=== PATIENT | female | born 1955 | race Two or more races ===

== ENCOUNTER → 2024-09-18 | Outpatient (CLI) | payer OTHER ==
--- NOTE | 2024-09-18 10:56 | CTL ---
EXAMINATION TYPE: CT Low Dose Lung DATE OF EXAM ORDERED: 09/18/2024 HISTORY: Nicotine dependence, quit smoking 10 years ago, 60 pack-year history. Lung cancer screening CT DLP: 81.[address] CTDI: 2.4 mGy Automated exposure control for dose reduction was used. SCREENING VISIT: First screening visit COMPARISON: None TECHNIQUE: Low dose computed tomography scan was performed through the chest at 1 mm thick sections a nd reconstructed images in multiple planes at 1 mm and [address] DIAGNOSTIC QUALITY: Limited, but interpretable FINDINGS: Nodules: No clinically significant pulmonary nodules. LUNGS: COPD: Severity: Mild Fibrosis: Severity: None Lymph nodes: None Other findings: Biapical pleural-parenchymal scarring. RIGHT PLEURAL SPACE: Effusion: None Calcification: None Thickening: None Pneumothorax: None LEFT PLEURAL SPACE: Effusion: None Calcification: None Thickening: None Pneumothorax: None HEART: Heart Size: Moderately Enlarged Coronary Calcification: Moderate Pericardial Effusion: None OTHER FINDINGS: Upper abdomen: None Bony thorax: Postsurgical changes from anterior cervical fusion and posterior thoracolumbar fusion. I ncreased thoracic kyphosis. 1.8 cm calcification anterior to the right coracoid process. Supraclavicular region: None Other: None IMPRESSION: 1. No clinically significant pulmonary nodules. 2. Mild COPD changes. 3. Cardiomegaly. CT LUNG RAD AND CT CHEST RECOMMENDATION: Lung-Rad 1 Negative: Continue annual screening with LDCT in 12 months. S Modifier (other clinically significant findings): None [facility], , 09/18/2024 10:54 AM
--- NOTE | 2024-09-18 13:08 | BD ---
EXAMINATION TYPE: Axial Bone Density DATE OF EXAM: 09/18/2024 CLINICAL HISTORY: 68 years old Female. ICD-10 CODE: Z299 ENCOUNTER FOR PROPHYLACTIC MEASURES UNSPECI FIED Height: 69 Weight: 224 FRAX RISK QUESTIONS: Alcohol (3 or more units per day): no Family History (Parent hip fracture): no Glucocorticoids (More than 3mos): no (Ex: prednisone, prednisolone, methylprednisolone, dexamethasone, and hydrocortisone). History of Fracture in Adulthood: no Secondary Osteoporosis: 1. Type 1 Diabetes: no 2. Hyperthyroidism: no 3. Menopause before 45: no 4. Malnutrition: no 5. Chronic liver disease: no Rheumatoid Arthritis: no Current Tobacco Use: no RISK FACTORS HISTORY OF: Surgery to Spine/Hip(right/left)/Wrist (right/left): lumbar spine surgery EXAM MEASUREMENTS: Bone mineral densitometry was performed using the [employer] System. Bone mineral density about the R hip (g/cm2): 0.692 Bone mineral density about the L hip (g/cm2): 0.753 T Score values are as follows: -----R Neck: -1.9 -----L Neck: -2.2 -----R Total: -2.5 -----L Total: -2.0 Z Score values are as follows: -----R Neck: -0.9 -----L Neck: -1.3 -----R Total: -1.8 -----L Total: -1.4 Bone mineral density : baseline Bone mineral density about the L Wrist (g/cm2): 0.373 T Score values are as follows: -----Dist. R+U: -5.3 -----Prox. R+U: -4.3 -----Radius total: -5.0 Z Score values are as follows: -----Dist. R+U: -3.4 -----Prox. R+U: -2.4 -----Radius total: -3.1 Bone mineral density : baseline FRAX%s: The graph provided illustrates a 12.7 % chance for a major osteoporotic fx and a 2.8% chance for the hips probability for fx in 10 years time. IMPRESSION: Osteoporosis (T Score less than -2.5). There is increased fracture risk and therapy is usually indicated based on age. Re-Screen 1-2 years. NOTE: T-SCORE=SD OF THE YOUNG ADULT MEAN. [facility], , 09/18/2024 1:05 PM
== END | disposition home or self-care (01) ==
LOC: RADCTMAIN 10:16
PROVIDERS: ATTEND Internal Medicine Hospice and Palliative Medicine
DX: Z12.2 Encounter for screening for malignant neoplasm of respiratory organs (principal); J44.9 Chronic obstructive pulmonary disease, unspecified; Z87.891 Personal history of nicotine dependence; I51.7 Cardiomegaly; M81.8 Other osteoporosis without current pathological fracture
CPT/HCPCS: 71271; 77080

== ENCOUNTER 2024-11-12 11:10 | Emergency (ER) | payer OTHER ==
--- NOTE | 2024-11-12 11:32 | ED ---
Fall HPI - General Chief Complaint: Fall Stated Complaint: Fall Time Seen by Provider: 11/12/24 11:12 Source: patient, EMS, RN notes reviewed Mode of arrival: EMS Limitations: no limitations - History of Present Illness Initial Comments: This is a 68-year-old female who presents to the emergency department for a fall. Patient states that she tripped over her oxygen tubing and fell, hitting the front of her head. Also states that she has pain to both of her hands, both of her knees, and left shoulder. Denies any loss of consciousness. Not taking any blood thinners. MD Complaint: fall - Related Data Allergies Allergy/AdvReac Type Severity Reaction Status Date / Time Iodinated Contrast Media AdvReac Rash/Hives Verified 11/12/24 11:17 Review of Systems ROS Statement: Those systems with pertinent positive or pertinent negative responses have been documented in the HPI. ROS Other: All systems not noted in ROS Statement are negative. Past Medical History Past Medical History: COPD, CVA/TIA History of Any Multi-Drug Resistant Organisms: None Reported Past Surgical History: Back Surgery, Joint Replacement Past Psychological History: No Psychological Hx Reported Smoking Status: Never smoker Past Alcohol Use History: None Reported Past Drug Use History: None Reported General Exam Limitations: no limitations General appearance: alert, in no apparent distress Head exam: Present: atraumatic, normocephalic, normal inspection Eye exam: Present: normal appearance, PERRL, EOMI. Absent: scleral icterus, conjunctival injection, periorbital swelling Respiratory exam: Present: normal lung sounds bilaterally. Absent: respiratory distress, wheezes, rales, rhonchi, stridor Cardiovascular Exam: Present: regular rate, normal rhythm, normal heart sounds. Absent: systolic murmur, diastolic murmur, rubs, gallop, clicks Extremities exam: Present: other (Mild ecchymosis to the palmar aspect of the right hand. Full range of motion. 2+ radial pulses. Tenderness to the bilateral patella. No ecchymosis.) Neurological exam: Present: alert, oriented X3, CN II-XII intact Psychiatric exam: Present: normal affect, normal mood Course Vital Signs 11/12/24 11/12/24 11/12/24 11:17 13:05 14:31 Temperature 98.9 F 98.1 F Pulse Rate 92 100 102 H Respiratory 18 16 18 Rate Blood Pressure 98/54 106/64 112/64 O2 Sat by Pulse 94 L 92 L 94 L Oximetry Medical Decision Making - Medical Decision Making This is a 68-year-old female who presents to the emergency department for a fall. Was pt. sent in by a medical professional or institution? @ -No Did you speak to anyone other than the patient for history? @ -No Did you review nursing and triage notes? @ -Yes, and I agree, it is accurate with regards to the patient's symptoms. Were old charts reviewed? @ -No Differential Diagnosis? @ -Differential Diagnosis Head Injury: Contusion, hematoma, intracranial hemorrhage, skull fracture, whiplash, concussion, this is not meant to be an all-inclusive list. EKG interpreted by me (3pts min.)? @ -EKG interpreted by me demonstrating the following: Sinus rhythm. Ventricular rate 94 bpm, OH interval 199 ms, QRS duration 89 ms, QTc 410 ms. X-rays interpreted by me (1pt min.)? @ -X-ray of the bilateral knees, bilateral hands, and left shoulder obtained. My interpretation of all images identifies no acute fractures. CT interpreted by me (1pt min.)? @ -Computed tomography scan of the brain and c-spine obtained. My interpretation identifies no evidence of an acute intracranial hemorrhage, skull fracture, or cervical spine fracture. U/S interpreted by me (1pt. min.)? @ -Not obtained What testing was considered but not performed? (CT, X-rays, U/S, labs)? Why? @ -None What meds were considered but not given? Why? @ -None Did you discuss the management of the patient with other professionals? @ -No Did you reconcile home meds? @ -No Was smoking cessation discussed for >3mins.? @ -No Was critical care preformed (if so, how long)? @ -No Were there social determinants of health that impacted care today? How? (Homelessness, low income, unemployed, alcoholism, drug addiction, transportation, low edu. Level, literacy, decrease access to med. care, custodial, rehab)? @ -No Was there de-escalation of care discussed even if they declined? (Discuss DNR or withdrawal of care, Hospice)? @ -No What co-morbidities impacted this encounter? (DM, HTN, Smoking, COPD, CAD, Cancer, CVA, Hep., AIDS, mental health diagnosis, sleep apnea, morbid obesity)? @ -COPD Was patient admitted / discharged? @ -Discharged. CT scan of the brain and C-spine obtained revealing no acute process. X-rays of the bilateral knees, bilateral hands, and left shoulder obtained revealing no acute injuries. Symptoms managed in the emergency department. Patient discharged home in stable condition. Case discussed with ED attending Dr. Cavanaugh. Return precautions reviewed in depth, the patient is instructed to return to the emergency department with any new, worsening, or concerning symptoms. Patient verbalized understanding. Undiagnosed new problem with uncertain prognosis? @ -None Drug Therapy requiring intensive monitoring for toxicity (Heparin, Nitro, Insulin, Cardizem)? @ -None Were any procedures done? @ -None Diagnosis/symptom? @ -Fall, head injury Acute, or Chronic, or Acute on Chronic? @ -Acute Uncomplicated (without systemic symptoms) or Complicated (systemic symptoms)? @ -Uncomplicated Side effects of treatment? @ -None Exacerbation, Progression, or Severe Exacerbation] @ -Not applicable Poses a threat to life or bodily function? @ -No - Radiology Data Radiology results: report reviewed, image reviewed Disposition Clinical Impression: Fall, Head injury Disposition: HOME SELF-CARE Instructions (If sedation given, give patient instructions): Fall Prevention for Older Adults (ED) Additional Instructions: Return to the emergency department with any new, worsening, or concerning symptoms. Follow up with your primary care provider in 1-2 days. Is patient prescribed a controlled substance at d/c from ED?: No Referrals: Tony Gomez MD [Primary Care Provider] - 1-2 days Time of Disposition: 13:13
--- NOTE | 2024-11-12 12:30 | CT ---
EXAMINATION TYPE: CT brain cspine wo con CT DLP: 1517.7 mGycm, Automated exposure control for dose reduction was used. DATE OF EXAM: 11/12/2024 12:22 PM COMPARISON: None.. CLINICAL INDICATION:Female, 68 years old with history of Fall; Neck pain post fall TECHNIQUE: Brain: Multiple axial CT images of the brain were obtained without IV contrast. Cspine: Axial CT images from the skull base to the inferior aspect of T2 we obtained without intraven ous contrast. Coronal and sagittal reformatted images were also reviewed. FINDINGS: Motion degraded examination. Brain: Extra-axial spaces: No abnormal extra-axial fluid collections. Ventricular system: Within normal limits Cerebral parenchyma: Cerebral atrophy. No acute intraparenchymal hemorrhage or mass effect. The hanks -white junction is well differentiated. Scattered hypoattenuating areas are seen within the periventr icular white matter. Cerebellum: Unremarkable. Mass effect: No evidence of midline shift. Intracranial vasculature: unremarkable Soft tissues: Normal. Calvarium/osseous structures: No depressed skull fracture. Paranasal sinuses and mastoid air cells: Clear. Visualized orbits: Bilateral aphakia Cervical spine: Fracture: None. Osseous structures: Multilevel degenerative disc disease changes with endplate spurring and disc oste ophyte complex's. Changes from ACDF C5-C7. Hardware appears intact. Vertebral alignment: Within normal limits. Spinal canal/Neural Foramina: No evidence of significant spinal canal narrowing. Facet joint uncovert ebral joint arthropathy scattered throughout the cervical spine with varying degrees of neural forami nal stenosis. Neck soft tissues: Prevertebral soft tissues are within normal limits. Other: The airway is patent. Biapical pleural-parenchymal scarring. Retropharyngeal course of the kalin ateral internal and common carotid arteries. Calcification of bilateral carotid bifurcations. Hyperde nse material within the right shoulder bursa. Left shoulder arthropathy. IMPRESSION: Motion degraded examination. 1. No acute intracranial process. 2. Nonspecific white matter changes, likely secondary to chronic small vessel ischemic disease. 3. No evidence of cervical spine fracture. 4. Postsurgical changes from ACDF C5-C7. Hardware appears intact. Multilevel facet joint arthropathy . [facility], , 11/12/2024 12:28 PM
[2024-11-12] MEDS: MORPHINE SULFATE 4 MG/ML SYRINGE IVP STA (13:00)
--- NOTE | 2024-11-12 13:03 | XR ---
EXAMINATION TYPE: XR shoulder complete LT DATE OF EXAM: 11/12/2024 12:58 PM INDICATION: Patient age:Female; 68 years old; Reason for study: Fall; COMPARISON: None TECHNIQUE: The left shoulder was examined in AP, internally rotated and scapular Y projections. . FINDINGS: Diffuse bone demineralization. No evidence of acute osseous pathology, joint dislocation, or soft tis abbie swelling. AC joint arthropathy. High riding left humeral head. Partial visualization of thoracic fusion hardware. Pulmonary vascular congestion. IMPRESSION: 1. No acute osseous pathology. 2. Findings suggestive of chronic left rotator cuff tear. 3. Pulmonary vascular congestion. [facility], , 11/12/2024 1:01 PM
--- NOTE | 2024-11-12 13:05 | XR ---
EXAMINATION TYPE: XR knee complete bilateral DATE OF EXAM: 11/12/2024 12:58 PM INDICATION: Patient age:Female; 68 years old; Reason for study: Fall; [facility]. COMPARISON: None. TECHNIQUE: Both knees were examined in Frontal, lateral and oblique projections. FINDINGS: No evidence of any acute osseous pathology, soft tissue swelling, or joint effusion is no keiko. 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 Hardware appears intact with approp riate alignment. Vascular sclerosis. IMPRESSION: 1. No acute osseous pathology. 2. Postsurgical changes from total bilateral knee arthroplasty. Hardware appears intact with appropri ate alignment. [facility], , 11/12/2024 1:02 PM
--- NOTE | 2024-11-12 13:07 | XR ---
EXAMINATION TYPE: XR hand complete bilateral DATE OF EXAM: 11/12/2024 12:58 PM INDICATION: Patient age:Female; 68 years old; Reason for study: Fall; [facility]. Pain COMPARISON: None TECHNIQUE: Frontal, lateral and oblique views of both hands were obtained. FINDINGS: Diffuse bone demineralization. No acute fracture or dislocation. Osteoarthritic changes of both hands involving the DIP, PIP, first CMC joints. No osseous erosions. No soft tissue swelling. IMPRESSION: 1. No acute osseous pathology. 2. Osteoarthritic changes of both hands. [facility], , 11/12/2024 1:05 PM
[2024-11-12] MEDS: HYDROmorphone 1 MG/ML 1 ML SYRINGE IVP STA (13:33)
[2024-11-12 14:33] VITALS: BP 112/64; PULSE 102; RESP 18; TEMP 98.1
== END 2024-11-12 14:33 | disposition home or self-care (01) ==
LOC: EC 11:10
DX: S60.221A Contusion of right hand, initial encounter (principal); S09.90XA Unspecified injury of head, initial encounter; Z86.73 Personal history of transient ischemic attack (TIA), and cerebral infarction without residual deficits; Z91.041 Radiographic dye allergy status; W01.0XXA Fall on same level from slipping, tripping and stumbling without subsequent striking against object, initial encounter
CPT/HCPCS: 73562; 73130; 73030; 72125; 70450; 99285; 96374; 96375; J2270; J1171

== ENCOUNTER 2024-11-13 14:10 | Inpatient (IN) | payer OTHER ==
--- NOTE | 2024-11-13 14:26 | ED ---
Altered Mental Status HPI - General Chief Complaint: Altered Mental Status Stated Complaint: Poss UTI Time Seen by Provider: 11/13/24 14:12 Source: EMS, RN notes reviewed, old records reviewed Mode of arrival: EMS Limitations: altered mental status - History of Present Illness Initial Comments: This is a 68-year-old female fall altered mental status. Patient is complaining of leg pain back pain and is arousable to external stimulus, patient is compla ining of mainly leg pain both of her lower extremities are hurting, she has recent hospital admission and is significantly somnolent unable to provide accurate history. Patient did have a fever today MD Complaint: altered mental status, confusion, decreased responsiveness, weakness -: unknown Severity: moderate Consistency of Symptoms: waxing and waning Context: history of similar presentation, recent fever Associated Symptoms: denies other symptoms Treatments Prior to Arrival: oxygen - Related Data Home Medications Medication Instructions Recorded Confirmed Albuterol Sulfate [Albuterol 2 puff INHALATION RT-Q6H PRN 11/13/24 11/17/24 Sulfate Hfa] Alendronate Sodium [Fosamax] 70 mg PO SOLORZANO 11/13/24 11/17/24 Ammonium Lactate Lotion 1 applic TOPICAL BID 11/13/24 11/17/24 [Lac-Hydrin 12% Lotion] Ascorbic Acid [Vitamin C] 250 mg PO SUWEFR 11/13/24 11/17/24 Aspirin EC [Ecotrin Low Dose] 81 mg PO DAILY 11/13/24 11/17/24 Budesonide-Formot 160-4.5 Mcg 2 puff INHALATION RT-BID 11/13/24 11/17/24 [Symbicort 160-4.5 Mcg Inhaler] Calcium Carbonate [Tums] 500 mg PO BID PRN 11/13/24 11/17/24 Calcium/D3/Mag Ox/M[employer]/Silvano/Zn 1 tab PO BID 11/13/24 11/17/24 [Caltrate 871-B7-Gsuzkuox Tab] Carboxymethylcellulose Sodium 1 drop BOTH EYES BID PRN 11/13/24 11/17/24 [Refresh Tears] Carboxymethylcellulose Sodium 1 drop BOTH EYES DAILY 11/13/24 11/17/24 [Refresh Tears] Cranberry Fruit Extract [Cranberry] 200 mg PO HS 11/13/24 11/17/24 Erythromycin Ophth Oint [Romycin 1 applic BOTH EYES HS 11/13/24 11/17/24 Ophth Oint] Ferrous Gluconate 324 mg PO SUWEFR 11/13/24 11/17/24 Folic Acid 2 mg PO DAILY 11/13/24 11/17/24 Furosemide [Lasix] 20 mg PO DAILY 11/13/24 11/17/24 Isosorbide Mononitrate ER [Imdur] 30 mg PO DAILY 11/13/24 11/17/24 Menthol [Biofreeze] 1 applic TOPICAL TID PRN 11/13/24 11/17/24 Menthol-Zinc Oxide Oint 1 applic TOPICAL QID PRN 11/13/24 11/17/24 [Calmoseptine Ointment] Metoprolol Tartrate [Lopressor] 12.5 mg PO BID 11/13/24 11/17/24 Morphine Sulfate Ir [MSIR] 15 mg PO Q8H 11/13/24 11/17/24 Naloxone HCl [Narcan] 4 mg NASAL DIRECTED PRN 11/13/24 11/17/24 Nystatin 100,000Unit/gm Cream 1 applic TOPICAL DIRECTED 11/13/24 11/17/24 [Mycostatin Cream] Omeprazole [PriLOSEC] 20 mg PO DAILY 11/13/24 11/17/24 Potassium Chloride [Klor-Con M20] 20 meq PO DAILY 11/13/24 11/17/24 Pravastatin Sodium [Pravachol] 40 mg PO DAILY 11/13/24 11/17/24 Pregabalin [Lyrica] 200 mg PO BID 11/13/24 11/17/24 Sennosides/Docusate Sodium 1 tab PO HS 11/13/24 11/17/24 [Senna-S 8.6-50 mg Tablet] Urea 40% Cream 1 gram TOPICAL HS 11/13/24 11/17/24 metHOTREXate sodium [Methotrexate] 20 mg PO SOLORZANO 11/13/24 11/17/24 Previous Rx's Medication Instructions Recorded cefuroxime axetiL [Ceftin] 500 mg PO BID #14 tab 11/16/24 Allergies Allergy/AdvReac Type Severity Reaction Status Date / Time Iodinated Contrast Media Allergy Rash/Hives Verified 11/17/24 14:53 NSAIDS (Non-Steroidal Allergy Unknown Verified 11/17/24 14:53 Anti-Inflamma fentanyl AdvReac Hallucinati Verified 11/17/24 14:53 ons Review of Systems ROS Statement: Those systems with pertinent positive or pertinent negative responses have been documented in the HPI. ROS Other: All systems not noted in ROS Statement are negative. Past Medical History Past Medical History: Heart Failure, COPD, CVA/TIA, Hypertension History of Any Multi-Drug Resistant Organisms: None Reported Past Surgical History: Back Surgery, Joint Replacement Past Psychological History: No Psychological Hx Reported Smoking Status: Never smoker Past Alcohol Use History: None Reported Past Drug Use History: None Reported - Past Family History Father Family Medical History: Myocardial Infarction (MT) Mother Family Medical History: Cancer General Exam Limitations: altered mental status General appearance: alert, in no apparent distress Head exam: Present: atraumatic, normocephalic, normal inspection Eye exam: Present: normal appearance, PERRL, EOMI. Absent: scleral icterus, conjunctival injection, periorbital swelling ENT exam: Present: normal exam, mucous membranes moist Neck exam: Present: normal inspection. Absent: tenderness, meningismus, lymphadenopathy Respiratory exam: Present: normal lung sounds bilaterally. Absent: respiratory distress, wheezes, rales, rhonchi, stridor Cardiovascular Exam: Present: regular rate, normal rhythm, normal heart sounds. Absent: systolic murmur, diastolic murmur, rubs, gallop, clicks GI/Abdominal exam: Present: soft, normal bowel sounds. Absent: distended, tenderness, guarding, rebound, rigid Extremities exam: Present: normal inspection, full ROM, normal capillary refill. Absent: tenderness, pedal edema, joint swelling, calf tenderness Back exam: Present: normal inspection Neurological exam: Present: alert, oriented X3, CN II-XII intact Psychiatric exam: Present: normal affect, normal mood Skin exam: Present: warm, dry, intact, normal color. Absent: rash Course Vital Signs 11/13/24 11/13/24 11/13/24 14:14 16:00 16:25 Temperature 98.2 F Pulse Rate 94 94 Respiratory 18 18 Rate Blood Pressure 116/67 O2 Sat by Pulse 95 Oximetry 11/13/24 11/13/24 16:34 21:35 Temperature 98.2 F Pulse Rate 96 100 Respiratory 18 Rate Blood Pressure 155/85 O2 Sat by Pulse 96 Oximetry - Reevaluation(s) Reevaluation #1: 11/13/24 14:51 Medical record is reviewed Reevaluation #2: 11/13/24 17:11 Patient symptoms unchanged Reevaluation #3: 11/13/24 17:11 Informed of results and questions answered Reevaluation #4: Was pt. sent in by a medical professional or institution (NAYELY Carvajal, PHARMACY TECH, urgent care, hospital, or residential...) When possible be specific @ -no Did you speak to anyone other than the patient for history (EMS, parent, family, police, friend...)? What history was obtained from this source @ -no Did you review nursing and triage notes (agree or disagree)? Why? @ -agree Are old charts reviewed (outside hosp., previous admission, EMS record, old EKG, old radiological studies, urgent care reports/EKG's, residential records)? Report findings @ -yes Differential Diagnosis (chest pain, altered mental status, abdominal pain women, abdominal pain men, vaginal bleeding, weakness, fever, dyspnea, syncope, headache, dizziness, GI bleed, back pain, seizure, CVA, palpatations, mental health, musculoskeletal)? @ -prior EKG interpreted by me (3pts min.). @ -yes X-rays interpreted by me (1pt min.). @ -yes negative for acute disease CT interpreted by me (1pt min.). @ -Yes negative for acute disease U/S interpreted by me (1pt. min.). @ - yes negative for acute disease What testing was considered but not performed or refused? (CT, X-rays, U/S, labs)? Why? @ -none What meds were considered but not given or refused? Why? @ -none Did you discuss the management of the patient with other professionals (professionals i.e. NAYELY Carvajal, PHARMACY TECH, lab, RT, psych nurse, social worker delinquency prevention, community organization aide, teacher, district resource officer, director of casework department)? Give summary @ -no Was smoking cessation discussed for >3mins.? @ -no Was critical care preformed (if so, how long)? @ -no Were there social determinants of health that impacted care today? How? (Homelessness, low income, unemployed, alcoholism, drug addiction, transportation, low edu. Level, literacy, decrease access to med. care, [place] [facility], rehab)? @ -none Was there de-escalation of care discussed even if they declined (Discuss DNR or withdrawal of care, Hospice)? DNR status @ -no What co-morbidities impacted this encounter? (DM, HTN, Smoking, COPD, CAD, Cancer, CVA, ARF, Chemo, Hep., AIDS, mental health diagnosis, sleep apnea, morbid obesity)? @ -none Was patient admitted / discharged? Hospital course, mention meds given and route, prescriptions, significant lab abnormalities, going to OR and other pertinent info. @ - 68 female to the ER will be admitted for mental status, weakness not feeling well, patient is found to have improvement here in the ER but will be admitted for fever cellulitis and altered mental status Undiagnosed new problem with uncertain prognosis? @ -no Drug Therapy requiring intensive monitoring for toxicity (Heparin, Nitro, Insulin, Cardizem)? @ -no Were any procedures done? @ -no Diagnosis/symptom? @ -Fever AMS, cellulitis Acute, or Chronic, or Acute on Chronic? @ -Acute Uncomplicated (without systemic symptoms) or Complicated (systemic symptoms)? @ -Complicated Side effects of treatment? @ -no Exacerbation, Progression, or Severe Exacerbation? @ -exacerbation Poses a threat to life or bodily function? How? (Chest pain, USA, MT, pneumonia, PE, COPD, DKA, ARF, appy, cholecystitis, CVA, Diverticulitis, Homicidal, Suicidal, threat to staff... and all critical care pts) @ -yes extremes of age Reevaluation #5: Differential Altered Mental Status: Hypoglycemia, DKA, hypercapnia, ETOH, overdose, CO poisoning, trauma, myxedema coma, HTN encephalopathy, infection, encephalitis, psychosis, intercranial hemorrhage, hepatic encephalopathy, meningitis, CVA, this is not meant to be an all-inclusive list Differential Fever: Pneumonia, viral URI, endocarditis, myocarditis, pericarditis, otitis, sinusitis, peritonsillar Abscess, retropharyngeal Abscess, epiglottitis, peritonitis, appendicitis, Belinda cystitis, diverticulitis, hepatitis, colitis, UTI, PID, TOA, pyelonephritis, prostatitis, epididymitis, meningitis, encephalitis, pulmonary embolism, CVA, thyroid storm, pancreatitis, adrenal crisis, cavernous sinus thrombosis, this is not meant to be an all-inclusive list. - Consultations Consultation #1: Spoke with jodi who agrees to admit this patient Medical Decision Making - Medical Decision Making 68 female to the ER will be admitted for mental status, weakness not feeling well, patient is found to have improvement here in the ER but will be admitted for fever cellulitis and altered mental status - Lab Data Result diagrams: 11/14/24 03:52 11/15/24 02:23 Lab Results 11/13/24 11/13/24 11/13/24 Range/Units 14:26 14:26 14:26 WBC 7.1 (3.8-10.6) k/uL RBC 4.70 (3.80-5.40) m/uL Hgb 14.0 (11.4-16.0) gm/dL Hct 44.1 (34.0-46.0) % MCV 93.9 (80.0-100.0) fL MCH 29.8 (25.0-35.0) pg MCHC 31.7 (31.0-37.0) g/dL RDW 16.5 H (11.5-15.5) % Plt Count 147 L (150-450) k/uL MPV 8.5 Neutrophils % 70 % Lymphocytes % 18 % Monocytes % 8 % Eosinophils % 2 % Basophils % 0 % Neutrophils # 5.0 (1.3-7.7) k/uL Lymphocytes # 1.3 (1.0-4.8) k/uL Monocytes # 0.6 (0-1.0) k/uL Eosinophils # 0.1 (0-0.7) k/uL Basophils # 0.0 (0-0.2) k/uL Anisocytosis Slight PT 11.4 (10.0-12.5) sec INR 1.0 (<1.2) APTT 28.0 (22.0-30.0) sec Sodium 136 L (137-145) mmol/L Potassium 4.1 (3.5-5.1) mmol/L Chloride 96 L (98-107) mmol/L Carbon Dioxide 37 H (22-30) mmol/L Anion Gap 3 mmol/L BUN 15 (7-17) mg/dL Creatinine 0.67 (0.52-1.04) mg/dL Est GFR (CKD-EPI)AfAm >90 (>60 ml/min/1.73 sqM) Est GFR (CKD-EPI)NonAf 90 (>60 ml/min/1.73 sqM) Glucose 99 (74-99) mg/dL Calcium 8.5 (8.4-10.2) mg/dL Total Bilirubin 1.6 H (0.2-1.3) mg/dL AST 23 (14-36) U/L ALT 12 (4-34) U/L Alkaline Phosphatase 75 (38-126) U/L Ammonia (<30) umol/L Troponin I (0.000-0.034) ng/mL Total Protein 6.6 (6.3-8.2) g/dL Albumin 3.8 (3.5-5.0) g/dL Serum Alcohol <10 mg/dL 11/13/24 11/13/24 Range/Units 14:26 14:26 WBC (3.8-10.6) k/uL RBC (3.80-5.40) m/uL Hgb (11.4-16.0) gm/dL Hct (34.0-46.0) % MCV (80.0-100.0) fL MCH (25.0-35.0) pg MCHC (31.0-37.0) g/dL RDW (11.5-15.5) % Plt Count (150-450) k/uL MPV Neutrophils % % Lymphocytes % % Monocytes % % Eosinophils % % Basophils % % Neutrophils # (1.3-7.7) k/uL Lymphocytes # (1.0-4.8) k/uL Monocytes # (0-1.0) k/uL Eosinophils # (0-0.7) k/uL Basophils # (0-0.2) k/uL Anisocytosis PT (10.0-12.5) sec INR (<1.2) APTT (22.0-30.0) sec Sodium (137-145) mmol/L Potassium (3.5-5.1) mmol/L Chloride (98-107) mmol/L Carbon Dioxide (22-30) mmol/L Anion Gap mmol/L BUN (7-17) mg/dL Creatinine (0.52-1.04) mg/dL Est GFR (CKD-EPI)AfAm (>60 ml/min/1.73 sqM) Est GFR (CKD-EPI)NonAf (>60 ml/min/1.73 sqM) Glucose (74-99) mg/dL Calcium (8.4-10.2) mg/dL Total Bilirubin (0.2-1.3) mg/dL AST (14-36) U/L ALT (4-34) U/L Alkaline Phosphatase (38-126) U/L Ammonia <9 (<30) umol/L Troponin I <0.012 (0.000-0.034) ng/mL Total Protein (6.3-8.2) g/dL Albumin (3.5-5.0) g/dL Serum Alcohol mg/dL - EKG Data -: EKG Interpreted by Me (EKG is sinus 94 MO 201 QRS 72 QTc 401) - Radiology Data Radiology results: report reviewed (CT Brain chest x-ray negative for acute disease, ultrasound lower extremity negative for DVT), image reviewed Disposition Clinical Impression: Altered mental status, Fever, Left leg cellulitis Disposition: ADMITTED IP TO THIS HOSP Condition: Stable Is patient prescribed a controlled substance at d/c from ED?: No Time of Disposition: 17:00
[2024-11-13] MEDS ORDERED: VANCOMYCIN IV PER PHARMACY 1 EACH MISC MISCELLANE PRN ×2 (14:42→17:14)
--- NOTE | 2024-11-13 15:09 | XR ---
EXAMINATION TYPE: XR chest 1V portable DATE OF EXAM: 11/13/2024 3:04 PM COMPARISON: CT low-dose lung 09/18/2024 TECHNIQUE: XR chest 1V portable Portable AP radiograph of the chest. CLINICAL INDICATION:Female, 68 years old with history of altered mental status; FINDINGS: Lungs/Pleura: Prominent interstitial lung markings are seen scattered throughout the lungs. No eviden ce of focal consolidation, pneumothorax or pleural effusion. Pulmonary vascularity: Unremarkable. Heart/mediastinum: Cardiomediastinal silhouette is enlarged. Atherosclerotic calcifications are seen in the aorta. Musculoskeletal: No acute osseous pathology. Postsurgical of the visualized cervical thoracolumbar sp ine with fusion hardware. Calcification anterior to the right coracoid process. IMPRESSION: 1. Chronic changes without acute pulmonary process. 2. Cardiomegaly. [facility], , 11/13/2024 3:07 PM
--- NOTE | 2024-11-13 15:35 | CT ---
EXAMINATION TYPE: CT brain wo con DATE OF EXAM: 11/13/2024 3:31 PM COMPARISON: 11/12/2024. CLINICAL INDICATION: Female, 68 years old with history of Altered mental status, AMS TECHNIQUE: Brain: Axial CT images of the brain were obtained with coronal and sagittal reformats created and rev iewed. Contrast used: None. Oral contrast used: None. CT DLP: 1197.4 mGycm, Automated exposure control for dose reduction was used. FINDINGS: Brain: Extra-axial spaces: No abnormal extra-axial fluid collections. Ventricular system: Within normal limits Cerebral parenchyma: No acute intraparenchymal hemorrhage or mass effect. The hanks-white junction is well differentiated. Cerebellum: Unremarkable. Mass effect: No evidence of midline shift. Intracranial vasculature: Atherosclerotic calcifications of the intracranial vessels. Soft tissues: Normal. Calvarium/osseous structures: No depressed skull fracture. Paranasal sinuses and mastoid air cells: Mild scattered paranasal sinus disease. Visualized orbits: Orbital contents are intact. IMPRESSION: No acute intracranial process. [facility], Workstation: [facility], 11/13/2024 3:33 PM
[2024-11-13] MEDS: cefTRIAXone IN SWFI 1,000 MG/10 ML SYRINGE IVP SCH ×2 (15:59→18:56)
[2024-11-13] MEDS: SODIUM CHLORIDE 0.9% 1,000 ML IV STA (15:59)
[2024-11-13] MEDS: NALOXONE 0.4 MG/ML 1 ML VIAL IVP STA (16:00)
[2024-11-13] MEDS: VANCOMYCIN 1,500 MG in SODIUM CHLORIDE 0.9% 500 ML 500 ML IVPB STA (16:01)
[2024-11-13 16:13] LABS: Anisocytosis Slight; Basophils % (A) 0 %; Eosinophils # (A) 0.1 k/uL (0-0.7); Eosinophils % (A) 2 %; HCT 44.1 % (34.0-46.0); Lymphocytes # (A) 1.3 k/uL (1.0-4.8); Lymphocytes % (A) 18 %; MCH 29.8 pg (25.0-35.0); MCHC 31.7 g/dL (31.0-37.0); MCV 93.9 fL (80.0-100.0); Mean Platelet Volume 8.5; Monocytes # (A) 0.6 k/uL (0-1.0); Monocytes % (A) 8 %; Neutrophils % (A) 70 %; Platelet Count 147 k/uL (150-450); RDW 16.5 % (11.5-15.5); WBC 7.1 k/uL (3.8-10.6)
[2024-11-13] MEDS: IPRATROPIUM-ALBUTEROL 3 ML NEB INHALATION STA (16:23)
--- NOTE | 2024-11-13 16:25 | US ---
EXAMINATION TYPE: US venous doppler duplex LE DATE OF EXAM: 11/13/2024 3:55 PM COMPARISON: NONE CLINICAL INDICATION: Female, 68 years old patient is very challenging to image, bilat leg pain, multiple falls and bruising, soiled her pants, no h/o dvt TECHNIQUE: The lower extremity deep venous system is examined utilizing real time linear array sonog ivy with graded compression, color doppler sonography, and spectral doppler. SIDE PERFORMED: Bilateral FINDINGS: VESSELS IMAGED: Common Femoral Vein Deep Femoral Vein Greater Saphenous Vein * Femoral Vein Popliteal Vein Small Saphenous Vein * Proximal Calf Veins (* superficial vessels) Patient was not compliant and complained with any pressure given, unable to do any compression images . Color images of right femoral vein up through CFV were patent. Patient would not tolerate any imagi ng behind right knee after multiple attempts. Color images of left popiteal vein up through left CFV were patent. IMPRESSION: No ultrasound evidence for deep venous thrombosis. [facility], Workstation: [email or web address], 11/13/2024 4:23 PM
[2024-11-13 16:29] LABS: ALT 12 U/L (4-34); AST 23 U/L (14-36); African American GFR (CKD) >90 (>60 ml/min/1.73 sqM); Albumin 3.8 g/dL (3.5-5.0); Alcohol <10 mg/dL; Alkaline Phosphatase 75 U/L (38-126); Anion Gap 3 mmol/L; Blood Urea Nitrogen 15 mg/dL (7-17); Calcium 8.5 mg/dL (8.4-10.2); Carbon Dioxide 37 mmol/L (22-30); Chloride 96 mmol/L (98-107); Glucose 99 mg/dL (74-99); Non-African American GFR(CKD) 90 (>60 ml/min/1.73 sqM); Potassium 4.1 mmol/L (3.5-5.1); Prothrombin Time 11.4 sec (10.0-12.5); Sodium 136 mmol/L (137-145); Total Bilirubin 1.6 mg/dL (0.2-1.3); Total Protein 6.6 g/dL (6.3-8.2)
[2024-11-13] MEDS ORDERED: ONDANSETRON 4 MG/2 ML VIAL IVP PRN (17:09)
[2024-11-13] MEDS ORDERED: NALOXONE 0.4 MG/ML 1 ML VIAL IV PRN ×2 (17:09→17:10)
[2024-11-13] MEDS ORDERED: LORazepam 2 MG/ML INJ IV PRN (17:11)
[2024-11-13] MEDS ORDERED: ACETAMINOPHEN TAB 325 MG TAB PO PRN (17:11)
--- NOTE | 2024-11-13 17:28 | P.HPIM ---
History of Present Illness H&P Date: 11/13/24 Patient is a 68-year-old female with past medical history of chronic hypoxic respiratory failure secondary to COPD on home oxygen, history of CVA/TIA, history of hypertension, who was seen in the ER on 11/12 for a fall after she tripped over her oxygen tubing and fell, hit the front of her head. Patient had CT scan of the brain and C-spine done that did not reveal any acute process, x-r ays of the bilateral knees, hands, left shoulder showed no acute injury as well, patient was discharged home. She was brought to the ER on 11/13 with EMS, she was not able to provide accurate history, complaining of left leg pain, back pain, was arousable to external stimuli, fever. Patient's vitals were remarkable for tachycardia to 102, normal BP 112/64, afebrile, satting at 94% on 4 L, CBC showed no leukocytosis or anemia, platelet count mildly decreased 147, coagulation panel negative, chemistry profile with mild hyponatremia 136, normal creatinine and BUN, elevated total bilirubin 1.6, normal liver enzymes and alkaline phosphatase, normal ammonia, negative serum alcohol level. Urinalysis and urine drug screen sent, pending. Patient received a dose of vancomycin and is being admitted for treatment of AMS and cellulitis. Brain CT showed no acute abnormalities, bilateral venous duplex with no signs of DVT. EKG nonischemic. No acute pulmonary process on chest x-ray Patient [id number] at bedside assisting with history, patient's son called as well to obtain further history, appears that patient has been acting erratically, hyperverbal over the past several days, with worsening after the fall. They state that she behaves this way every time she gets UTI and she has history of resistant UTI, previously receiving care at [facility] but now moved closer to her family, thus, our records here are limited. They are not sure what type of bacteria she was growing in the past. CODE STATUS confirmed with the family, patient is full code. Pertinent positives and negatives as discussed in HPI, a complete review of systems was performed and all other systems are negative. Patient seen and examined at bedside in. [] Vital signs reviewed General: Ill-appearing in distress Derm: Lateral lower extremity edema and erythema, left more than right Head: atraumatic, normocephalic, symmetric Eyes: EOMI,, anicteric sclera, pupils equal round reactive to light ENT: Nose and ears atraumatic Neck: No thyromegaly, supple Mouth: no lip lesion, mucus membranes moist Cardiovascular: S1S2 reg, no murmur, no edema Lungs: clear to auscultation bilateral, no rhonchi, no rales, no wheeze, no accessory muscle use Abdominal: soft, generalized tenderness, no guarding, no appreciable org anomegaly Ext: Unable to assess, patient is definitely very strong, moves all extremities, combative Neuro: Unable to assess Psych: Combative Assessment/Plan: Altered mental status Acute toxic metabolic encephalopathy Possible UTI with history of recurrent UTIs associated with altered mentation, urinalysis pending Bilateral lower extremity swelling and edema acute on chronic, left more than right, possible nonpurulent cellulitis SIRS positive: Tachycardia, source of infection -Patient has visible rigors, reported fever at home -No leukocytosis -No new medications reported by family -Added lactic acid level, blood cultures, requested straight cath for urinalysis, although patient already received vancomycin -Given history of reported resistant UTI, will continue with vancomycin for now, ordered MRSA swab, pending, started ceftriaxone, -Follow-up blood and urine cultures -IV fluids LR 75 cc/h for 24 hours Elevated bilirubin generalized abdominal pain -Repeat CMP in the morning -Abdominal ultrasound ordered due to generalized abdominal tenderness on exam and elevated bilirubin Mechanical fall 12/16 Generalized body pain -[place] as needed [Chronic:] chronic hypoxic respiratory failure secondary to COPD on home oxygen, history of CVA/TIA, history of hypertension -Unable to reconcile home medications, patient is very altered The patient is admitted with an anticipated [greater] than 2 midnight stay as [inpatient/observation] status for evaluation of AMS. CODE STATUS: Full DVT prophylaxis: Lovenox Anticipated discharge date: 2-[address] A total of 40 minutes was spent on the care of this complex patient more than 50% of the time was spent in counseling and care coordination. Past Medical History Past Medical History: Heart Failure, COPD, CVA/TIA, Hypertension History of Any Multi-Drug Resistant Organisms: None Reported Past Surgical History: Back Surgery, Joint Replacement Past Psychological History: No Psychological Hx Reported Smoking Status: Never smoker Past Alcohol Use History: None Reported Past Drug Use History: None Reported Medications and Allergies Home Medications Medication Instructions Recorded Confirmed Type Albuterol Sulfate [Albuterol 2 puff PO RT-Q6H PRN 11/13/24 11/13/24 History Sulfate Hfa] Alendronate Sodium [Fosamax] 70 mg PO SOLORZANO 11/13/24 11/13/24 History Ammonium Lactate Lotion 1 applic TOPICAL BID 11/13/24 11/13/24 History [Lac-Hydrin 12% Lotion] Ascorbic Acid [Vitamin C] 250 mg PO SUWEFR 11/13/24 11/13/24 History Aspirin EC [Ecotrin Low Dose] 81 mg PO DAILY 11/13/24 11/13/24 History Budesonide-Formot 160-4.5 Mcg 2 puff INHALATION RT-BID 11/13/24 11/13/24 History [Symbicort 160-4.5 Mcg Inhaler] Calcium Carbonate [Tums] 500 mg PO BID PRN 11/13/24 11/13/24 History Calcium/D3/Mag Ox/Production Sound Mixer/Silvano/Zn 1 tab PO BID 11/13/24 11/13/24 History [Caltrate [id number] Tab] Carboxymethylcellulose Sodium 1 drop BOTH EYES BID PRN 11/13/24 11/13/24 History [Refresh Tears] Carboxymethylcellulose Sodium 1 drop BOTH EYES DAILY 11/13/24 11/13/24 History [Refresh Tears] Cranberry Fruit Extract [Cranberry] 200 mg PO HS 11/13/24 11/13/24 History Erythromycin Ophth Oint [Romycin 1 applic BOTH EYES HS 11/13/24 11/13/24 History Ophth Oint] Ferrous Gluconate 324 mg PO SUWEFR 11/13/24 11/13/24 History Folic Acid 2 mg PO DAILY 11/13/24 11/13/24 History Furosemide [Lasix] 20 mg PO DAILY 11/13/24 11/13/24 History Isosorbide Mononitrate ER [Imdur] 30 mg PO DAILY 11/13/24 11/13/24 History Menthol [Biofreeze] 1 applic TOPICAL TID PRN 11/13/24 11/13/24 History Menthol-Zinc Oxide Oint 1 applic TOPICAL QID PRN 11/13/24 11/13/24 History [Calmoseptine Ointment] Metoprolol Tartrate [Lopressor] 12.5 mg PO BID 11/13/24 11/13/24 History Morphine Sulfate Ir [MSIR] 15 mg PO Q8H 11/13/24 11/13/24 History Naloxone HCl [Narcan] 4 mg NASAL DIRECTED PRN 11/13/24 11/13/24 History Nystatin 100,000Unit/gm Cream 1 applic TOPICAL DIRECTED 11/13/24 11/13/24 History [Mycostatin Cream] Omeprazole [PriLOSEC] 20 mg PO DAILY 11/13/24 11/13/24 History Potassium Chloride [Klor-Con M20] 20 meq PO DAILY 11/13/24 11/13/24 History Pravastatin Sodium [Pravachol] 40 mg PO DAILY 11/13/24 11/13/24 History Pregabalin [Lyrica] 200 mg PO BID 11/13/24 11/13/24 History Sennosides/Docusate Sodium 1 tab PO HS 11/13/24 11/13/24 History [Senna-S 8.6-50 mg Tablet] Urea 40% Cream 1 gram TOPICAL HS 11/13/24 11/13/24 History metHOTREXate sodium [Methotrexate] 20 mg PO SOLORZANO 11/13/24 11/13/24 History Allergies Allergy/AdvReac Type Severity Reaction Status Date / Time Iodinated Contrast Media Allergy Rash/Hives Verified 11/13/24 16:38 NSAIDS (Non-Steroidal Allergy Unknown Verified 11/13/24 16:38 Anti-Inflamma fentanyl AdvReac Hallucinati Verified 11/13/24 16:38 ons Physical Exam Vitals: Vital Signs Temp Pulse Resp BP Pulse Ox 11/13/24 16:34 96 11/13/24 16:25 94 11/13/24 16:00 18 11/13/24 14:14 98.2 F 94 18 116/67 95 Intake and Output 11/13/24 11/13/24 11/13/24 06:59 14:59 22:59 Other: Weight 99.79 kg Results CBC & Chem 7: 11/13/24 14:26 11/13/24 14:26 Labs: Abnormal Lab Results - Last 24 Hours (Table) 11/13/24 11/13/24 Range/Units 14:26 14:26 RDW 16.5 H (11.5-15.5) % Plt Count 147 L (150-450) k/uL Sodium 136 L (137-145) mmol/L Chloride 96 L (98-107) mmol/L Carbon Dioxide 37 H (22-30) mmol/L Total Bilirubin 1.6 H (0.2-1.3) mg/dL
[2024-11-13 18:57] LABS: Amphetamine Screen,Urine Not Detected (NotDetected); Barbiturate Screen,Urine Not Detected (NotDetected); Benzodiazepines Screen,Urine Not Detected (NotDetected); Cocaine Screen,Urine Not Detected (NotDetected); Methadone Screen, Urine Not Detected (NotDetected); Opiate Screen,Urine Detected (NotDetected); Oxycodone Screen, Urine Not Detected (NotDetected); Phencyclidine Screen,Urine Not Detected (NotDetected); Tricyclic Antidepressant,Urine Not Detected (NotDetected); Urn Cannabinoid Scrn Not Detected (NotDetected)
[2024-11-13 19:02] LABS: Appearance,Urine Clear (Clear); Bacteria,Urine Occasional /hpf; Bilirubin,Urine Negative (Negative); Blood,Urine Trace (Negative); Color,Urine Yellow; Glucose,Urine (UA) Negative (Negative); Hyaline Casts,Urine 1 /lpf (0-2); Ketones,Urine Trace (Negative); Leukocyte Esterase,Urine Negative (Negative); Mucus,Urine Rare /hpf; Nitrite,Urine Positive (Negative); PH, Urine 5.5 (5.0-8.0); Protein,Urine Negative (Negative); RBC,Urine 3 /hpf (0-5); Specific Gravity,Urine 1.017 (1.001-1.035); Squamous Epithelial Cell,Urine 1 /hpf (0-4); Urobilinogen,Urine <2.0 mg/dL (<2.0); WBC,Urine 5 /hpf (0-5)
--- NOTE | 2024-11-13 19:25 | US ---
EXAMINATION TYPE: US abdomen complete DATE OF EXAM: 11/13/2024 COMPARISON: NONE CLINICAL INDICATION: Female, 68 years old with history of Abdominal pain, elevated LFTs; Limited due to patient uncooperative and in restraints. Unable to complete the left side of the abdomen due to pa tient ending exam early. Limited mobility, unwilling to hold breath for imaging. TECHNIQUE: Grayscale and color Doppler imaging of the abdomen was performed. FINDINGS: EXAM MEASUREMENTS: Liver Length: 16.0 cm Gallbladder Wall: Surgically absent CBD: Obscured by gas Spleen: Patient ended exam early unable to image Right Kidney: 8.5 x 5.1 x 6.1 cm. Left Kidney: Patient ended exam early unable to image SURFACER NOTES: Limited mobility, unwilling to hold breath for imaging. Patient uncooperative and in restraints. Overlying bowel gas Pancreas: Echogenic appearance, unable to visualize body/tail Liver: Intercostal views used. Visualized portions appear wnl Gallbladder: Surgically absent Evidence for sonographic Chapman's sign: no CBD: Obscured by overlying bowel gas Spleen: Not imaged Right Kidney: There is a 2.0 x 1.5 x 1.0cm anechoic area near the renal pelvis, which could reflect a renal sinus cyst. Left Kidney: Not imaged Upper IVC: wnl Abd Aorta: Mid AO is ectatic ( 2.6cm ). Prox obscured by bowel gas. IMPRESSION: 1. Severely limited study due to technical factors described above. Consider further evaluation with dedicated CT abdomen/pelvis utilizing IV contrast if clinically warranted. 2. Unremarkable sonographic appearance of the liver as visualized. [facility], Workstation: [id number], 11/13/2024 7:23 PM
[2024-11-13] MEDS: SODIUM CHLORIDE 0.9% 1,000 ML IV SCH (22:14)
[2024-11-14] MEDS: HYDROmorphone 1 MG/ML 1 ML SYRINGE IVP PRN (00:01)
[2024-11-14] MEDS ORDERED: ZINC OXIDE PASTE (Z-GUARD) 1 APPLIC TOPICAL PRN (00:20)
[2024-11-14] MEDS: LACTATED RINGERS 1,000 ML IV SCH (03:57)
[2024-11-14] MEDS: VANCOMYCIN 1,500 MG in SODIUM CHLORIDE 0.9% 500 ML 500 ML IVPB SCH (04:26)
[2024-11-14 08:55] LABS: Basophils # (A) 0.03 X 10*3/uL (0.00-0.10); Basophils % (A) 0.5 %; Eosinophils # (A) 0.24 X 10*3/uL (0.04-0.35); Eosinophils % (A) 3.8 %; HCT 40.6 % (37.2-46.3); HGB 12.7 g/dL (12.0-15.0); Lymphocytes # (A) 0.94 X 10*3/uL (0.90-5.00); Lymphocytes % (A) 15.1 %; MCH 29.2 pg (27.0-32.0); MCHC 31.3 g/dL (32.0-37.0); MCV 93.3 FL (80.0-97.0); Mean Platelet Volume 11.6 FL (9.5-12.2); Monocytes # (A) 0.75 X 10*3/uL (0.20-1.00); NRBC Per 100 WBC 0 X 10*3/uL (0.00-0.01); Neutrophils # (A) 4.26 X 10*3/uL (1.80-7.70); Neutrophils % (A) 68.3 %; Platelet Count 144 X 10*3/uL (140-440); RBC 4.35 X 10*6/uL (4.10-5.20); RDW 16.5 % (11.5-14.5); WBC 6.24 X 10*3/uL (4.50-10.00)
[2024-11-14] MEDS: ENOXAPARIN 40 MG/0.4 ML SYRINGE SQ SCH (09:11)
[2024-11-14 09:15] LABS: ALT 8 U/L (8-44); AST 17 U/L (13-35); Albumin 3.2 g/dL (3.8-4.9); Albumin/Globulin Ratio 1.39 Ratio (1.60-3.17); Alkaline Phosphatase 63 U/L (41-126); Blood Urea Nitrogen 9.4 mg/dL (9.0-27.0); Calcium 7.9 mg/dL (8.7-10.3); Carbon Dioxide 30.1 mmol/L (21.6-31.8); Chloride 101 mmol/L (96-109); Globulin 2.3 g/dL (1.6-3.3); Glucose 99 mg/dL (70-110); Magnesium 1.7 mg/dL (1.5-2.4); Phosphorus 3.1 mg/dL (2.4-5.1); Potassium 3.9 mmol/L (3.5-5.5); Sodium 140 mmol/L (135-145); Total Bilirubin 0.9 mg/dL (0.3-1.2); Total Protein 5.5 g/dL (6.2-8.2)
[2024-11-14] MEDS: HYDROcodone/APAP 5-325MG 1 EACH TAB PO PRN (11:16)
--- NOTE | 2024-11-14 16:46 | P.PN ---
Subjective Progress Note Date: 11/14/24 Patient was seen and examined. She reports a headache and chronic lower back pain. Requesting pain medications. She is on 6L NC, 4L NC at baseline. CBC and CMP significant for MCHC 31.3, RDW 16.5, Cr 0.5, Ca 7.9, alb 3.2. General: non toxic, no distress, appears at stated age Derm: warm, dry Head: atraumatic, normocephalic, symmetric Eyes: EOMI, no lid lag, anicteric sclera Mouth: no lip lesion, mucus membranes moist Cardiovascular: S1S2 reg, no murmur Lungs: CTA bilateral, no rhonchi, no rales , no accessory muscle use Ext: no gross muscle atrophy, no edema, no contractures Neuro: no focal neuro deficits Psych: Alert, oriented, appropriate affect Based on my assessment of this patient, this patient meets a high complexity level of care. Acute metabolic encephalopathy due to UTI and Cellulitis: CT brain negative. Discussed with RN regarding collecting UCx. Continue Rocephin 1g IV QD. Dis continue Vancomycin. Follow UCx and BCx. Chronic hypoxic respiratory failure secondary to COPD on home oxygen: Symbicort 2 INH BID. History of CVA/TIA: Pravastatin 40 mg PO QD. Hypertension: Imdur 30 mg PO QD. Metoprolol 12.5 mg PO BID. CODE STATUS: FULL CODE DVT Prophylaxis: Lovenox SQ GI Prophylaxis: Prilosec 20 mg PO QD. Designated medical POA if patient is not able to make medical decisions for themselves: I have reviewed the following technology consultant notes: I have reviewed the results of the following tests: CBC, CMP. I have ordered the following tests: UCx. I have discussed the care of this patient with the following independent historian: RN. I have independently interpreted the following test below: I have discussed the management of this patient with the following physician: Objective - Vital Signs Vital signs: Vital Signs Temp 98.1 F 11/14/24 14:31 Pulse 114 H 11/14/24 14:31 Resp 19 11/14/24 14:31 BP 167/89 11/14/24 14:31 Pulse Ox 92 L 11/14/24 14:31 FiO2 Intake & Output 11/13/24 11/14/24 11/14/24 18:59 06:59 18:59 Weight 99.79 kg 99.79 kg Other: # Voids 1 1 - Labs CBC & Chem 7: 11/14/24 03:52 11/14/24 03:52 Labs: Abnormal Lab Results - Last 24 Hours (Table) 11/13/24 11/13/24 11/14/24 Range/Units 14:26 18:45 03:52 MCHC 31.3 L (32.0-37.0) g/dL RDW 16.5 H (11.5-14.5) % Sodium 136 L (137-145) mmol/L Chloride 96 L (98-107) mmol/L Carbon Dioxide 37 H (22-30) mmol/L Creatinine (0.6-1.5) mg/dL Calcium (8.7-10.3) mg/dL Total Bilirubin 1.6 H (0.2-1.3) mg/dL Total Protein (6.2-8.2) g/dL Albumin (3.8-4.9) g/dL Albumin/Globulin Ratio (1.60-3.17) Ratio Urine Ketones Trace H (Negative) Urine Blood Trace H (Negative) Urine Nitrite Positive H (Negative) Urine Bacteria Occasional H (None) /hpf Urine Mucus Rare H (None) /hpf Urine Opiates Screen Detected H (NotDetected) 11/14/24 Range/Units 03:52 MCHC (32.0-37.0) g/dL RDW (11.5-14.5) % Sodium (137-145) mmol/L Chloride (98-107) mmol/L Carbon Dioxide (22-30) mmol/L Creatinine 0.5 L (0.6-1.5) mg/dL Calcium 7.9 L (8.7-10.3) mg/dL Total Bilirubin (0.2-1.3) mg/dL Total Protein 5.5 L (6.2-8.2) g/dL Albumin 3.2 L (3.8-4.9) g/dL Albumin/Globulin Ratio 1.39 L (1.60-3.17) Ratio Urine Ketones (Negative) Urine Blood (Negative) Urine Nitrite (Negative) Urine Bacteria (None) /hpf Urine Mucus (None) /hpf Urine Opiates Screen (NotDetected)
[2024-11-14] MEDS: PREGABALIN 100 MG CAP PO SCH (19:55)
[2024-11-14] MEDS: METOPROLOL TARTRATE 12.5 MG TAB PO SCH (19:55)
[2024-11-14] MEDS: SYMBICORT 160-4.5 MCG INHALER INHALATION SCH (20:42)
[2024-11-15 03:30] LABS: African American GFR (CKD) >90 (>60 ml/min/1.73 sqM); Non-African American GFR(CKD) >90 (>60 ml/min/1.73 sqM)
[2024-11-15] MEDS: ASPIRIN 81 MG PO SCH (09:41)
[2024-11-15] MEDS: ISOSORBIDE MONONITRATE ER 30 MG TAB.ER.24H PO SCH (09:41)
[2024-11-15] MEDS: PANTOPRAZOLE 40 MG TABLET PO SCH (09:41)
[2024-11-15] MEDS: PRAVASTATIN SODIUM 40 MG TAB PO SCH (09:41)
[2024-11-15] MEDS: MORPHINE SULFATE IR 15 MG TABLET PO SCH (11:46)
--- NOTE | 2024-11-15 12:37 | P.PN ---
Subjective Progress Note Date: 11/15/24 68 year old F with PMH chronic hypoxic respiratory failure secondary to COPD on 4L home oxygen, history of CVA/TIA, history of hypertension presents to the ED for altered mentation, fever and intractable pain. She was recently seen in the ED on 11/12 after a mechanical fall. She noted hitting her head. Workup was essentially negative and she was discharged home. Daughter in law reported patient has been acting erratically, hyperverbal over the past several days, which worsened after the fall. Daughter in law also reports these symptoms are typical of her every time she gets a UTI. In the ED she underwent extensive evaluation. BP 116/67, HR 94, RR 18, T 98.2F, 95% on 4L NC. CBC, Coag panel, CMP significant for Plt 147, Na 136, Cl 96, bicarb 37, T. bili 1.6. Trop < 0.012. Ammonia < 9. UA positive nitrite. UDS + opiates. EtOH negative. CXR with chronic changes. EKG NSR with Q waves in V1 V2. CT brain negative for acute process. Patient is admitted for further workup and management. Started on Rocephin + Vancomycin for treatment of UTI and possible LE cellulitis. I discontinued her Vancomycin. 11/15 Patient was seen and examined. She reports intractable pain in her lower back, shoulders and arms ever since falling. She reports taking MS Contin at home. Maintained on Rocephin 1g IV QD (D2). BCx prelim negative. UCx is pending. Renal function shows Cr 0.46. General: non toxic, no distress, appears at stated age Derm: warm, dry Head: atraumatic, normocephalic, symmetric Eyes: EOMI, no lid lag, anicteric sclera Mouth: no lip lesion, mucus membranes moist Cardiovascular: S1S2 reg, no murmur Lungs: Decreased BS bilateral, no rhonchi, no rales , no accessory muscle use Ext: no gross muscle atrophy, no edema, no contractures, bilateral LE erythema extending to the mid-shins Neuro: no focal neuro deficits Psych: Alert, oriented, appropriate affect Based on my assessment of this patient, this patient meets a high complexity level of care. Acute metabolic encephalopathy due to UTI and Cellulitis: CT brain negative. Continue Rocephin 1g IV QD (D2). Vancomycin discontinued. Follow UCx and BCx. Chronic hypoxic respiratory failure secondary to COPD on 4L home O2: Symbicort 2 INH BID. History of CVA/TIA: Pravastatin 40 mg PO QD. Hypertension: Imdur 30 mg PO QD. Metoprolol 12.5 mg PO BID. CODE STATUS: FULL CODE DVT Prophylaxis: Lovenox SQ GI Prophylaxis: Prilosec 20 mg PO QD. Designated medical POA if patient is not able to make medical decisions for themselves: I have reviewed the following functional consultant notes: I have reviewed the results of the following tests: Renal function. BCx. I have ordered the following tests: I have discussed the care of this patient with the following independent historian: I have independently interpreted the following test below: I have discussed the management of this patient with the following physician: Objective - Vital Signs Vital signs: Vital Signs Temp 97.7 F 11/15/24 07:10 Pulse 120 H 11/15/24 11:02 Resp 22 11/15/24 11:02 BP 139/73 11/15/24 07:10 Pulse Ox 92 L 11/15/24 07:10 FiO2 Intake & Output 11/14/24 11/15/24 11/15/24 18:59 06:59 18:59 Intake Total 300 Output Total 175 Balance -175 300 Intake: Oral 300 Output: Urine 175 Other: Voiding Method External Catheter # Voids 1 - Labs CBC & Chem 7: 11/14/24 03:52 11/15/24 02:23 Labs: Abnormal Lab Results - Last 24 Hours (Table) 11/15/24 Range/Units 02:23 Creatinine 0.46 L (0.52-1.04) mg/dL Microbiology - Last 24 Hours (Table) 11/13/24 20:17 Blood Culture - Preliminary Blood
[2024-11-15 14:38] VITALS: BMI 34.4
[2024-11-15] MEDS ORDERED: VANCOMYCIN TROUGH DUE 1 EACH MISC MISCELLANE ONE (15:00)
[2024-11-16 04:09] VITALS: RESP 18
[2024-11-16] MEDS ORDERED: IPRATROPIUM-ALBUTEROL 3 ML NEB INHALATION PRN (08:39)
--- NOTE | 2024-11-16 09:44 | XR ---
EXAMINATION TYPE: XR chest 1V portable DATE OF EXAM: 11/16/2024 9:06 AM COMPARISON: 11/13/2024 CLINICAL INDICATION: Female, 68 years old with history of SOB, TECHNIQUE: Single frontal view of the chest is obtained. FINDINGS: Basilar infiltrates noted greater on the left. Correlate for pneumonia. Overall no change a ppreciated. Limited lung volumes. The cardiac silhouette size is within normal limits. The osseous structures are intact. IMPRESSION: Basilar infiltrates noted greater on the left. Correlate for pneumonia. Overall no ernandez e appreciated. Limited lung volumes. [facility], , 11/16/2024 9:41 AM
[2024-11-16] MEDS: IPRATROPIUM-ALBUTEROL 3 ML NEB INHALATION SCH (11:31)
[2024-11-16] MEDS ORDERED: ARTIFICIAL TEARS-HYPROMELLOSE DROPS 15 ML BTL BOTH EYES PRN (12:04)
[2024-11-16] MEDS: ARTIFICIAL TEARS-HYPROMELLOSE DROPS 15 ML BTL BOTH EYES SCH (12:34)
--- NOTE | 2024-11-16 13:32 | P.DS ---
Providers Date of admission: 11/13/24 17:03 Expected date of discharge: 11/16/24 Attending physician: Derrell Bloom MD Primary care physician: Aman Harris MD Hospital Course: 68 year old F with PMH chronic hypoxic respiratory failure secondary to COPD on 4L home oxygen, history of CVA/TIA, history of hypertension presents to the ED for altered mentation, fever and intractable pain. She was recently seen in the ED on 11/12 after a mechanical fall. She noted hitting her head. Workup was essentially negative and she was discharged home. Daughter in law reported patient has been acting erratically, hyperverbal over the past several days, which worsened after the fall. Daughter in law also reports these symptoms are typical of her every time she gets a UTI. In the ED she underwent extensive evaluation. BP 116/67, HR 94, RR 18, T 98.2F, 95% on 4L NC. CBC, Coag panel, CMP significant for Plt 147, Na 136, Cl 96, bicarb 37, T. bili 1.6. Trop < 0.012. Ammonia < 9. UA positive nitrite. UDS + opiates. EtOH negative. CXR with chronic changes. EKG NSR with Q waves in V1 V2. CT brain negative for acute process. Patient is admitted for further workup and management. Started on Rocephin + Vancomycin for treatment of UTI and possible LE cellulitis. I discontinued her Vancomycin on day 2. UCx and BCx came back negative. PT and OT evaluated recommended patient discharge back to the [facility] which was discussed with case management. 11/16 Patient was seen and examined. Sitting in the chair. Reports improved pain. Maintained on Rocephin 1g IV QD (D3). BCx prelim negative. UCx is negative. No new labs today. Plans for discharge to [facility] with home PT today. Continue Ceftin 500 mg PO BID x 7 days to complete a total of 10 days antibiotics for treatment of cellulitis. Follow up with PCP within 1-2 days of discharge. General: non toxic, no distress, appears at stated age Derm: warm, dry Head: atraumatic, normocephalic, symmetric Eyes: EOMI, no lid lag, anicteric sclera Mouth: no lip lesion, mucus membranes moist Cardiovascular: S1S2 reg, no murmur Lungs: Decreased BS bilateral, no rhonchi, no rales , no accessory muscle use Ext: no gross muscle atrophy, no edema, no contractures, bilateral LE erythema extending to the mid-shins Neuro: no focal neuro deficits Psych: Alert, oriented, appropriate affect Discharge Diagnosis: Acute metabolic encephalopathy due to Cellulitis Chronic hypoxic respiratory failure secondary to COPD on 4L home O2 History of CVA/TIA Hypertension This complex discharge took 35 minutes to complete. Patient Condition at Discharge: Stable Plan - Discharge Summary Discharge Rx Participant: No New Discharge Prescriptions: New cefuroxime axetiL [Ceftin] 500 mg PO BID #14 tab Continue Naloxone HCl [Narcan] 4 mg NASAL DIRECTED PRN PRN Reason: OVERDOSE Morphine Sulfate Ir [MSIR] 15 mg PO Q8H metHOTREXate sodium [Methotrexate] 20 mg PO SOLORZANO Isosorbide Mononitrate ER [Imdur] 30 mg PO DAILY Furosemide [Lasix] 20 mg PO DAILY Erythromycin Ophth Oint [Romycin Ophth Oint] 1 applic BOTH EYES HS Calcium/D3/Mag Ox/Party Coordinator/Silvano/Zn [Caltrate [id number] Tab] 1 tab PO BID Menthol-Zinc Oxide Oint [Calmoseptine Ointment] 1 applic TOPICAL QID PRN PRN Reason: IRRITATION Menthol [Biofreeze] 1 applic TOPICAL TID PRN PRN Reason: Pain Aspirin EC [Ecotrin Low Dose] 81 mg PO DAILY Ascorbic Acid [Vitamin C] 250 mg PO SUWEFR Urea 40% Cream 1 gram TOPICAL HS Calcium Carbonate [Tums] 500 mg PO BID PRN PRN Reason: acid reflux Budesonide-Formot 160-4.5 Mcg [Symbicort 160-4.5 Mcg Inhaler] 2 puff INHALATION RT-BID Sennosides/Docusate Sodium [Senna-S 8.6-50 mg Tablet] 1 tab PO HS Carboxymethylcellulose Sodium [Refresh Tears] 1 drop BOTH EYES BID PRN PRN Reason: dry eyes Carboxymethylcellulose Sodium [Refresh Tears] 1 drop BOTH EYES DAILY Pregabalin [Lyrica] 200 mg PO BID Pravastatin Sodium [Pravachol] 40 mg PO DAILY Potassium Chloride [Klor-Con M20] 20 meq PO DAILY Omeprazole [PriLOSEC] 20 mg PO DAILY Nystatin 100,000Unit/gm Cream [Mycostatin Cream] 1 applic TOPICAL DIRECTED Metoprolol Tartrate [Lopressor] 12.5 mg PO BID Folic Acid 2 mg PO DAILY Ferrous Gluconate 324 mg PO SUWEFR Alendronate Sodium [Fosamax] 70 mg PO SOLORZANO Cranberry Fruit Extract [Cranberry] 200 mg PO HS Ammonium Lactate Lotion [Lac-Hydrin 12% Lotion] 1 applic TOPICAL BID Albuterol Sulfate [Albuterol Sulfate Hfa] 2 puff PO RT-Q6H PRN PRN Reason: Shortness Of Breath OR COUGH Discharge Medication List Albuterol Sulfate [Albuterol Sulfate Hfa] 2 puff PO RT-Q6H PRN 11/13/24 [History] Alendronate Sodium [Fosamax] 70 mg PO SOLORZANO 11/13/24 [History] Ammonium Lactate Lotion [Lac-Hydrin 12% Lotion] 1 applic TOPICAL BID 11/13/24 [History] Ascorbic Acid [Vitamin C] 250 mg PO SUWEFR 11/13/24 [History] Aspirin EC [Ecotrin Low Dose] 81 mg PO DAILY 11/13/24 [History] Budesonide-Formot 160-4.5 Mcg [Symbicort 160-4.5 Mcg Inhaler] 2 puff INHALATION RT-BID 11/13/24 [History] Calcium Carbonate [Tums] 500 mg PO BID PRN 11/13/24 [History] Calcium/D3/Mag Ox/Party Coordinator/Silvano/Zn [Caltrate [id number] Tab] 1 tab PO BID 11/13/24 [History] Carboxymethylcellulose Sodium [Refresh Tears] 1 drop BOTH EYES BID PRN 11/13/24 [History] Carboxymethylcellulose Sodium [Refresh Tears] 1 drop BOTH EYES DAILY 11/13/24 [History] Cranberry Fruit Extract [Cranberry] 200 mg PO HS 11/13/24 [History] Erythromycin Ophth Oint [Romycin Ophth Oint] 1 applic BOTH EYES HS 11/13/24 [History] Ferrous Gluconate 324 mg PO SUWEFR 11/13/24 [History] Folic Acid 2 mg PO DAILY 11/13/24 [History] Furosemide [Lasix] 20 mg PO DAILY 11/13/24 [History] Isosorbide Mononitrate ER [Imdur] 30 mg PO DAILY 11/13/24 [History] Menthol [Biofreeze] 1 applic TOPICAL TID PRN 11/13/24 [History] Menthol-Zinc Oxide Oint [Calmoseptine Ointment] 1 applic TOPICAL QID PRN 11/13/24 [History] Metoprolol Tartrate [Lopressor] 12.5 mg PO BID 11/13/24 [History] Morphine Sulfate Ir [MSIR] 15 mg PO Q8H 11/13/24 [History] Naloxone HCl [Narcan] 4 mg NASAL DIRECTED PRN 11/13/24 [History] Nystatin 100,000Unit/gm Cream [Mycostatin Cream] 1 applic TOPICAL DIRECTED 11/13/24 [History] Omeprazole [PriLOSEC] 20 mg PO DAILY 11/13/24 [History] Potassium Chloride [Klor-Con M20] 20 meq PO DAILY 11/13/24 [History] Pravastatin Sodium [Pravachol] 40 mg PO DAILY 11/13/24 [History] Pregabalin [Lyrica] 200 mg PO BID 11/13/24 [History] Sennosides/Docusate Sodium [Senna-S 8.6-50 mg Tablet] 1 tab PO HS 11/13/24 [His tory] Urea 40% Cream 1 gram TOPICAL HS 11/13/24 [History] metHOTREXate sodium [Methotrexate] 20 mg PO SOLORZANO 11/13/24 [History] cefuroxime axetiL [Ceftin] 500 mg PO BID #14 tab 11/16/24 [Rx] Follow up Appointment(s)/Referral(s): Aman Harris MD [Primary Care Provider] - 1-2 days Activity/Diet/Wound Care/Special Instructions: [facility] will transport home at discharge: [phone] Discharge Disposition: HOME SELF-CARE
[2024-11-16 15:07] VITALS: BP 100/59; TEMP 97.3
[2024-11-16 15:29] VITALS: PULSE 86
[2024-11-16] MEDS ORDERED: ERYTHROMYCIN 5 MG/GM OPHTH OINT 3.5 GM TUBE BOTH EYES SCH (21:00)
[2024-11-17] MEDS ORDERED: FUROSEMIDE 20 MG TAB PO SCH (09:00)
== END 2024-11-16 15:56 | disposition home or self-care (01) | DRG 602 ==
LOC: SUPCPDRO 14:10 → EC 14:10 → 4SSUR 17:03
PROVIDERS: ADMIT Internal Medicine; ATTEND Internal Medicine
DX: L03.116 Cellulitis of left lower limb (principal); G92.8 Other toxic encephalopathy; N39.0 Urinary tract infection, site not specified; J96.11 Chronic respiratory failure with hypoxia; E87.1 Hypo-osmolality and hyponatremia; I50.9 Heart failure, unspecified; I11.0 Hypertensive heart disease with heart failure; J44.9 Chronic obstructive pulmonary disease, unspecified; R00.0 Tachycardia, unspecified; G89.29 Other chronic pain; M54.50 Low back pain, unspecified; W01.0XXA Fall on same level from slipping, tripping and stumbling without subsequent striking against object, initial encounter; Z88.6 Allergy status to analgesic agent; Z79.899 Other long term (current) drug therapy; Z79.82 Long term (current) use of aspirin; Z88.8 Allergy status to other drugs, medicaments and biological substances; Z87.440 Personal history of urinary (tract) infections; Z86.73 Personal history of transient ischemic attack (TIA), and cerebral infarction without residual deficits; Z99.81 Dependence on supplemental oxygen; Z79.51 Long term (current) use of inhaled steroids
CPT/HCPCS: 36415; 70450; 71045; 76700; 80053; 80306; 80320; 81001; 82140; 82565; 83605; 83735; 84100; 84484; 85025; 85610; 85730; 87040; 87086; 93005; 93970; 94640; 94760; 96365; 96366; 96375; 96376; 99285

== ENCOUNTER 2024-11-17 10:25 | Inpatient (IN) | payer OTHER ==
--- NOTE | 2024-11-17 11:16 | ED ---
General Adult HPI - General Chief complaint: Shortness of Breath Stated complaint: MADHAVI Time Seen by Provider: 11/17/24 11:11 Source: patient, EMS, RN notes reviewed Mode of arrival: EMS - History of Present Illness Initial comments: 68-year-old female with history of congestive heart failure, COPD, CVA, and hypertension presenting to the ER with chief complaint of cellulitis of the legs. Patient was discharged yesterday after admission for altered mental status. During her admission, patient was diagnosed with cellulitis of the legs and pneumonia. Patient was discharged with prescription for oral antibiotics. Patient uses [facility] for medications and it is uncertain at this time if patient received antibiotic dose. Patient lives independently and has been unable to care for herself since discharge yesterday. I spoke with patient's son on the phone at bedside who believes patient has not completely returned to baseline since admission. - Related Data Home Medications Medication Instructions Recorded Confirmed Albuterol Sulfate [Albuterol 2 puff PO RT-Q6H PRN 11/13/24 11/13/24 Sulfate Hfa] Alendronate Sodium [Fosamax] 70 mg PO SOLORZANO 11/13/24 11/13/24 Ammonium Lactate Lotion 1 applic TOPICAL BID 11/13/24 11/13/24 [Lac-Hydrin 12% Lotion] Ascorbic Acid [Vitamin C] 250 mg PO SUWEFR 11/13/24 11/13/24 Aspirin EC [Ecotrin Low Dose] 81 mg PO DAILY 11/13/24 11/13/24 Budesonide-Formot 160-4.5 Mcg 2 puff INHALATION RT-BID 11/13/24 11/13/24 [Symbicort 160-4.5 Mcg Inhaler] Calcium Carbonate [Tums] 500 mg PO BID PRN 11/13/24 11/13/24 Calcium/D3/Mag Ox/Hand Mica Plate Layer/Silvano/Zn 1 tab PO BID 11/13/24 11/13/24 [Caltrate [id number]-Dysvlfze Tab] Carboxymethylcellulose Sodium 1 drop BOTH EYES BID PRN 11/13/24 11/13/24 [Refresh Tears] Carboxymethylcellulose Sodium 1 drop BOTH EYES DAILY 11/13/24 11/13/24 [Refresh Tears] Cranberry Fruit Extract [Cranberry] 200 mg PO HS 11/13/24 11/13/24 Erythromycin Ophth Oint [Romycin 1 applic BOTH EYES HS 11/13/24 11/13/24 Ophth Oint] Ferrous Gluconate 324 mg PO SUWEFR 11/13/24 11/13/24 Folic Acid 2 mg PO DAILY 11/13/24 11/13/24 Furosemide [Lasix] 20 mg PO DAILY 11/13/24 11/13/24 Isosorbide Mononitrate ER [Imdur] 30 mg PO DAILY 11/13/24 11/13/24 Menthol [Biofreeze] 1 applic TOPICAL TID PRN 11/13/24 11/13/24 Menthol-Zinc Oxide Oint 1 applic TOPICAL QID PRN 11/13/24 11/13/24 [Calmoseptine Ointment] Metoprolol Tartrate [Lopressor] 12.5 mg PO BID 11/13/24 11/13/24 Morphine Sulfate Ir [MSIR] 15 mg PO Q8H 11/13/24 11/13/24 Naloxone HCl [Narcan] 4 mg NASAL DIRECTED PRN 11/13/24 11/13/24 Nystatin 100,000Unit/gm Cream 1 applic TOPICAL DIRECTED 11/13/24 11/13/24 [Mycostatin Cream] Omeprazole [PriLOSEC] 20 mg PO DAILY 11/13/24 11/13/24 Potassium Chloride [Klor-Con M20] 20 meq PO DAILY 11/13/24 11/13/24 Pravastatin Sodium [Pravachol] 40 mg PO DAILY 11/13/24 11/13/24 Pregabalin [Lyrica] 200 mg PO BID 11/13/24 11/13/24 Sennosides/Docusate Sodium 1 tab PO HS 11/13/24 11/13/24 [Senna-S 8.6-50 mg Tablet] Urea 40% Cream 1 gram TOPICAL HS 11/13/24 11/13/24 metHOTREXate sodium [Methotrexate] 20 mg PO SOLORZANO 11/13/24 11/13/24 Previous Rx's Medication Instructions Recorded cefuroxime axetiL [Ceftin] 500 mg PO BID #14 tab 11/16/24 Allergies Allergy/AdvReac Type Severity Reaction Status Date / Time Iodinated Contrast Media Allergy Rash/Hives Verified 11/17/24 14:53 NSAIDS (Non-Steroidal Allergy Unknown Verified 11/17/24 14:53 Anti-Inflamma fentanyl AdvReac Hallucinati Verified 11/17/24 14:53 ons Review of Systems ROS Statement: Those systems with pertinent positive or pertinent negative responses have been documented in the HPI. ROS Other: All systems not noted in ROS Statement are negative. Past Medical History Past Medical History: Heart Failure, COPD, CVA/TIA, Hypertension History of Any Multi-Drug Resistant Organisms: None Reported Past Surgical History: Back Surgery, Joint Replacement Past Anesthesia/Blood Transfusion Reactions: No Reported Reaction Past Psychological History: No Psychological Hx Reported Smoking Status: Never smoker Past Alcohol Use History: None Reported Past Drug Use History: None Reported - Past Family History Father Family Medical History: Myocardial Infarction (MO) Mother Family Medical History: Cancer General Exam General appearance: alert, in no apparent distress Head exam: Present: atraumatic, normocephalic, normal inspection Eye exam: Present: normal appearance, PERRL, EOMI. Absent: scleral icterus, conjunctival injection, periorbital swelling ENT exam: Present: normal exam, mucous membranes moist Respiratory exam: Present: normal lung sounds bilaterally. Absent: respiratory distress, wheezes, rales, rhonchi, stridor Cardiovascular Exam: Present: regular rate, normal rhythm, normal heart sounds. Absent: systolic murmur, diastolic murmur, rubs, gallop, clicks GI/Abdominal exam: Present: soft, normal bowel sounds. Absent: distended, tenderness, guarding, rebound, rigid Extremities exam: Present: full ROM, normal capillary refill. Absent: normal inspection (Bilateral lower legs erythema, edema, and warmth below the knee. No purulence or drainage), tenderness, pedal edema, joint swelling, calf tenderness Neurological exam: Present: alert, oriented X3 Psychiatric exam: Present: normal affect, normal mood Skin exam: Present: warm, dry, intact, normal color Course Vital Signs 11/17/24 11/17/24 11/17/24 10:28 12:32 14:00 Temperature 98.0 F Pulse Rate 104 H 105 H 103 H Respiratory 20 18 20 Rate Blood Pressure 118/74 114/58 121/66 O2 Sat by Pulse 92 L 92 L 93 L Oximetry EKG Findings - EKG Results: EKG: interpreted by ERMD (EKG reveals sinus tachycardia with no ST changes. Ventricular rate 102 bpm, CA interval 170, QRS duration 85, QT/QTc 351/4 9) Medical Decision Making - Medical Decision Making Was pt. sent in by a medical professional or institution (NAY[facility] Carvajal, [employer], urgent care, hospital, or senior care...) When possible be specific @ -No Did you speak to anyone other than the patient for history (EMS, parent, family, police, friend...)? What history was obtained from this source @ -I spoke with patient's son who states he believes patient is unable to care for herself Did you review nursing and triage notes (agree or disagree)? Why? @ -I reviewed and agree with nursing and triage notes Were old charts reviewed (outside hosp., previous admission, EMS record, old EKG, old radiological studies, urgent care reports/EKG's, senior care records)? Report findings @ -Previous ER chart and admission reviewed Differential Diagnosis (chest pain, altered mental status, abdominal pain women, abdominal pain men, vaginal bleeding, weakness, fever, dyspnea, syncope, headache, dizziness, GI bleed, back pain, seizure, CVA, palpatations, mental health, musculoskeletal)? @ -Differential Musculoskeletal Muscular strain, contusion, ligament sprain, fracture, arthritis, septic arthritis, bursitis, cellulitis, muscle spasm, nerve compression, DVT, arterial occlusion, herpes zoster, electrolyte abnormality, tumor.... This is not meant to be in all inclusive list EKG interpreted by me (3pts min.). @ -As above X-rays interpreted by me (1pt min.). @ -None done CT interpreted by me (1pt min.). @ -None done U/S interpreted by me (1pt. min.). @ -None done What testing was considered but not performed or refused? (CT, X-rays, U/S, labs)? Why? @ -None What meds were considered but not given or refused? Why? @ -None Did you discuss the management of the patient with other professionals (professionals i.e. NAYELY Carvajal, [employer], lab, RT, psych nurse, addiction social worker, clinical documentation consultant, teacher, benefits officer, rn case manager)? Give summary @ -I spoke with [facility] who recommends admission. I also spoke with [facility] [place] medicine team who accepts admission for debility Was smoking cessation discussed for >3mins.? @ -No Was critical care preformed (if so, how long)? @ -No Were there social determinants of health that impacted care today? How? (Homelessness, low income, unemployed, alcoholism, drug addiction, transportation, low edu. Level, literacy, decrease access to med. care, correction, r ehab)? @ -No Was there de-escalation of care discussed even if they declined (Discuss DNR or withdrawal of care, Hospice)? DNR status @ -No What co-morbidities impacted this encounter? (DM, HTN, Smoking, COPD, CAD, Cancer, CVA, ARF, Chemo, Hep., AIDS, mental health diagnosis, sleep apnea, morbid obesity)? @ -None Was patient admitted / discharged? Hospital course, mention meds given and route, prescriptions, significant lab abnormalities, going to OR and other pertinent info. @ -Admitted. This is a 68-year-old female presenting for bilateral leg cellulitis. Patient's son is concerned that after discharge yesterday patient has not returned to baseline and is unable to care for herself. Patient is mildly tachycardic at 104 bpm, satting 92% on 4 L of oxygen which is patient's baseline, otherwise vitals within acceptable limits. There is bilateral circumferential erythema and warmth present on bilateral lower extremities consistent with cellulitis. Blood cultures were taken and patient was started on IV antibiotics. Lab work largely unremarkable. I spoke with [facility] who states he would like patient to be admitted. I also spoke with [facility] [place] medicine team who accepts admission for debility. Case was discussed with my ED attending Dr. Queen. Undiagnosed new problem with uncertain prognosis? @ -No Drug Therapy requiring intensive monitoring for toxicity (Heparin, Nitro, Insulin, Cardizem)? @ -No Were any procedures done? @ -No Diagnosis/symptom? @ -Debility Acute, or Chronic, or Acute on Chronic? @ -Acute Uncomplicated (without systemic symptoms) or Complicated (systemic symptoms)? @ -Complicated Side effects of treatment? @ -No Exacerbation, Progression, or Severe Exacerbation? @ -No Poses a threat to life or bodily function? How? (Chest pain, [place], [place], pneumonia, PE, COPD, DKA, ARF, appy, cholecystitis, CVA, Diverticulitis, Homicidal, Suicidal, threat to staff... and all critical care pts) @ -Yes - Lab Data Result diagrams: 11/17/24 11:34 11/17/24 11:34 Lab Results 11/17/24 11/17/24 11/17/24 Range/Units 11:34 11:34 11:34 WBC 10.4 (3.8-10.6) k/uL RBC 4.69 (3.80-5.40) m/uL Hgb 13.9 (11.4-16.0) gm/dL Hct 44.2 (34.0-46.0) % MCV 94.3 (80.0-100.0) fL MCH 29.7 (25.0-35.0) pg MCHC 31.5 (31.0-37.0) g/dL RDW 16.5 H (11.5-15.5) % Plt Count 136 L (150-450) k/uL MPV 8.6 Neutrophils % 78 % Lymphocytes % 9 % Monocytes % 9 % Eosinophils % 3 % Basophils % 0 % Neutrophils # 8.1 H (1.3-7.7) k/uL Lymphocytes # 0.9 L (1.0-4.8) k/uL Monocytes # 0.9 (0-1.0) k/uL Eosinophils # 0.3 (0-0.7) k/uL Basophils # 0.0 (0-0.2) k/uL Hypochromasia Slight Anisocytosis Slight Sodium 136 L (137-145) mmol/L Potassium 4.0 (3.5-5.1) mmol/L Chloride 97 L (98-107) mmol/L Carbon Dioxide 36 H (22-30) mmol/L Anion Gap 3 mmol/L BUN 12 (7-17) mg/dL Creatinine 0.61 (0.52-1.04) mg/dL Est GFR (CKD-EPI)AfAm >90 (>60 ml/min/1.73 sqM) Est GFR (CKD-EPI)NonAf >90 (>60 ml/min/1.73 sqM) Glucose 110 H (74-99) mg/dL Plasma Lactic Acid Roosevelt 1.4 (0.7-2.0) mmol/L Calcium 8.6 (8.4-10.2) mg/dL Total Bilirubin 0.9 (0.2-1.3) mg/dL AST 17 (14-36) U/L ALT 10 (4-34) U/L Alkaline Phosphatase 61 (38-126) U/L Total Protein 6.6 (6.3-8.2) g/dL Albumin 3.8 (3.5-5.0) g/dL Disposition Clinical Impression: Debility Disposition: ADMITTED IP TO THIS HOSP Referrals: Aman Harris MD [Primary Care Provider] - 1-2 days Time of Disposition: 14:19
[2024-11-17 11:44] LABS: Anisocytosis Slight; Basophils % (A) 0 %; Eosinophils # (A) 0.3 k/uL (0-0.7); Eosinophils % (A) 3 %; HCT 44.2 % (34.0-46.0); HGB 13.9 gm/dL (11.4-16.0); Hypochromasia Slight; Lymphocytes # (A) 0.9 k/uL (1.0-4.8); Lymphocytes % (A) 9 %; MCH 29.7 pg (25.0-35.0); MCHC 31.5 g/dL (31.0-37.0); MCV 94.3 fL (80.0-100.0); Mean Platelet Volume 8.6; Monocytes # (A) 0.9 k/uL (0-1.0); Monocytes % (A) 9 %; Neutrophils # (A) 8.1 k/uL (1.3-7.7); Neutrophils % (A) 78 %; Platelet Count 136 k/uL (150-450); RBC 4.69 m/uL (3.80-5.40); RDW 16.5 % (11.5-15.5); WBC 10.4 k/uL (3.8-10.6)
[2024-11-17 11:59] LABS: ALT 10 U/L (4-34); AST 17 U/L (14-36); African American GFR (CKD) >90 (>60 ml/min/1.73 sqM); Albumin 3.8 g/dL (3.5-5.0); Alkaline Phosphatase 61 U/L (38-126); Anion Gap 3 mmol/L; Blood Urea Nitrogen 12 mg/dL (7-17); Calcium 8.6 mg/dL (8.4-10.2); Carbon Dioxide 36 mmol/L (22-30); Chloride 97 mmol/L (98-107); Glucose 110 mg/dL (74-99); Non-African American GFR(CKD) >90 (>60 ml/min/1.73 sqM); Sodium 136 mmol/L (137-145); Total Bilirubin 0.9 mg/dL (0.2-1.3); Total Protein 6.6 g/dL (6.3-8.2)
[2024-11-17] MEDS ORDERED: HYDROmorphone 1 MG/ML 1 ML SYRINGE IVP PRN (14:15)
[2024-11-17] MEDS ORDERED: HYDROmorphone 0.5 MG/0.5 ML SYRINGE IVP PRN (14:15)
[2024-11-17] MEDS ORDERED: ACETAMINOPHEN TAB 325 MG TAB PO PRN (14:15)
[2024-11-17] MEDS ORDERED: NALOXONE 0.4 MG/ML 1 ML VIAL IV PRN (14:15)
[2024-11-17] MEDS ORDERED: CALCIUM CARBONATE 500 MG CHEWABLE PO PRN (14:28)
[2024-11-17] MEDS ORDERED: ARTIFICIAL TEARS-HYPROMELLOSE DROPS 15 ML BTL BOTH EYES PRN (14:28)
[2024-11-17] MEDS: MORPHINE SULFATE IR 15 MG TABLET PO SCH (14:51)
[2024-11-17] MEDS ORDERED: VANCOMYCIN IV PER PHARMACY 1 EACH MISC MISCELLANE PRN (15:05)
--- NOTE | 2024-11-17 15:15 | P.HPIM ---
History of Present Illness H&P Date: 11/17/24 68 year old F with PMH chronic hypoxic respiratory failure secondary to COPD on 4L home oxygen, history of CVA/TIA, RA, hypertension presents to the ED for worsening erythema of her bilateral lower extremities. Previous admitted from 11/13-11/16 for altered mentation, fever and intractable pain. She was started on Rocephin + Vancomycin for treatment of UTI and possible LE cellulitis. UCx came back negative and she was discharged home on 7 days of Ceftin. Patient reports not being able to obtain antibiotics after her discharge and worsening of her bilateral lower extremity erythema which prompted her to come back to the ED. The case was discussed with the PCP Dr. Harris who was able to contact the son, it may be that patient will need a high level of care on discharge. In the ED she underwent extensive evaluation. BP 118/74, HR 104, RR 20, T 98F, 92% on 4L. CBC, CMP significant for Plt 136, Na 136, Cl 97, bicarb 36, glu 110. Lactic acid 1.4. EKG sinus tachycardia with Q waves Q1-4. Patient is admitted for further workup and management. General: non toxic, no distress, appears at stated age Derm: warm, dry Head: atraumatic, normocephalic, symmetric Eyes: EOMI, no lid lag, anicteric sclera Mouth: no lip lesion, mucus membranes moist Cardiovascular: S1S2 reg, no murmur Lungs: Decreased BS bilateral, no rhonchi, no rales , no accessory muscle use Ext: no gross muscle atrophy, no edema, no contractures, bilateral LE erythema extending to the mid-shins Neuro: no focal neuro deficits Psych: Alert, oriented, appropriate affect Based on my assessment of this patient, this patient meets a high complexity level of care. Cellulitis: Does not meet sepsis criteria. Start Vancomycin dosed per pharmacy. BCx ordered by ER physician. Order ESR and CRP. Order pro-enrique. Fall precautions. PT and OT consult. ID consulted. Chronic hypoxic respiratory failure secondary to COPD on 4L home O2: Symbicort 2 INH BID. DuoNeb QID PRN SOB/wheezing. History of CVA/TIA: Pravastatin 40 mg PO QD. ASA 81 mg PO QD. Hypertension: Imdur 30 mg PO QD. Metoprolol 12.5 mg PO BID. Lasix 20 mg PO QD. Chronic pain: MS Contin 15 mg PO TID. CODE STATUS: FULL CODE DVT Prophylaxis: Lovenox SQ GI Prophylaxis: Protonix PO Designated medical POA if patient is not able to make medical decisions for themselves: I have reviewed the following energy consultant notes: ED note. I have reviewed the results of the following tests: As above. I have ordered the following tests: As above. I have discussed the care of this patient with the following independent historian: I have independently interpreted the following test below: I have discussed the management of this patient with the following physician: Dr. Harris. Past Medical History Past Medical History: Heart Failure, COPD, CVA/TIA, Hypertension History of Any Multi-Drug Resistant Organisms: None Reported Past Surgical History: Back Surgery, Joint Replacement Past Anesthesia/Blood Transfusion Reactions: No Reported Reaction Past Psychological History: No Psychological Hx Reported Smoking Status: Never smoker Past Alcohol Use History: None Reported Past Drug Use History: None Reported - Past Family History Father Family Medical History: Myocardial Infarction ([place]) Mother Family Medical History: Cancer Medications and Allergies Home Medications Medication Instructions Recorded Confirmed Type Albuterol Sulfate [Albuterol 2 puff INHALATION RT-Q6H PRN 11/13/24 11/17/24 History Sulfate Hfa] Alendronate Sodium [Fosamax] 70 mg PO SOLORZANO 11/13/24 11/17/24 History Ammonium Lactate Lotion 1 applic TOPICAL BID 11/13/24 11/17/24 History [Lac-Hydrin 12% Lotion] Ascorbic Acid [Vitamin C] 250 mg PO SUWEFR 11/13/24 11/17/24 History Aspirin EC [Ecotrin Low Dose] 81 mg PO DAILY 11/13/24 11/17/24 History Budesonide-Formot 160-4.5 Mcg 2 puff INHALATION RT-BID 11/13/24 11/17/24 History [Symbicort 160-4.5 Mcg Inhaler] Calcium Carbonate [Tums] 500 mg PO BID PRN 11/13/24 11/17/24 History Calcium/D3/Mag Ox/Yard Cleaner/Silvano/Zn 1 tab PO BID 11/13/24 11/17/24 History [Caltrate [id number] Tab] Carboxymethylcellulose Sodium 1 drop BOTH EYES BID PRN 11/13/24 11/17/24 History [Refresh Tears] Carboxymethylcellulose Sodium 1 drop BOTH EYES DAILY 11/13/24 11/17/24 History [Refresh Tears] Cranberry Fruit Extract [Cranberry] 200 mg PO HS 11/13/24 11/17/24 History Erythromycin Ophth Oint [Romycin 1 applic BOTH EYES HS 11/13/24 11/17/24 History Ophth Oint] Ferrous Gluconate 324 mg PO SUWEFR 11/13/24 11/17/24 History Folic Acid 2 mg PO DAILY 11/13/24 11/17/24 History Furosemide [Lasix] 20 mg PO DAILY 11/13/24 11/17/24 History Isosorbide Mononitrate ER [Imdur] 30 mg PO DAILY 11/13/24 11/17/24 History Menthol [Biofreeze] 1 applic TOPICAL TID PRN 11/13/24 11/17/24 History Menthol-Zinc Oxide Oint 1 applic TOPICAL QID PRN 11/13/24 11/17/24 History [Calmoseptine Ointment] Metoprolol Tartrate [Lopressor] 12.5 mg PO BID 11/13/24 11/17/24 History Morphine Sulfate Ir [MSIR] 15 mg PO Q8H 11/13/24 11/17/24 History Naloxone HCl [Narcan] 4 mg NASAL DIRECTED PRN 11/13/24 11/17/24 History Nystatin 100,000Unit/gm Cream 1 applic TOPICAL DIRECTED 11/13/24 11/17/24 History [Mycostatin Cream] Omeprazole [PriLOSEC] 20 mg PO DAILY 11/13/24 11/17/24 History Potassium Chloride [Klor-Con M20] 20 meq PO DAILY 11/13/24 11/17/24 History Pravastatin Sodium [Pravachol] 40 mg PO DAILY 11/13/24 11/17/24 History Pregabalin [Lyrica] 200 mg PO BID 11/13/24 11/17/24 History Sennosides/Docusate Sodium 1 tab PO HS 11/13/24 11/17/24 History [Senna-S 8.6-50 mg Tablet] Urea 40% Cream 1 gram TOPICAL HS 11/13/24 11/17/24 History metHOTREXate sodium [Methotrexate] 20 mg PO SOLORZANO 11/13/24 11/17/24 History cefuroxime axetiL [Ceftin] 500 mg PO BID #14 tab 11/16/24 11/17/24 Rx Allergies Allergy/AdvReac Type Severity Reaction Status Date / Time Iodinated Contrast Media Allergy Rash/Hives Verified 11/17/24 14:53 NSAIDS (Non-Steroidal Allergy Unknown Verified 11/17/24 14:53 Anti-Inflamma fentanyl AdvReac Hallucinati Verified 11/17/24 14:53 ons Physical Exam Vitals: Vital Signs Temp Pulse Resp BP Pulse Ox 11/17/24 14:00 103 H 20 121/66 93 L 11/17/24 12:32 105 H 18 114/58 92 L 11/17/24 10:28 98.0 F 104 H 20 118/74 92 L Intake and Output 11/17/24 11/17/24 11/17/24 06:59 14:59 22:59 Other: Weight 90.718 kg Results CBC & Chem 7: 11/17/24 11:34 11/17/24 11:34 Labs: Abnormal Lab Results - Last 24 Hours (Table) 11/17/24 11/17/24 Range/Units 11:34 11:34 RDW 16.5 H (11.5-15.5) % Plt Count 136 L (150-450) k/uL Neutrophils # 8.1 H (1.3-7.7) k/uL Lymphocytes # 0.9 L (1.0-4.8) k/uL Sodium 136 L (137-145) mmol/L Chloride 97 L (98-107) mmol/L Carbon Dioxide 36 H (22-30) mmol/L Glucose 110 H (74-99) mg/dL
[2024-11-17] MEDS: VANCOMYCIN 1,500 MG in SODIUM CHLORIDE 0.9% 500 ML 500 ML IVPB SCH (15:53)
[2024-11-17] MEDS: METOPROLOL TARTRATE 12.5 MG TAB PO SCH (19:52)
[2024-11-17] MEDS: PREGABALIN 100 MG CAP PO SCH (19:52)
[2024-11-17] MEDS: SYMBICORT 160-4.5 MCG INHALER INHALATION SCH (20:30)
[2024-11-17] MEDS ORDERED: NON FORMULARY DRUG (Cefuroxime Axetil [Ceftin] 500 MG Tablet) PO SCH (21:00)
[2024-11-17] MEDS ORDERED: CEFDINIR 300 MG CAP PO SCH (21:00)
[2024-11-18] MEDS: ERYTHROMYCIN 5 MG/GM OPHTH OINT 3.5 GM TUBE BOTH EYES SCH (00:15)
--- NOTE | 2024-11-18 06:01 | P.CONS ---
History of Present Illness - Reason for Consult Consult date: 11/17/24 Bilateral lower extremity cellulitis Requesting physician: Edward Valerio - Chief Complaint Swelling and redness to bilateral lower extremity x few days - History of Present Illness Patient is a 68-year-old female with a past medical history significant for heart failure COPD CVA TIA hypertension recently admitted to the hospital treated for cellulitis and the patient was subsequently discharged home on Ceftin patient has been brought back to the hospital concerning for worsening swelling and redness to the bilateral lower extremity and the patient also noticed to have some mental status changes by the family on presentation to the hospital patient was afebrile and had no fever; subsequently patient was mildly tachycardic but not hypotensive or hypoxic patient did have white count of 10.4 creatinine 0.61 liver enzymes are normal patient has been started on vancomycin infectious disease was consulted for further management of antibiotic therapy p atient at time of my evaluation is not good historian however when asked specifically denies having any fever or any chills patient denies having any chest pain shortness of breath or cough some nausea but no vomiting no abdominal pain has been complaining of pain to bilateral extremity mostly sharp moderate intensity denies any open wound or any drainage Review of Systems Positive point and negatives has been mentioned in the HPI, complete review of systems was performed and all other systems are negative Past Medical History Past Medical History: Heart Failure, COPD, CVA/TIA, Hypertension History of Any Multi-Drug Resistant Organisms: None Reported Past Surgical History: Back Surgery, Joint Replacement Past Anesthesia/Blood Transfusion Reactions: No Reported Reaction Past Psychological History: No Psychological Hx Reported Smoking Status: Never smoker Past Alcohol Use History: None Reported Past Drug Use History: None Reported - Past Family History Father Family Medical History: Myocardial Infarction ([place]) Mother Family Medical History: Cancer Medications and Allergies Home Medications Medication Instructions Recorded Confirmed Type Albuterol Sulfate [Albuterol 2 puff INHALATION RT-Q6H PRN 11/13/24 11/17/24 History Sulfate Hfa] Alendronate Sodium [Fosamax] 70 mg PO SOLORZANO 11/13/24 11/17/24 History Ammonium Lactate Lotion 1 applic TOPICAL BID 11/13/24 11/17/24 History [Lac-Hydrin 12% Lotion] Ascorbic Acid [Vitamin C] 250 mg PO SUWEFR 11/13/24 11/17/24 History Aspirin EC [Ecotrin Low Dose] 81 mg PO DAILY 11/13/24 11/17/24 History Budesonide-Formot 160-4.5 Mcg 2 puff INHALATION RT-BID 11/13/24 11/17/24 History [Symbicort 160-4.5 Mcg Inhaler] Calcium Carbonate [Tums] 500 mg PO BID PRN 11/13/24 11/17/24 History Calcium/D3/Mag Ox/Negative Cleaner/Silvano/Zn 1 tab PO BID 11/13/24 11/17/24 History [Caltrate [id number] Tab] Carboxymethylcellulose Sodium 1 drop BOTH EYES BID PRN 11/13/24 11/17/24 History [Refresh Tears] Carboxymethylcellulose Sodium 1 drop BOTH EYES DAILY 11/13/24 11/17/24 History [Refresh Tears] Cranberry Fruit Extract [Cranberry] 200 mg PO HS 11/13/24 11/17/24 History Erythromycin Ophth Oint [Romycin 1 applic BOTH EYES HS 11/13/24 11/17/24 History Ophth Oint] Ferrous Gluconate 324 mg PO SUWEFR 11/13/24 11/17/24 History Folic Acid 2 mg PO DAILY 11/13/24 11/17/24 History Furosemide [Lasix] 20 mg PO DAILY 11/13/24 11/17/24 History Isosorbide Mononitrate ER [Imdur] 30 mg PO DAILY 11/13/24 11/17/24 History Menthol [Biofreeze] 1 applic TOPICAL TID PRN 11/13/24 11/17/24 History Menthol-Zinc Oxide Oint 1 applic TOPICAL QID PRN 11/13/24 11/17/24 History [Calmoseptine Ointment] Metoprolol Tartrate [Lopressor] 12.5 mg PO BID 11/13/24 11/17/24 History Morphine Sulfate Ir [MSIR] 15 mg PO Q8H 11/13/24 11/17/24 History Naloxone HCl [Narcan] 4 mg NASAL DIRECTED PRN 11/13/24 11/17/24 History Nystatin 100,000Unit/gm Cream 1 applic TOPICAL DIRECTED 11/13/24 11/17/24 History [Mycostatin Cream] Omeprazole [PriLOSEC] 20 mg PO DAILY 11/13/24 11/17/24 History Potassium Chloride [Klor-Con M20] 20 meq PO DAILY 11/13/24 11/17/24 History Pravastatin Sodium [Pravachol] 40 mg PO DAILY 11/13/24 11/17/24 History Pregabalin [Lyrica] 200 mg PO BID 11/13/24 11/17/24 History Sennosides/Docusate Sodium 1 tab PO HS 11/13/24 11/17/24 History [Senna-S 8.6-50 mg Tablet] Urea 40% Cream 1 gram TOPICAL HS 11/13/24 11/17/24 History metHOTREXate sodium [Methotrexate] 20 mg PO SOLORZANO 11/13/24 11/17/24 History cefuroxime axetiL [Ceftin] 500 mg PO BID #14 tab 11/16/24 11/17/24 Rx Allergies Allergy/AdvReac Type Severity Reaction Status Date / Time Iodinated Contrast Media Allergy Rash/Hives Verified 11/17/24 14:53 NSAIDS (Non-Steroidal Allergy Unknown Verified 11/17/24 14:53 Anti-Inflamma fentanyl AdvReac Hallucinati Verified 11/17/24 14:53 ons Physical Exam Vitals: Vital Signs Temp Pulse Resp BP Pulse Ox 11/17/24 14:00 103 H 20 121/66 93 L 11/17/24 12:32 105 H 18 114/58 92 L 11/17/24 10:28 98.0 F 104 H 20 118/74 92 L Intake and Output 11/17/24 11/17/24 11/17/24 06:59 14:59 22:59 Other: Weight 90.718 kg GENERAL DESCRIPTION: Elderly female lying in bed, no distress. No tachypnea or accessory muscle of respiration use. HEENT: Shows Pallor , no scleral icterus. Oral mucous membrane is dry. No pharyngeal erythema or thrush NECK: Trachea central, no thyromegaly. LUNGS: Unlabored breathing. Clear to auscultation anteriorly. No wheeze or crackle. HEART: S1, S2, regular rate and rhythm. No loud murmur ABDOMEN: Soft, no tenderness , guarding or rigidity, no organomegaly EXTREMITIES: Diffuse swelling and redness to bilateral extremity which is warm to touch SKIN: No rash, no masses palpable. NEUROLOGICAL: The patient is lethargic but arousable mood and affect is normal Results CBC & Chem 7: 11/17/24 11:34 11/17/24 11:34 Labs: Abnormal Lab Results - Last 24 Hours (Table) 11/17/24 11/17/24 Range/Units 11:34 11:34 RDW 16.5 H (11.5-15.5) % Plt Count 136 L (150-450) k/uL Neutrophils # 8.1 H (1.3-7.7) k/uL Lymphocytes # 0.9 L (1.0-4.8) k/uL Sodium 136 L (137-145) mmol/L Chloride 97 L (98-107) mmol/L Carbon Dioxide 36 H (22-30) mmol/L Glucose 110 H (74-99) mg/dL Assessment and Plan (1) Bilateral lower leg cellulitis Current Visit: Yes Status: Acute Code(s): L03.116 - CELLULITIS OF LEFT LOWER LIMB; L03.115 - CELLULITIS OF RIGHT LOWER LIMB SNOMED Code(s): 881606772 Plan: 1patient presented to hospital with increasing swelling in his bilateral extremity and this patient noted to have evidence of diffuse swelling and redness to bilateral legs likely concern for cellulitis from gram-positive skin stefano less likely gram-negative or MRSA infection 2-discontinue vancomycin 3-cefazolin 3 g every 8 hours 4-Flaquito wrap to the leg to keep the swelling down We will follow on clinical condition and cultures to further adjust medication if needed Thank you for this consultation we will follow the patient along with you Dictation was produced using [employer] dictation software. please excuse any grammatical, word or spelling errors. Time with Patient: Greater than 30
[2024-11-18] MEDS: ARTIFICIAL TEARS-HYPROMELLOSE DROPS 15 ML BTL BOTH EYES SCH (07:23)
[2024-11-18] MEDS: ISOSORBIDE MONONITRATE ER 30 MG TAB.ER.24H PO SCH (07:23)
[2024-11-18] MEDS: ENOXAPARIN 40 MG/0.4 ML SYRINGE SQ SCH (07:23)
[2024-11-18] MEDS: ASPIRIN 81 MG PO SCH (07:23)
[2024-11-18] MEDS: FOLIC ACID 1 MG TAB PO SCH (07:23)
[2024-11-18] MEDS: FUROSEMIDE 20 MG TAB PO SCH (07:24)
[2024-11-18] MEDS: PRAVASTATIN SODIUM 40 MG TAB PO SCH (07:24)
[2024-11-18] MEDS: FERROUS SULFATE 325 MG TAB PO SCH (07:24)
[2024-11-18] MEDS: ceFAZolin 3 GM in SODIUM CHLORIDE 0.9% 100 ML IVPB SCH (07:39)
[2024-11-18] MEDS: PANTOPRAZOLE 40 MG TABLET PO SCH (07:39)
[2024-11-18] MEDS: metHOTREXate sodium 2.5 MG TAB PO SCH (08:16)
--- NOTE | 2024-11-18 11:53 | P.PN ---
Subjective Progress Note Date: 11/18/24 68 year old F with PMH chronic hypoxic respiratory failure secondary to COPD on 4L home oxygen, history of CVA/TIA, RA, hypertension presents to the ED for worsening erythema of her bilateral lower extremities. Previous admitted from 11/13-11/16 for altered mentation, fever and intractable pain. She was started on Rocephin + Vancomycin for treatment of UTI and possible LE cellulitis. UCx came back negative and she was discharged home on 7 days of Ceftin. Patient reports not being able to obtain antibiotics after her discharge and worsening of her bilateral lower extremity erythema which prompted her to come back to the ED. The case was discussed with the PCP Dr. Harris who was able to contact the s on, it may be that patient will need a high level of care on discharge. In the ED she underwent extensive evaluation. BP 118/74, HR 104, RR 20, T 98F, 92% on 4L. CBC, CMP significant for Plt 136, Na 136, Cl 97, bicarb 36, glu 110. Lactic acid 1.4. EKG sinus tachycardia with Q waves Q1-4. Patient is admitted for further workup and management. Started on Vancomycin and ID consulted. ID switched antibiotics to Cefzolin. 11/18 Patient was seen and examined. She reports generalized pain in her legs and shoulders. Antibiotics include Cefzolin 3g IV TID (D1). CRP 5.5. General: non toxic, no distress, appears at stated age Derm: warm, dry Head: atraumatic, normocephalic, symmetric Eyes: EOMI, no lid lag, anicteric sclera Mouth: no lip lesion, mucus membranes moist Cardiovascular: S1S2 reg, no murmur Lungs: Decreased BS bilateral, no rhonchi, no rales , no accessory muscle use Ext: no gross muscle atrophy, no edema, no contractures, bilateral LE erythema extending to the mid-shins Neuro: no focal neuro deficits Psych: Alert, oriented, appropriate affect Based on my assessment of this patient, this patient meets a high complexity level of care. Cellulitis: Does not meet sepsis criteria. Received 2 doses of Vancomycin. Concerns for lorenzo syndrome. BCx pending. CRP as above. Pro-enrique and ESR pending. Fall precautions. PT and OT consult. ID on board. Chronic hypoxic respiratory failure secondary to COPD on 4L home O2: Symbicort 2 INH BID. DuoNeb QID PRN SOB/wheezing. History of CVA/TIA: Pravastatin 40 mg PO QD. ASA 81 mg PO QD. Hypertension: Imdur 30 mg PO QD. Metoprolol 12.5 mg PO BID. Lasix 20 mg PO QD. Chronic pain: MS Contin 15 mg PO TID. CODE STATUS: FULL CODE DVT Prophylaxis: Lovenox SQ GI Prophylaxis: Protonix PO Designated medical POA if patient is not able to make medical decisions for themselves: I have reviewed the following regional engagement consultant notes: ID note. I have reviewed the results of the following tests: CRP. I have ordered the following tests: ESR and Pro-enrique pending. I have discussed the care of this patient with the following independent historian: DAREN. I have independently interpreted the following test below: I have discussed the management of this patient with the following physician: Objective - Vital Signs Vital signs: Vital Signs Temp 98 F 11/18/24 07:05 Pulse 106 H 11/18/24 07:05 Resp 19 11/18/24 07:05 BP 124/71 11/18/24 07:05 Pulse Ox 92 L 11/18/24 07:05 FiO2 Intake & Output 11/17/24 11/18/24 11/18/24 18:59 06:59 18:59 Weight 90.718 kg Other: Voiding Method External Catheter # Voids 1 - Labs CBC & Chem 7: 11/17/24 11:34 11/17/24 11:34 Labs: Abnormal Lab Results - Last 24 Hours (Table) 11/17/24 11/18/24 Range/Units 11:34 06:15 Sodium 136 L (137-145) mmol/L Chloride 97 L (98-107) mmol/L Carbon Dioxide 36 H (22-30) mmol/L Glucose 110 H (74-99) mg/dL C-Reactive Protein 5.5 H (<1.0) mg/dL
[2024-11-18] MEDS: diphenhydrAMINE 25 MG CAP PO STA (12:06)
[2024-11-18] MEDS: HYDROmorphone 0.5 MG/0.5 ML SYRINGE IVP STA (12:07)
[2024-11-18 14:31] LABS: Glucose,Whole Blood 100 mg/dL (70-110)
[2024-11-18] MEDS: ACETAMINOPHEN IV (For NPO) 1,000 MG in EMPTY BAG 1 BAG IVPB STA (14:46)
[2024-11-18 14:48] LABS: ABG Oxygen Saturation 89.3 % (94-97); ABG PH 7.33 (7.35-7.45); ABG PO2 60 mmHg (83-108); ABG TCO2 45 mmol/L (19-24); Allen Test Performed? Yes
[2024-11-18 14:51] LABS: ABG HCO3 43 mmol/L (21-25); ABG PCO2 81 mmHg (35-45)
[2024-11-18 15:17] LABS: ALT 9 U/L (4-34); AST 18 U/L (14-36); African American GFR (CKD) >90 (>60 ml/min/1.73 sqM); Albumin/Globulin Ratio 1.3; Alkaline Phosphatase 61 U/L (38-126); Blood Urea Nitrogen 5 mg/dL (7-17); Calcium 8.3 mg/dL (8.4-10.2); Chloride 91 mmol/L (98-107); Glucose 100 mg/dL (74-99); Non-African American GFR(CKD) >90 (>60 ml/min/1.73 sqM); Potassium 4.2 mmol/L (3.5-5.1); Sodium 137 mmol/L (137-145); Total Bilirubin 0.9 mg/dL (0.2-1.3)
[2024-11-18] MEDS: IPRATROPIUM-ALBUTEROL 3 ML NEB INHALATION PRN (15:18)
[2024-11-18 15:19] LABS: Anisocytosis Slight; HCT 46.6 % (34.0-46.0); HGB 14.7 gm/dL (11.4-16.0); Hypochromasia Moderate; MCH 30.4 pg (25.0-35.0); MCHC 31.6 g/dL (31.0-37.0); MCV 96.2 fL (80.0-100.0); Macrocytosis Slight; Mean Platelet Volume 8.8; Platelet Count 134 k/uL (150-450); RBC 4.84 m/uL (3.80-5.40); RDW 16.3 % (11.5-15.5); WBC 10.1 k/uL (3.8-10.6)
[2024-11-18 15:23] LABS: Anion Gap 11 mmol/L; Carbon Dioxide 35 mmol/L (22-30)
--- NOTE | 2024-11-18 15:26 | XR ---
EXAMINATION TYPE: XR chest 1V portable DATE OF EXAM: 11/18/2024 3:04 PM COMPARISON: Chest radiographs from 11/16/2024 CLINICAL INDICATION: Female, 68 years old with history of HYPOXIA; [facility] TECHNIQUE: XR chest 1V portable Frontal view of the chest. FINDINGS: Lungs/Pleura: No evidence of focal consolidation or pneumothorax. Blunting of the costophrenic angles is present. Pulmonary vascularity: Pulmonary vascular congestion. Heart/mediastinum: Cardiomediastinal silhouette is enlarged. Musculoskeletal: No acute osseous pathology. Fixation hardware in the cervical and lumbar spine. IMPRESSION: Cardiomegaly, pulmonary vascular congestion and bilateral pleural effusions. Correlate with BNP for c ongestive heart failure. [facility], , 11/18/2024 3:23 PM
[2024-11-18 15:43] LABS: Appearance,Urine Cloudy (Clear); Bacteria,Urine Moderate /hpf; Bilirubin,Urine Negative (Negative); Blood,Urine Moderate (Negative); Budding Yeast,Urine Rare /hpf; Color,Urine Colorless; Glucose,Urine (UA) Negative (Negative); Ketones,Urine Negative (Negative); Leukocyte Esterase,Urine Large (Negative); Mucus,Urine Rare /hpf; Nitrite,Urine Negative (Negative); Protein,Urine Negative (Negative); RBC,Urine 10 /hpf (0-5); Specific Gravity,Urine 1.009 (1.001-1.035); Squamous Epithelial Cell,Urine 6 /hpf (0-4); Urobilinogen,Urine <2.0 mg/dL (<2.0); WBC,Urine 9 /hpf (0-5)
[2024-11-18] MEDS: IPRATROPIUM-ALBUTEROL 3 ML NEB INHALATION SCH (16:15)
[2024-11-18] MEDS: FUROSEMIDE 10 MG/ML 4 ML VIAL IV STA (16:18)
[2024-11-18] MEDS: methylPREDNISolone SOD SUCCI 40 MG/ML 1 ML VIAL IV SCH (16:18)
[2024-11-18 20:09] LABS: Glucose,Whole Blood 126 mg/dL (70-110)
[2024-11-18] MEDS: FUROSEMIDE 10 MG/ML 4 ML VIAL IV ONE (20:47)
[2024-11-18 21:00] LABS: ABG Base Excess 15.4 mmol/L; ABG Oxygen Saturation 94.1 % (94-97); ABG PH 7.33 (7.35-7.45); ABG PO2 72 mmHg (83-108); ABG TCO2 48 mmol/L (19-24); Allen Test Performed? Yes
[2024-11-18 21:02] LABS: ABG HCO3 46 mmol/L (21-25); ABG PCO2 87 mmHg (35-45)
[2024-11-19 06:17] LABS: Glucose,Whole Blood 137 mg/dL (70-110)
[2024-11-19 06:32] LABS: African American GFR (CKD) >90 (>60 ml/min/1.73 sqM); Blood Urea Nitrogen 12 mg/dL (7-17); Calcium 8.1 mg/dL (8.4-10.2); Chloride 90 mmol/L (98-107); Glucose 137 mg/dL (74-99); Non-African American GFR(CKD) >90 (>60 ml/min/1.73 sqM); Sodium 136 mmol/L (137-145)
[2024-11-19 06:38] LABS: Anion Gap 10 mmol/L
--- NOTE | 2024-11-19 06:46 | P.PN ---
Subjective Progress Note Date: 11/19/24 68 year old F with PMH chronic hypoxic respiratory failure secondary to COPD on 4L home oxygen, history of CVA/TIA, RA, hypertension presents to the ED for worsening erythema of her bilateral lower extremities. Previous admitted from 11/13-11/16 for altered mentation, fever and intractable pain. She was started on Rocephin + Vancomycin for treatment of UTI and possible LE cellulitis. UCx came back negative and she was discharged home on 7 days of Ceftin. Patient reports not being able to obtain antibiotics after her discharge and worsening of her bilateral lower extremity erythema which prompted her to come back to the ED. The case was discussed with the PCP Dr. Harris who was able to contact the s on, it may be that patient will need a high level of care on discharge. In the ED she underwent extensive evaluation. BP 118/74, HR 104, RR 20, T 98F, 92% on 4L. CBC, CMP significant for Plt 136, Na 136, Cl 97, bicarb 36, glu 110. Lactic acid 1.4. EKG sinus tachycardia with Q waves Q1-4. Patient is admitted for further workup and management. Started on Vancomycin and ID consulted. ID switched antibiotics to Cefzolin. A- team called around 2:30PM on 11/18 for tremors, tachycardia and increased work of breathing. Found to be saturating 88% on 4L NC and Tmax 102.6F. ABG done showing pH 7.33, pCO2 81. BMP showed bicarb of 35 consistent with respiratory acidosis with metabolic alkalosis. CXR showed pulmonary vascular congestion. Transferred to for continuous BiPAP, given a dose of Lasix IV, SoluMedrol and DuoNeb. Patient with increased lethargy despite being on BiPAP the case was discussed with Dr. Kelley with regard to transferring her to ICU. 11/19 Patient was seen and examined. Sitter at bedside. Currently on BiPAP 09/01, FiO2 75% saturating 88%. She was given 2 doses of Lasix 40 mg IV yesterday, negative 3.2 L fluid balance so far. Antibiotics include Cefzolin 3g IV TID (D2). Procal is 0.06. CRP is 5.5, ESR is 5. UA done yesterday shows moderate blood, large LE with 9 WBCs and 6 Sq epithelial cells. COVID, RSV, Flu neg. CBC, BMP, CXR is pending this morning. General: ill appearing, lethargic on BiPAP Derm: warm, dry Head: atraumatic, normocephalic, symmetric Eyes: EOMI, no lid lag, anicteric sclera Mouth: no lip lesion, mucus membranes moist Cardiovascular: S1S2 reg, no murmur Lungs: Decreased BS bilateral with scattered wheezing, no rhonchi, no rales , no accessory muscle use Ext: no gross muscle atrophy, no edema, no contractures, bilateral LE erythema extending to the mid-shins YUMIKO wrapped Neuro: no focal neuro deficits Psych: Lethargic Based on my assessment of this patient, this patient meets a high complexity level of care. Acute metabolic encephalopathy: Multifactorial. Sepsis. Hypercarbia. Polypharmacy on MS Contin and Pregabalin which I will discontinue for now. Sepsis likely due to Cellulitis: Febrile and tachycardic on 11/18 not present on admission. Received 2 doses of Vancomycin. Continue Cefzolin 3g IV TID (D2). BCx prelim neg so far. CRP 5.5. Pro-enrique 0.06. ESR 5. Fall precautions. PT and OT consult. ID on board. Acute on chronic hypoxic respiratory failure secondary to COPD on 4L home O2 with concerns of CHF exacerbation: Symbicort 2 INH BID. DuoNeb QID scheduled and PRN SOB/wheezing. SoluMedrol 40 mg IV TID. Start Lasix 40 mg IV BID. Strict intake and outtake. Daily weights. Obtain Echo. Monitor electrolytes and renal function. Pulmonary consult. History of CVA/TIA: Pravastatin 40 mg PO QD. ASA 81 mg PO QD. Hypertension: Imdur 30 mg PO QD. Metoprolol 12.5 mg PO BID. Lasix as above. Chronic pain: MS Contin 15 mg PO TID. CODE STATUS: FULL CODE DVT Prophylaxis: Lovenox SQ GI Prophylaxis: Protonix PO Designated medical POA if patient is not able to make medical decisions for themselves: Son. I have reviewed the following system sales consultant notes: I have reviewed the results of the following tests: Procal, ESR, CRP, BCx, COVI D/RSV/Flu. I have ordered the following tests: CBC, BMP, CXR pending this morning. Echo is pending. I have discussed the care of this patient with the following independent historian: I have independently interpreted the following test below: I have discussed the management of this patient with the following physician: Objective - Vital Signs Vital signs: Vital Signs Temp 97.8 F 11/18/24 23:42 Pulse 86 11/18/24 23:42 Resp 29 H 11/19/24 02:00 BP 111/70 11/18/24 23:42 Pulse Ox 93 L 11/18/24 19:32 FiO2 75 11/19/24 04:32 Intake & Output 11/18/24 11/18/24 11/19/24 06:59 18:59 06:59 Intake Total 0 100 Output Total 1050 2250 Balance -1050 -2150 Intake: Intake, IV Titration 100 Amount ceFAZolin 3 gm In Sodium 100 Chloride 0.9% 100 ml @ 200 mls/hr IVPB Q8HR [facility] Rx#:[id number] Oral 0 0 Output: Urine 1050 2250 Other: Voiding Method External Catheter External Catheter External Catheter # Voids 1 2 - Labs CBC & Chem 7: 11/18/24 14:55 11/18/24 14:55 Labs: Abnormal Lab Results - Last 24 Hours (Table) 11/18/24 11/18/24 11/18/24 Range/Units 06:15 14:43 14:55 Hct 46.6 H (34.0-46.0) % RDW 16.3 H (11.5-15.5) % Plt Count 134 L (150-450) k/uL ABG pH 7.33 L (7.35-7.45) ABG pCO2 81 H* (35-45) mmHg ABG pO2 60 L (83-108) mmHg ABG HCO3 43 H* (21-25) mmol/L ABG Total CO2 45 H (19-24) mmol/L ABG O2 Saturation 89.3 L (94-97) % Chloride (98-107) mmol/L Carbon Dioxide (22-30) mmol/L BUN (7-17) mg/dL Glucose (74-99) mg/dL POC Glucose (mg/dL) (70-110) mg/dL Calcium (8.4-10.2) mg/dL C-Reactive Protein 5.5 H (<1.0) mg/dL Urine Appearance (Clear) Urine Blood (Negative) Ur Leukocyte Esterase (Negative) Urine RBC (0-5) /hpf Urine WBC (0-5) /hpf Ur Squamous Epith Cells (0-4) /hpf Urine Bacteria (None) /hpf Urine Mucus (None) /hpf Urine Yeast (Budding) (None) /hpf 11/18/24 11/18/24 11/18/24 Range/Units 14:55 15:30 20:07 Hct (34.0-46.0) % RDW (11.5-15.5) % Plt Count (150-450) k/uL ABG pH (7.35-7.45) ABG pCO2 (35-45) mmHg ABG pO2 (83-108) mmHg ABG HCO3 (21-25) mmol/L ABG Total CO2 (19-24) mmol/L ABG O2 Saturation (94-97) % Chloride 91 L (98-107) mmol/L Carbon Dioxide 35 H (22-30) mmol/L BUN 5 L (7-17) mg/dL Glucose 100 H (74-99) mg/dL POC Glucose (mg/dL) 126 H (70-110) mg/dL Calcium 8.3 L (8.4-10.2) mg/dL C-Reactive Protein (<1.0) mg/dL Urine Appearance Cloudy H (Clear) Urine Blood Moderate H (Negative) Ur Leukocyte Esterase Large H (Negative) Urine RBC 10 H (0-5) /hpf Urine WBC 9 H (0-5) /hpf Ur Squamous Epith Cells 6 H (0-4) /hpf Urine Bacteria Moderate H (None) /hpf Urine Mucus Rare H (None) /hpf Urine Yeast (Budding) Rare H (None) /hpf 11/18/24 Range/Units 20:56 Hct (34.0-46.0) % RDW (11.5-15.5) % Plt Count (150-450) k/uL ABG pH 7.33 L (7.35-7.45) ABG pCO2 87 H* (35-45) mmHg ABG pO2 72 L (83-108) mmHg ABG HCO3 46 H* (21-25) mmol/L ABG Total CO2 48 H (19-24) mmol/L ABG O2 Saturation (94-97) % Chloride (98-107) mmol/L Carbon Dioxide (22-30) mmol/L BUN (7-17) mg/dL Glucose (74-99) mg/dL POC Glucose (mg/dL) (70-110) mg/dL Calcium (8.4-10.2) mg/dL C-Reactive Protein (<1.0) mg/dL Urine Appearance (Clear) Urine Blood (Negative) Ur Leukocyte Esterase (Negative) Urine RBC (0-5) /hpf Urine WBC (0-5) /hpf Ur Squamous Epith Cells (0-4) /hpf Urine Bacteria (None) /hpf Urine Mucus (None) /hpf Urine Yeast (Budding) (None) /hpf Microbiology - Last 24 Hours (Table) 11/17/24 11:25 Blood Culture - Preliminary Blood 11/17/24 11:35 Blood Culture - Preliminary Blood
[2024-11-19 06:58] LABS: Anisocytosis Slight; HCT 44.7 % (34.0-46.0); HGB 13.9 gm/dL (11.4-16.0); Hypochromasia Slight; MCH 29.6 pg (25.0-35.0); MCHC 31.1 g/dL (31.0-37.0); MCV 95.1 fL (80.0-100.0); Mean Platelet Volume 8.3; Platelet Count 147 k/uL (150-450); RDW 16.1 % (11.5-15.5); WBC 5.3 k/uL (3.8-10.6)
[2024-11-19 07:04] LABS: Carbon Dioxide 36 mmol/L (22-30); Potassium 4.7 mmol/L (3.5-5.1)
--- NOTE | 2024-11-19 09:01 | XR ---
EXAMINATION TYPE: XR chest 1V portable DATE OF EXAM: 11/19/2024 COMPARISON: 11/18/2024 CLINICAL INDICATION: Female, 68 years old with history of SOB; , TECHNIQUE: XR chest 1V portable views of the chest. FINDINGS: Exam limited by positioning. Bilateral areas of consolidation and small effusion are stable. Surgical change involving the vertebral column. Upper lung zones are markedly limited. Osseous structures are stable. IMPRESSION: 1. Markedly limited exam demonstrates bilateral consolidation and pleural effusion stable. Could be o n the basis of CHF or pneumonia. [facility], , 11/19/2024 8:59 AM
[2024-11-19] MEDS: FUROSEMIDE 10 MG/ML 4 ML VIAL IV SCH (09:04)
[2024-11-19 11:29] LABS: Glucose,Whole Blood 124 mg/dL (70-110)
--- NOTE | 2024-11-19 11:34 | P.CNPUL ---
History of Present Illness Consult date: 11/19/24 Requesting physician: Edward Valerio Reason for consult: hypoxemia Chief complaint: Mental status, fever, and pain History of present illness: This is a 68-year-old female with history of COPD, chronic hypoxic respiratory failure, maintained on 4 L nasal cannula, history of rheumatoid arthritis, CVA/TIA, patient also had chronic history of cellulitis of lower extremities with worsening erythema, patient was in the hospital from 11/13 until 11/16 for altered mentation fever and intractable pain. Patient was treated for UTI and left lower extremity cellulitis. Patient was discharged home on antibiotics in the form of Ceftin however the patient was brought back yesterday with multiple complaints including altered mental status, worsening cellulitis, worsening hypoxia and hypercapnia with a pO2 of 72 pCO2 of 87 pH of 7.33 on 80% FiO2. Patient was placed on BiPAP, she is presently on 75% FiO2 IPAP of 10 and EPAP of 5, I saw this patient in consultation today, she is a very poor historian, complaining of her positioning, keeps asking to be placed properly in bed, as she seems to be uncomfortable, her O2 sats is marginal on 75% FiO2 with O2 sats of 90%, patient does not seem to be well, hence I have arranged for the patient to be transferred to the ICU. Chest x-ray on admission shows cardiomegaly pulmonary vascular congestion, bilateral pleural effusion, underlying pneumonia is not entirely ruled out, felt to be less likely. Patient was already seen by infectious disease on consultation for her cellulitis, and the recommendation was to change antibiotics to cefazolin 3 g every 8 hours. Patient is on diuretics, she is on furosemide at 40 mg IV push every 12 hours, and I added Diamox to 50 mg IV push every 12. Patient is on bronchodilators in the form of DuoNeb, she is also on Symbicort, on methylprednisolone 40 mg IV push Q8. Considering her ABG and considering her overall clinical picture, patient is marginal at best, and I recommended transferring the patient to the ICU for close monitoring. WBC count is normal electrolytes are normal bicarb is 36 renal profile is normal, viral screening is negative for influenza A influenza B RSV and COVID. Review of Systems ROS unobtainable: due to mental status (Patient is a poor historian) Past Medical History Past Medical History: Heart Failure, COPD, CVA/TIA, Hypertension History of Any Multi-Drug Resistant Organisms: None Reported Past Surgical History: Back Surgery, Joint Replacement Past Anesthesia/Blood Transfusion Reactions: No Reported Reaction Past Psychological History: No Psychological Hx Reported Smoking Status: Never smoker Past Alcohol Use History: None Reported Past Drug Use History: None Reported - Past Family History Father Family Medical History: Myocardial Infarction ([place]) Mother Family Medical History: Cancer Medications and Allergies Home Medications Medication Instructions Recorded Confirmed Type Albuterol Sulfate [Albuterol 2 puff INHALATION RT-Q6H PRN 11/13/24 11/17/24 History Sulfate Hfa] Alendronate Sodium [Fosamax] 70 mg PO SOLORZANO 11/13/24 11/17/24 History Ammonium Lactate Lotion 1 applic TOPICAL BID 11/13/24 11/17/24 History [Lac-Hydrin 12% Lotion] Ascorbic Acid [Vitamin C] 250 mg PO SUWEFR 11/13/24 11/17/24 History Aspirin EC [Ecotrin Low Dose] 81 mg PO DAILY 11/13/24 11/17/24 History Budesonide-Formot 160-4.5 Mcg 2 puff INHALATION RT-BID 11/13/24 11/17/24 History [Symbicort 160-4.5 Mcg Inhaler] Calcium Carbonate [Tums] 500 mg PO BID PRN 11/13/24 11/17/24 History Calcium/D3/Mag Ox/Lawn Care Professional/Silvano/Zn 1 tab PO BID 11/13/24 11/17/24 History [Caltrate 784-Z3-[id number] Tab] Carboxymethylcellulose Sodium 1 drop BOTH EYES BID PRN 11/13/24 11/17/24 History [Refresh Tears] Carboxymethylcellulose Sodium 1 drop BOTH EYES DAILY 11/13/24 11/17/24 History [Refresh Tears] Cranberry Fruit Extract [Cranberry] 200 mg PO HS 11/13/24 11/17/24 History Erythromycin Ophth Oint [Romycin 1 applic BOTH EYES HS 11/13/24 11/17/24 History Ophth Oint] Ferrous Gluconate 324 mg PO SUWEFR 11/13/24 11/17/24 History Folic Acid 2 mg PO DAILY 11/13/24 11/17/24 History Furosemide [Lasix] 20 mg PO DAILY 11/13/24 11/17/24 History Isosorbide Mononitrate ER [Imdur] 30 mg PO DAILY 11/13/24 11/17/24 History Menthol [Biofreeze] 1 applic TOPICAL TID PRN 11/13/24 11/17/24 History Menthol-Zinc Oxide Oint 1 applic TOPICAL QID PRN 11/13/24 11/17/24 History [Calmoseptine Ointment] Metoprolol Tartrate [Lopressor] 12.5 mg PO BID 11/13/24 11/17/24 History Morphine Sulfate Ir [MSIR] 15 mg PO Q8H 11/13/24 11/17/24 History Naloxone HCl [Narcan] 4 mg NASAL DIRECTED PRN 11/13/24 11/17/24 History Nystatin 100,000Unit/gm Cream 1 applic TOPICAL DIRECTED 11/13/24 11/17/24 History [Mycostatin Cream] Omeprazole [PriLOSEC] 20 mg PO DAILY 11/13/24 11/17/24 History Potassium Chloride [Klor-Con M20] 20 meq PO DAILY 11/13/24 11/17/24 History Pravastatin Sodium [Pravachol] 40 mg PO DAILY 11/13/24 11/17/24 History Pregabalin [Lyrica] 200 mg PO BID 11/13/24 11/17/24 History Sennosides/Docusate Sodium 1 tab PO HS 11/13/24 11/17/24 History [Senna-S 8.6-50 mg Tablet] Urea 40% Cream 1 gram TOPICAL HS 11/13/24 11/17/24 History metHOTREXate sodium [Methotrexate] 20 mg PO SOLORZANO 11/13/24 11/17/24 History cefuroxime axetiL [Ceftin] 500 mg PO BID #14 tab 11/16/24 11/17/24 Rx Allergies Allergy/AdvReac Type Severity Reaction Status Date / Time Iodinated Contrast Media Allergy Rash/Hives Verified 11/17/24 14:53 NSAIDS (Non-Steroidal Allergy Unknown Verified 11/17/24 14:53 Anti-Inflamma fentanyl AdvReac Hallucinati Verified 11/17/24 14:53 ons Physical Exam Vitals: Vital Signs Temp Pulse Pulse Resp BP Pulse Ox FiO2 11/19/24 08:22 103 H 11/19/24 08:11 90 L 75 11/19/24 08:10 75 11/19/24 08:09 102 H 11/19/24 08:00 98.6 F 112 H 35 H 123/78 75 11/19/24 05:23 87 11/19/24 05:13 88 11/19/24 04:32 75 11/19/24 04:00 98.3 F 87 35 H 114/71 90 L 11/19/24 02:00 29 H 11/19/24 00:37 75 11/18/24 23:42 97.8 F 86 29 H 111/70 75 11/18/24 21:25 75 11/18/24 20:48 80 11/18/24 20:45 95 29 H 11/18/24 19:32 98.1 F 99 29 H 105/65 93 L 11/18/24 18:26 98.7 F 103 H 28 H 107/64 93 L 80 11/18/24 17:57 106 H 28 H 108/64 93 L 80 11/18/24 17:38 98.6 F 107 H 27 H 114/66 95 80 11/18/24 17:05 80 11/18/24 16:55 100.3 F H 111 H 30 H 109/64 93 L 80 11/18/24 16:35 113 H 28 H 107/63 94 L 80 11/18/24 16:34 80 11/18/24 16:20 101.1 F H 120 H 32 H 96/55 87 L 60 11/18/24 15:55 60 11/18/24 15:34 100.2 F H 11/18/24 15:25 125 H 18 11/18/24 15:18 126 H 24 11/18/24 14:50 100.9 F H 131 H 21 146/83 90 L 11/18/24 14:40 102.6 F H Intake and Output 11/18/24 11/19/24 11/19/24 22:59 06:59 14:59 Intake Total 0 100 Output Total 2350 1550 450 Balance -2330 -4630 450 Intake: Intake, IV Titration 100 Amount ceFAZolin 3 gm In Sodium 100 Chloride 0.9% 100 ml @ 200 mls/hr IVPB Q8HR [facility] Rx#:[id number] Oral 0 0 Output: Urine 2350 1550 450 Other: Voiding Method External Catheter External Catheter External Catheter # Voids 1 2 Weight 90.718 kg Sickle exam General: Revealed 68-year-old female on BiPAP, in mild distress , O2 sats is marginal Derm: warm, dry Head: atraumatic, normocephalic, symmetric Eyes: EOMI, no lid lag, anicteric sclera, dry mucous membranes. Mouth: no lip lesion, dry mucous membranes Cardiovascular: Distant S1-S2, no S3 gallop, no murmur Lungs: Symmetrical chest expansion scattered rhonchi noted bilaterally. Ext: Bilateral lower extremities edema and erythema noted. Wrapped with [place] wrap. Neuro: Patient is arousable, slightly obtunded, follows simple instructions. Psych: Could not fully assess. Results - Laboratory Findings CBC and BMP: 11/19/24 06:39 11/19/24 05:49 ABG ABG pH 7.33 (7.35-7.45) L 11/18/24 20:56 ABG pCO2 87 mmHg (35-45) H* 11/18/24 20:56 ABG pO2 72 mmHg (83-108) L 11/18/24 20:56 ABG O2 Saturation 94.1 % (94-97) 11/18/24 20:56 Abnormal lab findings: Abnormal Labs 11/17/24 11/17/24 11/18/24 11:34 11:34 06:15 Hct RDW 16.5 H Plt Count 136 L Neutrophils # 8.1 H Lymphocytes # 0.9 L ABG pH ABG pCO2 ABG pO2 ABG HCO3 ABG Total CO2 ABG O2 Saturation Sodium 136 L Chloride 97 L Carbon Dioxide 36 H BUN Creatinine Glucose 110 H POC Glucose (mg/dL) Calcium C-Reactive Protein 5.5 H Urine Appearance Urine Blood Ur Leukocyte Esterase Urine RBC Urine WBC Ur Squamous Epith Cells Urine Bacteria Urine Mucus Urine Yeast (Budding) 11/18/24 11/18/24 11/18/24 14:43 14:55 14:55 Hct 46.6 H RDW 16.3 H Plt Count 134 L Neutrophils # Lymphocytes # ABG pH 7.33 L ABG pCO2 81 H* ABG pO2 60 L ABG HCO3 43 H* ABG Total CO2 45 H ABG O2 Saturation 89.3 L Sodium Chloride 91 L Carbon Dioxide 35 H BUN 5 L Creatinine Glucose 100 H POC Glucose (mg/dL) Calcium 8.3 L C-Reactive Protein Urine Appearance Urine Blood Ur Leukocyte Esterase Urine RBC Urine WBC Ur Squamous Epith Cells Urine Bacteria Urine Mucus Urine Yeast (Budding) 11/18/24 11/18/24 11/18/24 15:30 20:07 20:56 Hct RDW Plt Count Neutrophils # Lymphocytes # ABG pH 7.33 L ABG pCO2 87 H* ABG pO2 72 L ABG HCO3 46 H* ABG Total CO2 48 H ABG O2 Saturation Sodium Chloride Carbon Dioxide BUN Creatinine Glucose POC Glucose (mg/dL) 126 H Calcium C-Reactive Protein Urine Appearance Cloudy H Urine Blood Moderate H Ur Leukocyte Esterase Large H Urine RBC 10 H Urine WBC 9 H Ur Squamous Epith Cells 6 H Urine Bacteria Moderate H Urine Mucus Rare H Urine Yeast (Budding) Rare H 11/19/24 11/19/24 11/19/24 05:49 06:15 06:39 Hct RDW 16.1 H Plt Count 147 L Neutrophils # Lymphocytes # ABG pH ABG pCO2 ABG pO2 ABG HCO3 ABG Total CO2 ABG O2 Saturation Sodium 136 L Chloride 90 L Carbon Dioxide 36 H BUN Creatinine 0.50 L Glucose 137 H POC Glucose (mg/dL) 137 H Calcium 8.1 L C-Reactive Protein Urine Appearance Urine Blood Ur Leukocyte Esterase Urine RBC Urine WBC Ur Squamous Epith Cells Urine Bacteria Urine Mucus Urine Yeast (Budding) - Diagnostic Findings Chest x-ray: image reviewed (As noted in HPI, findings are mostly consistent with congestive heart failure, underlying pneumonia is not entirely ruled out and felt to be less likely) Assessment and Plan Assessment: Impression: Acute on chronic hypoxic and hypercapnic respiratory failure requiring BiPAP, ABG is marginal, hence I am recommending transferring the patient to the ICU for closer observation and treatment. Acute congestive heart failure Acute congestive heart failure unknown ejection fraction, echocardiogram is pending Acute on chronic cellulitis of lower extremities History of severe underlying COPD acute metabolic encephalopathy Recent history of urinary tract infection Recommendation: Transfer patient to ICU Continue BiPAP Continue diuretics including furosemide and Diamox Continue bronchodilators for underlying COPD Continue cefazolin as recommended by infectious disease on the case Condition seems to be relatively critical hence and transferring the patient to ICU and will continue to follow GI and DVT prophylaxis Prognosis is guarded Time with Patient: Greater than 30
[2024-11-19 11:50] LABS: ABG Oxygen Saturation 91.7 % (94-97); ABG PCO2 52 mmHg (35-45); ABG PH 7.55 (7.35-7.45); ABG TCO2 47 mmol/L (19-24); Allen Test Performed? Yes
[2024-11-19 11:52] LABS: ABG PO2 59 mmHg (83-108)
[2024-11-19 11:53] LABS: ABG HCO3 46 mmol/L (21-25)
[2024-11-19] MEDS: ACETAMINOPHEN IV (For NPO) 1,000 MG in EMPTY BAG 1 BAG IVPB STA (12:33)
[2024-11-19] MEDS: MORPHINE SULFATE 2 MG/ML SYRINGE IVP PRN (15:43)
--- NOTE | 2024-11-19 19:31 | CA ---
Transthoracic Echo Report Name: Rola Zepeda Age: 68 Gender: F : 1955 Exam Date: 11/19/2024 14:32 Exam Location: [facility] Ht (in): 69 Wt (lb): 200 Ordering Physician: Edward Valerio MD Attending/Referring Phys: Women Nurse Cary Mays RDCS Procedure CPT: Indications: sob Cardiac Hx: tachycardia Technical Quality: Technically difficult study Contrast 1: Total Dose (mL): Contrast 2: Total Dose (mL): MEASUREMENTS (Male / Female) Normal Values 2D ECHO LV Diastolic Diameter PLAX 5.5 cm 4.2 - 5.9 / 3.9 - 5.3 cm LV Systolic Diameter PLAX 3.6 cm IVS Diastolic Thickness 0.9 cm 0.6 - 1.0 / 0.6 - 0.9 cm LVPW Diastolic Thickness 1.2 cm 0.6 - 1.0 / 0.6 - 0.9 cm LV Relative Wall Thickness 0.4 RV Internal Dim ED PLAX 2.7 cm M-MODE Aortic Root Diameter MM 4.0 cm AV Cusp Separation MM 2.4 cm FINDINGS Left Ventricle Left ventricular ejection fraction is estimated at 55-60 %. Mildly increased posterior wall thickness. Mildly increased left ventricular diastolic diameter. No obvious regional wall motion abnormalities. Right Ventricle Normal right ventricular size. Unable to estimate the right ventricular systolic pressure. Right Atrium Right atrium not well visualized. Left Atrium Normal left atrial size. No left atrial thrombus or mass present. Mitral Valve Mitral valve thickened. Mild mitral annular calcification. Aortic Valve Trileaflet aortic valve. Thickened aortic valve without stenosis. Tricuspid Valve Tricuspid valve not well visualized. Pulmonic Valve Structurally normal pulmonic valve. No pulmonic regurgitation. Pericardium No pericardial effusion. Aorta Moderate aortic dilatation at the level of the sinuses of valsalva 40 mm CONCLUSIONS Hyperdynamic LV function Previewed by: Dr. Brannon Ely MD (Electronically Signed) Final Date: 19 November 2024 19:30
[2024-11-20 05:42] LABS: Anisocytosis Slight; HCT 45.2 % (34.0-46.0); HGB 14.4 gm/dL (11.4-16.0); MCH 29.4 pg (25.0-35.0); MCHC 31.9 g/dL (31.0-37.0); MCV 92.2 fL (80.0-100.0); Mean Platelet Volume 8.5; Platelet Count 206 k/uL (150-450); RBC 4.91 m/uL (3.80-5.40); RDW 16.1 % (11.5-15.5); WBC 6.1 k/uL (3.8-10.6)
[2024-11-20 05:54] LABS: African American GFR (CKD) >90 (>60 ml/min/1.73 sqM); Anion Gap 8 mmol/L; Blood Urea Nitrogen 26 mg/dL (7-17); Calcium 8.9 mg/dL (8.4-10.2); Chloride 88 mmol/L (98-107); Glucose 141 mg/dL (74-99); Magnesium 1.8 mg/dL (1.6-2.3); Non-African American GFR(CKD) >90 (>60 ml/min/1.73 sqM); Potassium 3.2 mmol/L (3.5-5.1); Sodium 136 mmol/L (137-145)
[2024-11-20 06:00] LABS: Carbon Dioxide 40 mmol/L (22-30)
[2024-11-20] MEDS ORDERED: Magnesium Replacement Protocol 1 EACH MISC MISCELLANE PRN (06:07)
[2024-11-20] MEDS ORDERED: Potassium Replacement Protocol 1 EACH MISC MISCELLANE PRN ×2 (06:07→15:08)
[2024-11-20] MEDS: MAGNESIUM SULFATE-D5W PMX 1 GM in DEXTROSE/WATER 1 100ML.BAG IVPB ONE (06:24)
[2024-11-20] MEDS: POTASSIUM BICARBONATE/CIT AC 20 MEQ TABLET.EFF NG-TUBE SCH (06:24)
--- NOTE | 2024-11-20 07:54 | XR ---
EXAMINATION TYPE: XR chest 1V portable DATE OF EXAM: 11/20/2024 5:08 AM COMPARISON: 11/19/2024 CLINICAL INDICATION: Female, 69 years old with history of SOB, , FINDINGS: ACDF hardware partially visualized posterior lumbar fusion hardware. Portable technique further limit ed by body habitus. Heart is enlarged. There appear to be old left lateral orbit fracture deformities . Mild interstitial density persists. Left basilar retrocardiac opacity now better seen. IMPRESSION: Mild cardiomegaly with mild interstitial densities and ongoing retrocardiac/left basilar opacities. C onsider CHF with pulmonary vascular congestion along with a [id number] left pleural effusion. [facility], , 11/20/2024 7:51 AM
--- NOTE | 2024-11-20 08:53 | P.PN ---
Subjective Progress Note Date: 11/19/24 Principal diagnosis: Reason for follow-up is bilateral lower extremity cellulitis Patient is a 69-year-old female with a past medical history significant for heart failure COPD CVA TIA hypertension presented to hospital with worsening swelling redness of the leg some mental status changes has been diagnosed with a cellulitis. Patient did have worsening of her respiratory status requiring BiPAP and transferred to the ICU. On today's evaluation that is 11/19/2024, patient has been afebrile, patient is breathing slightly comfortably however patient is on BiPAP , patient denies having any significant cough no chest pain, no vomiting or diarrhea has been reported. Patient white count is 5.3 creatinine 0.50 blood cultures currently pending chest x-ray bilateral consultation effusion on the basis of CHF Objective - Vital Signs Vital signs: Vital Signs Temp 98.2 F 11/19/24 12:00 Pulse 100 11/19/24 12:01 Resp 24 11/19/24 12:00 BP 127/70 11/19/24 12:00 Pulse Ox 98 11/19/24 12:00 FiO2 100 11/19/24 12:00 Intake & Output 11/18/24 11/19/24 11/19/24 18:59 06:59 18:59 Intake Total 0 100 Output Total 1050 2850 450 Balance -1050 -2750 -450 Weight 90.718 kg Intake: Intake, IV Titration 100 Amount ceFAZolin 3 gm In Sodium 100 Chloride 0.9% 100 ml @ 200 mls/hr IVPB Q8HR [facility] Rx#:[id number] Oral 0 0 Output: Urine 1050 2850 450 Other: Voiding Method External Catheter External Catheter External Catheter # Voids 2 - Exam GENERAL DESCRIPTION: An elderly female lying in bed in no distress RESPIRATORY SYSTEM: Unlabored breathing , decreased breath sounds at bases HEART: S1 S2 regular rate and rhythm , ABDOMEN: Soft , no tenderness EXTREMITIES: Bilateral legs are currently wrapped in Flaquito wrap - Labs CBC & Chem 7: 11/20/24 05:13 11/20/24 05:13 Labs: Abnormal Lab Results - Last 24 Hours (Table) 11/18/24 11/18/24 11/18/24 Range/Units 14:43 14:55 14:55 Hct 46.6 H (34.0-46.0) % RDW 16.3 H (11.5-15.5) % Plt Count 134 L (150-450) k/uL ABG pH 7.33 L (7.35-7.45) ABG pCO2 81 H* (35-45) mmHg ABG pO2 60 L (83-108) mmHg ABG HCO3 43 H* (21-25) mmol/L ABG Total CO2 45 H (19-24) mmol/L ABG O2 Saturation 89.3 L (94-97) % Sodium (137-145) mmol/L Chloride 91 L (98-107) mmol/L Carbon Dioxide 35 H (22-30) mmol/L BUN 5 L (7-17) mg/dL Creatinine (0.52-1.04) mg/dL Glucose 100 H (74-99) mg/dL POC Glucose (mg/dL) (70-110) mg/dL Calcium 8.3 L (8.4-10.2) mg/dL Urine Appearance (Clear) Urine Blood (Negative) Ur Leukocyte Esterase (Negative) Urine RBC (0-5) /hpf Urine WBC (0-5) /hpf Ur Squamous Epith Cells (0-4) /hpf Urine Bacteria (None) /hpf Urine Mucus (None) /hpf Urine Yeast (Budding) (None) /hpf 11/18/24 11/18/24 11/18/24 Range/Units 15:30 20:07 20:56 Hct (34.0-46.0) % RDW (11.5-15.5) % Plt Count (150-450) k/uL ABG pH 7.33 L (7.35-7.45) ABG pCO2 87 H* (35-45) mmHg ABG pO2 72 L (83-108) mmHg ABG HCO3 46 H* (21-25) mmol/L ABG Total CO2 48 H (19-24) mmol/L ABG O2 Saturation (94-97) % Sodium (137-145) mmol/L Chloride (98-107) mmol/L Carbon Dioxide (22-30) mmol/L BUN (7-17) mg/dL Creatinine (0.52-1.04) mg/dL Glucose (74-99) mg/dL POC Glucose (mg/dL) 126 H (70-110) mg/dL Calcium (8.4-10.2) mg/dL Urine Appearance Cloudy H (Clear) Urine Blood Moderate H (Negative) Ur Leukocyte Esterase Large H (Negative) Urine RBC 10 H (0-5) /hpf Urine WBC 9 H (0-5) /hpf Ur Squamous Epith Cells 6 H (0-4) /hpf Urine Bacteria Moderate H (None) /hpf Urine Mucus Rare H (None) /hpf Urine Yeast (Budding) Rare H (None) /hpf 11/19/24 11/19/24 11/19/24 Range/Units 05:49 06:15 06:39 Hct (34.0-46.0) % RDW 16.1 H (11.5-15.5) % Plt Count 147 L (150-450) k/uL ABG pH (7.35-7.45) ABG pCO2 (35-45) mmHg ABG pO2 (83-108) mmHg ABG HCO3 (21-25) mmol/L ABG Total CO2 (19-24) mmol/L ABG O2 Saturation (94-97) % Sodium 136 L (137-145) mmol/L Chloride 90 L (98-107) mmol/L Carbon Dioxide 36 H (22-30) mmol/L BUN (7-17) mg/dL Creatinine 0.50 L (0.52-1.04) mg/dL Glucose 137 H (74-99) mg/dL POC Glucose (mg/dL) 137 H (70-110) mg/dL Calcium 8.1 L (8.4-10.2) mg/dL Urine Appearance (Clear) Urine Blood (Negative) Ur Leukocyte Esterase (Negative) Urine RBC (0-5) /hpf Urine WBC (0-5) /hpf Ur Squamous Epith Cells (0-4) /hpf Urine Bacteria (None) /hpf Urine Mucus (None) /hpf Urine Yeast (Budding) (None) /hpf 11/19/24 11/19/24 Range/Units 11:27 11:36 Hct (34.0-46.0) % RDW (11.5-15.5) % Plt Count (150-450) k/uL ABG pH 7.55 H (7.35-7.45) ABG pCO2 52 H (35-45) mmHg ABG pO2 59 L* (83-108) mmHg ABG HCO3 46 H* (21-25) mmol/L ABG Total CO2 47 H (19-24) mmol/L ABG O2 Saturation 91.7 L (94-97) % Sodium (137-145) mmol/L Chloride (98-107) mmol/L Carbon Dioxide (22-30) mmol/L BUN (7-17) mg/dL Creatinine (0.52-1.04) mg/dL Glucose (74-99) mg/dL POC Glucose (mg/dL) 124 H (70-110) mg/dL Calcium (8.4-10.2) mg/dL Urine Appearance (Clear) Urine Blood (Negative) Ur Leukocyte Esterase (Negative) Urine RBC (0-5) /hpf Urine WBC (0-5) /hpf Ur Squamous Epith Cells (0-4) /hpf Urine Bacteria (None) /hpf Urine Mucus (None) /hpf Urine Yeast (Budding) (None) /hpf Microbiology - Last 24 Hours (Table) 11/17/24 11:25 Blood Culture - Preliminary Blood 11/17/24 11:35 Blood Culture - Preliminary Blood Assessment and Plan (1) Bilateral lower leg cellulitis Current Visit: Yes Status: Acute Code(s): L03.116 - CELLULITIS OF LEFT LOWER LIMB; L03.115 - CELLULITIS OF RIGHT LOWER LIMB SNOMED Code(s): 730055294 Plan: 1patient presented to hospital with increasing swelling in his bilateral extremity and this patient noted to have evidence of diffuse swelling and re dness to bilateral legs likely concern for cellulitis from gram-positive skin stefano in this patient who did have features of CHF fluid overload 2-patient continued on-cefazolin 3 g every 8 hours along with Flaquito wrap to the leg to keep the swelling down Dictation was produced using [employer] dictation software. please excuse any grammatical, word or spelling errors. Time with Patient: Less than 30
[2024-11-20] MEDS: acetaZOLAMIDE 250 MG TAB PO SCH (09:05)
--- NOTE | 2024-11-20 11:17 | P.PN ---
Subjective Progress Note Date: 11/20/24 Principal diagnosis: Acute on chronic hypoxic and hypercapnic respiratory failure This is a 68-year-old female with history of COPD, chronic hypoxic respiratory failure, maintained on 4 L nasal cannula, history of rheumatoid arthritis, CVA/TIA, patient also had chronic history of cellulitis of lower extremities with worsening erythema, patient was in the hospital from 11/13 until 11/16 for altered mentation fever and intractable pain. Patient was treated for UTI and left lower extremity cellulitis. Patient was discharged home on antibiotics in the form of Ceftin however the patient was brought back yesterday with multiple complaints including altered mental status, worsening cellulitis, worsening hypoxia and hypercapnia with a pO2 of 72 pCO2 of 87 pH of 7.33 on 80% FiO2. Patient was placed on BiPAP, she is presently on 75% FiO2 IPAP of 10 and EPAP of 5, I saw this patient in consultation today, she is a very poor historian, complaining of her positioning, keeps asking to be placed properly in bed, as she seems to be uncomfortable, her O2 sats is marginal on 75% FiO2 with O2 sats of 90%, patient does not seem to be well, hence I have arranged for the patient to be transferred to the ICU. Chest x-ray on admission shows cardiomegaly pulmonary vascular congestion, bilateral pleural effusion, underlying pneumonia is not entirely ruled out, felt to be less likely. Patient was already seen by infectious disease on consultation for her cellulitis, and the recommendation was to change antibiotics to cefazolin 3 g every 8 hours. Patient is on diuretics, she is on furosemide at 40 mg IV push every 12 hours, and I added Diamox to 50 mg IV push every 12. Patient is on bronchodilators in the form of DuoNeb, she is also on Symbicort, on methylprednisolone 40 mg IV push Q8. Considering her ABG and considering her overall clinical picture, patient is marginal at best, and I recommended transferring the patient to the ICU for close monitoring. WBC count is normal electrolytes are normal bicarb is 36 renal profile is normal, viral screening is negative for influenza A influenza B RSV and COVID. Patient was seen today on 11/20/2024, patient is now in the ICU, doing much better today compared to yesterday, patient is more awake, more responsive, she was on BiPAP last night, now she is on Airvo 60 L / 90% FiO2, her BiPAP settings were 12/5/100%. Chest x-ray is showing improvement in her pulmonary edema echocardiogram showed no evidence of LV dysfunction patient is on Lasix twice daily and today I added Diamox to 50 mg IV push twice daily.Her WBC count 6.1 hemoglobin 14.4. Her electrolytes are normal potassium is a bit low being addressed accordingly renal profile is normal. Objective - Vital Signs Vital signs: Vital Signs Temp 98.6 F 11/20/24 08:00 Pulse 95 11/20/24 10:00 Resp 21 11/20/24 10:00 BP 146/82 11/20/24 10:00 Pulse Ox 91 L 11/20/24 10:00 FiO2 100 11/20/24 10:00 Intake & Output 11/19/24 11/20/24 11/20/24 18:59 06:59 18:59 Intake Total 100 610 290 Output Total 870 1400 300 Balance -770 -790 -10 Weight 90.718 kg 94.4 kg Intake: IV 110 40 kvo 110 40 Intake, IV Titration 100 100 Amount ACETAMINOPHEN IV (For NPO 100 ) 1,000 mg In Empty Bag 1 bag @ 400 mls/hr IVPB [facility] Rx#:[id number] ceFAZolin 3 gm In Sodium 100 Chloride 0.9% 100 ml @ 200 mls/hr IVPB Q8HR [facility] Rx#:[id number] Oral 500 150 Output: Urine 870 1400 300 Other: Voiding Method External Catheter External Catheter External Catheter # Voids 1 # Bowel Movements 1 - Exam General: Revealed 68-year-old female on Airvo, much more alert today compared to yesterday Derm: warm, dry Head: atraumatic, normocephalic, symmetric Eyes: EOMI, no lid lag, anicteric sclera, dry mucous membranes. Mouth: no lip lesion, dry mucous membranes Cardiovascular: Distant S1-S2, no S3 gallop, no murmur Lungs: Symmetrical chest expansion scattered rhonchi noted bilaterally. Ext: Bilateral lower extremities edema and erythema noted. Wrapped with Flaquito wrap. Neuro: Alert oriented x 3 no gross focal deficit except the patient is generally weak she has been bedbound for quite some time. Psych: Normal mood affect and normal mental status examination - Labs CBC & Chem 7: 11/20/24 05:13 11/20/24 05:13 Labs: Abnormal Lab Results - Last 24 Hours (Table) 11/19/24 11/19/24 11/20/24 Range/Units 11:27 11:36 05:13 RDW 16.1 H (11.5-15.5) % ABG pH 7.55 H (7.35-7.45) ABG pCO2 52 H (35-45) mmHg ABG pO2 59 L* (83-108) mmHg ABG HCO3 46 H* (21-25) mmol/L ABG Total CO2 47 H (19-24) mmol/L ABG O2 Saturation 91.7 L (94-97) % Sodium (137-145) mmol/L Potassium (3.5-5.1) mmol/L Chloride (98-107) mmol/L Carbon Dioxide (22-30) mmol/L BUN (7-17) mg/dL Glucose (74-99) mg/dL POC Glucose (mg/dL) 124 H (70-110) mg/dL 11/20/24 Range/Units 05:13 RDW (11.5-15.5) % ABG pH (7.35-7.45) ABG pCO2 (35-45) mmHg ABG pO2 (83-108) mmHg ABG HCO3 (21-25) mmol/L ABG Total CO2 (19-24) mmol/L ABG O2 Saturation (94-97) % Sodium 136 L (137-145) mmol/L Potassium 3.2 L (3.5-5.1) mmol/L Chloride 88 L (98-107) mmol/L Carbon Dioxide 40 H (22-30) mmol/L BUN 26 H (7-17) mg/dL Glucose 141 H (74-99) mg/dL POC Glucose (mg/dL) (70-110) mg/dL Microbiology - Last 24 Hours (Table) 11/17/24 11:25 Blood Culture - Preliminary Blood 11/17/24 11:35 Blood Culture - Preliminary Blood Assessment and Plan Assessment: Impression: Acute on chronic hypoxic and hypercapnic respiratory failure requiring BiPAP, ABG is marginal, hence I am recommending transferring the patient to the ICU for closer observation and treatment. Acute congestive heart failure Acute congestive heart failure unknown ejection fraction, echocardiogram is pending Acute on chronic cellulitis of lower extremities History of severe underlying COPD acute metabolic encephalopathy Recent history of urinary tract infection Recommendation: Continue to monitor in the ICU Continue BiPAP and intermittently Airvo Continue Lasix and Diamox Continue bronchodilators Continue cefazolin Continue GI DVT prophylaxis Prognosis remains guarded but the patient seems to be better today compared to yesterday. Will continue to follow Time with Patient: Less than 30
[2024-11-20] MEDS: ONDANSETRON 4 MG/2 ML VIAL IVP PRN (12:09)
--- NOTE | 2024-11-20 13:24 | P.PN ---
Subjective Progress Note Date: 11/20/24 Hospital Course: 59-year-old female with past medical history of chronic hypoxic respiratory fa ilure secondary to COPD on 4 L home oxygen, history of CVA/TIA, RA on methotrexate, HTN, who presented to the ED with worsening bilateral lower extremity erythema, previously admitted from 11/13 to 11/16 with AMS, fever, received treatment for possible LE cellulitis and UTI, was discharged home on 7 days of Ceftin and presented back with worsening erythema. In the ER BP 118/74, HR 104, RR 20, T 98F, 92% on 4L. CBC, CMP significant for Plt 136, Na 136, Cl 97, bicarb 36, glu 110. Lactic acid 1.4. EKG sinus tachycardia with Q waves Q1-4. Patient is admitted for further workup and management. Patient was transferred to the ICU for acute on chronic hypoxic hypercapnic respiratory failure requiring BiPAP, increased lethargy,, chest x-ray showed pulmonary vascular congestion and patient was started on IV Lasix in addition to Solu-Medrol and DuoNeb. 11/20: Patient is on high flow nasal cannula, states that her breathing is overall better, plan to transfer from ICU likely 11/21, continue current treatment. Started on Vancomycin and ID consulted. ID switched antibiotics to Cefzolin. Subjective: Patient complains of generalized pain, denied shortness of breath, chest pain, abdominal pain Pertinent positives and negatives as discussed above, a complete review of systems was performed and all other systems are negative. Vitals Signs Reviewed. General: [Ill-appearing Derm: [warm], [dry], bruising present Head: [atraumatic], [normocephalic], [symmetric] Eyes: [EOMI], [no lid lag], [anicteric sclera] Mouth: [no lip lesion], [mucus membranes moist] Cardiovascular: [S1S2 reg], [no murmur] Lungs: [CTA bilateral], [no rhonchi, no rales] , in respiratory distress, on high heated flow nasal cannula Abdominal: [soft], [ nontender to palpation], [no guarding], [no appreciable organomegaly] Ext: [no gross muscle atrophy], [no edema], [no contractures] Neuro: [ CN II-XI grossly intact], [no focal neuro deficits] Psych: [Alert], [oriented], [appropriate affect] Data Reviewed Today: Pertinent Labs: CBC stable, ABG pH 7.5, pCO2 52, carbon dioxide 40, hypokalemia 3.2, creatinine stable Imaging: Chest x-ray from this a.m. showed persistent left basilar opacities, likely ongoing pulmonary vascular congestion with left-sided pleural effusion Assessment and Plan: Acute on chronic hypoxic hypercapnic respiratory failure requiring BiPAP Chronic hypoxic respiratory failure secondary to COPD on 4 L home oxygen HFpEF exacerbation Contraction alkalosis -Pulmonology following, continue ICU monitoring, likely transfer 11/21 -Continue BiPAP -On Lasix 40 IV twice daily, Diamox was added (250 p.o. twice daily) -Continue methylprednisolone 40 mg IV every 8 hours -Continue breathing treatment -Strict I's and O's, urine output 11/19 3900cc; TTE showed EF of 55% -Daily weights -Monitor electrolytes and BMP daily Sepsis likely secondary to lower extremity cellulitis -Patient was febrile and tachycardic on 11/18, sepsis not present on admission, received 2 doses of IV vancomycin -Blood cultures obtained, negative so far -ID following, patient is currently on cefazolin 3 g IV 3 times daily -PT OT [Chronic:] History of CVA/TIA: Continue pravastatin, aspirin HTN, Imdur 30 mg p.o. daily, metoprolol 12.5 p.o. twice daily, Lasix currently IV -Chronic pain, chronic opioid use disorder DVT ppx: Lovenox Anticipated discharge place: D Anticipated discharge time: >48 hours Objective - Vital Signs Vital signs: Vital Signs Temp 98.6 F 11/20/24 12:00 Pulse 101 H 11/20/24 12:00 Resp 16 11/20/24 12:00 BP 119/74 11/20/24 12:00 Pulse Ox 93 L 11/20/24 12:00 FiO2 90 11/20/24 12:00 Intake & Output 11/19/24 11/20/24 11/20/24 18:59 06:59 18:59 Intake Total 100 610 460 Output Total 870 1400 1000 Balance -770 -790 -540 Weight 90.718 kg 94.4 kg Intake: IV 110 60 kvo 110 60 Intake, IV Titration 100 100 Amount ACETAMINOPHEN IV (For NPO 100 ) 1,000 mg In Empty Bag 1 bag @ 400 mls/hr IVPB ONCE [facility] Rx#:[id number] ceFAZolin 3 gm In Sodium 100 Chloride 0.9% 100 ml @ 200 mls/hr IVPB Q8HR [facility] Rx#:[id number] Oral 500 300 Output: Urine 870 1400 1000 Other: Voiding Method External Catheter External Catheter External Catheter # Voids 1 # Bowel Movements 1 - Labs CBC & Chem 7: 11/20/24 05:13 11/20/24 05:13 Labs: Abnormal Lab Results - Last 24 Hours (Table) 11/20/24 11/20/24 Range/Units 05:13 05:13 RDW 16.1 H (11.5-15.5) % Sodium 136 L (137-145) mmol/L Potassium 3.2 L (3.5-5.1) mmol/L Chloride 88 L (98-107) mmol/L Carbon Dioxide 40 H (22-30) mmol/L BUN 26 H (7-17) mg/dL Glucose 141 H (74-99) mg/dL Microbiology - Last 24 Hours (Table) 11/17/24 11:25 Blood Culture - Preliminary Blood 11/17/24 11:35 Blood Culture - Preliminary Blood
[2024-11-20] MEDS: POTASSIUM CHLORIDE 10 MEQ in WATER FOR INJECTION 1 100ML.BAG IVPB SCH (15:15)
[2024-11-20] MEDS: POTASSIUM CHLORIDE ER 20 MEQ TAB.ER PO SCH (16:20)
[2024-11-20] MEDS: MAG HYDROX/AL HYDROX/SIMETH 30 ML, diphenhydrAMINE ELIXIR 75 MG, LIDOCAINE VISCOUS 2% 3... PO SCH (17:39)
[2024-11-20] MEDS ORDERED: NYSTAT-TRIAMCIN 100,000-0.1 UNIT/GM-% CREAM 30 GM TUBE TOPICAL SCH (21:00)
[2024-11-20] MEDS: NYSTATIN 100,000 UNIT/GM POWD 15 GM TOPICAL PRN (21:04)
[2024-11-20] MEDS: NYSTATIN 100,000UNIT/GM CREAM 30 GM TUBE TOPICAL SCH (21:05)
[2024-11-20] MEDS: ERYTHROMYCIN 5 MG/GM OPHTH OINT 3.5 GM TUBE BOTH EYES SCH (21:05)
[2024-11-20] MEDS: TRIAMCINOLONE 0.1% CREAM 80 GM TUBE TOPICAL SCH (21:06)
[2024-11-21] MEDS: POTASSIUM CHLORIDE ER 20 MEQ TAB.ER PO SCH ×2 (01:24→08:21)
[2024-11-21 06:20] LABS: Anisocytosis Slight; Basophils % (A) 0 %; Eosinophils % (A) 0 %; HCT 48.1 % (34.0-46.0); HGB 15.3 gm/dL (11.4-16.0); Hypochromasia Slight; Lymphocytes # (A) 0.4 k/uL (1.0-4.8); Lymphocytes % (A) 5 %; MCH 29.7 pg (25.0-35.0); MCHC 31.9 g/dL (31.0-37.0); MCV 93.1 fL (80.0-100.0); Mean Platelet Volume 8.1; Monocytes # (A) 0.3 k/uL (0-1.0); Monocytes % (A) 5 %; Neutrophils # (A) 5.8 k/uL (1.3-7.7); Neutrophils % (A) 88 %; Platelet Count 206 k/uL (150-450); RBC 5.17 m/uL (3.80-5.40); WBC 6.6 k/uL (3.8-10.6)
[2024-11-21 06:30] LABS: African American GFR (CKD) 83 (>60 ml/min/1.73 sqM); Anion Gap 5 mmol/L; Blood Urea Nitrogen 35 mg/dL (7-17); Carbon Dioxide 37 mmol/L (22-30); Chloride 92 mmol/L (98-107); Glucose 157 mg/dL (74-99); Non-African American GFR(CKD) 72 (>60 ml/min/1.73 sqM); Potassium 3.9 mmol/L (3.5-5.1); Sodium 134 mmol/L (137-145)
--- NOTE | 2024-11-21 07:07 | XR ---
EXAMINATION TYPE: XR chest 1V portable DATE OF EXAM: 11/21/2024 COMPARISON: 11/20/2024 CLINICAL INDICATION: Female, 69 years old with history of AirVo; TECHNIQUE: Single frontal view of the chest is obtained. FINDINGS: There is diffuse interstitial opacity unchanged compared to the prior study. There are probable stabl e small bilateral pleural effusions. There is no pneumothorax. IMPRESSION: No change in the acute bilateral cardiopulmonary disease as described above. [facility], , 11/21/2024 7:05 AM
[2024-11-21] MEDS: MAGNESIUM SULFATE-D5W PMX 1 GM in DEXTROSE/WATER 1 100ML.BAG IVPB ONE (08:22)
--- NOTE | 2024-11-21 09:34 | P.PN ---
Subjective Progress Note Date: 11/21/24 No new complaints. No acute events overnight. Gen: In NAD, non-toxic HEENT: normocephalic, atraumatic, hearing acuity is intant, mucous membranes moist CVS: perfusing all extremities well, no pitting edema, Respiratory: symmetric chest expansion, no accessory muscle use, GI: soft, NTTP, ND, : no suprapubic tenderness, no CVA tenderness MSK/Derm: no rashes, cyanosis Neuro: CN II-XII intact, no motor weakness, Hospital Course: 59-year-old female with past medical history of chronic hypoxic respiratory failure secondary to COPD on 4 L home oxygen, history of CVA/TIA, RA on methotrexate, HTN, who presented to the ED with worsening bilateral lower extremity erythema, previously admitted from 11/13 to 11/16 with AMS, fever, received treatment for possible LE cellulitis and UTI, was discharged home on 7 days of Ceftin and presented back with worsening erythema. In the ER BP 118/74, HR 104, RR 20, T 98F, 92% on 4L. CBC, CMP significant for Plt 136, Na 136, Cl 97, bicarb 36, glu 110. Lactic acid 1.4. EKG sinus tachycardia with Q waves Q1-4. Patient is admitted for further workup and man agement. Patient was transferred to the ICU for acute on chronic hypoxic hypercapnic respiratory failure requiring BiPAP, increased lethargy,, chest x-ray showed pulmonary vascular congestion and patient was started on IV Lasix in addition to Solu-Medrol and DuoNeb. Started on Vancomycin and ID consulted. ID switched antibiotics to Cefzolin. Assessment and Plan: Acute on chronic hypoxic hypercapnic respiratory failure requiring BiPAP Chronic hypoxic respiratory failure secondary to COPD on 4 L home oxygen HFpEF exacerbation Contraction alkalosis -Pulmonology following, continue ICU monitoring, likely transfer 11/21 -Continue BiPAP -On Lasix 40 IV twice daily, Diamox was added (250 p.o. twice daily) -Continue methylprednisolone 40 mg IV every 8 hours -Continue breathing treatment -Strict I's and O's, urine output 11/19 3900cc; TTE showed EF of 55% -Daily weights -Monitor electrolytes and BMP daily Sepsis likely secondary to lower extremity cellulitis -Patient was febrile and tachycardic on 11/18, sepsis not present on admission, received 2 doses of IV vancomycin -Blood cultures obtained, negative so far -ID following, patient is currently on cefazolin 3 g IV 3 times daily -PT OT [Chronic:] History of CVA/TIA: Continue pravastatin, aspirin HTN, Imdur 30 mg p.o. daily, metoprolol 12.5 p.o. twice daily, Lasix currently IV -Chronic pain, chronic opioid use disorder DVT ppx: Lovenox Anticipated discharge [facility]: [facility] Anticipated discharge time: >48 hours Objective - Vital Signs Vital signs: Vital Signs Temp 99.0 F 11/21/24 07:00 Pulse 79 11/21/24 09:00 Resp 16 11/21/24 09:00 BP 124/70 11/21/24 09:00 Pulse Ox 95 11/21/24 09:00 FiO2 90 11/21/24 08:00 Intake & Output 11/20/24 11/21/24 11/21/24 18:59 06:59 18:59 Intake Total 970 760 20 Output Total 2200 950 0 Balance -1230 -190 20 Weight 97.4 kg Intake: IV 120 220 20 Invasive Line 3 10 ceFAZolin 3 gm In Sodium 100 Chloride 0.9% 100 ml @ 200 mls/hr IVPB Q8HR [facility] Rx#:[id number] kvo 120 120 10 Intake, IV Titration 200 Amount ceFAZolin 3 gm In Sodium 200 Chloride 0.9% 100 ml @ 200 mls/hr IVPB Q8HR [facility] Rx#:[id number] Oral 650 Blood Product 540 Output: Urine 2200 950 0 Other: Voiding Method External Catheter External Catheter External Catheter # Voids 1 # Bowel Movements 1 0 - Labs CBC & Chem 7: 11/21/24 06:01 11/21/24 06:01 Labs: Abnormal Lab Results - Last 24 Hours (Table) 11/20/24 11/21/24 11/21/24 Range/Units 14:08 00:53 06:01 Hct 48.1 H (34.0-46.0) % RDW 16.0 H (11.5-15.5) % Lymphocytes # 0.4 L (1.0-4.8) k/uL Sodium (137-145) mmol/L Potassium 3.3 L 3.4 L (3.5-5.1) mmol/L Chloride (98-107) mmol/L Carbon Dioxide (22-30) mmol/L BUN (7-17) mg/dL Glucose (74-99) mg/dL 11/21/24 Range/Units 06:01 Hct (34.0-46.0) % RDW (11.5-15.5) % Lymphocytes # (1.0-4.8) k/uL Sodium 134 L (137-145) mmol/L Potassium (3.5-5.1) mmol/L Chloride 92 L (98-107) mmol/L Carbon Dioxide 37 H (22-30) mmol/L BUN 35 H (7-17) mg/dL Glucose 157 H (74-99) mg/dL Microbiology - Last 24 Hours (Table) 11/17/24 11:25 Blood Culture - Preliminary Blood 11/17/24 11:35 Blood Culture - Preliminary Blood
--- NOTE | 2024-11-21 10:01 | P.PN ---
Subjective Progress Note Date: 11/21/24 Principal diagnosis: Acute on chronic hypoxic and hypercapnic respiratory failure This is a 68-year-old female with history of COPD, chronic hypoxic respiratory failure, maintained on 4 L nasal cannula, history of rheumatoid arthritis, CVA/TIA, patient also had chronic history of cellulitis of lower extremities with worsening erythema, patient was in the hospital from 11/13 until 11/16 for altered mentation fever and intractable pain. Patient was treated for UTI and left lower extremity cellulitis. Patient was discharged home on antibiotics in the form of Ceftin however the patient was brought back yesterday with multiple complaints including altered mental status, worsening cellulitis, worsening hypoxia and hypercapnia with a pO2 of 72 pCO2 of 87 pH of 7.33 on 80% FiO2. Patient was placed on BiPAP, she is presently on 75% FiO2 IPAP of 10 and EPAP of 5, I saw this patient in consultation today, she is a very poor historian, complaining of her positioning, keeps asking to be placed properly in bed, as she seems to be uncomfortable, her O2 sats is marginal on 75% FiO2 with O2 sats of 90%, patient does not seem to be well, hence I have arranged for the patient to be transferred to the ICU. Chest x-ray on admission shows cardiomegaly pulmonary vascular congestion, bilateral pleural effusion, underlying pneumonia is not entirely ruled out, felt to be less likely. Patient was already seen by infectious disease on consultation for her cellulitis, and the recommendation was to change antibiotics to cefazolin 3 g every 8 hours. Patient is on diuretics, she is on furosemide at 40 mg IV push every 12 hours, and I added Diamox to 50 mg IV push every 12. Patient is on bronchodilators in the form of DuoNeb, she is also on Symbicort, on methylprednisolone 40 mg IV push Q8. Considering her ABG and considering her overall clinical picture, patient is marginal at best, and I recommended transferring the patient to the ICU for close monitoring. WBC count is normal electrolytes are normal bicarb is 36 renal profile is normal, viral screening is negative for influenza A influenza B RSV and COVID. Patient was seen today on 11/20/2024, patient is now in the ICU, doing much better today compared to yesterday, patient is more awake, more responsive, she was on BiPAP last night, now she is on Airvo 60 L / 90% FiO2, her BiPAP settings were 12/5/100%. Chest x-ray is showing improvement in her pulmonary edema echocardiogram showed no evidence of LV dysfunction patient is on Lasix twice daily and today I added Diamox to 50 mg IV push twice daily.Her WBC count 6.1 hemoglobin 14.4. Her electrolytes are normal potassium is a bit low being addressed accordingly renal profile is normal. Patient was seen today on 11/21/2024, patient remains in the ICU, remains on Airvo at 60 L flow and 90% FiO2 remains on diuretics in the form of Lasix and Diamox, chest x-ray is showing improvement clinically the patient is improving.WBC count is 6.6 hemoglobin 15.3 electrolytes are normal bicarb is 37, Renal profile is normal, chest x-ray again is noted to show slight improvement in her diffuse interstitial opacities compared to previous studies and she has s mall bilateral pleural effusions improving Objective - Vital Signs Vital signs: Vital Signs Temp 99.0 F 11/21/24 07:00 Pulse 79 11/21/24 09:00 Resp 16 11/21/24 09:00 BP 124/70 11/21/24 09:00 Pulse Ox 95 11/21/24 09:00 FiO2 90 11/21/24 08:00 Intake & Output 11/20/24 11/21/24 11/21/24 18:59 06:59 18:59 Intake Total 970 760 20 Output Total 2200 950 0 Balance -1230 -190 20 Weight 97.4 kg Intake: IV 120 220 20 Invasive Line 3 10 ceFAZolin 3 gm In Sodium 100 Chloride 0.9% 100 ml @ 200 mls/hr IVPB Q8HR [facility] Rx#:[id number] kvo 120 120 10 Intake, IV Titration 200 Amount ceFAZolin 3 gm In Sodium 200 Chloride 0.9% 100 ml @ 200 mls/hr IVPB Q8HR [facility] Rx#:[id number] Oral 650 Blood Product 540 Output: Urine 2200 950 0 Other: Voiding Method External Catheter External Catheter External Catheter # Voids 1 # Bowel Movements 1 0 - Exam General: Revealed 68-year-old female on Airvo, alert and oriented x 3, not in any distress Derm: warm, dry Head: atraumatic, normocephalic, symmetric Eyes: EOMI, no lid lag, anicteric sclera, dry mucous membranes. Mouth: no lip lesion, dry mucous membranes Cardiovascular: Distant S1-S2, no S3 gallop, no murmur Lungs: Symmetrical chest expansion scattered rhonchi noted bilaterally. Ext: Bilateral lower extremities edema and erythema noted. Wrapped with Flaquito wrap. Neuro: Alert oriented x 3 no gross focal deficit e Psych: Normal mood affect and normal mental status examination - Labs CBC & Chem 7: 11/21/24 06:01 11/21/24 06:01 Labs: Abnormal Lab Results - Last 24 Hours (Table) 11/20/24 11/21/24 11/21/24 Range/Units 14:08 00:53 06:01 Hct 48.1 H (34.0-46.0) % RDW 16.0 H (11.5-15.5) % Lymphocytes # 0.4 L (1.0-4.8) k/uL Sodium (137-145) mmol/L Potassium 3.3 L 3.4 L (3.5-5.1) mmol/L Chloride (98-107) mmol/L Carbon Dioxide (22-30) mmol/L BUN (7-17) mg/dL Glucose (74-99) mg/dL 11/21/24 Range/Units 06:01 Hct (34.0-46.0) % RDW (11.5-15.5) % Lymphocytes # (1.0-4.8) k/uL Sodium 134 L (137-145) mmol/L Potassium (3.5-5.1) mmol/L Chloride 92 L (98-107) mmol/L Carbon Dioxide 37 H (22-30) mmol/L BUN 35 H (7-17) mg/dL Glucose 157 H (74-99) mg/dL Microbiology - Last 24 Hours (Table) 11/17/24 11:25 Blood Culture - Preliminary Blood 11/17/24 11:35 Blood Culture - Preliminary Blood Assessment and Plan Assessment: Impression: Acute on chronic hypoxic and hypercapnic respiratory failure requiring BiPAP, i mproving, hence we will arrange for the patient to be transferred back to [facility]. in the meantime continue same medication for Acute congestive heart failure with preserved ejection fraction, her EF is in the range of 55% Acute on chronic cellulitis of lower extremities History of severe underlying COPD acute metabolic encephalopathy Recent history of urinary tract infection Recommendation: Transfer patient to [facility]. Continue Airvo Continue Lasix and Diamox Continue bronchodilators Continue cefazolin Continue GI DVT prophylaxis Not ready for discharge planning Will continue to follow Time with Patient: Less than 30
--- NOTE | 2024-11-21 14:19 | P.PN ---
Subjective Progress Note Date: 11/21/24 Principal diagnosis: Reason for follow-up is bilateral lower extremity cellulitis Patient is a 69-year-old female with a past medical history significant for heart failure COPD CVA TIA hypertension presented to hospital with worsening swelling redness of the leg some mental status changes has been diagnosed with a cellulitis. Patient did have worsening of her respiratory status requiring BiPAP and transferred to the ICU. On today's evaluation that is 11/21/2024,the patient denies any fever or any chills, patient is breathing slightly comfortably however still requiring high flow nasal cannula oxygen the patient denies chest pain shortness of breath and no significant cough, patient denies abdominal pain, no nausea vomiting or diarrhea. Denies pain to the lower extremity. Patient white count 6.6, creatinine 0.82 Objective - Vital Signs Vital signs: Vital Signs Temp 97.9 F 11/21/24 12:00 Pulse 73 11/21/24 13:00 Resp 26 H 11/21/24 13:00 BP 101/54 11/21/24 13:00 Pulse Ox 90 L 11/21/24 13:00 FiO2 90 11/21/24 08:00 Intake & Output 11/20/24 11/21/24 11/21/24 18:59 06:59 18:59 Intake Total 970 760 40 Output Total 2200 950 0 Balance -1230 -190 40 Weight 97.4 kg Intake: IV 120 220 40 Invasive Line 3 30 ceFAZolin 3 gm In Sodium 100 Chloride 0.9% 100 ml @ 200 mls/hr IVPB Q8HR [facility] Rx#:[id number] kvo 120 120 10 Intake, IV Titration 200 Amount ceFAZolin 3 gm In Sodium 200 Chloride 0.9% 100 ml @ 200 mls/hr IVPB Q8HR [facility] Rx#:[id number] Oral 650 Blood Product 540 Output: Urine 2200 950 0 Other: Voiding Method External Catheter External Catheter External Catheter # Voids 1 # Bowel Movements 1 0 - Exam GENERAL DESCRIPTION: An elderly female lying in bed in no distress RESPIRATORY SYSTEM: Unlabored breathing , decreased breath sounds at bases HEART: S1 S2 regular rate and rhythm , ABDOMEN: Soft , no tenderness EXTREMITIES: Bilateral legs currently wrapped in Flaquito wrap no drainage - Labs CBC & Chem 7: 11/21/24 06:01 11/21/24 06:01 Labs: Abnormal Lab Results - Last 24 Hours (Table) 11/20/24 11/21/24 11/21/24 Range/Units 14:08 00:53 06:01 Hct 48.1 H (34.0-46.0) % RDW 16.0 H (11.5-15.5) % Lymphocytes # 0.4 L (1.0-4.8) k/uL Sodium (137-145) mmol/L Potassium 3.3 L 3.4 L (3.5-5.1) mmol/L Chloride (98-107) mmol/L Carbon Dioxide (22-30) mmol/L BUN (7-17) mg/dL Glucose (74-99) mg/dL 11/21/24 Range/Units 06:01 Hct (34.0-46.0) % RDW (11.5-15.5) % Lymphocytes # (1.0-4.8) k/uL Sodium 134 L (137-145) mmol/L Potassium (3.5-5.1) mmol/L Chloride 92 L (98-107) mmol/L Carbon Dioxide 37 H (22-30) mmol/L BUN 35 H (7-17) mg/dL Glucose 157 H (74-99) mg/dL Microbiology - Last 24 Hours (Table) 11/17/24 11:25 Blood Culture - Preliminary Blood 11/17/24 11:35 Blood Culture - Preliminary Blood Assessment and Plan (1) Bilateral lower leg cellulitis Current Visit: Yes Status: Acute Code(s): L03.116 - CELLULITIS OF LEFT LOWER LIMB; L03.115 - CELLULITIS OF RIGHT LOWER LIMB SNOMED Code(s): 540255277 Plan: 1patient presented to hospital with increasing swelling in his bilateral extremity and this patient noted to have evidence of diffuse swelling and redness to bilateral legs likely concern for cellulitis from gram-positive skin stefano in this patient who did have features of CHF fluid overload 2-patient is afebrile and white count has been normal 3-patient will be treated with cefazolin 3 g every 8 hours along with Mycolog cream to the left leg erythema and an Flaquito wrap and monitor clinical course closely Dictation was produced using [employer] dictation software. please excuse any grammatical, word or spelling errors. Time with Patient: Less than 30
[2024-11-22 03:33] LABS: Anisocytosis Slight; Basophils % (A) 0 %; Eosinophils % (A) 0 %; HCT 45.7 % (34.0-46.0); HGB 14.9 gm/dL (11.4-16.0); Lymphocytes # (A) 0.4 k/uL (1.0-4.8); Lymphocytes % (A) 6 %; MCH 29.9 pg (25.0-35.0); MCHC 32.7 g/dL (31.0-37.0); MCV 91.4 fL (80.0-100.0); Mean Platelet Volume 8.8; Monocytes # (A) 0.5 k/uL (0-1.0); Monocytes % (A) 8 %; Neutrophils # (A) 4.9 k/uL (1.3-7.7); Neutrophils % (A) 85 %; Platelet Count 199 k/uL (150-450); RDW 16.4 % (11.5-15.5); WBC 5.8 k/uL (3.8-10.6)
[2024-11-22 03:49] LABS: African American GFR (CKD) 85 (>60 ml/min/1.73 sqM); Anion Gap 5 mmol/L; Blood Urea Nitrogen 35 mg/dL (7-17); Calcium 8.8 mg/dL (8.4-10.2); Carbon Dioxide 33 mmol/L (22-30); Chloride 94 mmol/L (98-107); Glucose 152 mg/dL (74-99); Magnesium 2.3 mg/dL (1.6-2.3); Non-African American GFR(CKD) 74 (>60 ml/min/1.73 sqM); Potassium 3.6 mmol/L (3.5-5.1); Sodium 132 mmol/L (137-145)
--- NOTE | 2024-11-22 07:49 | XR ---
EXAMINATION TYPE: XR chest 1V portable DATE OF EXAM: 11/22/2024 5:29 AM COMPARISON: 11/21/2024 CLINICAL INDICATION: Female, 69 years old with history of assess lung status, , FINDINGS: Heart upper limits of normal in size. ACDF and partially visualized posterior lumbar fusion hardware. [id number] left pleural effusion remains. Diffuse interstitial density persists bilaterally. IMPRESSION: Ongoing pulmonary vascular congestion and a [id number] left effusion with adjacent atelectasis and/or consolidation. [facility], , 11/22/2024 7:47 AM
[2024-11-22] MEDS: POTASSIUM CHLORIDE ER 20 MEQ TAB.ER PO SCH (09:40)
--- NOTE | 2024-11-22 10:58 | P.PN ---
Subjective Progress Note Date: 11/22/24 Principal diagnosis: Acute on chronic hypoxic and hypercapnic respiratory failure This is a 68-year-old female with history of COPD, chronic hypoxic respiratory failure, maintained on 4 L nasal cannula, history of rheumatoid arthritis, CVA/TIA, patient also had chronic history of cellulitis of lower extremities with worsening erythema, patient was in the hospital from 11/13 until 11/16 for altered mentation fever and intractable pain. Patient was treated for UTI and left lower extremity cellulitis. Patient was discharged home on antibiotics in the form of Ceftin however the patient was brought back yesterday with multiple complaints including altered mental status, worsening cellulitis, worsening hypoxia and hypercapnia with a pO2 of 72 pCO2 of 87 pH of 7.33 on 80% FiO2. Patient was placed on BiPAP, she is presently on 75% FiO2 IPAP of 10 and EPAP of 5, I saw this patient in consultation today, she is a very poor historian, complaining of her positioning, keeps asking to be placed properly in bed, as she seems to be uncomfortable, her O2 sats is marginal on 75% FiO2 with O2 sats of 90%, patient does not seem to be well, hence I have arranged for the patient to be transferred to the ICU. Chest x-ray on admission shows cardiomegaly pulmonary vascular congestion, bilateral pleural effusion, underlying pneumonia is not entirely ruled out, felt to be less likely. Patient was already seen by infectious disease on consultation for her cellulitis, and the recommendation was to change antibiotics to cefazolin 3 g every 8 hours. Patient is on diuretics, she is on furosemide at 40 mg IV push every 12 hours, and I added Diamox to 50 mg IV push every 12. Patient is on bronchodilators in the form of DuoNeb, she is also on Symbicort, on methylprednisolone 40 mg IV push Q8. Considering her ABG and considering her overall clinical picture, patient is marginal at best, and I recommended transferring the patient to the ICU for close monitoring. WBC count is normal electrolytes are normal bicarb is 36 renal profile is normal, viral screening is negative for influenza A influenza B RSV and COVID. Patient was seen today on 11/20/2024, patient is now in the ICU, doing much better today compared to yesterday, patient is more awake, more responsive, she was on BiPAP last night, now she is on Airvo 60 L / 90% FiO2, her BiPAP settings were 12/5/100%. Chest x-ray is showing improvement in her pulmonary edema echocardiogram showed no evidence of LV dysfunction patient is on Lasix twice daily and today I added Diamox to 50 mg IV push twice daily.Her WBC count 6.1 hemoglobin 14.4. Her electrolytes are normal potassium is a bit low being addressed accordingly renal profile is normal. Patient was seen today on 11/21/2024, patient remains in the ICU, remains on Airvo at 60 L flow and 90% FiO2 remains on diuretics in the form of Lasix and Diamox, chest x-ray is showing improvement clinically the patient is improving.WBC count is 6.6 hemoglobin 15.3 electrolytes are normal bicarb is 37, Renal profile is normal, chest x-ray again is noted to show slight improvement in her diffuse interstitial opacities compared to previous studies and she has s mall bilateral pleural effusions improving Patient was seen today, patient remains in the ICU as an overflow. Feeling better, she is down to 15 L high flow nasal cannula, patient was noted to have some choking episodes while eating, I am recommending that the patient gets evaluated for possible aspiration/swallow evaluation. In the meantime patient remains on Diamox and on Lasix 40 mg twice daily, she is also on cefazolin, and she is receiving Lovenox. Clinically the patient is feeling better, no chest x-ray done today, patient will have swallow evaluation, will transfer the patient out of the ICU to a monitored bed and selective, and will continue to follow. She will be placed on a maintenance dose of calcium since she remains on diuretics. WBC count is 5.8 hemoglobin 14.9 electrolytes are normal BUN is 35 creatinine 0.8 Objective - Vital Signs Vital signs: Vital Signs Temp 97.8 F 11/22/24 08:00 Pulse 75 11/22/24 10:00 Resp 18 11/22/24 10:00 BP 126/82 11/22/24 10:00 Pulse Ox 95 11/22/24 10:00 FiO2 90 11/21/24 08:00 Intake & Output 11/21/24 11/22/24 11/22/24 18:59 06:59 18:59 Intake Total 160 140 20 Output Total 975 900 50 Balance -815 -760 -30 Weight 94.5 kg Intake: IV 160 140 20 Invasive Line 3 40 30 10 ceFAZolin 3 gm In Sodium 100 Chloride 0.9% 100 ml @ 200 mls/hr IVPB Q8HR [facility] Rx#:[id number] kvo 120 10 10 Output: Urine 975 900 50 Other: Voiding Method External Catheter External Catheter External Catheter # Bowel Movements 2 - Exam General: Revealed 68-year-old female on Airvo, alert and oriented x 3, not in any distress Derm: warm, dry Head: atraumatic, normocephalic, symmetric Eyes: EOMI, no lid lag, anicteric sclera, dry mucous membranes. Mouth: no lip lesion, dry mucous membranes Cardiovascular: Distant S1-S2, no S3 gallop, no murmur Lungs: Symmetrical chest expansion scattered rhonchi noted bilaterally. Ext: Bilateral lower extremities edema and erythema noted. Wrapped with Flaquito wrap. Neuro: Alert oriented x 3 no gross focal deficit e Psych: Normal mood affect and normal mental status examination - Labs CBC & Chem 7: 11/22/24 03:14 11/22/24 03:14 Labs: Abnormal Lab Results - Last 24 Hours (Table) 11/22/24 11/22/24 Range/Units 03:14 03:14 RDW 16.4 H (11.5-15.5) % Lymphocytes # 0.4 L (1.0-4.8) k/uL Sodium 132 L (137-145) mmol/L Chloride 94 L (98-107) mmol/L Carbon Dioxide 33 H (22-30) mmol/L BUN 35 H (7-17) mg/dL Glucose 152 H (74-99) mg/dL Assessment and Plan Assessment: Impression: Acute on chronic hypoxic and hypercapnic respiratory failure requiring BiPAP, improving, needs to improve, hence we will continue diuretics. Acute congestive heart failure with preserved ejection fraction, her EF is in the range of 55% Acute on chronic cellulitis of lower extremities History of severe underlying COPD acute metabolic encephalopathy Recent history of urinary tract infection Recommendation: Arrange for swallow evaluation since she was witnessed to have choking episodes while eating Continue plans to transfer to [facility]. today Continue high flow nasal cannula and titrate accordingly Continue Lasix and Diamox, add potassium 20 mEq twice daily Continue bronchodilators Continue cefazolin Continue GI DVT prophylaxis Will continue to follow Time with Patient: Less than 30
--- NOTE | 2024-11-22 11:47 | P.PN ---
Subjective Progress Note Date: 11/22/24 Patient is a 59-year-old female with past medical history of chronic hypoxic respiratory failure secondary to COPD on 4 L home oxygen, history of CVA/TIA, RA on methotrexate, HTN who presented to the ED with worsening bilateral lower extremity erythema, previously admitted from 11/13 to 11/16 with AMS, fever, received treatment for possible LE cellulitis and UTI, was discharged home on 7 days of Ceftin and presented back with worsening erythema. In the ER BP 118/74, HR 104, RR 20, T 98F, 92% on 4L. CBC, CMP significant for Plt 136, Na 136, Cl 97, bicarb 36, glu 110. Lactic acid 1.4. EKG sinus tachyc ardia with Q waves Q1-4. Patient is admitted for further workup and management. Patient was transferred to the ICU for acute on chronic hypoxic hypercapnic respiratory failure requiring BiPAP, increased lethargy, chest x-ray showed pulmonary vascular congestion and patient was started on IV Lasix in addition to Solu-Medrol and DuoNeb. 11/22. Patient seen lying in bed. No acute events overnight. No significant complaints today. CXR independently interpreted: Left pleural effusion, pulmonary vascular congestion bilaterally. Labs today: WBCs 5.8, hemoglobin 14.9, platelets 199, sodium 132, potassium 3.6, chloride 94, CO2 33, BUN 35, creatinine 0.81, glucose 152, magnesium 2.3. Pertinent positives and negatives discussed above, a complete review of systems was performed and all the other systems were negative. Physical examination: Vital signs reviewed. On 15 L high flow saturating 96%. Normotensive, some episodes of bradycardia, bradypneic. General: Nontoxic, no distress, appears stated age, well-appearing Derm: Warm, dry, intact Head: Atraumatic, normocephalic, symmetric Eyes: EOMI Mouth: No lip lesion, mucus membranes moist Cardiovascular: S1-S2 regular Lungs: CTA bilateral, no rhonchi, no rales, no accessory muscle use Abdominal: Soft, non-tender to palpation Extremities: No cyanosis, clubbing, or pedal edema Neuro: Alert, oriented x 3, gross neurological examination did not reveal any focal deficits. Cranial nerves II to XII grossly intact. Psych: Appropriate affect and mood Assessment and Plan: Patient is a 59-year-old female with past medical history of chronic hypoxic respiratory failure secondary to COPD on 4 L home oxygen, history of CVA/TIA, RA on methotrexate, HTN who is admitted for cellulitis with hospital course complicated by acute on chronic hypoxic hypercapnic respiratory failure. Active #. Acute on chronic hypoxic hypercapnic respiratory failure requiring BiPAP #. Chronic hypoxic respiratory failure secondary to COPD on 4 L home oxygen #. HFpEF exacerbation #. Contraction alkalosis Pulmonology following, continue ICU monitoring Continue BiPAP On Lasix 40 IV twice daily Diamox 250 mg PO twice daily Continue methylprednisolone 40 mg IV every 8 hours Continue breathing treatment Strict I's and O's, urine output 11/22 1875cc TTE showed EF of 55% Daily weights Monitor electrolytes and BMP daily #. Sepsis likely secondary to lower extremity cellulitis, improved Patient was febrile and tachycardic on 11/18, sepsis not present on admission, received 2 doses of IV vancomycin Blood cultures obtained, negative so far ID following, patient is currently on cefazolin 3 g IV 3 times daily, day 5 PT/OT #. Episode of dysphagia Pending swallow evaluation Chronic #. History of CVA/TIA Continue pravastatin, aspirin #. HTN Imdur 30 mg PO daily, metoprolol 12.5 PO twice daily, Lasix currently IV #. Chronic pain, chronic opioid use disorder #. Rheumatoid arthritis Resume methotrexate F: None E: Replete if required N: NPO pending speech evaluation DVT prophylaxis: Lovenox Code status: Full code Anticipated discharge place: Pending clinical course I saw and evaluated the patient during the asencio and critical portions of this encounter, and discussed the case in detail with the resident author of this note, I agree with the Assessment and Plan, and my changes, if any, are highlighted in blue. Objective - Vital Signs Vital signs: Vital Signs Temp 97.5 F L 11/22/24 04:00 Pulse 72 11/22/24 06:00 Resp 11 L 11/22/24 06:00 BP 123/72 11/22/24 06:00 Pulse Ox 93 L 11/22/24 06:00 FiO2 90 11/21/24 08:00 Intake & Output 11/21/24 11/21/24 11/22/24 06:59 18:59 06:59 Intake Total 760 160 140 Output Total 950 975 900 Balance -190 -815 -760 Weight 97.4 kg 94.5 kg Intake: IV 220 160 140 Invasive Line 3 40 30 ceFAZolin 3 gm In Sodium 100 100 Chloride 0.9% 100 ml @ 200 mls/hr IVPB Q8HR [facility] Rx#:[id number] kvo 120 120 10 Blood Product 540 Output: Urine 950 975 900 Other: Voiding Method External Catheter External Catheter External Catheter # Bowel Movements 2 - Labs CBC & Chem 7: 11/22/24 03:14 11/22/24 03:14 Labs: Abnormal Lab Results - Last 24 Hours (Table) 11/22/24 11/22/24 Range/Units 03:14 03:14 RDW 16.4 H (11.5-15.5) % Lymphocytes # 0.4 L (1.0-4.8) k/uL Sodium 132 L (137-145) mmol/L Chloride 94 L (98-107) mmol/L Carbon Dioxide 33 H (22-30) mmol/L BUN 35 H (7-17) mg/dL Glucose 152 H (74-99) mg/dL
--- NOTE | 2024-11-22 14:37 | P.PN ---
Subjective Progress Note Date: 11/22/24 Principal diagnosis: Reason for follow-up is bilateral lower extremity cellulitis Patient is a 69-year-old female with a past medical history significant for heart failure COPD CVA TIA hypertension presented to hospital with worsening swelling redness of the leg some mental status changes has been diagnosed with a cellulitis. Patient did have worsening of her respiratory status requiring BiPAP and transferred to the ICU. On today's evaluation that is 11/22/2024,the patient remains to be afebrile, patient is on 7 L nasal cannula supplemental oxygen and denies any shortness of breath no chest pain or cough.Patient denies having any nausea or vomiting, no abdominal pain and no diarrhea and denies pain to the lower extremity. Patient white count is 5.8 creatinine 0.81 blood cultures so far negative Objective - Vital Signs Vital signs: Vital Signs Temp 97.7 F 11/22/24 12:00 Pulse 76 11/22/24 14:00 Resp 25 H 11/22/24 14:00 BP 124/74 11/22/24 14:00 Pulse Ox 92 L 11/22/24 14:00 FiO2 90 11/21/24 08:00 Intake & Output 11/21/24 11/22/24 11/22/24 18:59 06:59 18:59 Intake Total 160 140 30 Output Total 975 900 50 Balance -815 -760 -20 Weight 94.5 kg Intake: IV 160 140 30 Invasive Line 3 40 30 20 ceFAZolin 3 gm In Sodium 100 Chloride 0.9% 100 ml @ 200 mls/hr IVPB Q8HR [facility] Rx#:[id number] kvo 120 10 10 Output: Urine 975 900 50 Other: Voiding Method External Catheter External Catheter External Catheter # Bowel Movements 2 - Exam GENERAL DESCRIPTION: An elderly female lying in bed in no distress RESPIRATORY SYSTEM: Unlabored breathing , decreased breath sounds at bases HEART: S1 S2 regular rate and rhythm , ABDOMEN: Soft , no tenderness EXTREMITIES: Bilateral legs currently wrapped in Flaquito wrap no drainage - Labs CBC & Chem 7: 11/22/24 03:14 11/22/24 03:14 Labs: Abnormal Lab Results - Last 24 Hours (Table) 11/22/24 11/22/24 Range/Units 03:14 03:14 RDW 16.4 H (11.5-15.5) % Lymphocytes # 0.4 L (1.0-4.8) k/uL Sodium 132 L (137-145) mmol/L Chloride 94 L (98-107) mmol/L Carbon Dioxide 33 H (22-30) mmol/L BUN 35 H (7-17) mg/dL Glucose 152 H (74-99) mg/dL Assessment and Plan (1) Bilateral lower leg cellulitis Current Visit: Yes Status: Acute Code(s): L03.116 - CELLULITIS OF LEFT LOWER LIMB; L03.115 - CELLULITIS OF RIGHT LOWER LIMB SNOMED Code(s): 114278532 Plan: 1patient presented to hospital with increasing swelling in his bilateral ext remity and this patient noted to have evidence of diffuse swelling and redness to bilateral legs likely concern for cellulitis from gram-positive skin stefano in this patient who did have features of CHF fluid overload 2-patient is afebrile and white count has been normal, currently being treated with cefazolin along with Mycolog cream to the left leg erythema and an Flaquito wrap and monitor clinical course closely Dictation was produced using [employer] dictation software. please excuse any grammatical, word or spelling errors. Time with Patient: Less than 30
--- NOTE | 2024-11-22 14:37 | P.PN ---
Subjective Progress Note Date: 11/20/24 Principal diagnosis: Reason for follow-up is bilateral lower extremity cellulitis Patient is a 69-year-old female with a past medical history significant for heart failure COPD CVA TIA hypertension presented to hospital with worsening swelling redness of the leg some mental status changes has been diagnosed with a cellulitis. Patient did have worsening of her respiratory status requiring BiPAP and transferred to the ICU. On today's evaluation that is 11/20/2024, Patient is afebrile this morning patient denies having any chest pain or cough, the patient is currently on high flow nasal cannula oxygen patient denies any abdominal pain no diarrhea no nausea no vomiting, denies pain to the lower extremity. Patient white count 6.1, creatinine 0.62 Objective - Vital Signs Vital signs: Vital Signs Temp 98.6 F 11/20/24 12:00 Pulse 90 11/20/24 15:28 Resp 22 11/20/24 15:00 BP 117/69 11/20/24 15:00 Pulse Ox 95 11/20/24 15:00 FiO2 100 11/20/24 15:16 Intake & Output 11/19/24 11/20/24 11/20/24 18:59 06:59 18:59 Intake Total 100 610 490 Output Total 870 1400 1600 Balance -770 -790 -1110 Weight 90.718 kg 94.4 kg Intake: IV 110 90 kvo 110 90 Intake, IV Titration 100 100 Amount ACETAMINOPHEN IV (For NPO 100 ) 1,000 mg In Empty Bag 1 bag @ 400 mls/hr IVPB [facility] Rx#:[id number] ceFAZolin 3 gm In Sodium 100 Chloride 0.9% 100 ml @ 200 mls/hr IVPB Q8HR [facility] Rx#:[id number] Oral 500 300 Output: Urine 870 1400 1600 Other: Voiding Method External Catheter External Catheter External Catheter # Voids 1 # Bowel Movements 1 - Exam GENERAL DESCRIPTION: An elderly female lying in bed in no distress RESPIRATORY SYSTEM: Unlabored breathing , decreased breath sounds at bases HEART: S1 S2 regular rate and rhythm , ABDOMEN: Soft , no tenderness EXTREMITIES: Bilateral legs swelling redness slightly decreased more on the left side than on the right - Labs CBC & Chem 7: 11/21/24 06:01 11/21/24 06:01 Labs: Abnormal Lab Results - Last 24 Hours (Table) 11/20/24 11/20/24 11/20/24 Range/Units 05:13 05:13 14:08 RDW 16.1 H (11.5-15.5) % Sodium 136 L (137-145) mmol/L Potassium 3.2 L 3.3 L (3.5-5.1) mmol/L Chloride 88 L (98-107) mmol/L Carbon Dioxide 40 H (22-30) mmol/L BUN 26 H (7-17) mg/dL Glucose 141 H (74-99) mg/dL Microbiology - Last 24 Hours (Table) 11/17/24 11:25 Blood Culture - Preliminary Blood 11/17/24 11:35 Blood Culture - Preliminary Blood Assessment and Plan (1) Bilateral lower leg cellulitis Current Visit: Yes Status: Acute Code(s): L03.116 - CELLULITIS OF LEFT LOWER LIMB; L03.115 - CELLULITIS OF RIGHT LOWER LIMB SNOMED Code(s): 686239321 Plan: 1patient presented to hospital with increasing swelling in his bilateral extremity and this patient noted to have evidence of diffuse swelling and redness to bilateral legs likely concern for cellulitis from gram-positive skin stefano in this patient who did have features of CHF fluid overload 2-patient is afebrile did have some improvement to lower extremity swelling especially the right leg, continued on-cefazolin 3 g every 8 hours we will add Mycolog cream to the left leg erythema and see clinical response Dictation was produced using [employer] dictation software. please excuse any grammatical, word or spelling errors.
[2024-11-23 03:02] LABS: Basophils % (A) 0 %; Eosinophils % (A) 0 %; HCT 47.9 % (34.0-46.0); HGB 15.1 gm/dL (11.4-16.0); Lymphocytes # (A) 0.4 k/uL (1.0-4.8); Lymphocytes % (A) 6 %; MCH 28.7 pg (25.0-35.0); MCHC 31.4 g/dL (31.0-37.0); MCV 91.3 fL (80.0-100.0); Mean Platelet Volume 8.4; Monocytes # (A) 0.4 k/uL (0-1.0); Monocytes % (A) 7 %; Neutrophils # (A) 5.6 k/uL (1.3-7.7); Neutrophils % (A) 86 %; Platelet Count 207 k/uL (150-450); RBC 5.25 m/uL (3.80-5.40); RDW 15.7 % (11.5-15.5); WBC 6.5 k/uL (3.8-10.6)
[2024-11-23 03:15] LABS: African American GFR (CKD) 78 (>60 ml/min/1.73 sqM); Anion Gap 5 mmol/L; Blood Urea Nitrogen 36 mg/dL (7-17); Calcium 8.6 mg/dL (8.4-10.2); Carbon Dioxide 30 mmol/L (22-30); Chloride 95 mmol/L (98-107); Glucose 145 mg/dL (74-99); Non-African American GFR(CKD) 67 (>60 ml/min/1.73 sqM); Potassium 4.1 mmol/L (3.5-5.1); Sodium 130 mmol/L (137-145)
--- NOTE | 2024-11-23 11:42 | P.PN ---
Subjective Progress Note Date: 11/23/24 Principal diagnosis: Acute on chronic hypoxic and hypercapnic respiratory failure This is a 68-year-old female with history of COPD, chronic hypoxic respiratory failure, maintained on 4 L nasal cannula, history of rheumatoid arthritis, CVA/TIA, patient also had chronic history of cellulitis of lower extremities with worsening erythema, patient was in the hospital from 11/13 until 11/16 for altered mentation fever and intractable pain. Patient was treated for UTI and left lower extremity cellulitis. Patient was discharged home on antibiotics in the form of Ceftin however the patient was brought back yesterday with multiple complaints including altered mental status, worsening cellulitis, worsening hypoxia and hypercapnia with a pO2 of 72 pCO2 of 87 pH of 7.33 on 80% FiO2. Patient was placed on BiPAP, she is presently on 75% FiO2 IPAP of 10 and EPAP of 5, I saw this patient in consultation today, she is a very poor historian, complaining of her positioning, keeps asking to be placed properly in bed, as she seems to be uncomfortable, her O2 sats is marginal on 75% FiO2 with O2 sats of 90%, patient does not seem to be well, hence I have arranged for the patient to be transferred to the ICU. Chest x-ray on admission shows cardiomegaly pulmonary vascular congestion, bilateral pleural effusion, underlying pneumonia is not entirely ruled out, felt to be less likely. Patient was already seen by infectious disease on consultation for her cellulitis, and the recommendation was to change antibiotics to cefazolin 3 g every 8 hours. Patient is on diuretics, she is on furosemide at 40 mg IV push every 12 hours, and I added Diamox to 50 mg IV push every 12. Patient is on bronchodilators in the form of DuoNeb, she is also on Symbicort, on methylprednisolone 40 mg IV push Q8. Considering her ABG and considering her overall clinical picture, patient is marginal at best, and I recommended transferring the patient to the ICU for close monitoring. WBC count is normal electrolytes are normal bicarb is 36 renal profile is normal, viral screening is negative for influenza A influenza B RSV and COVID. Patient was seen today on 11/20/2024, patient is now in the ICU, doing much better today compared to yesterday, patient is more awake, more responsive, she was on BiPAP last night, now she is on Airvo 60 L / 90% FiO2, her BiPAP settings were 12/5/100%. Chest x-ray is showing improvement in her pulmonary edema echocardiogram showed no evidence of LV dysfunction patient is on Lasix twice daily and today I added Diamox to 50 mg IV push twice daily.Her WBC count 6.1 hemoglobin 14.4. Her electrolytes are normal potassium is a bit low being addressed accordingly renal profile is normal. Patient was seen today on 11/21/2024, patient remains in the ICU, remains on Airvo at 60 L flow and 90% FiO2 remains on diuretics in the form of Lasix and Diamox, chest x-ray is showing improvement clinically the patient is improving.WBC count is 6.6 hemoglobin 15.3 electrolytes are normal bicarb is 37, Renal profile is normal, chest x-ray again is noted to show slight improvement in her diffuse interstitial opacities compared to previous studies and she has s mall bilateral pleural effusions improving Patient was seen today, patient remains in the ICU as an overflow. Feeling better, she is down to 15 L high flow nasal cannula, patient was noted to have some choking episodes while eating, I am recommending that the patient gets evaluated for possible aspiration/swallow evaluation. In the meantime patient remains on Diamox and on Lasix 40 mg twice daily, she is also on cefazolin, and she is receiving Lovenox. Clinically the patient is feeling better, no chest x-ray done today, patient will have swallow evaluation, will transfer the patient out of the ICU to a monitored bed and selective, and will continue to follow. She will be placed on a maintenance dose of calcium since she remains on diuretics. WBC count is 5.8 hemoglobin 14.9 electrolytes are normal BUN is 35 creatinine 0.8 11/23/2024, patient remains in the ICU as an overflow, she is now on 8 L high flow nasal cannula, patient is receiving Lasix and Diamox, she is also on c efazolin, she continues to have Flaquito wraps on her lower extremities, patient has extensive cellulitis being addressed by infectious disease. Chest x-ray is showing slight improvement in her interstitial edema and atelectasis. Patient has been steadily improving. But not quite ready for discharge. CBC today is relatively normal basic metabolic profile is normal renal profile is normal Objective - Vital Signs Vital signs: Vital Signs Temp 97.9 F 11/23/24 08:00 Pulse 91 11/23/24 10:59 Resp 21 11/23/24 08:00 BP 132/72 11/23/24 08:00 Pulse Ox 91 L 11/23/24 08:00 FiO2 90 11/21/24 08:00 Intake & Output 11/22/24 11/23/24 11/23/24 18:59 06:59 18:59 Intake Total 1050 540 210 Output Total 500 700 Balance 550 540 -490 Weight 93.6 kg 93.6 kg Intake: IV 250 140 210 Invasive Line 3 30 30 ceFAZolin 3 gm In Sodium 200 100 100 Chloride 0.9% 100 ml @ 200 mls/hr IVPB Q8HR [facility] Rx#:[id number] kvo 20 10 110 Oral 400 Tube Feeding 800 Output: Urine 500 700 Other: Voiding Method External Catheter External Catheter - Exam General: Revealed 68-year-old female on high flow nasal cannula at 8 L/min with O2 sats in the 90s Derm: warm, dry Head: atraumatic, normocephalic, symmetric Eyes: EOMI, no lid lag, anicteric sclera, dry mucous membranes. Mouth: no lip lesion, dry mucous membranes Cardiovascular: Distant S1-S2, no S3 gallop, no murmur Lungs: Symmetrical chest expansion scattered rhonchi noted bilaterally. Ext: Bilateral lower extremities edema and erythema noted. Wrapped with Flaquito wrap. Neuro: Alert oriented x 3 no gross focal deficit e Psych: Normal mood affect and normal mental status examination - Labs CBC & Chem 7: 11/23/24 02:44 11/23/24 02:44 Labs: Abnormal Lab Results - Last 24 Hours (Table) 11/23/24 11/23/24 Range/Units 02:44 02:44 Hct 47.9 H (34.0-46.0) % RDW 15.7 H (11.5-15.5) % Lymphocytes # 0.4 L (1.0-4.8) k/uL Sodium 130 L (137-145) mmol/L Chloride 95 L (98-107) mmol/L BUN 36 H (7-17) mg/dL Glucose 145 H (74-99) mg/dL Microbiology - Last 24 Hours (Table) 11/17/24 11:25 Blood Culture - Final Blood 11/17/24 11:35 Blood Culture - Final Blood Assessment and Plan Assessment: Impression: Acute on chronic hypoxic and hypercapnic respiratory failure requiring BiPAP, improving Acute congestive heart failure with preserved ejection fraction, her EF is in the range of 55% Acute on chronic cellulitis of lower extremities History of severe underlying COPD acute metabolic encephalopathy Recent history of urinary tract infection Recommendation: Continue plans to transfer to [facility]. today Continue high flow nasal cannula and titrate accordingly Continue Lasix and Diamox Continue bronchodilators Continue cefazolin Continue GI DVT prophylaxis Will continue to follow Time with Patient: Less than 30
--- NOTE | 2024-11-23 12:08 | P.PN ---
Subjective Progress Note Date: 11/23/24 Patient is a 59-year-old female with past medical history of chronic hypoxic respiratory failure secondary to COPD on 4 L home oxygen, history of CVA/TIA, RA on methotrexate, HTN who presented to the ED with worsening bilateral lower extremity erythema, previously admitted from 11/13 to 11/16 with AMS, fever, received treatment for possible LE cellulitis and UTI, was discharged home on 7 days of Ceftin and presented back with worsening erythema. In the ER BP 118/74, HR 104, RR 20, T 98F, 92% on 4L. CBC, CMP significant for Plt 136, Na 136, Cl 97, bicarb 36, glu 110. Lactic acid 1.4. EKG sinus tachyc ardia with Q waves Q1-4. Patient is admitted for further workup and management. Patient was transferred to the ICU for acute on chronic hypoxic hypercapnic respiratory failure requiring BiPAP, increased lethargy, chest x-ray showed pulmonary vascular congestion and patient was started on IV Lasix in addition to Solu-Medrol and DuoNeb. 11/22. Patient seen lying in bed. No acute events overnight. No significant complaints today. CXR independently interpreted: Left pleural effusion, pulmonary vascular congestion bilaterally. Labs today: WBCs 5.8, hemoglobin 14.9, platelets 199, sodium 132, potassium 3.6, chloride 94, CO2 33, BUN 35, creatinine 0.81, glucose 152, magnesium 2.3. 11/23. Patient seen and examined in bed. No acute events overnight. No significant complaints today. Swallow evaluation: Ground foods alternating with liquids recommended. Labs today: WBC 6.5, hemoglobin 15.1, platelets 207, sodium 130, potassium 4.1, chloride 95, CO2 30, BUN 36, creatinine 0.87, glucose 145, calcium 8.6. Pertinent positives and negatives discussed above, a complete review of systems was performed and all the other systems were negative. Physical examination: Vital signs reviewed. On 8 L high flow saturating 92%. Normotensive. General: Nontoxic, no distress, appears stated age, well-appearing Derm: Warm, dry, intact Head: Atraumatic, normocephalic, symmetric Eyes: EOMI Mouth: No lip lesion, mucus membranes moist Cardiovascular: S1-S2 regular Lungs: CTA bilateral, no rhonchi, no rales, no accessory muscle use Abdominal: Soft, non-tender to palpation Extremities: No cyanosis, clubbing, bilateral lower extremities wrapped Neuro: Alert, oriented x 3, gross neurological examination did not reveal any focal deficits. Cranial nerves II to XII grossly intact. Psych: Appropriate affect and mood Assessment and Plan: Patient is a 59-year-old female with past medical history of chronic hypoxic respiratory failure secondary to COPD on 4 L home oxygen, history of CVA/TIA, RA on methotrexate, HTN who is admitted for cellulitis with hospital course complicated by acute on chronic hypoxic hypercapnic respiratory failure. Active #. Acute on chronic hypoxic hypercapnic respiratory failure requiring BiPAP #. Chronic hypoxic respiratory failure secondary to COPD on 4 L home oxygen #. HFpEF exacerbation #. Contraction alkalosis Pulmonology following, continue ICU monitoring Continue oxygen supplementation as required to keep O2 saturation >88% Hold Lasix dose tonight as patient has hyponatremia Diamox 250 mg PO twice daily Continue methylprednisolone 40 mg IV every 8 hours Continue breathing treatment Strict I's and O's, urine output 11/23 1 L TTE showed EF of 55% Daily weights Monitor electrolytes and BMP daily Repeat chest x-ray in the morning #. Hyponatremia Hold Lasix dose tonight #. Sepsis likely secondary to lower extremity cellulitis, improved Patient was febrile and tachycardic on 11/18, sepsis not present on admission, received 2 doses of IV vancomycin Blood cultures obtained, negative so far ID following, patient is currently on cefazolin 3 g IV 3 times daily, day 6 PT/OT Chronic #. History of CVA/TIA Continue pravastatin, aspirin #. Hypertension Imdur 30 mg PO daily, metoprolol 12.5 PO twice daily, Lasix currently IV #. Chronic pain, chronic opioid use disorder #. Rheumatoid arthritis Methotrexate F: None E: Replete if required N: Ground foods DVT prophylaxis: Lovenox Code status: Full code Anticipated discharge place: Pending clinical course I saw and evaluated the patient during the asencio and critical portions of this encounter, and discussed the case in detail with the resident author of this note, I agree with the Assessment and Plan, and my changes, if any, are highlighted in blue. Objective - Vital Signs Vital signs: Vital Signs Temp 98.5 F 11/23/24 04:00 Pulse 63 11/23/24 05:00 Resp 19 11/23/24 05:00 BP 126/75 11/23/24 05:00 Pulse Ox 95 11/23/24 05:00 FiO2 90 11/21/24 08:00 Intake & Output 11/22/24 11/22/24 11/23/24 06:59 18:59 06:59 Intake Total 140 1050 540 Output Total 900 500 Balance -760 550 540 Weight 94.5 kg 93.6 kg Intake: IV 140 250 140 Invasive Line 3 30 30 30 ceFAZolin 3 gm In Sodium 100 200 100 Chloride 0.9% 100 ml @ 200 mls/hr IVPB Q8HR [facility] Rx#:[id number] kvo 10 20 10 Oral 400 Tube Feeding 800 Output: Urine 900 500 Other: Voiding Method External Catheter External Catheter External Catheter - Labs CBC & Chem 7: 11/23/24 02:44 11/23/24 02:44 Labs: Abnormal Lab Results - Last 24 Hours (Table) 11/23/24 11/23/24 Range/Units 02:44 02:44 Hct 47.9 H (34.0-46.0) % RDW 15.7 H (11.5-15.5) % Lymphocytes # 0.4 L (1.0-4.8) k/uL Sodium 130 L (137-145) mmol/L Chloride 95 L (98-107) mmol/L BUN 36 H (7-17) mg/dL Glucose 145 H (74-99) mg/dL Microbiology - Last 24 Hours (Table) 11/17/24 11:25 Blood Culture - Final Blood 11/17/24 11:35 Blood Culture - Final Blood
--- NOTE | 2024-11-23 14:53 | P.PN ---
Subjective Progress Note Date: 11/23/24 Principal diagnosis: Reason for follow-up is bilateral lower extremity cellulitis Patient is a 69-year-old female with a past medical history significant for heart failure COPD CVA TIA hypertension presented to hospital with worsening swelling redness of the leg some mental status changes has been diagnosed with a cellulitis. Patient did have worsening of her respiratory status requiring BiPAP and transferred to the ICU. On today's evaluation that is 11/23/2024, the patient continues to be afebrile, the patient is on 8 L high flow nasal oxygen however breathing comfortably, the Pt denies having any chest pain or cough, the patient denies having any abdominal pain no vomiting or any diarrhea and no pain to the lower extremity. Patient white count 6.5, creatinine 0.87 blood culture has been negative Objective - Vital Signs Vital signs: Vital Signs Temp 97.9 F 11/23/24 08:00 Pulse 89 11/23/24 14:50 Resp 12 11/23/24 12:00 BP 126/72 11/23/24 12:00 Pulse Ox 93 L 11/23/24 12:00 FiO2 90 11/21/24 08:00 Intake & Output 11/22/24 11/23/24 11/23/24 18:59 06:59 18:59 Intake Total 1050 540 210 Output Total 500 700 Balance 550 540 -490 Weight 93.6 kg 93.6 kg Intake: IV 250 140 210 Invasive Line 3 30 30 ceFAZolin 3 gm In Sodium 200 100 100 Chloride 0.9% 100 ml @ 200 mls/hr IVPB Q8HR [facility] Rx#:[id number] kvo 20 10 110 Oral 400 Tube Feeding 800 Output: Urine 500 700 Other: Voiding Method External Catheter External Catheter # Voids 1 - Exam GENERAL DESCRIPTION: An elderly female lying in bed in no distress RESPIRATORY SYSTEM: Unlabored breathing , decreased breath sounds at bases HEART: S1 S2 regular rate and rhythm , ABDOMEN: Soft , no tenderness EXTREMITIES: Bilateral legs currently wrapped in Flaquito wrap no drainage - Labs CBC & Chem 7: 11/23/24 02:44 11/23/24 02:44 Labs: Abnormal Lab Results - Last 24 Hours (Table) 11/23/24 11/23/24 Range/Units 02:44 02:44 Hct 47.9 H (34.0-46.0) % RDW 15.7 H (11.5-15.5) % Lymphocytes # 0.4 L (1.0-4.8) k/uL Sodium 130 L (137-145) mmol/L Chloride 95 L (98-107) mmol/L BUN 36 H (7-17) mg/dL Glucose 145 H (74-99) mg/dL Microbiology - Last 24 Hours (Table) 11/17/24 11:25 Blood Culture - Final Blood 11/17/24 11:35 Blood Culture - Final Blood Assessment and Plan (1) Bilateral lower leg cellulitis Current Visit: Yes Status: Acute Code(s): L03.116 - CELLULITIS OF LEFT LOWER LIMB; L03.115 - CELLULITIS OF RIGHT LOWER LIMB SNOMED Code(s): 338959184 Plan: 1patient presented to hospital with increasing swelling in his bilateral extremity and this patient noted to have evidence of diffuse swelling and redness to bilateral legs likely concern for cellulitis from gram-positive skin stefano in this patient who did have features of CHF fluid overload 2-patient is afebrile and white count has been normal, 3patient to continue with cefazolin along with Mycolog cream to the left leg erythema and an Flaquito wrap and plan is for oral antibiotics on discharge Dictation was produced using [employer] dictation software. please excuse any grammatical, word or spelling errors. Time with Patient: Less than 30
[2024-11-24 07:12] LABS: Basophils % (A) 0 %; Eosinophils % (A) 0 %; HCT 48.2 % (34.0-46.0); HGB 15.7 gm/dL (11.4-16.0); Lymphocytes # (A) 0.4 k/uL (1.0-4.8); Lymphocytes % (A) 6 %; MCH 29.7 pg (25.0-35.0); MCHC 32.7 g/dL (31.0-37.0); Mean Platelet Volume 8.5; Monocytes # (A) 0.6 k/uL (0-1.0); Monocytes % (A) 7 %; Neutrophils # (A) 6.8 k/uL (1.3-7.7); Neutrophils % (A) 86 %; Platelet Count 195 k/uL (150-450); RDW 15.7 % (11.5-15.5); WBC 7.9 k/uL (3.8-10.6)
--- NOTE | 2024-11-24 07:17 | XR ---
EXAMINATION TYPE: XR chest 1V portable DATE OF EXAM: 11/24/2024 4:36 AM COMPARISON: Chest radiographs from 11/22/2024 CLINICAL INDICATION: Female, 69 years old with history of SOB; [facility] TECHNIQUE: XR chest 1V portable Frontal view of the chest. FINDINGS: Lungs/Pleura: Blunting of the left costophrenic angle There is no evidence of right pleural effusion, focal consolidation, or pneumothorax. Pulmonary vascularity: Pulmonary vascular congestion. Heart/mediastinum: Cardiomediastinal silhouette is unremarkable. Musculoskeletal: No acute osseous pathology. There is spine fixation hardware is present. Calcified j oint bodies around the right shoulder. Degeneration changes around the shoulders bilaterally. Other f indings: None IMPRESSION: Stable exam with left pleural effusion and pulmonary vascular congestion. [facility], , 11/24/2024 7:15 AM
[2024-11-24 07:43] LABS: African American GFR (CKD) >90 (>60 ml/min/1.73 sqM); Anion Gap 7 mmol/L; Blood Urea Nitrogen 33 mg/dL (7-17); Calcium 8.8 mg/dL (8.4-10.2); Carbon Dioxide 27 mmol/L (22-30); Chloride 95 mmol/L (98-107); Glucose 141 mg/dL (74-99); Non-African American GFR(CKD) 85 (>60 ml/min/1.73 sqM); Potassium 4.3 mmol/L (3.5-5.1); Sodium 129 mmol/L (137-145)
--- NOTE | 2024-11-24 10:22 | P.PN ---
Subjective Progress Note Date: 11/24/24 Patient is a 59-year-old female with past medical history of chronic hypoxic respiratory failure secondary to COPD on 4 L home oxygen, history of CVA/TIA, RA on methotrexate, HTN who presented to the ED with worsening bilateral lower extremity erythema, previously admitted from 11/13 to 11/16 with AMS, fever, received treatment for possible LE cellulitis and UTI, was discharged home on 7 days of Ceftin and presented back with worsening erythema. In the ER BP 118/74, HR 104, RR 20, T 98F, 92% on 4L. CBC, CMP significant for Plt 136, Na 136, Cl 97, bicarb 36, glu 110. Lactic acid 1.4. EKG sinus tachyc ardia with Q waves Q1-4. Patient is admitted for further workup and management. Patient was transferred to the ICU for acute on chronic hypoxic hypercapnic respiratory failure requiring BiPAP, increased lethargy, chest x-ray showed pulmonary vascular congestion and patient was started on IV Lasix in addition to Solu-Medrol and DuoNeb. 11/22. Patient seen lying in bed. No acute events overnight. No significant complaints today. CXR independently interpreted: Left pleural effusion, pulmonary vascular congestion bilaterally. Labs today: WBCs 5.8, hemoglobin 14.9, platelets 199, sodium 132, potassium 3.6, chloride 94, CO2 33, BUN 35, creatinine 0.81, glucose 152, magnesium 2.3. 11/23. Patient seen and examined in bed. No acute events overnight. No significant complaints today. Swallow evaluation: Ground foods alternating with liquids recommended. Labs today: WBC 6.5, hemoglobin 15.1, platelets 207, sodium 130, potassium 4.1, chloride 95, CO2 30, BUN 36, creatinine 0.87, glucose 145, calcium 8.6. 11/24. Patient states sitting comfortably in bed. No acute events overnight. No significant complaints today. Chest x-ray independently interpreted: Unchanged left pleural effusion and pulmonary vascular congestion bilaterally. Labs today: WBC 7.9, hemoglobin 15.7, platelets 195, sodium 129, potassium 4.3, chloride 95, CO2 27, BUN 33, creatinine 0.72, glucose 141. Pertinent positives and negatives discussed above, a complete review of systems was performed and all the other systems were negative. Physical examination: Vital signs reviewed. Afebrile. On 6 L high flow saturating 94%. Hypertensive. General: Nontoxic, no distress, appears stated age, well-appearing Derm: Warm, dry, intact Head: Atraumatic, normocephalic, symmetric Eyes: EOMI Mouth: No lip lesion, mucus membranes moist Cardiovascular: S1-S2 regular Lungs: CTA bilateral, no rhonchi, no rales, no accessory muscle use Abdominal: Soft, non-tender to palpation Extremities: No cyanosis, clubbing, bilateral lower extremities wrapped Neuro: Alert, oriented x 3, gross neurological examination did not reveal any focal deficits. Cranial nerves II to XII grossly intact. Psych: Appropriate affect and mood Assessment and Plan: Patient is a 59-year-old female with past medical history of chronic hypoxic respiratory failure secondary to COPD on 4 L home oxygen, history of CVA/TIA, RA on methotrexate, HTN who is admitted for cellulitis with hospital course complicated by acute on chronic hypoxic hypercapnic respiratory failure. Active #. Acute on chronic hypoxic hypercapnic respiratory failure requiring BiPAP #. Chronic hypoxic respiratory failure secondary to COPD on 4 L home oxygen #. HFpEF exacerbation #. Contraction alkalosis Pulmonology following, continue ICU monitoring Continue oxygen supplementation as required to keep O2 saturation >88% Decrease Lasix to daily 40 mg Diamox 250 mg PO twice daily Continue methylprednisolone 40 mg IV every 8 hours Continue breathing treatment Strict I's and O's, urine output 11/24 1 L TTE showed EF of 55% Daily weights Monitor BMP daily #. Hyponatremia Decrease Lasix to daily 40 mg #. Sepsis likely secondary to lower extremity cellulitis, improved Patient was febrile and tachycardic on 11/18, sepsis not present on admission, received 2 doses of IV vancomycin Blood cultures obtained, negative so far ID following, patient is currently on cefazolin 3 g IV 3 times daily, day 6 PT/OT Chronic #. History of CVA/TIA Continue pravastatin, aspirin #. Hypertension Imdur 30 mg PO daily, metoprolol 12.5 PO twice daily, Lasix currently IV #. Chronic pain, chronic opioid use disorder #. Rheumatoid arthritis Methotrexate F: None E: Replete if required N: Ground foods DVT prophylaxis: Lovenox Code status: Full code Anticipated discharge place: Pending clinical course I saw and evaluated the patient during the asencio and critical portions of this encounter, and discussed the case in detail with the resident author of this note, I agree with the Assessment and Plan, and my changes, if any, are highlighted in blue. Objective - Vital Signs Vital signs: Vital Signs Temp 98.1 F 11/24/24 04:00 Pulse 73 11/24/24 06:00 Resp 24 11/24/24 06:00 BP 136/80 11/24/24 06:00 Pulse Ox 94 L 11/24/24 06:00 FiO2 90 11/21/24 08:00 Intake & Output 11/23/24 11/23/24 11/24/24 06:59 18:59 06:59 Intake Total 540 320 120 Output Total 700 500 Balance 540 -380 -380 Weight 93.6 kg 90.804 kg 99.8 kg Intake: IV 140 320 120 Invasive Line 3 30 ceFAZolin 3 gm In Sodium 100 200 Chloride 0.9% 100 ml @ 200 mls/hr IVPB Q8HR [facility] Rx#:[id number] kvo 10 120 120 Oral 400 Output: Urine 700 500 Other: Voiding Method External Catheter External Catheter External Catheter # Voids 1 - Labs CBC & Chem 7: 11/24/24 06:44 11/24/24 06:44
--- NOTE | 2024-11-24 13:54 | P.PN ---
Subjective Progress Note Date: 11/24/24 Principal diagnosis: Acute on chronic hypoxic and hypercapnic respiratory failure This is a 68-year-old female with history of COPD, chronic hypoxic respiratory failure, maintained on 4 L nasal cannula, history of rheumatoid arthritis, CVA/TIA, patient also had chronic history of cellulitis of lower extremities with worsening erythema, patient was in the hospital from 11/13 until 11/16 for altered mentation fever and intractable pain. Patient was treated for UTI and left lower extremity cellulitis. Patient was discharged home on antibiotics in the form of Ceftin however the patient was brought back yesterday with multiple complaints including altered mental status, worsening cellulitis, worsening hypoxia and hypercapnia with a pO2 of 72 pCO2 of 87 pH of 7.33 on 80% FiO2. Patient was placed on BiPAP, she is presently on 75% FiO2 IPAP of 10 and EPAP of 5, I saw this patient in consultation today, she is a very poor historian, complaining of her positioning, keeps asking to be placed properly in bed, as she seems to be uncomfortable, her O2 sats is marginal on 75% FiO2 with O2 sats of 90%, patient does not seem to be well, hence I have arranged for the patient to be transferred to the ICU. Chest x-ray on admission shows cardiomegaly pulmonary vascular congestion, bilateral pleural effusion, underlying pneumonia is not entirely ruled out, felt to be less likely. Patient was already seen by infectious disease on consultation for her cellulitis, and the recommendation was to change antibiotics to cefazolin 3 g every 8 hours. Patient is on diuretics, she is on furosemide at 40 mg IV push every 12 hours, and I added Diamox to 50 mg IV push every 12. Patient is on bronchodilators in the form of DuoNeb, she is also on Symbicort, on methylprednisolone 40 mg IV push Q8. Considering her ABG and considering her overall clinical picture, patient is marginal at best, and I recommended transferring the patient to the ICU for close monitoring. WBC count is normal electrolytes are normal bicarb is 36 renal profile is normal, viral screening is negative for influenza A influenza B RSV and COVID. Patient was seen today on 11/20/2024, patient is now in the ICU, doing much better today compared to yesterday, patient is more awake, more responsive, she was on BiPAP last night, now she is on Airvo 60 L / 90% FiO2, her BiPAP settings were 12/5/100%. Chest x-ray is showing improvement in her pulmonary edema echocardiogram showed no evidence of LV dysfunction patient is on Lasix twice daily and today I added Diamox to 50 mg IV push twice daily.Her WBC count 6.1 hemoglobin 14.4. Her electrolytes are normal potassium is a bit low being addressed accordingly renal profile is normal. Patient was seen today on 11/21/2024, patient remains in the ICU, remains on Airvo at 60 L flow and 90% FiO2 remains on diuretics in the form of Lasix and Diamox, chest x-ray is showing improvement clinically the patient is improving.WBC count is 6.6 hemoglobin 15.3 electrolytes are normal bicarb is 37, Renal profile is normal, chest x-ray again is noted to show slight improvement in her diffuse interstitial opacities compared to previous studies and she has s mall bilateral pleural effusions improving Patient was seen today/, patient remains in the ICU as an overflow. Feeling better, she is down to 15 L high flow nasal cannula, patient was noted to have some choking episodes while eating, I am recommending that the patient gets evaluated for possible aspiration/swallow evaluation. In the meantime patient remains on Diamox and on Lasix 40 mg twice daily, she is also on cefazolin, and she is receiving Lovenox. Clinically the patient is feeling better, no chest x-ray done today, patient will have swallow evaluation, will transfer the patient out of the ICU to a monitored bed and selective, and will continue to follow. She will be placed on a maintenance dose of calcium since she remains on diuretics. WBC count is 5.8 hemoglobin 14.9 electrolytes are normal BUN is 35 creatinine 0.8 11/23/2024, patient remains in the ICU as an overflow, she is now on 8 L high flow nasal cannula, patient is receiving Lasix and Diamox, she is also on c efazolin, she continues to have Flaquito wraps on her lower extremities, patient has extensive cellulitis being addressed by infectious disease. Chest x-ray is showing slight improvement in her interstitial edema and atelectasis. Patient has been steadily improving. But not quite ready for discharge. CBC today is relatively normal basic metabolic profile is normal renal profile is normal Seen today on 11/24/2024, patient remains in the ICU as an overflow. Patient is doing quite well, she is down to 6 L L high flow nasal cannula, patient is supposed to go to 3 [address] remains on cefazolin, Solu-Medrol, Lasix 40 mg twice daily, patient is improving, and we have been able to titrate her oxygen down to 6 L high flow nasal cannula. Chest x-ray continues to show pulmonary vascular congestion and small pleural effusion. CBC and electrolytes were noted. Objective - Vital Signs Vital signs: Vital Signs Temp 98.3 F 11/24/24 09:00 Pulse 85 11/24/24 09:00 Resp 18 11/24/24 09:00 BP 145/82 11/24/24 09:00 Pulse Ox 94 L 11/24/24 09:00 FiO2 90 11/21/24 08:00 Intake & Output 11/23/24 11/24/24 11/24/24 18:59 06:59 18:59 Intake Total 320 120 40 Output Total 925 500 750 Balance -618 -824 -710 Weight 90.804 kg 99.8 kg Intake: IV 320 120 40 ceFAZolin 3 gm In Sodium 200 Chloride 0.9% 100 ml @ 200 mls/hr IVPB Q8HR [facility] Rx#:[id number] kvo 120 120 40 Output: Urine 925 500 750 Other: Voiding Method External Catheter External Catheter # Voids 1 - Exam General: Revealed 68-year-old female on high flow nasal cannula at 6 L nasal cannula with O2 sat of 94% Derm: warm, dry Head: atraumatic, normocephalic, symmetric Eyes: EOMI, no lid lag, anicteric sclera, dry mucous membranes. Mouth: no lip lesion, dry mucous membranes Cardiovascular: Distant S1-S2, no S3 gallop, no murmur Lungs: Symmetrical chest expansion scattered rhonchi noted bilaterally. Ext: Bilateral lower extremities edema and erythema noted. Wrapped with Flaquito wrap. Neuro: Alert oriented x 3 no gross focal deficit e Psych: Normal mood affect and normal mental status examination - Labs CBC & Chem 7: 11/24/24 06:44 11/24/24 06:44 Labs: Abnormal Lab Results - Last 24 Hours (Table) 11/24/24 11/24/24 Range/Units 06:44 06:44 Hct 48.2 H (34.0-46.0) % RDW 15.7 H (11.5-15.5) % Lymphocytes # 0.4 L (1.0-4.8) k/uL Sodium 129 L (137-145) mmol/L Chloride 95 L (98-107) mmol/L BUN 33 H (7-17) mg/dL Glucose 141 H (74-99) mg/dL Assessment and Plan Assessment: Impression: Acute on chronic hypoxic and hypercapnic respiratory failure, significantly improved since our initial evaluation on this patient. Been able to titrate her oxygen down to 6 L from Airvo and BiPAP Acute congestive heart failure with preserved ejection fraction, her EF is in the range of 55% Acute on chronic cellulitis of lower extremities History of severe underlying COPD acute metabolic encephalopathy Recent history of urinary tract infection Recommendation: Continue plans to transfer to 3 [address]. today Continue to titrate oxygen accordingly Continue Lasix and Diamox Continue bronchodilators Continue cefazolin Continue GI DVT prophylaxis Will continue to follow Time with Patient: Less than 30
[2024-11-24] MEDS: MELATONIN 5 MG TABLET PO STA (23:30)
[2024-11-25] MEDS: FUROSEMIDE 10 MG/ML 4 ML VIAL IV SCH (08:20)
[2024-11-25 09:16] LABS: African American GFR (CKD) 90 (>60 ml/min/1.73 sqM); Anion Gap 13 mmol/L; Blood Urea Nitrogen 31 mg/dL (7-17); Calcium 8.6 mg/dL (8.4-10.2); Carbon Dioxide 22 mmol/L (22-30); Chloride 95 mmol/L (98-107); Glucose 197 mg/dL (74-99); Non-African American GFR(CKD) 78 (>60 ml/min/1.73 sqM); Potassium 4.4 mmol/L (3.5-5.1); Sodium 130 mmol/L (137-145)
--- NOTE | 2024-11-25 10:48 | P.PN ---
Subjective Progress Note Date: 11/25/24 Subjective: Pt is down to 5.5L NC. Doing well with no complaints. Wants to go home. Hospital Course: Patient is a 59-year-old female with past medical history of chronic hypoxic respiratory failure secondary to COPD on 4 L home oxygen, history of CVA/TIA, RA on methotrexate, HTN who presented to the ED with worsening bilateral lower extremity erythema, previously admitted from 11/13 to 11/16 with AMS, fever, received treatment for possible LE cellulitis and UTI, was discharged home on 7 days of Ceftin and presented back with worsening erythema. In the ER BP 118/74, HR 104, RR 20, T 98F, 92% on 4L. CBC, CMP significant for Plt 136, Na 136, Cl 97, bicarb 36, glu 110. Lactic acid 1.4. EKG sinus tachycardia with Q waves Q1-4. Patient is admitted for further workup and management. Patient was transferred to the ICU for acute on chronic hypoxic hypercapnic respiratory failure requiring BiPAP, increased lethargy, chest x-ray showed pulmonary vascular congestion and patient was started on IV Lasix in addition to Solu-Medrol and DuoNeb. 11/22. Patient seen lying in bed. No acute events overnight. No significant complaints today. CXR independently interpreted: Left pleural effusion, pu lmonary vascular congestion bilaterally. Labs today: WBCs 5.8, hemoglobin 14.9, platelets 199, sodium 132, potassium 3.6, chloride 94, CO2 33, BUN 35, creatinine 0.81, glucose 152, magnesium 2.3. 11/23. Patient seen and examined in bed. No acute events overnight. No significant complaints today. Swallow evaluation: Ground foods alternating with liquids recommended. Labs today: WBC 6.5, hemoglobin 15.1, platelets 207, sodium 130, potassium 4.1, chloride 95, CO2 30, BUN 36, creatinine 0.87, glucose 145, calcium 8.6. 11/24. Patient states sitting comfortably in bed. No acute events overnight. No significant complaints today. Chest x-ray independently interpreted: Unchanged left pleural effusion and pulmonary vascular congestion bilaterally. Labs today: WBC 7.9, hemoglobin 15.7, platelets 195, sodium 129, potassium 4.3, chloride 95, CO2 27, BUN 33, creatinine 0.72, glucose 141. Pertinent positives and negatives discussed above, a complete review of systems was performed and all the other systems were negative. Physical examination: Vital signs reviewed. Afebrile. On 6 L high flow saturating 94%. Hypertensive. General: Nontoxic, no distress, appears stated age, well-appearing Derm: Warm, dry, intact Head: Atraumatic, normocephalic, symmetric Eyes: EOMI Mouth: No lip lesion, mucus membranes moist Cardiovascular: S1-S2 regular Lungs: CTA bilateral, no rhonchi, no rales, no accessory muscle use Abdominal: Soft, non-tender to palpation Extremities: No cyanosis, clubbing, bilateral lower extremities wrapped Neuro: Alert, oriented x 3, gross neurological examination did not reveal any focal deficits. Cranial nerves II to XII grossly intact. Psych: Appropriate affect and mood Assessment and Plan: Patient is a 59-year-old female with past medical history of chronic hypoxic respiratory failure secondary to COPD on 4 L home oxygen, history of CVA/TIA, RA on methotrexate, HTN who is admitted for cellulitis with hospital course complicated by acute on chronic hypoxic hypercapnic respiratory failure. Active #. Acute on chronic hypoxic hypercapnic respiratory failure requiring BiPAP #. Chronic hypoxic respiratory failure secondary to COPD on 4 L home oxygen #. HFpEF exacerbation #. Contraction alkalosis Pulmonology following, continue ICU monitoring Continue oxygen supplementation as required to keep O2 saturation >88% Lasix IV daily 40 mg Diamox 250 mg PO twice daily was discontinued Continue methylprednisolone 40 mg IV every 8 hours Continue breathing treatment Strict I's and O's, urine output 11/25 +250 mL TTE showed EF of 55% Daily weights Monitor BMP daily #. Hyponatremia Decrease Lasix to daily 40 mg #. Sepsis likely secondary to lower extremity cellulitis, improved Patient was febrile and tachycardic on 11/18, sepsis not present on admission, received 2 doses of IV vancomycin Blood cultures obtained, negative so far ID following, patient is currently on cefazolin 3 g IV 3 times daily, day 6 PT/OT Chronic #. History of CVA/TIA Continue pravastatin, aspirin #. Hypertension Imdur 30 mg PO daily, metoprolol 12.5 PO twice daily, Lasix currently IV #. Chronic pain, chronic opioid use disorder #. Rheumatoid arthritis Methotrexate F: None E: Replete if required N: Ground foods DVT prophylaxis: Lovenox Code status: Full code Anticipated discharge place: Pending clinical course I saw and evaluated the patient during the asencio and critical portions of this encounter, and discussed the case in detail with the resident author of this note, I agree with the Assessment and Plan, and my changes, if any, are highlighted in blue. Objective - Vital Signs Vital signs: Vital Signs Temp 98.2 F 11/25/24 08:17 Pulse 75 11/25/24 08:24 Resp 20 11/25/24 08:17 BP 128/79 11/25/24 08:17 Pulse Ox 93 L 11/25/24 08:19 FiO2 90 11/21/24 08:00 Intake & Output 11/24/24 11/25/24 11/25/24 18:59 06:59 18:59 Intake Total 80 1080 Output Total 900 Balance -820 1080 Weight 99 kg Intake: IV 80 kvo 80 Oral 1080 Output: Urine 900 Other: Voiding Method External Catheter External Catheter External Catheter - Labs CBC & Chem 7: 11/24/24 06:44 11/25/24 08:22 Labs: Abnormal Lab Results - Last 24 Hours (Table) 11/25/24 Range/Units 08:22 Sodium 130 L (137-145) mmol/L Chloride 95 L (98-107) mmol/L BUN 31 H (7-17) mg/dL Glucose 197 H (74-99) mg/dL
[2024-11-25 11:28] LABS: Basophils % (A) 0 %; Eosinophils % (A) 0 %; HCT 51.7 % (34.0-46.0); HGB 16.5 gm/dL (11.4-16.0); Hypochromasia Slight; Lymphocytes # (A) 0.4 k/uL (1.0-4.8); Lymphocytes % (A) 4 %; MCH 29.4 pg (25.0-35.0); MCHC 31.9 g/dL (31.0-37.0); MCV 92.1 fL (80.0-100.0); Monocytes # (A) 0.8 k/uL (0-1.0); Monocytes % (A) 7 %; Neutrophils # (A) 10.1 k/uL (1.3-7.7); Neutrophils % (A) 88 %; Platelet Count 232 k/uL (150-450); RBC 5.62 m/uL (3.80-5.40); RDW 15.8 % (11.5-15.5); WBC 11.5 k/uL (3.8-10.6)
--- NOTE | 2024-11-25 14:20 | P.PN ---
Subjective Progress Note Date: 11/24/24 Principal diagnosis: Reason for follow-up is bilateral lower extremity cellulitis Patient is a 69-year-old female with a past medical history significant for heart failure COPD CVA TIA hypertension presented to hospital with worsening swelling redness of the leg some mental status changes has been diagnosed with a cellulitis. Patient did have worsening of her respiratory status requiring BiPAP and transferred to the ICU. On today's evaluation that is 11/24/2024, patient did not have any fever and denies any chills, patient is breathing comfortably on 6 L current oxygen, patient with no chest pain or any worsening cough patient did not have any abdominal pain nausea vomiting or any loose stools and denies pain to the lower extremity. Patient white count 7.9, creatinine 0.72 Objective - Vital Signs Vital signs: Vital Signs Temp 98.3 F 11/24/24 09:00 Pulse 77 11/24/24 13:00 Resp 25 H 11/24/24 13:00 BP 116/91 11/24/24 13:00 Pulse Ox 94 L 11/24/24 13:00 FiO2 90 11/21/24 08:00 Intake & Output 11/23/24 11/24/24 11/24/24 18:59 06:59 18:59 Intake Total 320 120 40 Output Total 925 500 750 Balance -095 -539 -818 Weight 90.804 kg 99.8 kg Intake: IV 320 120 40 ceFAZolin 3 gm In Sodium 200 Chloride 0.9% 100 ml @ 200 mls/hr IVPB Q8HR [facility] Rx#:[id number] kvo 120 120 40 Output: Urine 925 500 750 Other: Voiding Method External Catheter External Catheter # Voids 1 - Exam GENERAL DESCRIPTION: An elderly female lying in bed in no distress RESPIRATORY SYSTEM: Unlabored breathing , decreased breath sounds at bases HEART: S1 S2 regular rate and rhythm , ABDOMEN: Soft , no tenderness EXTREMITIES: Bilateral legs currently wrapped in Flaquito wrap no drainage - Labs CBC & Chem 7: 11/25/24 09:55 11/25/24 08:22 Labs: Abnormal Lab Results - Last 24 Hours (Table) 11/24/24 11/24/24 Range/Units 06:44 06:44 Hct 48.2 H (34.0-46.0) % RDW 15.7 H (11.5-15.5) % Lymphocytes # 0.4 L (1.0-4.8) k/uL Sodium 129 L (137-145) mmol/L Chloride 95 L (98-107) mmol/L BUN 33 H (7-17) mg/dL Glucose 141 H (74-99) mg/dL Assessment and Plan (1) Bilateral lower leg cellulitis Current Visit: Yes Status: Acute Code(s): L03.116 - CELLULITIS OF LEFT LOWER LIMB; L03.115 - CELLULITIS OF RIGHT LOWER LIMB SNOMED Code(s): 935663028 Plan: 1patient presented to hospital with increasing swelling in his bilateral extremity and this patient noted to have evidence of diffuse swelling and rednes s to bilateral legs likely concern for cellulitis from gram-positive skin stefano in this patient who did have features of CHF fluid overload 2-patient is afebrile and white count has been normal, currently on cefazolin along with Mycolog cream and Flaquito wrap to continue Dictation was produced using Subtext dictation software. please excuse any grammatical, word or spelling errors. Time with Patient: Less than 30
--- NOTE | 2024-11-25 14:21 | P.PN ---
Subjective Progress Note Date: 11/25/24 Principal diagnosis: Reason for follow-up is bilateral lower extremity cellulitis Patient is a 69-year-old female with a past medical history significant for heart failure COPD CVA TIA hypertension presented to hospital with worsening swelling redness of the leg some mental status changes has been diagnosed with a cellulitis. Patient did have worsening of her respiratory status requiring BiPAP and transferred to the ICU. On today's evaluation that is 11/25/2024, Patient is afebrile patient is currently on 5 L nasal oxygen and mention breathing slightly comfortably P denies having any chest pain she did have a mild cough no nausea noted no abdominal pain or any worsening pain to the lower extremity. Patient white count is 11.5 creatinine 0.77 Objective - Vital Signs Vital signs: Vital Signs Temp 98.2 F 11/25/24 08:17 Pulse 76 11/25/24 12:04 Resp 19 11/25/24 11:02 BP 122/77 11/25/24 11:00 Pulse Ox 92 L 11/25/24 11:02 FiO2 90 11/21/24 08:00 Intake & Output 11/24/24 11/25/24 11/25/24 18:59 06:59 18:59 Intake Total 80 1080 180 Output Total 900 725 Balance -820 1080 -545 Weight 99 kg Intake: IV 80 kvo 80 Oral 1080 180 Output: Urine 900 725 Other: Voiding Method External Catheter External Catheter External Catheter - Exam GENERAL DESCRIPTION: An elderly female lying in bed in no distress RESPIRATORY SYSTEM: Unlabored breathing , decreased breath sounds at bases HEART: S1 S2 regular rate and rhythm , ABDOMEN: Soft , no tenderness EXTREMITIES: Bilateral legs currently wrapped in Flaquito wrap no drainage - Labs CBC & Chem 7: 11/25/24 09:55 11/25/24 08:22 Labs: Abnormal Lab Results - Last 24 Hours (Table) 11/25/24 11/25/24 Range/Units 08:22 09:55 WBC 11.5 H (3.8-10.6) k/uL RBC 5.62 H (3.80-5.40) m/uL Hgb 16.5 H (11.4-16.0) gm/dL Hct 51.7 H (34.0-46.0) % RDW 15.8 H (11.5-15.5) % Neutrophils # 10.1 H (1.3-7.7) k/uL Lymphocytes # 0.4 L (1.0-4.8) k/uL Sodium 130 L (137-145) mmol/L Chloride 95 L (98-107) mmol/L BUN 31 H (7-17) mg/dL Glucose 197 H (74-99) mg/dL Assessment and Plan (1) Bilateral lower leg cellulitis Current Visit: Yes Status: Acute Code(s): L03.116 - CELLULITIS OF LEFT LOWER LIMB; L03.115 - CELLULITIS OF RIGHT LOWER LIMB SNOMED Code(s): 748369643 Plan: 1patient presented to hospital with increasing swelling in his bilateral extremity and this patient noted to have evidence of diffuse swelling and redness to bilateral legs likely concern for cellulitis from gram-positive skin stefano in this patient who did have features of CHF fluid overload 2-patient is afebrile and white count slightly up today will be monitored closel y for now the patient will be treated with cefazolin along with Mycolog cream and Flaquito wrap continue supportive care Dictation was produced using [employer] dictation software. please excuse any grammatical, word or spelling errors. Time with Patient: Less than 30
--- NOTE | 2024-11-25 14:40 | P.PN ---
Subjective Progress Note Date: 11/25/24 Principal diagnosis: Acute on chronic hypoxic and hypercapnic respiratory failure This is a 68-year-old female with history of COPD, chronic hypoxic respiratory failure, maintained on 4 L nasal cannula, history of rheumatoid arthritis, CVA/TIA, patient also had chronic history of cellulitis of lower extremities with worsening erythema, patient was in the hospital from 11/13 until 11/16 for altered mentation fever and intractable pain. Patient was treated for UTI and left lower extremity cellulitis. Patient was discharged home on antibiotics in the form of Ceftin however the patient was brought back yesterday with multiple complaints including altered mental status, worsening cellulitis, worsening hypoxia and hypercapnia with a pO2 of 72 pCO2 of 87 pH of 7.33 on 80% FiO2. Patient was placed on BiPAP, she is presently on 75% FiO2 IPAP of 10 and EPAP of 5, I saw this patient in consultation today, she is a very poor historian, complaining of her positioning, keeps asking to be placed properly in bed, as she seems to be uncomfortable, her O2 sats is marginal on 75% FiO2 with O2 sats of 90%, patient does not seem to be well, hence I have arranged for the patient to be transferred to the ICU. Chest x-ray on admission shows cardiomegaly pulmonary vascular congestion, bilateral pleural effusion, underlying pneumonia is not entirely ruled out, felt to be less likely. Patient was already seen by infectious disease on consultation for her cellulitis, and the recommendation was to change antibiotics to cefazolin 3 g every 8 hours. Patient is on diuretics, she is on furosemide at 40 mg IV push every 12 hours, and I added Diamox to 50 mg IV push every 12. Patient is on bronchodilators in the form of DuoNeb, she is also on Symbicort, on methylprednisolone 40 mg IV push Q8. Considering her ABG and considering her overall clinical picture, patient is marginal at best, and I recommended transferring the patient to the ICU for close monitoring. WBC count is normal electrolytes are normal bicarb is 36 renal profile is normal, viral screening is negative for influenza A influenza B RSV and COVID. Patient was seen today on 11/20/2024, patient is now in the ICU, doing much better today compared to yesterday, patient is more awake, more responsive, she was on BiPAP last night, now she is on Airvo 60 L / 90% FiO2, her BiPAP settings were 12/5/100%. Chest x-ray is showing improvement in her pulmonary edema echocardiogram showed no evidence of LV dysfunction patient is on Lasix twice daily and today I added Diamox to 50 mg IV push twice daily.Her WBC count 6.1 hemoglobin 14.4. Her electrolytes are normal potassium is a bit low being addressed accordingly renal profile is normal. Patient was seen today on 11/21/2024, patient remains in the ICU, remains on Airvo at 60 L flow and 90% FiO2 remains on diuretics in the form of Lasix and Diamox, chest x-ray is showing improvement clinically the patient is improving.WBC count is 6.6 hemoglobin 15.3 electrolytes are normal bicarb is 37, Renal profile is normal, chest x-ray again is noted to show slight improvement in her diffuse interstitial opacities compared to previous studies and she has s mall bilateral pleural effusions improving Patient was seen today/, patient remains in the ICU as an overflow. Feeling better, she is down to 15 L high flow nasal cannula, patient was noted to have some choking episodes while eating, I am recommending that the patient gets evaluated for possible aspiration/swallow evaluation. In the meantime patient remains on Diamox and on Lasix 40 mg twice daily, she is also on cefazolin, and she is receiving Lovenox. Clinically the patient is feeling better, no chest x-ray done today, patient will have swallow evaluation, will transfer the patient out of the ICU to a monitored bed and selective, and will continue to follow. She will be placed on a maintenance dose of calcium since she remains on diuretics. WBC count is 5.8 hemoglobin 14.9 electrolytes are normal BUN is 35 creatinine 0.8 11/23/2024, patient remains in the ICU as an overflow, she is now on 8 L high flow nasal cannula, patient is receiving Lasix and Diamox, she is also on c efazolin, she continues to have Flaquito wraps on her lower extremities, patient has extensive cellulitis being addressed by infectious disease. Chest x-ray is showing slight improvement in her interstitial edema and atelectasis. Patient has been steadily improving. But not quite ready for discharge. CBC today is relatively normal basic metabolic profile is normal renal profile is normal Seen today on 11/24/2024, patient remains in the ICU as an overflow. Patient is doing quite well, she is down to 6 L L high flow nasal cannula, patient is supposed to go to 3 S., remains on cefazolin, Solu-Medrol, Lasix 40 mg twice daily, patient is improving, and we have been able to titrate her oxygen down to 6 L high flow nasal cannula. Chest x-ray continues to show pulmonary vascular congestion and small pleural effusion. CBC and electrolytes were noted. Seen today on 11/25/2024, patient is now on the cardiac floor, does not seem to be in any distress, remains on 6 L nasal cannula, remains on diuretics, Solu- Medrol, she is also on cefazolin, steadily improving, patient keeps asking to be discharged home. Chest x-ray continues to show small left pleural effusion and pulmonary vascular congestion, patient is improving with diuretics. No plans for thoracentesis. WBC count is 11.5 hemoglobin is 16.5 electrolytes are normal renal profile is normal Objective - Vital Signs Vital signs: Vital Signs Temp 98.2 F 11/25/24 08:17 Pulse 76 11/25/24 12:04 Resp 19 11/25/24 11:02 BP 122/77 11/25/24 11:00 Pulse Ox 92 L 11/25/24 11:02 FiO2 90 11/21/24 08:00 Intake & Output 11/24/24 11/25/24 11/25/24 18:59 06:59 18:59 Intake Total 80 1080 180 Output Total 900 725 Balance -820 1080 -545 Weight 99 kg Intake: IV 80 kvo 80 Oral 1080 180 Output: Urine 900 725 Other: Voiding Method External Catheter External Catheter External Catheter - Exam General: Revealed 68-year-old female on high flow nasal cannula at 6 L nasal cannula with O2 sat of 94% Derm: warm, dry Head: atraumatic, normocephalic, symmetric Eyes: EOMI, no lid lag, anicteric sclera, dry mucous membranes. Mouth: no lip lesion, dry mucous membranes Cardiovascular: Distant S1-S2, no S3 gallop, no murmur Lungs: Symmetrical chest expansion scattered rhonchi noted bilaterally. Ext: Bilateral lower extremities edema and erythema noted. Wrapped with Flaquito wrap. Neuro: Alert oriented x 3 no gross focal deficit e Psych: Normal mood affect and normal mental status examination - Labs CBC & Chem 7: 11/25/24 09:55 11/25/24 08:22 Labs: Abnormal Lab Results - Last 24 Hours (Table) 11/25/24 11/25/24 Range/Units 08:22 09:55 WBC 11.5 H (3.8-10.6) k/uL RBC 5.62 H (3.80-5.40) m/uL Hgb 16.5 H (11.4-16.0) gm/dL Hct 51.7 H (34.0-46.0) % RDW 15.8 H (11.5-15.5) % Neutrophils # 10.1 H (1.3-7.7) k/uL Lymphocytes # 0.4 L (1.0-4.8) k/uL Sodium 130 L (137-145) mmol/L Chloride 95 L (98-107) mmol/L BUN 31 H (7-17) mg/dL Glucose 197 H (74-99) mg/dL Assessment and Plan Assessment: Impression: Acute on chronic hypoxic and hypercapnic respiratory failure, significantly improved since our initial evaluation on this patient. Been able to titrate her oxygen down to 6 L from Airvo and BiPAP Acute congestive heart failure with preserved ejection fraction, her EF is in the range of 55% Acute on chronic cellulitis of lower extremities History of severe underlying COPD acute metabolic encephalopathy Recent history of urinary tract infection Recommendation: Continue to titrate oxygen accordingly Continue Lasix, off Diamox Continue bronchodilators Continue cefazolin Continue GI DVT prophylaxis Will continue to follow Time with Patient: Less than 30
[2024-11-25 19:18] LABS: Appearance,Urine Clear (Clear); Bilirubin,Urine Negative (Negative); Blood,Urine Negative (Negative); Color,Urine Yellow; Glucose,Urine (UA) Negative (Negative); Ketones,Urine Negative (Negative); Leukocyte Esterase,Urine Negative (Negative); Nitrite,Urine Negative (Negative); PH, Urine 6.5 (5.0-8.0); Protein,Urine Trace (Negative); Specific Gravity,Urine 1.036 (1.001-1.035); Urobilinogen,Urine <2.0 mg/dL (<2.0)
--- NOTE | 2024-11-26 09:18 | P.PN ---
Subjective Progress Note Date: 11/26/24 Subjective: Pt is on 6-7L NC. Having some pain during BM today. Wants to go home. Hospital Course: Patient is a 59-year-old female with past medical history of chronic hypoxic respiratory failure secondary to COPD on 4 L home oxygen, history of CVA/TIA, RA on methotrexate, HTN who presented to the ED with worsening bilateral lower extremity erythema, previously admitted from 11/13 to 11/16 with AMS, fever, received treatment for possible LE cellulitis and UTI, was discharged home on 7 days of Ceftin and presented back with worsening erythema. In the ER BP 118/74, HR 104, RR 20, T 98F, 92% on 4L. CBC, CMP significant for Plt 136, Na 136, Cl 97, bicarb 36, glu 110. Lactic acid 1.4. EKG sinus tachycardia with Q waves Q1-4. Patient is admitted for further workup and management. Patient was transferred to the ICU for acute on chronic hypoxic hypercapnic respiratory failure requiring BiPAP, increased lethargy, chest x-ray showed pulmonary vascular congestion and patient was started on IV Lasix in addition to Solu-Medrol and DuoNeb. 11/22. Patient seen lying in bed. No acute events overnight. No significant complaints today. CXR independently interpreted: Left pleural effusion, pulm onary vascular congestion bilaterally. Labs today: WBCs 5.8, hemoglobin 14.9, platelets 199, sodium 132, potassium 3.6, chloride 94, CO2 33, BUN 35, creatinine 0.81, glucose 152, magnesium 2.3. 11/23. Patient seen and examined in bed. No acute events overnight. No significant complaints today. Swallow evaluation: Ground foods alternating with liquids recommended. Labs today: WBC 6.5, hemoglobin 15.1, platelets 207, sodium 130, potassium 4.1, chloride 95, CO2 30, BUN 36, creatinine 0.87, glucose 145, calcium 8.6. 11/24. Patient states sitting comfortably in bed. No acute events overnight. No significant complaints today. Chest x-ray independently interpreted: Unchanged left pleural effusion and pulmonary vascular congestion bilaterally. Labs today: WBC 7.9, hemoglobin 15.7, platelets 195, sodium 129, potassium 4.3, chloride 95, CO2 27, BUN 33, creatinine 0.72, glucose 141. Pertinent positives and negatives discussed above, a complete review of systems was performed and all the other systems were negative. Physical examination: Vital signs reviewed. Afebrile. On 6 L high flow saturating 94%. Hypertensive. General: Nontoxic, no distress, appears stated age, well-appearing Derm: Warm, dry, intact Head: Atraumatic, normocephalic, symmetric Eyes: EOMI Mouth: No lip lesion, mucus membranes moist Cardiovascular: S1-S2 regular Lungs: CTA bilateral, no rhonchi, no rales, no accessory muscle use Abdominal: Soft, non-tender to palpation Extremities: No cyanosis, clubbing, bilateral lower extremities wrapped Neuro: Alert, oriented x 3, gross neurological examination did not reveal any focal deficits. Cranial nerves II to XII grossly intact. Psych: Appropriate affect and mood Assessment and Plan: Patient is a 59-year-old female with past medical history of chronic hypoxic respiratory failure secondary to COPD on 4 L home oxygen, history of CVA/TIA, RA on methotrexate, HTN who is admitted for cellulitis with hospital course complicated by acute on chronic hypoxic hypercapnic respiratory failure. Active #. Acute on chronic hypoxic hypercapnic respiratory failure requiring BiPAP #. Chronic hypoxic respiratory failure secondary to COPD on 4 L home oxygen #. HFpEF exacerbation #. Contraction alkalosis Pulmonology following, continue ICU monitoring Continue oxygen supplementation as required to keep O2 saturation >88% Lasix IV daily 40 mg Diamox 250 mg PO twice daily was discontinued Continue methylprednisolone 40 mg IV every 8 hours Continue breathing treatment Strict I's and O's, urine output 11/25 +250 mL TTE showed EF of 55% Daily weights Monitor BMP daily #. Hyponatremia Decrease Lasix to daily 40 mg #. Abdominal Pain - Abd XR today #. Sepsis likely secondary to lower extremity cellulitis, improved Patient was febrile and tachycardic on 11/18, sepsis not present on admission, received 2 doses of IV vancomycin Blood cultures obtained, negative so far ID following, patient is currently on cefazolin 3 g IV 3 times daily, day 6 PT/OT Chronic #. History of CVA/TIA Continue pravastatin, aspirin #. Hypertension Imdur 30 mg PO daily, metoprolol 12.5 PO twice daily, Lasix currently IV #. Chronic pain, chronic opioid use disorder #. Rheumatoid arthritis Methotrexate F: None E: Replete if required N: Ground foods DVT prophylaxis: Lovenox Code status: Full code Anticipated discharge place: Pending clinical course Objective - Vital Signs Vital signs: Vital Signs Temp 98.1 F 11/26/24 08:00 Pulse 77 11/26/24 08:00 Resp 18 11/26/24 08:00 BP 130/80 11/26/24 08:00 Pulse Ox 95 11/26/24 08:00 FiO2 90 11/21/24 08:00 Intake & Output 11/25/24 11/26/24 11/26/24 18:59 06:59 18:59 Intake Total 180 Output Total 1025 200 Balance -845 -200 Intake: Oral 180 Output: Urine 1025 200 Other: Voiding Method External Catheter External Catheter - Labs CBC & Chem 7: 11/25/24 09:55 11/25/24 08:22 Labs: Abnormal Lab Results - Last 24 Hours (Table) 11/25/24 11/25/24 Range/Units 09:55 18:21 WBC 11.5 H (3.8-10.6) k/uL RBC 5.62 H (3.80-5.40) m/uL Hgb 16.5 H (11.4-16.0) gm/dL Hct 51.7 H (34.0-46.0) % RDW 15.8 H (11.5-15.5) % Neutrophils # 10.1 H (1.3-7.7) k/uL Lymphocytes # 0.4 L (1.0-4.8) k/uL Ur Specific [place] 1.036 H (1.001-1.035) Urine Protein Trace H (Negative)
[2024-11-26 10:59] VITALS: BMI 32.2
[2024-11-26 12:28] LABS: Basophils % (A) 0 %; Eosinophils % (A) 0 %; HCT 50.2 % (34.0-46.0); HGB 16.4 gm/dL (11.4-16.0); Lymphocytes # (A) 0.6 k/uL (1.0-4.8); Lymphocytes % (A) 3 %; MCH 29.7 pg (25.0-35.0); MCHC 32.7 g/dL (31.0-37.0); MCV 90.7 fL (80.0-100.0); Mean Platelet Volume 8.3; Monocytes # (A) 0.8 k/uL (0-1.0); Monocytes % (A) 5 %; Neutrophils # (A) 14.7 k/uL (1.3-7.7); Neutrophils % (A) 91 %; Platelet Count 249 k/uL (150-450); RBC 5.53 m/uL (3.80-5.40); RDW 15.8 % (11.5-15.5); WBC 16.2 k/uL (3.8-10.6)
[2024-11-26 12:38] LABS: African American GFR (CKD) >90 (>60 ml/min/1.73 sqM); Anion Gap 8 mmol/L; Blood Urea Nitrogen 30 mg/dL (7-17); Calcium 8.4 mg/dL (8.4-10.2); Carbon Dioxide 29 mmol/L (22-30); Chloride 93 mmol/L (98-107); Glucose 134 mg/dL (74-99); Magnesium 2.1 mg/dL (1.6-2.3); Non-African American GFR(CKD) 85 (>60 ml/min/1.73 sqM); Potassium 4.4 mmol/L (3.5-5.1); Sodium 130 mmol/L (137-145)
--- NOTE | 2024-11-26 14:54 | P.PN ---
Subjective Progress Note Date: 11/26/24 Principal diagnosis: Debility. This is a 68-year-old female with history of COPD, chronic hypoxic respiratory failure, maintained on 4 L nasal cannula, history of rheumatoid arthritis, CVA/TIA, patient also had chronic history of cellulitis of lower extremities with worsening erythema, patient was in the hospital from 11/13 until 11/16 for altered mentation fever and intractable pain. Patient was treated for UTI and left lower extremity cellulitis. Patient was discharged home on antibiotics in the form of Ceftin however the patient was brought back yesterday with multiple complaints including altered mental status, worsening cellulitis, worsening hypoxia and hypercapnia with a pO2 of 72 pCO2 of 87 pH of 7.33 on 80% FiO2. Patient was placed on BiPAP, she is presently on 75% FiO2 IPAP of 10 and EPAP of 5, I saw this patient in consultation today, she is a very poor historian, complaining of her positioning, keeps asking to be placed properly in bed, as she seems to be uncomfortable, her O2 sats is marginal on 75% FiO2 with O2 sats of 90%, patient does not seem to be well, hence I have arranged for the patient to be transferred to the ICU. Chest x-ray on admission shows cardiomegaly pulmonary vascular congestion, bilateral pleural effusion, underlying pneumonia is not entirely ruled out, felt to be less likely. Patient was already seen by infectious disease on consultation for her cellulitis, and the recommendation was to change antibiotics to cefazolin 3 g every 8 hours. Patient is on diuretics, she is on furosemide at 40 mg IV push every 12 hours, and I added Diamox to 50 mg IV push every 12. Patient is on bronchodilators in the form of DuoNeb, she is also on Symbicort, on methylprednisolone 40 mg IV push Q8. Considering her ABG and considering her overall clinical picture, patient is marginal at best, and I recommended transferring the patient to the ICU for close monitoring. WBC count is normal electrolytes are normal bicarb is 36 vinod l profile is normal, viral screening is negative for influenza A influenza B RSV and COVID. Patient was seen today on 11/20/2024, patient is now in the ICU, doing much better today compared to yesterday, patient is more awake, more responsive, she was on BiPAP last night, now she is on Airvo 60 L / 90% FiO2, her BiPAP settings were 12/5/100%. Chest x-ray is showing improvement in her pulmonary edema echocardiogram showed no evidence of LV dysfunction patient is on Lasix twice daily and today I added Diamox to 50 mg IV push twice daily.Her WBC count 6.1 hemoglobin 14.4. Her electrolytes are normal potassium is a bit low being addressed accordingly renal profile is normal. Patient was seen today on 11/21/2024, patient remains in the ICU, remains on Airvo at 60 L flow and 90% FiO2 remains on diuretics in the form of Lasix and Diamox, chest x-ray is showing improvement clinically the patient is improving.WBC count is 6.6 hemoglobin 15.3 electrolytes are normal bicarb is 37, Renal profile is normal, chest x-ray again is noted to show slight improvement in her diffuse interstitial opacities compared to previous studies and she has small bilateral pleural effusions improving Patient was seen today/, patient remains in the ICU as an overflow. Feeling better, she is down to 15 L high flow nasal cannula, patient was noted to have some choking episodes while eating, I am recommending that the patient gets evaluated for possible aspiration/swallow evaluation. In the meantime patient remains on Diamox and on Lasix 40 mg twice daily, she is also on cefazolin, and she is receiving Lovenox. Clinically the patient is feeling better, no chest x-ray done today, patient will have swallow evaluation, will transfer the patient out of the ICU to a monitored bed and selective, and will continue to follow. She will be placed on a maintenance dose of calcium since she remains on diuretics. WBC count is 5.8 hemoglobin 14.9 electrolytes are normal BUN is 35 creatinine 0.8 11/23/2024, patient remains in the ICU as an overflow, she is now on 8 L high flow nasal cannula, patient is receiving Lasix and Diamox, she is also on cefazolin, she continues to have Flaquito wraps on her lower extremities, patient has extensive cellulitis being addressed by infectious disease. Chest x-ray is showing slight improvement in her interstitial edema and atelectasis. Patient has been steadily improving. But not quite ready for discharge. CBC today is relatively normal basic metabolic profile is normal renal profile is normal Seen today on 11/24/2024, patient remains in the ICU as an overflow. Patient is doing quite well, she is down to 6 L L high flow nasal cannula, patient is suppo sed to go to 3 S., remains on cefazolin, Solu-Medrol, Lasix 40 mg twice daily, patient is improving, and we have been able to titrate her oxygen down to 6 L high flow nasal cannula. Chest x-ray continues to show pulmonary vascular congestion and small pleural effusion. CBC and electrolytes were noted. Seen today on 11/25/2024, patient is now on the cardiac floor, does not seem to be in any distress, remains on 6 L nasal cannula, remains on diuretics, Solu- Medrol, she is also on cefazolin, steadily improving, patient keeps asking to be discharged home. Chest x-ray continues to show small left pleural effusion and pulmonary vascular congestion, patient is improving with diuretics. No plans for thoracentesis. WBC count is 11.5 hemoglobin is 16.5 electrolytes are normal renal profile is n ormal Progress note dated November 26, 2024. 69-year-old female seen today in room 366. Currently, she is on 6 L of oxygen. She is getting saline at 10 cc an hour. The patient was admitted primarily for congestive heart failure. The patient appears not to be in any distress, and was reading a book, will be went into the room to evaluate her. Current laboratory data includes a white count 16.2, hemoglobin 16.4, hematocrit 50.2, and a platelet count of 249,000. Sodium 130, potassium 4.4, chlorides 93, CO2 29, BUN 30, creatinine 0.72. Glucose is 134. Calcium 8.4, and magnesium 2.1. Blood cultures are negative. Objective - Vital Signs Vital signs: Vital Signs Temp 98.1 F 11/26/24 08:00 Pulse 76 11/26/24 11:48 Resp 18 11/26/24 08:00 BP 130/80 11/26/24 08:00 Pulse Ox 93 L 11/26/24 11:48 FiO2 90 11/21/24 08:00 Intake & Output 11/25/24 11/26/24 11/26/24 18:59 06:59 18:59 Intake Total 180 360 Output Total 9220 725 7277 Balance -845 -200 -840 Weight 99 kg Intake: Oral 180 360 Output: Urine 0048 582 9482 Other: Voiding Method External Catheter External Catheter External Catheter - Exam No acute distress, oriented 3. Currently on 6 L nasal cannula. HEENT examination is grossly unremarkable. Mucous membranes are moist. No oral lesions. Neck supple. Full range of motion. No adenopathy thyromegaly or neck vein distention. Cardiovascular examination reveals regular rhythm rate. S1-S2 normal. No S3 or S4. No discernible murmur noted. Lungs reveal scattered bilateral rhonchi. No wheezes or crackles. Abdomen soft bowel sounds are heard. No masses or tenderness. Extremities bilateral edema. No cyanosis or clubbing. Skin is without rash or lesion. Neurologic examination is brief but nonfocal. - Labs CBC & Chem 7: 11/26/24 12:03 11/26/24 12:03 Labs: Abnormal Lab Results - Last 24 Hours (Table) 11/25/24 11/26/24 11/26/24 Range/Units 18:21 12:03 12:03 WBC 16.2 H (3.8-10.6) k/uL RBC 5.53 H (3.80-5.40) m/uL Hgb 16.4 H (11.4-16.0) gm/dL Hct 50.2 H (34.0-46.0) % RDW 15.8 H (11.5-15.5) % Neutrophils # 14.7 H (1.3-7.7) k/uL Lymphocytes # 0.6 L (1.0-4.8) k/uL Sodium 130 L (137-145) mmol/L Chloride 93 L (98-107) mmol/L BUN 30 H (7-17) mg/dL Glucose 134 H (74-99) mg/dL Ur Specific [place] 1.036 H (1.001-1.035) Urine Protein Trace H (Negative) Assessment and Plan Assessment: Acute on chronic hypoxemic and hypercapnic respiratory failure, improved. Acute congestive heart failure with preserved ejection fraction. Acute on chronic cellulitis of the lower extremities. History of severe underlying COPD. History of acute metabolic encephalopathy. Recent history of urinary tract infection. Plan: Plan dated November 26, 2024. The patient continues on nasal O2 at 6 L. The patient is on saline at 10 cc an hour. We continue Lasix, bronchodilators, and antibiotics. We also continue with GI DVT prophylaxis. Labs, x-rays, and all medications are reviewed. Prognosis is guarded. We will continue to follow make recommendations along the way. Time with Patient: Less than 30
--- NOTE | 2024-11-26 15:48 | XR ---
EXAMINATION TYPE: XR abdomen acute w cxr DATE OF EXAM: 11/26/2024 COMPARISON: NONE CLINICAL INDICATION: Female, 69 years old with history of abd pain; TECHNIQUE: Supine, upright, and left side down lateral decubitus views of the abdomen are obtained. FINDINGS: There is mild pulmonary vascular congestion and small left pleural effusion. The bowel gas pattern is nonspecific and there is no evidence of obstruction. No suspicious abdominal or pelvic calcifications are seen. There is posterior metallic fusion from the lower thoracic spine to the sacrum. IMPRESSION: 1. Findings consistent with mild CHF and clinical correlation is recommended. 2. nonspecific bowel gas pattern. 3. No significant stool within the colon. [facility], , 11/26/2024 3:45 PM
--- NOTE | 2024-11-27 14:56 | P.PN ---
Subjective Progress Note Date: 11/27/24 Principal diagnosis: Debility. This is a 68-year-old female with history of COPD, chronic hypoxic respiratory failure, maintained on 4 L nasal cannula, history of rheumatoid arthritis, CVA/TIA, patient also had chronic history of cellulitis of lower extremities with worsening erythema, patient was in the hospital from 11/13 until 11/16 for altered mentation fever and intractable pain. Patient was treated for UTI and left lower extremity cellulitis. Patient was discharged home on antibiotics in the form of Ceftin however the patient was brought back yesterday with multiple complaints including altered mental status, worsening cellulitis, worsening hypoxia and hypercapnia with a pO2 of 72 pCO2 of 87 pH of 7.33 on 80% FiO2. Patient was placed on BiPAP, she is presently on 75% FiO2 IPAP of 10 and EPAP of 5, I saw this patient in consultation today, she is a very poor historian, complaining of her positioning, keeps asking to be placed properly in bed, as she seems to be uncomfortable, her O2 sats is marginal on 75% FiO2 with O2 sats of 90%, patient does not seem to be well, hence I have arranged for the patient to be transferred to the ICU. Chest x-ray on admission shows cardiomegaly pulmonary vascular congestion, bilateral pleural effusion, underlying pneumonia is not entirely ruled out, felt to be less likely. Patient was already seen by infectious disease on consultation for her cellulitis, and the recommendation was to change antibiotics to cefazolin 3 g every 8 hours. Patient is on diuretics, she is on furosemide at 40 mg IV push every 12 hours, and I added Diamox to 50 mg IV push every 12. Patient is on bronchodilators in the form of DuoNeb, she is also on Symbicort, on methylprednisolone 40 mg IV push Q8. Considering her ABG and considering her overall clinical picture, patient is marginal at best, and I recommended transferring the patient to the ICU for close monitoring. WBC count is normal electrolytes are normal bicarb is 36 vinod l profile is normal, viral screening is negative for influenza A influenza B RSV and COVID. Patient was seen today on 11/20/2024, patient is now in the ICU, doing much better today compared to yesterday, patient is more awake, more responsive, she was on BiPAP last night, now she is on Airvo 60 L / 90% FiO2, her BiPAP settings were 12/5/100%. Chest x-ray is showing improvement in her pulmonary edema echocardiogram showed no evidence of LV dysfunction patient is on Lasix twice daily and today I added Diamox to 50 mg IV push twice daily.Her WBC count 6.1 hemoglobin 14.4. Her electrolytes are normal potassium is a bit low being addressed accordingly renal profile is normal. Patient was seen today on 11/21/2024, patient remains in the ICU, remains on Airvo at 60 L flow and 90% FiO2 remains on diuretics in the form of Lasix and Diamox, chest x-ray is showing improvement clinically the patient is improving.WBC count is 6.6 hemoglobin 15.3 electrolytes are normal bicarb is 37, Renal profile is normal, chest x-ray again is noted to show slight improvement in her diffuse interstitial opacities compared to previous studies and she has small bilateral pleural effusions improving Patient was seen today/, patient remains in the ICU as an overflow. Feeling better, she is down to 15 L high flow nasal cannula, patient was noted to have some choking episodes while eating, I am recommending that the patient gets evaluated for possible aspiration/swallow evaluation. In the meantime patient remains on Diamox and on Lasix 40 mg twice daily, she is also on cefazolin, and she is receiving Lovenox. Clinically the patient is feeling better, no chest x-ray done today, patient will have swallow evaluation, will transfer the patient out of the ICU to a monitored bed and selective, and will continue to follow. She will be placed on a maintenance dose of calcium since she remains on diuretics. WBC count is 5.8 hemoglobin 14.9 electrolytes are normal BUN is 35 creatinine 0.8 11/23/2024, patient remains in the ICU as an overflow, she is now on 8 L high flow nasal cannula, patient is receiving Lasix and Diamox, she is also on cefazolin, she continues to have Flaquito wraps on her lower extremities, patient has extensive cellulitis being addressed by infectious disease. Chest x-ray is showing slight improvement in her interstitial edema and atelectasis. Patient has been steadily improving. But not quite ready for discharge. CBC today is relatively normal basic metabolic profile is normal renal profile is normal Seen today on 11/24/2024, patient remains in the ICU as an overflow. Patient is doing quite well, she is down to 6 L L high flow nasal cannula, patient is suppo sed to go to 3 S., remains on cefazolin, Solu-Medrol, Lasix 40 mg twice daily, patient is improving, and we have been able to titrate her oxygen down to 6 L high flow nasal cannula. Chest x-ray continues to show pulmonary vascular congestion and small pleural effusion. CBC and electrolytes were noted. Seen today on 11/25/2024, patient is now on the cardiac floor, does not seem to be in any distress, remains on 6 L nasal cannula, remains on diuretics, Solu- Medrol, she is also on cefazolin, steadily improving, patient keeps asking to be discharged home. Chest x-ray continues to show small left pleural effusion and pulmonary vascular congestion, patient is improving with diuretics. No plans for thoracentesis. WBC count is 11.5 hemoglobin is 16.5 electrolytes are normal renal profile is n ormal Progress note dated November 26, 2024. 69-year-old female seen today in room 366. Currently, she is on 6 L of oxygen. She is getting saline at 10 cc an hour. The patient was admitted primarily for congestive heart failure. The patient appears not to be in any distress, and was reading a book, will be went into the room to evaluate her. Current laboratory data includes a white count 16.2, hemoglobin 16.4, hematocrit 50.2, and a platelet count of 249,000. Sodium 130, potassium 4.4, chlorides 93, CO2 29, BUN 30, creatinine 0.72. Glucose is 134. Calcium 8.4, and magnesium 2.1. Blood cultures are negative. Progress note dated November 27, 2024. 69-year-old female seen today in room 366. The patient is on 4 L nasal cannula. She continues on Ancef for her cellulitis. The patient is in no apparent distress. She denies any shortness of breath, cough, wheezing, chest tightness, phlegm production, chest pain or pressure. She was admitted primarily for congestive heart failure. No new labs today. Labs from yesterday have been reviewed. Blood cultures are negative. Acute abdominal series shows mild CHF, and a nonspecific bowel gas pattern. Objective - Vital Signs Vital signs: Vital Signs Temp 98.3 F 11/27/24 08:00 Pulse 75 11/27/24 11:42 Resp 20 11/27/24 08:00 BP 157/88 11/27/24 08:00 Pulse Ox 94 L 11/27/24 08:00 FiO2 90 11/21/24 08:00 Intake & Output 11/26/24 11/27/24 11/27/24 18:59 06:59 18:59 Intake Total 478 600 120 Output Total 1200 600 600 Balance -722 0 -480 Weight 99 kg 104 kg Intake: Oral 478 600 120 Output: Urine 1200 600 600 Other: Voiding Method External Catheter External Catheter # Voids 2 # Bowel Movements 1 - Exam No acute distress, oriented 3. Currently on 4 L nasal cannula. HEENT examination is grossly unremarkable. Mucous membranes are moist. No oral lesions. Neck supple. Full range of motion. No adenopathy thyromegaly or neck vein distention. Cardiovascular examination reveals regular rhythm rate. S1-S2 normal. No S3 or S4. No discernible murmur noted. Lungs reveal scattered bilateral rhonchi. No wheezes or crackles. Abdomen soft bowel sounds are heard. No masses or tenderness. Extremities bilateral edema. No cyanosis or clubbing. Skin is without rash or lesion. Neurologic examination is brief but nonfocal. - Labs CBC & Chem 7: 11/26/24 12:03 11/26/24 12:03 Assessment and Plan Assessment: Acute on chronic hypoxemic and hypercapnic respiratory failure, improved. Acute congestive heart failure with preserved ejection fraction. Acute on chronic cellulitis of the lower extremities. History of severe underlying COPD. History of acute metabolic encephalopathy. Recent history of urinary tract infection. Plan: Plan dated November 26, 2024. The patient continues on nasal O2 at 6 L. The patient is on saline at 10 cc an hour. We continue Lasix, bronchodilators, and antibiotics. We also continue with GI DVT prophylaxis. Labs, x-rays, and all medications are reviewed. Prog nosis is guarded. We will continue to follow make recommendations along the way. Plan dated November 27, 2024. The patient is seen today in room 366. Her nasal O2 has been turned down from 6 L, the 4 L. She continues on Ancef for her cellulitis. No new labs today. Initially, the patient is stable from the pulmonary standpoint. She denies any significant shortness of breath, cough, wheezing, chest tightness, or phlegm production. We will continue to follow. Prognosis is guarded. Time with Patient: Less than 30
--- NOTE | 2024-11-27 16:01 | P.PN ---
Subjective Progress Note Date: 11/27/24 68 year old F with PMH chronic hypoxic respiratory failure secondary to COPD on 4L home oxygen, history of CVA/TIA, RA, hypertension presents to the ED for worsening erythema of her bilateral lower extremities. Previous admitted from 11/13-11/16 for altered mentation, fever and intractable pain. She was started on Rocephin + Vancomycin for treatment of UTI and possible LE cellulitis. UCx came back negative and she was discharged home on 7 days of Ceftin. Patient reports not being able to obtain antibiotics after her discharge and worsening of her bilateral lower extremity erythema which prompted her to come back to the ED. The case was discussed with the PCP Dr. Harris who was able to contact the s on, it may be that patient will need a high level of care on discharge. In the ED she underwent extensive evaluation. BP 118/74, HR 104, RR 20, T 98F, 92% on 4L. CBC, CMP significant for Plt 136, Na 136, Cl 97, bicarb 36, glu 110. Lactic acid 1.4. EKG sinus tachycardia with Q waves Q1-4. Patient is admitted for further workup and management. Started on Vancomycin and ID consulted. ID switched antibiotics to Cefzolin. A- team called around 2:30PM on 11/18 for tremors, tachycardia and increased work of breathing. Found to be saturating 88% on 4L NC and Tmax 102.6F. ABG done showing pH 7.33, pCO2 81. BMP showed bicarb of 35 consistent with respiratory acidosis with metabolic alkalosis. CXR showed pulmonary vascular congestion. Transferred to for continuous BiPAP, given a dose of Lasix IV, SoluMedrol and DuoNeb. Patient with increased lethargy despite being on BiPAP, patient was transferred to ICU. Started on Lasix IV BID and Diamox. Echo showed EF 55-60% with mild increased LV thickness. Transitioned to HFNC and eventually NC, transferred out of ICU on 11/21. 11/27 Patient was seen and examined. Maintained on Lasix 40 mg IV QD. Negative 722 cc fluid balance over the past 24H. Currently on 4L NC which is baseline. Discussed with MARITA Small to switch Cefzolin to Keflex. CBC and BMP significant for WBC 16.2, RBC 5.53, Hg 16.4, Hct 50.2, Na 130, Cl 93, BUN 30, glu 134. Mag 2.1. On 4 L high flow saturating 94%. General: Nontoxic, no distress, appears stated age, well-appearing Derm: Warm, dry, intact Head: Atraumatic, normocephalic, symmetric Eyes: EOMI Mouth: No lip lesion, mucus membranes moist Cardiovascular: S1-S2 regular Lungs: CTA bilateral, no rhonchi, no rales, no accessory muscle use Extremities: No cyanosis, clubbing, bilateral lower extremities wrapped Psych: Appropriate affect and mood Based on my assessment of this patient, this patient meets a high complexity level of care. Acute on chronic hypoxic respiratory failure secondary to COPD on 4L home O2 with concerns of HFpEF exacerbation: Symbicort 2 INH BID. DuoNeb QID scheduled and PRN SOB/wheezing. SoluMedrol switched to Prednisone 40 mg PO QD. Lasix IV switched to 40 mg PO QD. Pulmonary on board. Hypochloremic hyponatremia and prerenal azotemia likely due to forced diuresis. Sepsis likely due to Cellulitis: Febrile and tachycardic on 11/18 not present on admission. Received 2 doses of Vancomycin. Switched Cefzolin to Keflex 500 mg PO Q6H. BCx neg. CRP 5.5. Pro-enrique 0.06. ESR 5. Fall precautions. PT and OT consult. ID on board. History of CVA/TIA: Pravastatin 40 mg PO QD. ASA 81 mg PO QD. Hypertension: Imdur 30 mg PO QD. Metoprolol 12.5 mg PO BID. Lasix as above. RA: MTX 20 mg PO QSu. Chronic pain: MS Contin 15 mg PO TID. Discussed with Ricardo CARDENAS, per FAVIAN no safe disposition determined yet. CODE STATUS: FULL CODE DVT Prophylaxis: Lovenox SQ GI Prophylaxis: Protonix PO Designated medical POA if patient is not able to make medical decisions for themselves: Son. I have reviewed the following business management consultant notes: Pulmonary. I have reviewed the results of the following tests: CBC, BMP. I have ordered the following tests: I have discussed the care of this patient with the following independent historian: I have independently interpreted the following test below: I have discussed the management of this patient with the following physician: Objective - Vital Signs Vital signs: Vital Signs Temp 98.3 F 11/27/24 08:00 Pulse 75 11/27/24 11:42 Resp 20 11/27/24 08:00 BP 157/88 11/27/24 08:00 Pulse Ox 94 L 11/27/24 08:00 FiO2 90 11/21/24 08:00 Intake & Output 11/26/24 11/27/24 11/27/24 18:59 06:59 18:59 Intake Total 478 600 120 Output Total 1200 600 600 Balance -722 0 -480 Weight 99 kg 104 kg Intake: Oral 478 600 120 Output: Urine 1200 600 600 Other: Voiding Method External Catheter External Catheter # Voids 2 # Bowel Movements 1 - Labs CBC & Chem 7: 11/26/24 12:03 11/26/24 12:03
[2024-11-27] MEDS: CEPHALEXIN 500 MG CAP PO SCH (16:25)
[2024-11-27] MEDS ORDERED: diphenhydrAMINE 50 MG CAP PO PRN (21:35)
[2024-11-27] MEDS ORDERED: diphenhydrAMINE 25 MG CAP PO PRN (21:39)
[2024-11-27] MEDS: MELATONIN 5 MG TABLET PO SCH (21:57)
[2024-11-28] MEDS: predniSONE 20 MG TAB PO SCH (09:47)
[2024-11-28] MEDS: FUROSEMIDE 40 MG TAB PO SCH (09:47)
--- NOTE | 2024-11-28 10:28 | P.PN ---
Subjective Progress Note Date: 11/28/24 68 year old F with PMH chronic hypoxic respiratory failure secondary to COPD on 4L home oxygen, history of CVA/TIA, RA, hypertension presents to the ED for worsening erythema of her bilateral lower extremities. Previous admitted from 11/13-11/16 for altered mentation, fever and intractable pain. She was started on Rocephin + Vancomycin for treatment of UTI and possible LE cellulitis. UCx came back negative and she was discharged home on 7 days of Ceftin. Patient reports not being able to obtain antibiotics after her discharge and worsening of her bilateral lower extremity erythema which prompted her to come back to the ED. The case was discussed with the PCP Dr. Harris who was able to contact the s on, it may be that patient will need a high level of care on discharge. In the ED she underwent extensive evaluation. BP 118/74, HR 104, RR 20, T 98F, 92% on 4L. CBC, CMP significant for Plt 136, Na 136, Cl 97, bicarb 36, glu 110. Lactic acid 1.4. EKG sinus tachycardia with Q waves Q1-4. Patient is admitted for further workup and management. Started on Vancomycin and ID consulted. ID switched antibiotics to Cefzolin. A- team called around 2:30PM on 11/18 for tremors, tachycardia and increased work of breathing. Found to be saturating 88% on 4L NC and Tmax 102.6F. ABG done showing pH 7.33, pCO2 81. BMP showed bicarb of 35 consistent with respiratory acidosis with metabolic alkalosis. CXR showed pulmonary vascular congestion. Transferred to for continuous BiPAP, given a dose of Lasix IV, SoluMedrol and DuoNeb. Patient with increased lethargy despite being on BiPAP, patient was transferred to ICU. Started on Lasix IV BID and Diamox. Echo showed EF 55-60% with mild increased LV thickness. Transitioned to HFNC and eventually NC, transferred out of ICU on 11/21. 11/27 Patient was seen and examined. Maintained on Lasix 40 mg IV QD. Negative 722 cc fluid balance over the past 24H. Currently on 4L NC which is baseline. Discussed with MARITA Small to switch Cefzolin to Keflex. CBC and BMP significant for WBC 16.2, RBC 5.53, Hg 16.4, Hct 50.2, Na 130, Cl 93, BUN 30, glu 134. Mag 2.1. 11/28 Patient was seen and examined. Lasix switched to PO yesterday. Currently on 4L NC. She reports no complaints. Wanting to be discharged. No new labs done today. On 4 L NC saturating 92%. General: Nontoxic, no distress, appears stated age, well-appearing Derm: Warm, dry, intact Head: Atraumatic, normocephalic, symmetric Eyes: EOMI Mouth: No lip lesion, mucus membranes moist Cardiovascular: S1-S2 regular Lungs: Decreased BS bilateral, no rhonchi, no rales, no accessory muscle use Extremities: No cyanosis, clubbing, bilateral lower extremities wrapped Psych: Appropriate affect and mood Based on my assessment of this patient, this patient meets a high complexity level of care. Acute on chronic hypoxic respiratory failure secondary to COPD on 4L home O2 with concerns of HFpEF exacerbation: Symbicort 2 INH BID. DuoNeb QID scheduled and PRN SOB/wheezing. Prednisone 40 mg PO QD. Lasix 40 mg PO QD. Pulmonary on board. Hypochloremic hyponatremia and prerenal azotemia likely due to forced diuresis. Sepsis likely due to Cellulitis: Febrile and tachycardic on 11/18 not present on admission. Received 2 doses of Vancomycin. Keflex 500 mg PO Q6H. BCx neg. CRP 5.5. Pro-enrique 0.06. ESR 5. Fall precautions. PT and OT consult. ID on board. History of CVA/TIA: Pravastatin 40 mg PO QD. ASA 81 mg PO QD. Hypertension: Imdur 30 mg PO QD. Metoprolol 12.5 mg PO BID. Lasix as above. RA: MTX 20 mg PO QSu. Chronic pain: MS Contin 15 mg PO TID. No safe disposition determined yet. [facility] is working on placement. university services program associate on board. CODE STATUS: FULL CODE DVT Prophylaxis: Lovenox SQ GI Prophylaxis: Protonix PO Designated medical POA if patient is not able to make medical decisions for the mselves: Son. I have reviewed the following agricultural consultant notes: Pulmonary. I have reviewed the results of the following tests: I have ordered the following tests: I have discussed the care of this patient with the following independent historian: I have independently interpreted the following test below: I have discussed the management of this patient with the following physician: Objective - Vital Signs Vital signs: Vital Signs Temp 98.3 F 11/28/24 09:44 Pulse 92 11/28/24 09:44 Resp 19 11/28/24 09:44 BP 133/72 11/28/24 09:44 Pulse Ox 92 L 11/28/24 09:44 FiO2 90 11/21/24 08:00 Intake & Output 11/27/24 11/28/24 11/28/24 18:59 06:59 18:59 Intake Total 120 240 Output Total 600 Balance -480 240 Weight 95.9 kg Intake: Oral 120 240 Output: Urine 600 Other: Voiding Method External Catheter External Catheter # Voids 2 # Bowel Movements 1 - Labs CBC & Chem 7: 11/26/24 12:03 11/26/24 12:03
--- NOTE | 2024-11-28 11:50 | P.PN ---
Subjective Progress Note Date: 11/27/24 Principal diagnosis: Reason for follow-up is bilateral lower extremity cellulitis Patient is a 69-year-old female with a past medical history significant for heart failure COPD CVA TIA hypertension presented to hospital with worsening swelling redness of the leg some mental status changes has been diagnosed with a cellulitis. Patient did have worsening of her respiratory status requiring BiPAP and transferred to the ICU. On today's evaluation that is 11/27/2024, Patient is afebrile this morning patient denies having any chest pain shortness of breath or cough, the patient is currently on 4 L current oxygen, patient denies any abdominal pain no diarrhea no nausea no vomiting, the patient denies pain to lower extremity has been insisting on going home. No new labs has been obtained today Objective - Vital Signs Vital signs: Vital Signs Temp 98.3 F 11/27/24 08:00 Pulse 75 11/27/24 11:42 Resp 20 11/27/24 08:00 BP 157/88 11/27/24 08:00 Pulse Ox 94 L 11/27/24 08:00 FiO2 90 11/21/24 08:00 Intake & Output 11/26/24 11/27/24 11/27/24 18:59 06:59 18:59 Intake Total 478 600 Output Total 1200 600 600 Balance -722 0 -600 Weight 99 kg 104 kg Intake: Oral 478 600 Output: Urine 1200 600 600 Other: Voiding Method External Catheter External Catheter # Voids 2 # Bowel Movements 1 - Exam GENERAL DESCRIPTION: An elderly female lying in bed in no distress RESPIRATORY SYSTEM: Unlabored breathing , decreased breath sounds at bases HEART: S1 S2 regular rate and rhythm , ABDOMEN: Soft , no tenderness EXTREMITIES: Bilateral legs currently wrapped in Flaquito wrap no drainage - Labs CBC & Chem 7: 11/26/24 12:03 11/26/24 12:03 Assessment and Plan (1) Bilateral lower leg cellulitis Current Visit: Yes Status: Acute Code(s): L03.116 - CELLULITIS OF LEFT LOWER LIMB; L03.115 - CELLULITIS OF RIGHT LOWER LIMB SNOMED Code(s): 844459141 (2) Leukocytosis Current Visit: Yes Status: Acute Code(s): D72.829 - ELEVATED WHITE BLOOD CELL COUNT, UNSPECIFIED SNOMED Code(s): 551369845 Plan: 1patient presented to hospital with increasing swelling in his bilateral extremity and this patient noted to have evidence of diffuse swelling and redness to bilateral legs likely concern for cellulitis from gram-positive skin stefano in this patient who did have features of CHF fluid overload 2-patient is afebrile and white count slightly up yesterday y more likely stero id related has the patient received Solu-Medrol and will be monitored closely 3the patient has received adequate cefazolin which can be switched to Keflex discussed with the admitting physician and continue with Mycolog cream and Flaquito wrap continue supportive care Dictation was produced using [employer] dictation software. please excuse any grammatical, word or spelling errors. Time with Patient: Less than 30
--- NOTE | 2024-11-28 11:50 | P.PN ---
Subjective Progress Note Date: 11/26/24 Principal diagnosis: Reason for follow-up is bilateral lower extremity cellulitis Patient is a 69-year-old female with a past medical history significant for heart failure COPD CVA TIA hypertension presented to hospital with worsening swelling redness of the leg some mental status changes has been diagnosed with a cellulitis. Patient did have worsening of her respiratory status requiring BiPAP and transferred to the ICU. On today's evaluation that is 11/26/2024, patient has been afebrile, patient is breathing comfortably and is currently on 4 L nasal cannula oxygen, patient denies having any significant cough no chest pain, patient denies nausea vomiting or diarrhea and no abdominal pain denies pain to lower extremity wants to go home Patient white count is 16.2 creatinine 0.72 UA has been negative Objective - Vital Signs Vital signs: Vital Signs Temp 98.1 F 11/26/24 08:00 Pulse 76 11/26/24 11:48 Resp 18 11/26/24 08:00 BP 130/80 11/26/24 08:00 Pulse Ox 93 L 11/26/24 11:48 FiO2 90 11/21/24 08:00 Intake & Output 11/25/24 11/26/24 11/26/24 18:59 06:59 18:59 Intake Total 180 Output Total 5206 916 4789 Balance -845 -200 -1200 Weight 99 kg Intake: Oral 180 Output: Urine 4342 047 7741 Other: Voiding Method External Catheter External Catheter External Catheter - Exam GENERAL DESCRIPTION: An elderly female lying in bed in no distress RESPIRATORY SYSTEM: Unlabored breathing , decreased breath sounds at bases HEART: S1 S2 regular rate and rhythm , ABDOMEN: Soft , no tenderness EXTREMITIES: Bilateral legs currently wrapped in Flaquito wrap no drainage - Labs CBC & Chem 7: 11/26/24 12:03 11/26/24 12:03 Labs: Abnormal Lab Results - Last 24 Hours (Table) 11/25/24 11/26/24 Range/Units 18:21 12:03 WBC 16.2 H (3.8-10.6) k/uL RBC 5.53 H (3.80-5.40) m/uL Hgb 16.4 H (11.4-16.0) gm/dL Hct 50.2 H (34.0-46.0) % RDW 15.8 H (11.5-15.5) % Neutrophils # 14.7 H (1.3-7.7) k/uL Lymphocytes # 0.6 L (1.0-4.8) k/uL Ur Specific [place] 1.036 H (1.001-1.035) Urine Protein Trace H (Negative) Assessment and Plan (1) Bilateral lower leg cellulitis Current Visit: Yes Status: Acute Code(s): L03.116 - CELLULITIS OF LEFT LOWER LIMB; L03.115 - CELLULITIS OF RIGHT LOWER LIMB SNOMED Code(s): 268441451 (2) Leukocytosis Current Visit: Yes Status: Acute Code(s): D72.829 - ELEVATED WHITE BLOOD CELL COUNT, UNSPECIFIED SNOMED Code(s): 704421910 Plan: 1patient presented to hospital with increasing swelling in his bilateral extremity and this patient noted to have evidence of diffuse swelling and redness to bilateral legs likely concern for cellulitis from gram-positive skin stefano in this patient who did have features of CHF fluid overload 2-patient is afebrile and white count slightly up today more likely steroid related has the patient received Solu-Medrol and will be monitored closely 3the patient will be treated with cefazolin along with Mycolog cream and Flaquito wrap continue supportive care Dictation was produced using [email or web address] dictation software. please excuse any grammatical, word or spelling errors. Time with Patient: Less than 30
[2024-11-28] MEDS: ZINC OXIDE PASTE (Z-GUARD) 1 APPLIC TOPICAL PRN (13:24)
--- NOTE | 2024-11-28 13:49 | P.PN ---
Subjective Progress Note Date: 11/28/24 Principal diagnosis: Debility. This is a 68-year-old female with history of COPD, chronic hypoxic respiratory failure, maintained on 4 L nasal cannula, history of rheumatoid arthritis, CVA/TIA, patient also had chronic history of cellulitis of lower extremities with worsening erythema, patient was in the hospital from 11/13 until 11/16 for altered mentation fever and intractable pain. Patient was treated for UTI and left lower extremity cellulitis. Patient was discharged home on antibiotics in the form of Ceftin however the patient was brought back yesterday with multiple complaints including altered mental status, worsening cellulitis, worsening hypoxia and hypercapnia with a pO2 of 72 pCO2 of 87 pH of 7.33 on 80% FiO2. Patient was placed on BiPAP, she is presently on 75% FiO2 IPAP of 10 and EPAP of 5, I saw this patient in consultation today, she is a very poor historian, complaining of her positioning, keeps asking to be placed properly in bed, as she seems to be uncomfortable, her O2 sats is marginal on 75% FiO2 with O2 sats of 90%, patient does not seem to be well, hence I have arranged for the patient to be transferred to the ICU. Chest x-ray on admission shows cardiomegaly pulmonary vascular congestion, bilateral pleural effusion, underlying pneumonia is not entirely ruled out, felt to be less likely. Patient was already seen by infectious disease on consultation for her cellulitis, and the recommendation was to change antibiotics to cefazolin 3 g every 8 hours. Patient is on diuretics, she is on furosemide at 40 mg IV push every 12 hours, and I added Diamox to 50 mg IV push every 12. Patient is on bronchodilators in the form of DuoNeb, she is also on Symbicort, on methylprednisolone 40 mg IV push Q8. Considering her ABG and considering her overall clinical picture, patient is marginal at best, and I recommended transferring the patient to the ICU for close monitoring. WBC count is normal electrolytes are normal bicarb is 36 vinod l profile is normal, viral screening is negative for influenza A influenza B RSV and COVID. Patient was seen today on 11/20/2024, patient is now in the ICU, doing much better today compared to yesterday, patient is more awake, more responsive, she was on BiPAP last night, now she is on Airvo 60 L / 90% FiO2, her BiPAP settings were 12/5/100%. Chest x-ray is showing improvement in her pulmonary edema echocardiogram showed no evidence of LV dysfunction patient is on Lasix twice daily and today I added Diamox to 50 mg IV push twice daily.Her WBC count 6.1 hemoglobin 14.4. Her electrolytes are normal potassium is a bit low being addressed accordingly renal profile is normal. Patient was seen today on 11/21/2024, patient remains in the ICU, remains on Airvo at 60 L flow and 90% FiO2 remains on diuretics in the form of Lasix and Diamox, chest x-ray is showing improvement clinically the patient is improving.WBC count is 6.6 hemoglobin 15.3 electrolytes are normal bicarb is 37, Renal profile is normal, chest x-ray again is noted to show slight improvement in her diffuse interstitial opacities compared to previous studies and she has small bilateral pleural effusions improving Patient was seen today/, patient remains in the ICU as an overflow. Feeling better, she is down to 15 L high flow nasal cannula, patient was noted to have some choking episodes while eating, I am recommending that the patient gets evaluated for possible aspiration/swallow evaluation. In the meantime patient remains on Diamox and on Lasix 40 mg twice daily, she is also on cefazolin, and she is receiving Lovenox. Clinically the patient is feeling better, no chest x-ray done today, patient will have swallow evaluation, will transfer the patient out of the ICU to a monitored bed and selective, and will continue to follow. She will be placed on a maintenance dose of calcium since she remains on diuretics. WBC count is 5.8 hemoglobin 14.9 electrolytes are normal BUN is 35 creatinine 0.8 11/23/2024, patient remains in the ICU as an overflow, she is now on 8 L high flow nasal cannula, patient is receiving Lasix and Diamox, she is also on cefazolin, she continues to have Flaquito wraps on her lower extremities, patient has extensive cellulitis being addressed by infectious disease. Chest x-ray is showing slight improvement in her interstitial edema and atelectasis. Patient has been steadily improving. But not quite ready for discharge. CBC today is relatively normal basic metabolic profile is normal renal profile is normal Seen today on 11/24/2024, patient remains in the ICU as an overflow. Patient is doing quite well, she is down to 6 L L high flow nasal cannula, patient is suppo sed to go to 3 S., remains on cefazolin, Solu-Medrol, Lasix 40 mg twice daily, patient is improving, and we have been able to titrate her oxygen down to 6 L high flow nasal cannula. Chest x-ray continues to show pulmonary vascular congestion and small pleural effusion. CBC and electrolytes were noted. Seen today on 11/25/2024, patient is now on the cardiac floor, does not seem to be in any distress, remains on 6 L nasal cannula, remains on diuretics, Solu- Medrol, she is also on cefazolin, steadily improving, patient keeps asking to be discharged home. Chest x-ray continues to show small left pleural effusion and pulmonary vascular congestion, patient is improving with diuretics. No plans for thoracentesis. WBC count is 11.5 hemoglobin is 16.5 electrolytes are normal renal profile is n ormal Progress note dated November 26, 2024. 69-year-old female seen today in room 366. Currently, she is on 6 L of oxygen. She is getting saline at 10 cc an hour. The patient was admitted primarily for congestive heart failure. The patient appears not to be in any distress, and was reading a book, will be went into the room to evaluate her. Current laboratory data includes a white count 16.2, hemoglobin 16.4, hematocrit 50.2, and a platelet count of 249,000. Sodium 130, potassium 4.4, chlorides 93, CO2 29, BUN 30, creatinine 0.72. Glucose is 134. Calcium 8.4, and magnesium 2.1. Blood cultures are negative. Progress note dated November 27, 2024. 69-year-old female seen today in room 366. The patient is on 4 L nasal cannula. She continues on Ancef for her cellulitis. The patient is in no apparent distress. She denies any shortness of breath, cough, wheezing, chest tightness, phlegm production, chest pain or pressure. She was admitted primarily for congestive heart failure. No new labs today. Labs from yesterday have been reviewed. Blood cultures are negative. Acute abdominal series shows mild CHF, and a nonspecific bowel gas pattern. Progress note dated November 28, 2023. 69-year-old female seen today in room 366. The patient continues on nasal O2 at 4 L. The patient is not receiving any IV fluids. The patient is hoping to be discharged home, later today or tomorrow. No decision has been made. The patient denies any difficulty breathing, coughing, wheezing, chest tightness, or phlegm production. No new labs. Objective - Vital Signs Vital signs: Vital Signs Temp 98.2 F 11/28/24 11:21 Pulse 86 11/28/24 11:21 Resp 19 11/28/24 11:21 BP 115/71 11/28/24 11:21 Pulse Ox 93 L 11/28/24 11:21 FiO2 90 11/21/24 08:00 Intake & Output 11/27/24 11/28/24 11/28/24 18:59 06:59 18:59 Intake Total 120 240 360 Output Total 600 Balance -480 240 360 Weight 95.9 kg Intake: Oral 120 240 360 Output: Urine 600 Other: Voiding Method External Catheter External Catheter Toilet Diaper Incontinent # Voids 2 # Bowel Movements 1 - Exam No acute distress, oriented 3. Currently on 4 L nasal cannula. HEENT examination is grossly unremarkable. Mucous membranes are moist. No oral lesions. Neck supple. Full range of motion. No adenopathy thyromegaly or neck vein distention. Cardiovascular examination reveals regular rhythm rate. S1-S2 normal. No S3 or S4. No discernible murmur noted. Lungs reveal scattered bilateral rhonchi. No wheezes or crackles. Abdomen soft bowel sounds are heard. No masses or tenderness. Extremities bilateral edema. No cyanosis or clubbing. Skin is without rash or lesion. Neurologic examination is brief but nonfocal. - Labs CBC & Chem 7: 11/26/24 12:03 11/26/24 12:03 Assessment and Plan Assessment: Acute on chronic hypoxemic and hypercapnic respiratory failure, improved. Acute congestive heart failure with preserved ejection fraction. Acute on chronic cellulitis of the lower extremities. History of severe underlying COPD. History of acute metabolic encephalopathy. Recent history of urinary tract infection. Plan: Plan dated November 26, 2024. The patient continues on nasal O2 at 6 L. The patient is on saline at 10 cc an hour. We continue Lasix, bronchodilators, and antibiotics. We also continue with GI DVT prophylaxis. Labs, x-rays, and all medications are reviewed. Prognosis is guarded. We will continue to follow make recommendations along the way. Plan dated November 27, 2024. The patient is seen today in room 366. Her nasal O2 has been turned down from 6 L, the 4 L. She continues on Ancef for her cellulitis. No new labs today. Initially, the patient is stable from the pulmonary standpoint. She denies any significant shortness of breath, cough, wheezing, chest tightness, or phlegm production. We will continue to follow. Prognosis is guarded. Plan dated November 28, 2024. The patient is seen today in room 366. She continues on nasal O2 at 4 L. She is in no distress. She is awake and alert. She is in room laying nearly flat in bed. X-rays, medications, and all labs are reviewed. There was no new labs from today. We will continue to follow make recommendations. The patient is hoping to be discharged in the next 24 to 48 hours. Will leave that up to the primary service. Time with Patient: Less than 30
--- NOTE | 2024-11-29 12:21 | P.PN ---
Subjective Progress Note Date: 11/29/24 68 year old F with PMH chronic hypoxic respiratory failure secondary to COPD on 4L home oxygen, history of CVA/TIA, RA, hypertension presents to the ED for worsening erythema of her bilateral lower extremities. Previous admitted from 11/13-11/16 for altered mentation, fever and intractable pain. She was started on Rocephin + Vancomycin for treatment of UTI and possible LE cellulitis. UCx came back negative and she was discharged home on 7 days of Ceftin. Patient reports not being able to obtain antibiotics after her discharge and worsening of her bilateral lower extremity erythema which prompted her to come back to the ED. The case was discussed with the PCP Dr. Harris who was able to contact the s on, it may be that patient will need a high level of care on discharge. In the ED she underwent extensive evaluation. BP 118/74, HR 104, RR 20, T 98F, 92% on 4L. CBC, CMP significant for Plt 136, Na 136, Cl 97, bicarb 36, glu 110. Lactic acid 1.4. EKG sinus tachycardia with Q waves Q1-4. Patient is admitted for further workup and management. Started on Vancomycin and ID consulted. ID switched antibiotics to Cefzolin. A- team called around 2:30PM on 11/18 for tremors, tachycardia and increased work of breathing. Found to be saturating 88% on 4L NC and Tmax 102.6F. ABG done showing pH 7.33, pCO2 81. BMP showed bicarb of 35 consistent with respiratory acidosis with metabolic alkalosis. CXR showed pulmonary vascular congestion. Transferred to for continuous BiPAP, given a dose of Lasix IV, SoluMedrol and DuoNeb. Patient with increased lethargy despite being on BiPAP, patient was transferred to ICU. Started on Lasix IV BID and Diamox. Echo showed EF 55-60% with mild increased LV thickness. Transitioned to HFNC and eventually NC, transferred out of ICU on 11/21. 11/27 Patient was seen and examined. Maintained on Lasix 40 mg IV QD. Negative 722 cc fluid balance over the past 24H. Currently on 4L NC which is baseline. Discussed with MARITA Small to switch Cefzolin to Keflex. CBC and BMP significant for WBC 16.2, RBC 5.53, Hg 16.4, Hct 50.2, Na 130, Cl 93, BUN 30, glu 134. Mag 2.1. 11/28 Patient was seen and examined. Lasix switched to PO yesterday. Currently on 4L NC. She reports no complaints. Wanting to be discharged. No new labs done today. 11/29 Patient was seen and examined. She reports no complaints. She is adamant about being discharged. No new labs done today. On 4 L NC saturating 93%. General: Nontoxic, no distress, appears stated age, well-appearing Derm: Warm, dry, intact Head: Atraumatic, normocephalic, symmetric Eyes: EOMI Mouth: No lip lesion, mucus membranes moist Cardiovascular: S1-S2 regular Lungs: Decreased BS bilateral, no rhonchi, no rales, no accessory muscle use Extremities: No cyanosis, clubbing, bilateral lower extremities wrapped Psych: Appropriate affect and mood Based on my assessment of this patient, this patient meets a high complexity level of care. Acute on chronic hypoxic respiratory failure secondary to COPD on 4L home O2 with concerns of HFpEF exacerbation: Symbicort 2 INH BID. DuoNeb QID scheduled and PRN SOB/wheezing. Prednisone 40 mg PO QD. Lasix 40 mg PO QD. Pulmonary on board. Hypochloremic hyponatremia and prerenal azotemia likely due to forced diuresis. Sepsis likely due to Cellulitis: Febrile and tachycardic on 11/18 not present on admission. Received 2 doses of Vancomycin. Keflex 500 mg PO Q6H. BCx neg. CRP 5. 5. Pro-enrique 0.06. ESR 5. Fall precautions. PT and OT on board. ID on board. History of CVA/TIA: Pravastatin 40 mg PO QD. ASA 81 mg PO QD. Hypertension: Imdur 30 mg PO QD. Metoprolol 12.5 mg PO BID. Lasix as above. RA: MTX 20 mg PO QSu. Chronic pain: MS Contin 15 mg PO TID. Morphine 2 mg IV Q4H PRN. CODE STATUS: FULL CODE DVT Prophylaxis: Lovenox SQ GI Prophylaxis: Protonix PO Designated medical POA if patient is not able to make medical decisions for themselves: Son. Dispo: Discussed with Ricardo CARDENAS, no safe disposition decided yet. Will attempt to follow up with [facility]. Medically stable. I have reviewed the following recruiting consultant notes: Pulmonary. I have reviewed the results of the following tests: I have ordered the following tests: CBC and BMP ordered for the AM. I have discussed the care of this patient with the following independent historian: Ricardo CARDENAS. I have independently interpreted the following test below: I have discussed the management of this patient with the following physician: [place] with [facility]. Objective - Vital Signs Vital signs: Vital Signs Temp 98.6 F 11/29/24 07:23 Pulse 94 11/29/24 12:07 Resp 17 11/29/24 07:23 BP 160/86 11/29/24 07:23 Pulse Ox 93 L 11/29/24 09:16 FiO2 90 11/21/24 08:00 Intake & Output 11/28/24 11/29/24 11/29/24 18:59 06:59 18:59 Intake Total 720 540 Balance 720 540 Weight 96 kg Intake: Oral 720 540 Other: Voiding Method Toilet Toilet Toilet Diaper Diaper Diaper Incontinent Incontinent Incontinent # Voids 2 2 # Bowel Movements 1 1 - Labs CBC & Chem 7: 11/26/24 12:03 11/26/24 12:03
--- NOTE | 2024-11-29 13:49 | P.PN ---
Subjective Progress Note Date: 11/29/24 This is a 68-year-old female with history of COPD, chronic hypoxic respiratory failure, maintained on 4 L nasal cannula, history of rheumatoid arthritis, CVA/TIA, patient also had chronic history of cellulitis of lower extremities with worsening erythema, patient was in the hospital from 11/13 until 11/16 for altered mentation fever and intractable pain. Patient was treated for UTI and left lower extremity cellulitis. Patient was discharged home on antibiotics in the form of Ceftin however the patient was brought back yesterday with multiple complaints including altered mental status, worsening cellulitis, worsening hypoxia and hypercapnia with a pO2 of 72 pCO2 of 87 pH of 7.33 on 80% FiO2. Pat ient was placed on BiPAP, she is presently on 75% FiO2 IPAP of 10 and EPAP of 5, I saw this patient in consultation today, she is a very poor historian, complaining of her positioning, keeps asking to be placed properly in bed, as she seems to be uncomfortable, her O2 sats is marginal on 75% FiO2 with O2 sats of 90%, patient does not seem to be well, hence I have arranged for the patient to be transferred to the ICU. Chest x-ray on admission shows cardiomegaly pulmonary vascular congestion, bilateral pleural effusion, underlying pneumonia is not entirely ruled out, felt to be less likely. Patient was already seen by infectious disease on consultation for her cellulitis, and the recommendation was to change antibiotics to cefazolin 3 g every 8 hours. Patient is on diuretics, she is on furosemide at 40 mg IV push every 12 hours, and I added Diamox to 50 mg IV push every 12. Patient is on bronchodilators in the form of DuoNeb, she is also on Symbicort, on methylprednisolone 40 mg IV push Q8. Considering her ABG and considering her overall clinical picture, patient is marginal at best, and I recommended transferring the patient to the ICU for close monitoring. WBC count is normal electrolytes are normal bicarb is 36 renal profile is normal, viral screening is negative for influenza A influenza B RSV and COVID. Patient was seen today on 11/20/2024, patient is now in the ICU, doing much better today compared to yesterday, patient is more awake, more responsive, she was on BiPAP last night, now she is on Airvo 60 L / 90% FiO2, her BiPAP settings were 12/5/100%. Chest x-ray is showing improvement in her pulmonary edema echocardiogram showed no evidence of LV dysfunction patient is on Lasix twice daily and today I added Diamox to 50 mg IV push twice daily.Her WBC count 6.1 hemoglobin 14.4. Her electrolytes are normal potassium is a bit low being addressed accordingly renal profile is normal. Patient was seen today on 11/21/2024, patient remains in the ICU, remains on Airvo at 60 L flow and 90% FiO2 remains on diuretics in the form of Lasix and Diamox, chest x-ray is showing improvement clinically the patient is improving.WBC count is 6.6 hemoglobin 15.3 electrolytes are normal bicarb is 37, Renal profile is normal, chest x-ray again is noted to show slight improvement in her diffuse interstitial opacities compared to previous studies and she has small bilateral pleural effusions improving Patient was seen today/, patient remains in the ICU as an overflow. Feeling better, she is down to 15 L high flow nasal cannula, patient was noted to have some choking episodes while eating, I am recommending that the patient gets evaluated for possible aspiration/swallow evaluation. In the meantime patient remains on Diamox and on Lasix 40 mg twice daily, she is also on cefazolin, and she is receiving Lovenox. Clinically the patient is feeling better, no chest x-ray done today, patient will have swallow evaluation, will transfer the patient out of the ICU to a monitored bed and selective, and will continue to follow. She will be placed on a maintenance dose of calcium since she remains on diuretics. WBC count is 5.8 hemoglobin 14.9 electrolytes are normal BUN is 35 creatinine 0.8 11/23/2024, patient remains in the ICU as an overflow, she is now on 8 L high flow nasal cannula, patient is receiving Lasix and Diamox, she is also on cefazolin, she continues to have Flaquito wraps on her lower extremities, patient has extensive cellulitis being addressed by infectious disease. Chest x-ray is showing slight improvement in her interstitial edema and atelectasis. Patient has been steadily improving. But not quite ready for discharge. CBC today is relatively normal basic metabolic profile is normal renal profile is normal Seen today on 11/24/2024, patient remains in the ICU as an overflow. Patient is doing quite well, she is down to 6 L L high flow nasal cannula, patient is supposed to go to 3 S., remains on cefazolin, Solu-Medrol, Lasix 40 mg twice daily, patient is improving, and we have been able to titrate her oxygen down to 6 L high flow nasal cannula. Chest x-ray continues to show pulmonary vascular congestion and small pleural effusion. CBC and electrolytes were noted. Seen today on 11/25/2024, patient is now on the cardiac floor, does not seem to be in any distress, remains on 6 L nasal cannula, remains on diuretics, Solu- Medrol, she is also on cefazolin, steadily improving, patient keeps asking to be discharged home. Chest x-ray continues to show small left pleural effusion and pulmonary vascular congestion, patient is improving with diuretics. No plans for thoracentesis. WBC count is 11.5 hemoglobin is 16.5 electrolytes are normal renal profile is normal Progress note dated November 26, 2024. 69-year-old female seen today in room 366. Currently, she is on 6 L of oxygen. She is getting saline at 10 cc an hour. The patient was admitted primarily for congestive heart failure. The patient appears not to be in any distress, and was reading a book, will be went into the room to evaluate her. Current laboratory data includes a white count 16.2, hemoglobin 16.4, hematocrit 50.2, and a platelet count of 249,000. Sodium 130, potassium 4.4, chlorides 93, CO2 29, BUN 30, creatinine 0.72. Glucose is 134. Calcium 8.4, and magnesium 2.1. Blood cultures are negative. Progress note dated November 27, 2024. 69-year-old female seen today in room 366. The patient is on 4 L nasal cannula. She continues on Ancef for her cellulitis. The patient is in no apparent distress. She denies any shortness of breath, cough, wheezing, chest tightness, phlegm production, chest pain or pressure. She was admitted primarily for congestive heart failure. No new labs today. Labs from yesterday have been re viewed. Blood cultures are negative. Acute abdominal series shows mild CHF, and a nonspecific bowel gas pattern. Progress note dated November 28, 2023. 69-year-old female seen today in room 366. The patient continues on nasal O2 at 4 L. The patient is not receiving any IV fluids. The patient is hoping to be discharged home, later today or tomorrow. No decision has been made. The patient denies any difficulty breathing, coughing, wheezing, chest tightness, or phlegm production. No new labs. The patient is seen today November 29, 2023 in follow-up on the regular medical floor. She is currently sitting up in a chair at the bedside. Awake and alert in no acute distress. Maintaining O2 saturations in the 90s on 4 L/min per nasal cannula. No IV fluids. Blood cultures revealed no growth. She remains on DuoNeb and elations, Symbicort, prednisone taper. She remains on oral diuretics. Lovenox for DVT prophylaxis. Objective - Vital Signs Vital signs: Vital Signs Temp 98.6 F 11/29/24 07:23 Pulse 94 11/29/24 12:07 Resp 17 11/29/24 07:23 BP 160/86 11/29/24 07:23 Pulse Ox 93 L 11/29/24 09:16 FiO2 90 11/21/24 08:00 Intake & Output 11/28/24 11/29/24 11/29/24 18:59 06:59 18:59 Intake Total 720 540 Balance 720 540 Weight 96 kg Intake: Oral 720 540 Other: Voiding Method Toilet Toilet Toilet Diaper Diaper Diaper Incontinent Incontinent Incontinent # Voids 2 2 # Bowel Movements 1 1 - Exam GENERAL EXAM: Alert, 69-year-old female with severe kyphoscoliosis, on 4 L nasal cannula, up in a chair, in no apparent distress. HEAD: Normocephalic. EYES: Normal reaction of pupils, equal size. NOSE: Clear with pink turbinates. THROAT: No erythema or exudates. NECK: No masses, no JVD. CHEST: No chest wall deformity. LUNGS: Equal air entry with bilateral scattered rhonchi. CVS: S1 and S2 normal with no audible murmur, regular rhythm. ABDOMEN: No hepatosplenomegaly, normal bowel sounds, no guarding or rigidity. SPINE: Kyphoscoliosis SKIN: No rashes CENTRAL NERVOUS SYSTEM: No focal deficits, tone is normal in all 4 extremities. EXTREMITIES: There is 1+ peripheral edema. No clubbing, no cyanosis. Periphe ral pulses are intact. - Labs CBC & Chem 7: 11/26/24 12:03 11/26/24 12:03 Assessment and Plan Assessment: Acute on chronic hypoxemic and hypercapnic respiratory failure, improved. Acute congestive heart failure with preserved ejection fraction. Acute on chronic cellulitis of the lower extremities. History of severe underlying COPD. History of acute metabolic encephalopathy. Recent history of urinary tract infection. Plan: The patient was seen and evaluated Labs and medications reviewed Stable and on 4 L nasal cannula Continue bronchodilators and steroids Discharge planning in place I have personally seen and examined the patient, performed the documentation and the assessment and plan as written. Number of minutes spent on the visit: 10 Dictation was produced using [employer] dictation software. Please excuse any grammatical, word or spelling errors. This patient was seen in coordination with the pulmonary/critical care physician, Dr. Givens. He did spend greater than 50% of the time evaluating, examining and developing the plan of care. He agrees to the above HPI, physical exam, assessment and plan of care as dictated by the nurse practitioner..
--- NOTE | 2024-11-29 15:23 | P.PN ---
Subjective Progress Note Date: 11/28/24 Principal diagnosis: Reason for follow-up is bilateral lower extremity cellulitis Patient is a 69-year-old female with a past medical history significant for heart failure COPD CVA TIA hypertension presented to hospital with worsening swelling redness of the leg some mental status changes has been diagnosed with a cellulitis. Patient did have worsening of her respiratory status requiring BiPAP and transferred to the ICU. On today's evaluation that is 11/28/2024,the patient denies any fever or any chills, patient is breathing comfortably on 4 L nasal oxygen, the patient denies chest pain shortness of breath and no significant cough, patient denies abdominal pain, no nausea vomiting or diarrhea. Patient denies pain to the lower extremity No new labs obtained today Objective - Vital Signs Vital signs: Vital Signs Temp 98.2 F 11/28/24 11:21 Pulse 86 11/28/24 13:10 Resp 19 11/28/24 13:10 BP 115/71 11/28/24 11:21 Pulse Ox 93 L 11/28/24 11:21 FiO2 90 11/21/24 08:00 Intake & Output 11/27/24 11/28/24 11/28/24 18:59 06:59 18:59 Intake Total 120 240 720 Output Total 600 Balance -480 240 720 Weight 95.9 kg Intake: Oral 120 240 720 Output: Urine 600 Other: Voiding Method External Catheter External Catheter Toilet Diaper Incontinent # Voids 2 2 # Bowel Movements 1 1 - Exam GENERAL DESCRIPTION: An elderly female lying in bed in no distress RESPIRATORY SYSTEM: Unlabored breathing , decreased breath sounds at bases HEART: S1 S2 regular rate and rhythm , ABDOMEN: Soft , no tenderness EXTREMITIES: Bilateral legs swelling redness resolved no open wound or drainage - Labs CBC & Chem 7: 11/26/24 12:03 11/26/24 12:03 Assessment and Plan (1) Bilateral lower leg cellulitis Current Visit: Yes Status: Acute Code(s): L03.116 - CELLULITIS OF LEFT LOWER LIMB; L03.115 - CELLULITIS OF RIGHT LOWER LIMB SNOMED Code(s): 340602275 (2) Leukocytosis Current Visit: Yes Status: Acute Code(s): D72.829 - ELEVATED WHITE BLOOD CELL COUNT, UNSPECIFIED SNOMED Code(s): 202652658 Plan: 1patient presented to hospital with increasing swelling in his bilateral extremity and this patient noted to have evidence of diffuse swelling and redness to bilateral legs likely concern for cellulitis from gram-positive skin stefano in this patient who did have features of CHF fluid overload 2-patient is afebrile and overall improvement of lower extremity cellulitis she is currently on Keflex Mycolog cream and Flaquito wrap has been discontinued Dictation was produced using [employer] dictation software. please excuse any grammatical, word or spelling errors. Time with Patient: Less than 30
--- NOTE | 2024-11-29 15:24 | P.PN ---
Subjective Progress Note Date: 11/29/24 Principal diagnosis: Reason for follow-up is bilateral lower extremity cellulitis Patient is a 69-year-old female with a past medical history significant for heart failure COPD CVA TIA hypertension presented to hospital with worsening swelling redness of the leg some mental status changes has been diagnosed with a cellulitis. Patient did have worsening of her respiratory status requiring BiPAP and transferred to the ICU. On today's evaluation that is 11/29/2024,the patient remains to be afebrile, patient is on 4 L again oxygen supplemental oxygen and denies any shortness of breath no chest pain or cough.Patient denies having any nausea or vomiting, no abdominal pain and no diarrhea has been reported, denies pain to bilateral lower extremity. No new lab has been repeated today Objective - Vital Signs Vital signs: Vital Signs Temp 98.6 F 11/29/24 07:23 Pulse 94 11/29/24 12:07 Resp 17 11/29/24 07:23 BP 160/86 11/29/24 07:23 Pulse Ox 93 L 11/29/24 09:16 FiO2 90 11/21/24 08:00 Intake & Output 11/28/24 11/29/24 11/29/24 18:59 06:59 18:59 Intake Total 720 540 Balance 720 540 Weight 96 kg Intake: Oral 720 540 Other: Voiding Method Toilet Toilet Toilet Diaper Diaper Diaper Incontinent Incontinent Incontinent # Voids 2 2 # Bowel Movements 1 1 - Exam GENERAL DESCRIPTION: An elderly female lying in bed in no distress RESPIRATORY SYSTEM: Unlabored breathing , decreased breath sounds at bases HEART: S1 S2 regular rate and rhythm , ABDOMEN: Soft , no tenderness EXTREMITIES: Bilateral legs swelling redness resolved did have some dry scaly skin - Labs CBC & Chem 7: 11/26/24 12:03 11/26/24 12:03 Assessment and Plan (1) Bilateral lower leg cellulitis Current Visit: Yes Status: Acute Code(s): L03.116 - CELLULITIS OF LEFT LOWER LIMB; L03.115 - CELLULITIS OF RIGHT LOWER LIMB SNOMED Code(s): 617449108 (2) Leukocytosis Current Visit: Yes Status: Acute Code(s): D72.829 - ELEVATED WHITE BLOOD CELL COUNT, UNSPECIFIED SNOMED Code(s): 985151803 Plan: 1patient presented to hospital with increasing swelling in his bilateral extremity and this patient noted to have evidence of diffuse swelling and redness to bilateral legs likely concern for cellulitis from gram-positive skin stefano in this patient who did have features of CHF fluid overload 2-patient is afebrile and overall improvement of lower extremity cellulitis currently on a short course of oral Keflex Dictation was produced using [employer] dictation software. please excuse any grammatical, word or spelling errors. Time with Patient: Less than 30
[2024-11-30 07:59] VITALS: BP 122/86; RESP 18; TEMP 97.3
[2024-11-30 09:29] VITALS: PULSE 94
[2024-11-30 09:42] LABS: Anisocytosis Slight; HCT 50.7 % (34.0-46.0); HGB 16.5 gm/dL (11.4-16.0); MCH 29.5 pg (25.0-35.0); MCHC 32.5 g/dL (31.0-37.0); MCV 90.6 fL (80.0-100.0); Mean Platelet Volume 8.2; Platelet Count 253 k/uL (150-450); RBC 5.59 m/uL (3.80-5.40); RDW 16.7 % (11.5-15.5); WBC 18.9 k/uL (3.8-10.6)
[2024-11-30 09:51] LABS: African American GFR (CKD) >90 (>60 ml/min/1.73 sqM); Anion Gap 9 mmol/L; Blood Urea Nitrogen 18 mg/dL (7-17); Calcium 8.9 mg/dL (8.4-10.2); Carbon Dioxide 29 mmol/L (22-30); Chloride 92 mmol/L (98-107); Glucose 119 mg/dL (74-99); Non-African American GFR(CKD) >90 (>60 ml/min/1.73 sqM); Potassium 3.7 mmol/L (3.5-5.1); Sodium 130 mmol/L (137-145)
--- NOTE | 2024-11-30 11:33 | XR ---
EXAMINATION TYPE: XR chest 1V portable DATE OF EXAM: 11/30/2024 10:08 AM COMPARISON: None. CLINICAL INDICATION: Female, 69 years old with history of CHF, TECHNIQUE: XR chest 1V portable view(s) obtained. FINDINGS: The heart size is mildly prominent. The pulmonary vasculature is normal. Mild left lower lobe infiltrate and/or effusion is present. Postsurgical fixation through the lower thoracic spine. No significant interval change. IMPRESSION: 1. Stable left lower lobe infiltrate and/or effusion noted [facility], , 11/30/2024 11:30 AM
--- NOTE | 2024-11-30 13:12 | P.DS ---
Providers Date of admission: 11/17/24 14:51 Expected date of discharge: 11/30/24 Attending physician: Edward Valerio MD Consults: 11/17/24 15:05 Consult Physician Routine Consulting Provider: Isabel Roberson Consult Reason/Comments: cellulitis Do you want consulting provider notified?: Yes 11/18/24 15:40 Consult Physician Routine Consulting Provider: Casandra Kelley Consult Reason/Comments: acute respiratory failure with hypoxia, COPD & CHF placed on BiPAP Do you want consulting provider notified?: Yes Primary care physician: Aman Harris MD Hospital Course: 68 year old F with PMH chronic hypoxic respiratory failure secondary to COPD on 4L home oxygen, history of CVA/TIA, RA, hypertension presents to the ED for worsening erythema of her bilateral lower extremities. Previous admitted from 11/13-11/16 for altered mentation, fever and intractable pain. She was started on Rocephin + Vancomycin for treatment of UTI and possible LE cellulitis. UCx came back negative and she was discharged home on 7 days of Ceftin. Patient reports not being able to obtain antibiotics after her discharge and worsening of her bilateral lower extremity erythema which prompted her to come back to the ED. The case was discussed with the PCP Dr. Harris who was able to contact the son, it may be that patient will need a high level of care on discharge. In the ED she underwent extensive evaluation. BP 118/74, HR 104, RR 20, T 98F, 92% on 4L. CBC, CMP significant for Plt 136, Na 136, Cl 97, bicarb 36, glu 110. Lactic acid 1.4. EKG sinus tachycardia with Q waves Q1-4. Patient is admitted for further workup and management. Started on Vancomycin and ID consulted. ID switched antibiotics to Cefzolin. A- team called around 2:30PM on 11/18 for tremors, tachycardia and increased work of breathing. Found to be saturating 88% on 4L NC and Tmax 102.6F. ABG done showing pH 7.33, pCO2 81. BMP showed bicarb of 35 consistent with respiratory acidosis with metabolic alkalosis. CXR showed pulmonary vascular congestion. Transferred to 3S for continuous BiPAP, given a dose of Lasix IV, SoluMedrol and DuoNeb. Patient with increased lethargy despite being on BiPAP, patient was transferred to ICU. Started on Lasix IV BID and Diamox. Echo showed EF 55-60% with mild increased LV thickness. Transitioned to HFNC and eventually NC, transferred out of ICU on 11/21. Lasix was eventually transitioned to PO on 11/27. Cefzolin was eventually transitioned to Keflex on 11/27. There was a family discussion with PACE, patient, son and myself and she is agreeable to go to [facility]. Plan is for discharge today. 11/30 Patient was seen and examined. She reports no complaints. Wanting to be discharged. CBC, BMP significant for WBC 18.9, RBC 5.59, Hg 16.5, Hct 50.7, Na 130, Cl 92, BUN 18, glu 119. CXR shows LLL pleural effusion. She is at her baseline 3-4L home O2. Patient has received adequate antibiotics for her cellulitis and none will be prescribed on discharge. Discharge Plan: Prescriptions include Lasix, Prednisone taper, DuoNeb solution. Follow up with PCP within 1-2 days of discharge. Follow up with ID, Cardiology and Pulmonary within 1 week of discharge. On 3 L NC saturating 93%. General: Nontoxic, no distress, appears stated age, well-appearing Derm: Warm, dry, intact Head: Atraumatic, normocephalic, symmetric Eyes: EOMI Mouth: No lip lesion, mucus membranes moist Cardiovascular: S1-S2 regular Lungs: Decreased BS bilateral, no rhonchi, no rales, no accessory muscle use Extremities: No cyanosis, clubbing, bilateral lower extremities wrapped Psych: Appropriate affect and mood Discharge Diagnosis: Acute on chronic hypoxic respiratory failure secondary to COPD on 4L home O2 with concerns of HFpEF exacerbation Hypochloremic hyponatremia and prerenal azotemia likely due to forced diuresis Sepsis likely due to Cellulitis History of CVA/TIA Hypertension RA Chronic pain This complex discharge took 45 minutes to complete. Patient Condition at Discharge: Stable Plan - Discharge Summary Discharge Rx Participant: Yes New Discharge Prescriptions: New Furosemide [Lasix] 40 mg PO DAILY #30 tab predniSONE See Taper PO DIRECTED #30 tab Ipratropium-Albuterol Nebulize [Duoneb 0.5 mg-3 mg/3 ml Soln] 3 ml INHALATION RT-QID PRN #120 each PRN Reason: Shortness Of Breath Or Wheezing Acetaminophen Tab [Tylenol] 650 mg PO Q6HR PRN tab PRN Reason: Mild Pain Or Fever > 100.5 Continue Naloxone HCl [Narcan] 4 mg NASAL DIRECTED PRN PRN Reason: OVERDOSE Morphine Sulfate Ir [MSIR] 15 mg PO Q8H metHOTREXate sodium [Methotrexate] 20 mg PO SOLORZANO Isosorbide Mononitrate ER [Imdur] 30 mg PO DAILY Erythromycin Ophth Oint [Romycin Ophth Oint] 1 applic BOTH EYES HS Calcium/D3/Mag Ox/Lithopress Operator/Silvano/Zn [Caltrate [id number] Tab] 1 tab PO BID Menthol-Zinc Oxide Oint [Calmoseptine Ointment] 1 applic TOPICAL QID PRN PRN Reason: IRRITATION Menthol [Biofreeze] 1 applic TOPICAL TID PRN PRN Reason: Pain Aspirin EC [Ecotrin Low Dose] 81 mg PO DAILY Ascorbic Acid [Vitamin C] 250 mg PO SUWEFR Urea 40% Cream 1 gram TOPICAL HS Calcium Carbonate [Tums] 500 mg PO BID PRN PRN Reason: acid reflux Budesonide-Formot 160-4.5 Mcg [Symbicort 160-4.5 Mcg Inhaler] 2 puff INHALATION RT-BID Sennosides/Docusate Sodium [Senna-S 8.6-50 mg Tablet] 1 tab PO HS Carboxymethylcellulose Sodium [Refresh Tears] 1 drop BOTH EYES BID PRN PRN Reason: dry eyes Carboxymethylcellulose Sodium [Refresh Tears] 1 drop BOTH EYES DAILY Pregabalin [Lyrica] 200 mg PO BID Pravastatin Sodium [Pravachol] 40 mg PO DAILY Potassium Chloride [Klor-Con M20] 20 meq PO DAILY Omeprazole [PriLOSEC] 20 mg PO DAILY Nystatin 100,000Unit/gm Cream [Mycostatin Cream] 1 applic TOPICAL DIRECTED Metoprolol Tartrate [Lopressor] 12.5 mg PO BID Folic Acid 2 mg PO DAILY Ferrous Gluconate 324 mg PO SUWEFR Alendronate Sodium [Fosamax] 70 mg PO SOLORZANO Cranberry Fruit Extract [Cranberry] 200 mg PO HS Ammonium Lactate Lotion [Lac-Hydrin 12% Lotion] 1 applic TOPICAL BID Albuterol Sulfate [Albuterol Sulfate Hfa] 2 puff INHALATION RT-Q6H PRN PRN Reason: Shortness Of Breath OR COUGH Discontinued Furosemide [Lasix] 20 mg PO DAILY cefuroxime axetiL [Ceftin] 500 mg PO BID #14 tab Discharge Medication List Albuterol Sulfate [Albuterol Sulfate Hfa] 2 puff INHALATION RT-Q6H PRN 11/13/24 [History] Alendronate Sodium [Fosamax] 70 mg PO SOLORZANO 11/13/24 [History] Ammonium Lactate Lotion [Lac-Hydrin 12% Lotion] 1 applic TOPICAL BID 11/13/24 [History] Ascorbic Acid [Vitamin C] 250 mg PO SUWEFR 11/13/24 [History] Aspirin EC [Ecotrin Low Dose] 81 mg PO DAILY 11/13/24 [History] Budesonide-Formot 160-4.5 Mcg [Symbicort 160-4.5 Mcg Inhaler] 2 puff INHALATION RT-BID 11/13/24 [History] Calcium Carbonate [Tums] 500 mg PO BID PRN 11/13/24 [History] Calcium/D3/Mag Ox/Lithopress Operator/Silvano/Zn [Caltrate [id number] Tab] 1 tab PO BID 11/13/24 [History] Carboxymethylcellulose Sodium [Refresh Tears] 1 drop BOTH EYES BID PRN 11/13/24 [History] Carboxymethylcellulose Sodium [Refresh Tears] 1 drop BOTH EYES DAILY 11/13/24 [History] Cranberry Fruit Extract [Cranberry] 200 mg PO HS 11/13/24 [History] Erythromycin Ophth Oint [Romycin Ophth Oint] 1 applic BOTH EYES HS 11/13/24 [History] Ferrous Gluconate 324 mg PO SUWEFR 11/13/24 [History] Folic Acid 2 mg PO DAILY 11/13/24 [History] Isosorbide Mononitrate ER [Imdur] 30 mg PO DAILY 11/13/24 [History] Menthol [Biofreeze] 1 applic TOPICAL TID PRN 11/13/24 [History] Menthol-Zinc Oxide Oint [Calmoseptine Ointment] 1 applic TOPICAL QID PRN 11/13/24 [History] Metoprolol Tartrate [Lopressor] 12.5 mg PO BID 11/13/24 [History] Morphine Sulfate Ir [MSIR] 15 mg PO Q8H 11/13/24 [History] Naloxone HCl [Narcan] 4 mg NASAL DIRECTED PRN 11/13/24 [History] Nystatin 100,000Unit/gm Cream [Mycostatin Cream] 1 applic TOPICAL DIRECTED 11/13/24 [History] Omeprazole [PriLOSEC] 20 mg PO DAILY 11/13/24 [History] Potassium Chloride [Klor-Con M20] 20 meq PO DAILY 11/13/24 [History] Pravastatin Sodium [Pravachol] 40 mg PO DAILY 11/13/24 [History] Pregabalin [Lyrica] 200 mg PO BID 11/13/24 [History] Sennosides/Docusate Sodium [Senna-S 8.6-50 mg Tablet] 1 tab PO HS 11/13/24 [History] Urea 40% Cream 1 gram TOPICAL HS 11/13/24 [History] metHOTREXate sodium [Methotrexate] 20 mg PO SOLORZANO 11/13/24 [History] Acetaminophen Tab [Tylenol] 650 mg PO Q6HR PRN tab 11/30/24 [Rx] Furosemide [Lasix] 40 mg PO DAILY #30 tab 11/30/24 [Rx] Ipratropium-Albuterol Nebulize [Duoneb 0.5 mg-3 mg/3 ml Soln] 3 ml INHALATION RT-QID PRN #120 each 11/30/24 [Rx] predniSONE See Taper PO DIRECTED #30 tab 11/30/24 [Rx] Follow up Appointment(s)/Referral(s): Aman Harris MD [Primary Care Provider] - 1-2 days Alferdo hCeney MD [STAFF PHYSICIAN] - 1 Week (office will call with appointment time) [facility] [NON-STAFF] - As Needed (nebulizer) Brody Givens DO [Doctor of Osteopathic Medicine] - 12/06/24 9:15 am Isabel Roberson MD [STAFF PHYSICIAN] - 12/10/24 3:15 pm Activity/Diet/Wound Care/Special Instructions: Diet: Cardiac Follow up with PCP within 1-2 days of discharge. Follow up with Infectious disease, Pulmonary and Cardiology within 1 week of discharge. Discharge Disposition: HOME SELF-CARE
--- NOTE | 2024-11-30 14:41 | P.PN ---
Subjective Progress Note Date: 11/30/24 Principal diagnosis: Reason for follow-up is bilateral lower extremity cellulitis Patient is a 69-year-old female with a past medical history significant for heart failure COPD CVA TIA hypertension presented to hospital with worsening swelling redness of the leg some mental status changes has been diagnosed with a cellulitis. Patient did have worsening of her respiratory status requiring BiPAP and transferred to the ICU. On today's evaluation that is 11/30/2024, the patient continues to be afebrile, the patient is on 3 L nasal oxygen and breathing comfortably, the Pt denies having any chest pain or cough, the patient denies having any abdominal pain no vomiting or any diarrhea or pain to the lower extremity. Patient white count is 18.9 creatinine 0.54 Objective - Vital Signs Vital signs: Vital Signs Temp 97.3 F L 11/30/24 07:58 Pulse 94 11/30/24 09:28 Resp 18 11/30/24 07:58 BP 122/86 11/30/24 07:58 Pulse Ox 93 L 11/30/24 09:16 FiO2 90 11/21/24 08:00 Intake & Output 11/29/24 11/30/24 11/30/24 18:59 06:59 18:59 Intake Total 480 Balance 480 Weight 95.7 kg Intake: Oral 480 Other: Voiding Method Toilet Toilet Toilet Diaper Diaper Diaper Incontinent Incontinent Incontinent # Voids 3 # Bowel Movements 1 - Exam GENERAL DESCRIPTION: An elderly female lying in bed in no distress RESPIRATORY SYSTEM: Unlabored breathing , decreased breath sounds at bases HEART: S1 S2 regular rate and rhythm , ABDOMEN: Soft , no tenderness EXTREMITIES: Bilateral legs swelling redness resolved did have some dry scaly skin - Labs CBC & Chem 7: 11/30/24 09:15 11/30/24 09:15 Labs: Abnormal Lab Results - Last 24 Hours (Table) 11/30/24 11/30/24 Range/Units 09:15 09:15 WBC 18.9 H (3.8-10.6) k/uL RBC 5.59 H (3.80-5.40) m/uL Hgb 16.5 H (11.4-16.0) gm/dL Hct 50.7 H (34.0-46.0) % RDW 16.7 H (11.5-15.5) % Sodium 130 L (137-145) mmol/L Chloride 92 L (98-107) mmol/L BUN 18 H (7-17) mg/dL Glucose 119 H (74-99) mg/dL Assessment and Plan (1) Bilateral lower leg cellulitis Status: Acute Code(s): L03.116 - CELLULITIS OF LEFT LOWER LIMB; L03.115 - CELLULITIS OF RIGHT LOWER LIMB SNOMED Code(s): 262142182 (2) Leukocytosis Status: Acute Code(s): D72.829 - ELEVATED WHITE BLOOD CELL COUNT, UNSPECIFIED SNOMED Code(s): 073097592 Plan: 1patient presented to hospital with increasing swelling in his bilateral extremity and this patient noted to have evidence of diffuse swelling and redness to bilateral legs likely concern for cellulitis from gram-positive skin stefano in this patient who did have features of CHF fluid overload 2-patient is afebrile and overall improvement of lower extremity cellulitis has received adequate antibiotics and can be safely discontinued on discharge Dictation was produced using [employer] dictation software. please excuse any grammatical, word or spelling errors. Time with Patient: Less than 30
--- NOTE | 2024-11-30 15:22 | P.PN ---
Subjective Progress Note Date: 11/30/24 This is a 68-year-old female with history of COPD, chronic hypoxic respiratory failure, maintained on 4 L nasal cannula, history of rheumatoid arthritis, CVA/TIA, patient also had chronic history of cellulitis of lower extremities with worsening erythema, patient was in the hospital from 11/13 until 11/16 for altered mentation fever and intractable pain. Patient was treated for UTI and left lower extremity cellulitis. Patient was discharged home on antibiotics in the form of Ceftin however the patient was brought back yesterday with multiple complaints including altered mental status, worsening cellulitis, worsening hypoxia and hypercapnia with a pO2 of 72 pCO2 of 87 pH of 7.33 on 80% FiO2. Pat ient was placed on BiPAP, she is presently on 75% FiO2 IPAP of 10 and EPAP of 5, I saw this patient in consultation today, she is a very poor historian, complaining of her positioning, keeps asking to be placed properly in bed, as she seems to be uncomfortable, her O2 sats is marginal on 75% FiO2 with O2 sats of 90%, patient does not seem to be well, hence I have arranged for the patient to be transferred to the ICU. Chest x-ray on admission shows cardiomegaly pulmonary vascular congestion, bilateral pleural effusion, underlying pneumonia is not entirely ruled out, felt to be less likely. Patient was already seen by infectious disease on consultation for her cellulitis, and the recommendation was to change antibiotics to cefazolin 3 g every 8 hours. Patient is on diuretics, she is on furosemide at 40 mg IV push every 12 hours, and I added Diamox to 50 mg IV push every 12. Patient is on bronchodilators in the form of DuoNeb, she is also on Symbicort, on methylprednisolone 40 mg IV push Q8. Considering her ABG and considering her overall clinical picture, patient is marginal at best, and I recommended transferring the patient to the ICU for close monitoring. WBC count is normal electrolytes are normal bicarb is 36 renal profile is normal, viral screening is negative for influenza A influenza B RSV and COVID. Patient was seen today on 11/20/2024, patient is now in the ICU, doing much better today compared to yesterday, patient is more awake, more responsive, she was on BiPAP last night, now she is on Airvo 60 L / 90% FiO2, her BiPAP settings were 12/5/100%. Chest x-ray is showing improvement in her pulmonary edema echocardiogram showed no evidence of LV dysfunction patient is on Lasix twice daily and today I added Diamox to 50 mg IV push twice daily.Her WBC count 6.1 hemoglobin 14.4. Her electrolytes are normal potassium is a bit low being addressed accordingly renal profile is normal. Patient was seen today on 11/21/2024, patient remains in the ICU, remains on Airvo at 60 L flow and 90% FiO2 remains on diuretics in the form of Lasix and Diamox, chest x-ray is showing improvement clinically the patient is improving.WBC count is 6.6 hemoglobin 15.3 electrolytes are normal bicarb is 37, Renal profile is normal, chest x-ray again is noted to show slight improvement in her diffuse interstitial opacities compared to previous studies and she has small bilateral pleural effusions improving Patient was seen today/, patient remains in the ICU as an overflow. Feeling better, she is down to 15 L high flow nasal cannula, patient was noted to have some choking episodes while eating, I am recommending that the patient gets evaluated for possible aspiration/swallow evaluation. In the meantime patient remains on Diamox and on Lasix 40 mg twice daily, she is also on cefazolin, and she is receiving Lovenox. Clinically the patient is feeling better, no chest x-ray done today, patient will have swallow evaluation, will transfer the patient out of the ICU to a monitored bed and selective, and will continue to follow. She will be placed on a maintenance dose of calcium since she remains on diuretics. WBC count is 5.8 hemoglobin 14.9 electrolytes are normal BUN is 35 creatinine 0.8 11/23/2024, patient remains in the ICU as an overflow, she is now on 8 L high flow nasal cannula, patient is receiving Lasix and Diamox, she is also on cefazolin, she continues to have Flaquito wraps on her lower extremities, patient has extensive cellulitis being addressed by infectious disease. Chest x-ray is showing slight improvement in her interstitial edema and atelectasis. Patient has been steadily improving. But not quite ready for discharge. CBC today is relatively normal basic metabolic profile is normal renal profile is normal Seen today on 11/24/2024, patient remains in the ICU as an overflow. Patient is doing quite well, she is down to 6 L L high flow nasal cannula, patient is supposed to go to 3 S., remains on cefazolin, Solu-Medrol, Lasix 40 mg twice daily, patient is improving, and we have been able to titrate her oxygen down to 6 L high flow nasal cannula. Chest x-ray continues to show pulmonary vascular congestion and small pleural effusion. CBC and electrolytes were noted. Seen today on 11/25/2024, patient is now on the cardiac floor, does not seem to be in any distress, remains on 6 L nasal cannula, remains on diuretics, Solu- Medrol, she is also on cefazolin, steadily improving, patient keeps asking to be discharged home. Chest x-ray continues to show small left pleural effusion and pulmonary vascular congestion, patient is improving with diuretics. No plans for thoracentesis. WBC count is 11.5 hemoglobin is 16.5 electrolytes are normal renal profile is normal Progress note dated November 26, 2024. 69-year-old female seen today in room 366. Currently, she is on 6 L of oxygen. She is getting saline at 10 cc an hour. The patient was admitted primarily for congestive heart failure. The patient appears not to be in any distress, and was reading a book, will be went into the room to evaluate her. Current laboratory data includes a white count 16.2, hemoglobin 16.4, hematocrit 50.2, and a platelet count of 249,000. Sodium 130, potassium 4.4, chlorides 93, CO2 29, BUN 30, creatinine 0.72. Glucose is 134. Calcium 8.4, and magnesium 2.1. Blood cultures are negative. Progress note dated November 27, 2024. 69-year-old female seen today in room 366. The patient is on 4 L nasal cannula. She continues on Ancef for her cellulitis. The patient is in no apparent distress. She denies any shortness of breath, cough, wheezing, chest tightness, phlegm production, chest pain or pressure. She was admitted primarily for congestive heart failure. No new labs today. Labs from yesterday have been re viewed. Blood cultures are negative. Acute abdominal series shows mild CHF, and a nonspecific bowel gas pattern. Progress note dated November 28, 2023. 69-year-old female seen today in room 366. The patient continues on nasal O2 at 4 L. The patient is not receiving any IV fluids. The patient is hoping to be discharged home, later today or tomorrow. No decision has been made. The patient denies any difficulty breathing, coughing, wheezing, chest tightness, or phlegm production. No new labs. The patient is seen today November 29, 2023 in follow-up on the regular medical floor. She is currently sitting up in a chair at the bedside. Awake and alert in no acute distress. Maintaining O2 saturations in the 90s on 4 L/min per nasal cannula. No IV fluids. Blood cultures revealed no growth. She remains on DuoNeb and elations, Symbicort, prednisone taper. She remains on oral diuretics. Lovenox for DVT prophylaxis. The patient is seen today November 30, 2023 in follow-up on the regular medical floor. She is currently resting comfortably in bed. Awake and alert in no acute distress. Maintaining O2 saturation in the 90s on 3 L/min per nasal cannula. No IV fluids. She is continued on DuoNeb inhalations, Symbicort, prednisone taper. Lovenox for DVT prophylaxis. Remains on oral diuretics. White count 18.9. Hemoglobin 16.5. Sodium 130. Potassium 3.7. Bicarb 29. BUN 18. Creatinine 0.54. Glucose 119. Objective - Vital Signs Vital signs: Vital Signs Temp 97.3 F L 11/30/24 07:58 Pulse 94 11/30/24 09:28 Resp 18 11/30/24 07:58 BP 122/86 11/30/24 07:58 Pulse Ox 93 L 11/30/24 09:16 FiO2 90 11/21/24 08:00 Intake & Output 11/29/24 11/30/24 11/30/24 18:59 06:59 18:59 Intake Total 480 Balance 480 Weight 95.7 kg Intake: Oral 480 Other: Voiding Method Toilet Toilet Toilet Diaper Diaper Diaper Incontinent Incontinent Incontinent # Voids 3 # Bowel Movements 1 - Exam GENERAL EXAM: Alert, 69-year-old female with severe kyphoscoliosis, resting comfortably in bed, on 3 L nasal cannula, in no apparent distress. HEAD: Normocephalic. EYES: Normal reaction of pupils, equal size. NOSE: Clear with pink turbinates. THROAT: No erythema or exudates. NECK: No masses, no JVD. CHEST: No chest wall deformity. LUNGS: Equal air entry with bilateral scattered rhonchi. CVS: S1 and S2 normal with no audible murmur, regular rhythm. ABDOMEN: No hepatosplenomegaly, normal bowel sounds, no guarding or rigidity. SPINE: Kyphoscoliosis SKIN: No rashes CENTRAL NERVOUS SYSTEM: No focal deficits, tone is normal in all 4 extremities. EXTREMITIES: There is 1+ peripheral edema. No clubbing, no cyanosis. P eripheral pulses are intact. - Labs CBC & Chem 7: 11/30/24 09:15 11/30/24 09:15 Labs: Abnormal Lab Results - Last 24 Hours (Table) 11/30/24 11/30/24 Range/Units 09:15 09:15 WBC 18.9 H (3.8-10.6) k/uL RBC 5.59 H (3.80-5.40) m/uL Hgb 16.5 H (11.4-16.0) gm/dL Hct 50.7 H (34.0-46.0) % RDW 16.7 H (11.5-15.5) % Sodium 130 L (137-145) mmol/L Chloride 92 L (98-107) mmol/L BUN 18 H (7-17) mg/dL Glucose 119 H (74-99) mg/dL Assessment and Plan Assessment: Acute on chronic hypoxemic and hypercapnic respiratory failure, improved. Acute congestive heart failure with preserved ejection fraction. Acute on chronic cellulitis of the lower extremities. History of severe underlying COPD. History of acute metabolic encephalopathy. Recent history of urinary tract infection. Plan: The patient was seen and evaluated Labs and medications reviewed Stable and on 3L nasal cannula Continue bronchodilators and steroids Plan is for [facility] [place] today I have personally seen and examined the patient, performed the documentation and the assessment and plan as written. Number of minutes spent on the visit: 10 Dictation was produced using [employer] dictation software. Please excuse any grammatical, word or spelling errors. This patient was seen in coordination with the pulmonary/critical care physician, Dr. Givens. He did spend greater than 50% of the time evaluating, examining and developing the plan of care. He agrees to the above HPI, physical exam, assessment and plan of care as dictated by the nurse practitioner..
== END 2024-11-30 12:24 | disposition home or self-care (01) | DRG 602 ==
LOC: EC 10:25 → 4SSUR 14:50 → INTOOBSV 14:50 → OBSVTOIN 14:51 → 4SSUR 16:04 → 3SCARD 11-18 15:53 → 2SICU 11-19 11:05 → 3SCARD 11-24 18:23 → 4SSUR 11-28 14:26
PROVIDERS: ADMIT Family Medicine; ATTEND Family Medicine
PROC: 5A09457 Assistance with Respiratory Ventilation, 24-96 Consecutive Hours, Continuous Positive Airway Pressure (ICD-10-PCS; principal; 2024-11-18)
DX: L03.115 Cellulitis of right lower limb (principal); A41.9 Sepsis, unspecified organism; I50.33 Acute on chronic diastolic (congestive) heart failure; J96.21 Acute and chronic respiratory failure with hypoxia; J18.9 Pneumonia, unspecified organism; J96.22 Acute and chronic respiratory failure with hypercapnia; J44.0 Chronic obstructive pulmonary disease with (acute) lower respiratory infection; E87.4 Mixed disorder of acid-base balance; E87.1 Hypo-osmolality and hyponatremia; J98.11 Atelectasis; L03.116 Cellulitis of left lower limb; E87.8 Other disorders of electrolyte and fluid balance, not elsewhere classified; I11.0 Hypertensive heart disease with heart failure; M06.9 Rheumatoid arthritis, unspecified; G89.29 Other chronic pain; E87.6 Hypokalemia; F11.10 Opioid abuse, uncomplicated; Z79.82 Long term (current) use of aspirin; Z86.73 Personal history of transient ischemic attack (TIA), and cerebral infarction without residual deficits; Z99.81 Dependence on supplemental oxygen; Z79.899 Other long term (current) drug therapy; Z79.631 Long term (current) use of antimetabolite agent; Z88.8 Allergy status to other drugs, medicaments and biological substances; Z88.4 Allergy status to anesthetic agent; Z91.041 Radiographic dye allergy status; Z79.891 Long term (current) use of opiate analgesic; Z79.51 Long term (current) use of inhaled steroids; Z79.83 Long term (current) use of bisphosphonates; Z87.440 Personal history of urinary (tract) infections
CPT/HCPCS: 36415; 36600; 71045; 74022; 80048; 80053; 81001; 81003; 82805; 83605; 83735; 84132; 84145; 85025; 85027; 85652; 86140; 87040; 87636; 93005; 93306; 94640; 94660; 94760; 96365; 96366; 96367; 99285

== ENCOUNTER 2024-12-04 12:23 | Inpatient (IN) | payer OTHER ==
--- NOTE | 2024-12-04 12:54 | ED ---
General Adult HPI - General Chief complaint: Altered Mental Status Stated complaint: AMS Time Seen by Provider: 12/04/24 12:40 Source: patient, RN notes reviewed, old records reviewed Mode of arrival: EMS Limitations: altered mental status - History of Present Illness Initial comments: Is a 69-year-old female who presents to the emergency department pes medical. Patient yesterday was acting somewhat more lethargic they gave the patient intranasal Narcan and she came around back to her baseline. Today they found her again more obtunded not responding quickly and they gave her Narcan and there was no increase in her responsiveness so they sent her to the emergency department. Patient is unable to give any further history and there there is no one in the room to give any other history at this time. Patient was incontinent of stool prior to arrival. There was no history of fever or any difficulty breathing. - Related Data Home Medications Medication Instructions Recorded Confirmed Albuterol Sulfate [Albuterol 2 puff INHALATION RT-Q6H PRN 11/13/24 12/04/24 Sulfate Hfa] Alendronate Sodium [Fosamax] 70 mg PO SOLORZANO 11/13/24 12/04/24 Ammonium Lactate Lotion 1 applic TOPICAL BID 11/13/24 12/04/24 [Lac-Hydrin 12% Lotion] Ascorbic Acid [Vitamin C] 250 mg PO SUWEFR 11/13/24 12/04/24 Aspirin EC [Ecotrin Low Dose] 81 mg PO DAILY 11/13/24 12/04/24 Budesonide-Formot 160-4.5 Mcg 2 puff INHALATION RT-BID 11/13/24 12/04/24 [Symbicort 160-4.5 Mcg Inhaler] Calcium Carbonate [Tums] 500 mg PO BID PRN 11/13/24 12/04/24 Calcium/D3/Mag Ox/Market Superintendent/Silvano/Zn 1 tab PO BID 11/13/24 12/04/24 [Caltrate 643-S1-Owzxeell Tab] Carboxymethylcellulose Sodium 1 drop BOTH EYES BID PRN 11/13/24 12/04/24 [Refresh Tears] Carboxymethylcellulose Sodium 1 drop BOTH EYES DAILY 11/13/24 12/04/24 [Refresh Tears] Cranberry Fruit Extract [Cranberry] 200 mg PO HS 11/13/24 12/04/24 Erythromycin Ophth Oint [Romycin 1 applic BOTH EYES HS 11/13/24 12/04/24 Ophth Oint] Ferrous Gluconate 324 mg PO SUWEFR 11/13/24 12/04/24 Folic Acid 2 mg PO DAILY 11/13/24 12/04/24 Isosorbide Mononitrate ER [Imdur] 30 mg PO DAILY 11/13/24 12/04/24 Menthol [Biofreeze] 1 applic TOPICAL TID PRN 11/13/24 12/04/24 Menthol-Zinc Oxide Oint 4 gm TOPICAL QID PRN 11/13/24 12/04/24 [Calmoseptine Ointment] Metoprolol Tartrate [Lopressor] 12.5 mg PO BID 11/13/24 12/04/24 Morphine Sulfate Ir [MSIR] 15 mg PO BID 11/13/24 12/04/24 Naloxone HCl [Narcan] 4 mg NASAL ONCE PRN 11/13/24 12/04/24 Nystatin 100,000Unit/gm Cream 1 applic TOPICAL DIRECTED 11/13/24 12/04/24 [Mycostatin Cream] Omeprazole [PriLOSEC] 20 mg PO DAILY 11/13/24 12/04/24 Potassium Chloride [Klor-Con M20] 20 meq PO DAILY 11/13/24 12/04/24 Pravastatin Sodium [Pravachol] 40 mg PO DAILY 11/13/24 12/04/24 Pregabalin [Lyrica] 200 mg PO BID 11/13/24 12/04/24 Sennosides/Docusate Sodium 1 tab PO HS 11/13/24 12/04/24 [Senna-S 8.6-50 mg Tablet] Urea 40% Cream 1 gram TOPICAL HS 11/13/24 12/04/24 metHOTREXate sodium [Methotrexate] 20 mg PO SOLORZANO 11/13/24 12/04/24 Triamcinolone 0.025% Cream 1 applic TOPICAL DAILY 12/04/24 12/04/24 [Kenalog 0.025% Cream] Previous Rx's Medication Instructions Recorded Furosemide [Lasix] 40 mg PO DAILY #30 tab 11/30/24 Ipratropium-Albuterol Nebulize 3 ml INHALATION RT-QID PRN #120 11/30/24 [Duoneb 0.5 mg-3 mg/3 ml Soln] each predniSONE See Taper PO DIRECTED #30 tab 11/30/24 Allergies Allergy/AdvReac Type Severity Reaction Status Date / Time Iodinated Contrast Media Allergy Rash/Hives Verified 12/04/24 12:52 NSAIDS (Non-Steroidal Allergy Unknown Verified 12/04/24 12:52 Anti-Inflamma fentanyl AdvReac Hallucinati Verified 12/04/24 12:52 ons lactose AdvReac Diarrhea Verified 12/04/24 12:52 Review of Systems ROS Statement: Those systems with pertinent positive or pertinent negative responses have been documented in the HPI. ROS Other: All systems not noted in ROS Statement are negative. Past Medical History Past Medical History: Heart Failure, COPD, CVA/TIA, Hypertension History of Any Multi-Drug Resistant Organisms: None Reported Past Surgical History: Back Surgery, Joint Replacement Past Anesthesia/Blood Transfusion Reactions: No Reported Reaction Past Psychological History: No Psychological Hx Reported Smoking Status: Never smoker Past Alcohol Use History: None Reported Past Drug Use History: None Reported - Past Family History Father Family Medical History: Myocardial Infarction (OR) Mother Family Medical History: Cancer General Exam - General Exam Comments Initial Comments: GENERAL: Patient is well-developed and well-nourished. Patient is nontoxic and well- hydrated and is in no acute distress. ENT: Neck is soft and supple. No significant lymphadenopathy is noted. Oropharynx is clear. Moist mucous membranes. Neck has full range of motion without eliciting any pain. EYES: The sclera were anicteric and conjunctiva were pink and moist. Extraocular movements were intact and pupils were equal round and reactive to light. Eyelids were unremarkable. PULMONARY: Unlabored respirations. Good breath sounds bilaterally. No audible rales rhonchi or wheezing was noted. CARDIOVASCULAR: Tachycardic at 110 beats a minute ABDOMEN: Soft and nontender with normal bowel sounds. SKIN: Skin is clear with no lesions or rashes and otherwise unremarkable. NEUROLOGIC: Patient is alert and oriented x 1. Cranial nerves II through XII are grossly intact. Patient can move all 4 extremities difficult to assess strength because she does not fully understand me at this time. Patient's speech is underst andable MUSCULOSKELETAL: Normal extremities with adequate strength and full range of motion. No lower extremity swelling or edema. No calf tenderness. LYMPHATICS: No significant lymphadenopathy is noted PSYCHIATRIC: Unable to secondary to altered mental status Limitations: altered mental status Course Vital Signs 12/04/24 12/04/24 12/04/24 12:36 12:48 13:19 Temperature 98.0 F Pulse Rate 113 H 111 H Respiratory 18 16 15 Rate Blood Pressure 99/46 98/62 O2 Sat by Pulse 85 L 93 L Oximetry 12/04/24 12/04/24 12/04/24 13:30 14:00 14:30 Temperature Pulse Rate 109 H 106 H 105 H Respiratory 22 24 22 Rate Blood Pressure 123/81 149/83 116/70 O2 Sat by Pulse 91 L 90 L 90 L Oximetry 12/04/24 12/04/24 12/04/24 15:00 15:30 16:00 Temperature Pulse Rate 107 H 104 H 110 H Respiratory 24 24 22 Rate Blood Pressure 127/83 106/62 110/66 O2 Sat by Pulse 91 L 92 L 92 L Oximetry 12/04/24 12/04/24 12/04/24 16:30 17:30 18:00 Temperature Pulse Rate 154 H 109 H 109 H Respiratory 22 22 24 Rate Blood Pressure 163/89 90/60 93/58 O2 Sat by Pulse 94 L 89 L 89 L Oximetry 12/04/24 12/04/24 18:30 19:23 Temperature 98.4 F Pulse Rate 104 H 102 H Respiratory 24 20 Rate Blood Pressure 98/62 99/61 O2 Sat by Pulse 94 L 91 L Oximetry Medical Decision Making - Medical Decision Making EKG is interpreted by myself EKG shows sinus tachycardia at 116 bpm AK was 203 QRS is 68 QT interval is 296 QTc is 365. Patient's EKG is of terrible quality but there are no obvious ST segment elevation Was pt. sent in by a medical professional or institution (NAYELY Carvajal, YOUTH CARE PROFESSIONAL, urgent care, hospital, or residential...) When possible be specific @ -No Did you speak to anyone other than the patient for history (EMS, parent, family, police, friend...)? What history was obtained from this source @ -No Did you review nursing and triage notes (agree or disagree)? Why? @ -I reviewed and agree with nursing and triage notes Were old charts reviewed (outside hosp., previous admission, EMS record, old EKG, old radiological studies, urgent care reports/EKG's, residential records)? Report findings @ -No old charts were reviewed Differential Diagnosis? @ -Differential Altered Mental Status: Hypoglycemia, DKA, hypercapnia, ETOH, overdose, CO poisoning, trauma, myxedema coma, HTN encephalopathy, infection, encephalitis, psychosis, intercranial hemorrhage, hepatic encephalopathy, meningitis, CVA, this is not meant to be an all-inclusive list EKG interpreted by me (3pts min.). @ -As above X-rays interpreted by me (1pt min.). @ -X-ray shows no acute CT interpreted by me (1pt min.). @ -The brain shows no acute abnormality U/S interpreted by me (1pt. min.). @ -None done What testing was considered but not performed or refused? (CT, X-rays, U/S, labs)? Why? @ -None What meds were considered but not given or refused? Why? @ -None Did you discuss the management of the patient with other professionals (professionals i.e. , PA, YOUTH CARE PROFESSIONAL, lab, RT, psych nurse, social work supervisor, operational review sergeant, teacher, assault amphibious vehicle officer, bottle caser)? Give summary @ -I spoke with sound physician they agreed to admit the patient admit the patient wrote admitting orders Was smoking cessation discussed for >3mins.? @ -No Was critical care preformed (if so, how long)? @ -No Were there social determinants of health that impacted care today? How? (Homelessness, low income, unemployed, alcoholism, drug addiction, transportation, low edu. Level, literacy, decrease access to med. care, half-way, rehab)? @ -No Was there de-escalation of care discussed even if they declined (Discuss DNR or withdrawal of care, Hospice)? DNR status @ -No What co-morbidities impacted this encounter? (DM, HTN, Smoking, COPD, CAD, Cancer, CVA, ARF, Chemo, Hep., AIDS, mental health diagnosis, sleep apnea, morbid obesity)? @ -None Was patient admitted / discharged? Hospital course, mention meds given and route, prescriptions, significant lab abnormalities, going to OR and other pertinent info. @ -Came in obtunded patient was given 2 mg of Narcan IV and it did not change her status. I did give her a sternal rub and she was able to open her eyes and attempt to answer some questions. Patient was not accurate in her answers however she was unable to give any further history but she was alert and knew her name. When family arrived they stated that this is not her baseline and they believe her morphine has been cut down so this should not be secondary to her morphine. They initially wanted the patient transferred to [facility] but because it would be 1 to 2-day wait in the emergency department they wanted the patient admitted here and have the inpatient physicians try to transfer the patient when a bed became available. Lab work showed no obvious reason for her altered mental status. CT scan was negative. Undiagnosed new problem with uncertain prognosis? @ -No Drug Therapy requiring intensive monitoring for toxicity (Heparin, Nitro, Insulin, Cardizem)? @ -No Were any procedures done? @ -No Diagnosis/symptom? @ -Altered mental status Acute, or Chronic, or Acute on Chronic? @ -Acute Uncomplicated (without systemic symptoms) or Complicated (systemic symptoms)? @ -Complicated Side effects of treatment? @ -No Exacerbation, Progression, or Severe Exacerbation? @ -No Poses a threat to life or bodily function? How? (Chest pain, USA, OR, pneumonia, PE, COPD, DKA, ARF, appy, cholecystitis, CVA, Diverticulitis, Homicidal, Suicidal, threat to staff... and all critical care pts) @ -No Diagnosis/symptom? @ -Hyponatremia Acute, or Chronic, or Acute on Chronic? @ -Acute Uncomplicated (without systemic symptoms) or Complicated (systemic symptoms)? @ -Complicated Side effects of treatment? @ -None Exacerbation, Progression, or Severe Exacerbation] @ -No Poses a threat to life or bodily function? @ -No - Lab Data Result diagrams: 12/04/24 13:01 12/04/24 13:01 Lab Results 12/04/24 12/04/24 12/04/24 Range/Units 12:55 13:01 13:01 WBC 17.0 H (3.8-10.6) k/uL RBC 5.49 H (3.80-5.40) m/uL Hgb 16.3 H (11.4-16.0) gm/dL Hct 50.7 H (34.0-46.0) % MCV 92.3 (80.0-100.0) fL MCH 29.7 (25.0-35.0) pg MCHC 32.2 (31.0-37.0) g/dL RDW 16.2 H (11.5-15.5) % Plt Count 229 (150-450) k/uL MPV 8.1 Neutrophils % 92 % Lymphocytes % 4 % Monocytes % 3 % Eosinophils % 0 % Basophils % 0 % Neutrophils # 15.6 H (1.3-7.7) k/uL Lymphocytes # 0.7 L (1.0-4.8) k/uL Monocytes # 0.6 (0-1.0) k/uL Eosinophils # 0.0 (0-0.7) k/uL Basophils # 0.0 (0-0.2) k/uL Anisocytosis Slight PT 11.2 (10.0-12.5) sec INR 1.0 (<1.2) APTT 22.7 (22.0-30.0) sec D-Dimer (<0.60) mg/L FEU Sodium (137-145) mmol/L Potassium (3.5-5.1) mmol/L Chloride (98-107) mmol/L Carbon Dioxide (22-30) mmol/L Anion Gap mmol/L BUN (7-17) mg/dL Creatinine (0.52-1.04) mg/dL Est GFR (CKD-EPI)AfAm (>60 ml/min/1.73 sqM) Est GFR (CKD-EPI)NonAf (>60 ml/min/1.73 sqM) Glucose (74-99) mg/dL POC Glucose (mg/dL) 180 H (70-110) mg/dL POC Glu Beveler ID [facility] Calcium (8.4-10.2) mg/dL Total Bilirubin (0.2-1.3) mg/dL AST (14-36) U/L ALT (4-34) U/L Alkaline Phosphatase (38-126) U/L Troponin I (0.000-0.034) ng/mL NT-Pro-B Natriuret Pep pg/mL Total Protein (6.3-8.2) g/dL Albumin (3.5-5.0) g/dL Urine Color Urine Appearance (Clear) Urine pH (5.0-8.0) Ur Specific [place] (1.001-1.035) Urine Protein (Negative) Urine Glucose (UA) (Negative) Urine Ketones (Negative) Urine Blood (Negative) Urine Nitrite (Negative) Urine Bilirubin (Negative) Urine Urobilinogen (<2.0) mg/dL Ur Leukocyte Esterase (Negative) Urine Opiates Screen (NotDetected) Ur Oxycodone Screen (NotDetected) Urine Methadone Screen (NotDetected) Ur Barbiturates Screen (NotDetected) U Tricyclic Antidepress (NotDetected) Ur Phencyclidine Scrn (NotDetected) Ur Amphetamines Screen (NotDetected) U Methamphetamines Scrn (NotDetected) U Benzodiazepines Scrn (NotDetected) Urine Cocaine Screen (NotDetected) U Marijuana (THC) Screen (NotDetected) Influenza Type A (PCR) (Not Detectd) Influenza Type B (PCR) (Not Detectd) RSV (PCR) (Not Detectd) SARS-CoV-2 (PCR) (Not Detectd) 12/04/24 12/04/24 12/04/24 Range/Units 13:01 13:01 13:01 WBC (3.8-10.6) k/uL RBC (3.80-5.40) m/uL Hgb (11.4-16.0) gm/dL Hct (34.0-46.0) % MCV (80.0-100.0) fL MCH (25.0-35.0) pg MCHC (31.0-37.0) g/dL RDW (11.5-15.5) % Plt Count (150-450) k/uL MPV Neutrophils % % Lymphocytes % % Monocytes % % Eosinophils % % Basophils % % Neutrophils # (1.3-7.7) k/uL Lymphocytes # (1.0-4.8) k/uL Monocytes # (0-1.0) k/uL Eosinophils # (0-0.7) k/uL Basophils # (0-0.2) k/uL Anisocytosis PT (10.0-12.5) sec INR (<1.2) APTT (22.0-30.0) sec D-Dimer (<0.60) mg/L FEU Sodium 129 L (137-145) mmol/L Potassium 4.7 (3.5-5.1) mmol/L Chloride 82 L (98-107) mmol/L Carbon Dioxide 38 H (22-30) mmol/L Anion Gap 9 mmol/L BUN 23 H (7-17) mg/dL Creatinine 0.58 (0.52-1.04) mg/dL Est GFR (CKD-EPI)AfAm >90 (>60 ml/min/1.73 sqM) Est GFR (CKD-EPI)NonAf >90 (>60 ml/min/1.73 sqM) Glucose 183 H (74-99) mg/dL POC Glucose (mg/dL) (70-110) mg/dL POC Glu Beveler ID Calcium 9.5 (8.4-10.2) mg/dL Total Bilirubin 1.6 H (0.2-1.3) mg/dL AST 23 (14-36) U/L ALT 19 (4-34) U/L Alkaline Phosphatase 88 (38-126) U/L Troponin I <0.012 (0.000-0.034) ng/mL NT-Pro-B Natriuret Pep 314 pg/mL Total Protein 6.5 (6.3-8.2) g/dL Albumin 4.0 (3.5-5.0) g/dL Urine Color Urine Appearance (Clear) Urine pH (5.0-8.0) Ur Specific [place] (1.001-1.035) Urine Protein (Negative) Urine Glucose (UA) (Negative) Urine Ketones (Negative) Urine Blood (Negative) Urine Nitrite (Negative) Urine Bilirubin (Negative) Urine Urobilinogen (<2.0) mg/dL Ur Leukocyte Esterase (Negative) Urine Opiates Screen (NotDetected) Ur Oxycodone Screen (NotDetected) Urine Methadone Screen (NotDetected) Ur Barbiturates Screen (NotDetected) U Tricyclic Antidepress (NotDetected) Ur Phencyclidine Scrn (NotDetected) Ur Amphetamines Screen (NotDetected) U Methamphetamines Scrn (NotDetected) U Benzodiazepines Scrn (NotDetected) Urine Cocaine Screen (NotDetected) U Marijuana (THC) Screen (NotDetected) Influenza Type A (PCR) (Not Detectd) Influenza Type B (PCR) (Not Detectd) RSV (PCR) (Not Detectd) SARS-CoV-2 (PCR) (Not Detectd) 12/04/24 12/04/24 12/04/24 Range/Units 13:03 17:14 17:25 WBC (3.8-10.6) k/uL RBC (3.80-5.40) m/uL Hgb (11.4-16.0) gm/dL Hct (34.0-46.0) % MCV (80.0-100.0) fL MCH (25.0-35.0) pg MCHC (31.0-37.0) g/dL RDW (11.5-15.5) % Plt Count (150-450) k/uL MPV Neutrophils % % Lymphocytes % % Monocytes % % Eosinophils % % Basophils % % Neutrophils # (1.3-7.7) k/uL Lymphocytes # (1.0-4.8) k/uL Monocytes # (0-1.0) k/uL Eosinophils # (0-0.7) k/uL Basophils # (0-0.2) k/uL Anisocytosis PT (10.0-12.5) sec INR (<1.2) APTT (22.0-30.0) sec D-Dimer 1.72 H (<0.60) mg/L FEU Sodium (137-145) mmol/L Potassium (3.5-5.1) mmol/L Chloride (98-107) mmol/L Carbon Dioxide (22-30) mmol/L Anion Gap mmol/L BUN (7-17) mg/dL Creatinine (0.52-1.04) mg/dL Est GFR (CKD-EPI)AfAm (>60 ml/min/1.73 sqM) Est GFR (CKD-EPI)NonAf (>60 ml/min/1.73 sqM) Glucose (74-99) mg/dL POC Glucose (mg/dL) (70-110) mg/dL POC Glu Beveler ID Calcium (8.4-10.2) mg/dL Total Bilirubin (0.2-1.3) mg/dL AST (14-36) U/L ALT (4-34) U/L Alkaline Phosphatase (38-126) U/L Troponin I (0.000-0.034) ng/mL NT-Pro-B Natriuret Pep pg/mL Total Protein (6.3-8.2) g/dL Albumin (3.5-5.0) g/dL Urine Color Colorless Urine Appearance Clear (Clear) Urine pH 5.0 (5.0-8.0) Ur Specific [place] 1.004 (1.001-1.035) Urine Protein Negative (Negative) Urine Glucose (UA) Negative (Negative) Urine Ketones Negative (Negative) Urine Blood Negative (Negative) Urine Nitrite Negative (Negative) Urine Bilirubin Negative (Negative) Urine Urobilinogen <2.0 (<2.0) mg/dL Ur Leukocyte Esterase Negative (Negative) Urine Opiates Screen Detected H (NotDetected) Ur Oxycodone Screen Not Detected (NotDetected) Urine Methadone Screen Not Detected (NotDetected) Ur Barbiturates Screen Not Detected (NotDetected) U Tricyclic Antidepress Not Detected (NotDetected) Ur Phencyclidine Scrn Not Detected (NotDetected) Ur Amphetamines Screen Not Detected (NotDetected) U Methamphetamines Scrn Not Detected (NotDetected) U Benzodiazepines Scrn Not Detected (NotDetected) Urine Cocaine Screen Not Detected (NotDetected) U Marijuana (THC) Screen Not Detected (NotDetected) Influenza Type A (PCR) Not Detected (Not Detectd) Influenza Type B (PCR) Not Detected (Not Detectd) RSV (PCR) Not Detected (Not Detectd) SARS-CoV-2 (PCR) Not Detected (Not Detectd) Disposition Clinical Impression: Hyponatremia, Altered mental status Disposition: ADMITTED IP TO THIS [facility] Referrals: Aman Harris MD [Primary Care Provider] - 1-2 days Time of Disposition: 19:35
[2024-12-04 12:57] LABS: Glucose,Whole Blood 180 mg/dL (70-110)
[2024-12-04] MEDS: NALOXONE 0.4 MG/ML 1 ML VIAL IM STA (13:19)
[2024-12-04] MEDS: SODIUM CHLORIDE 0.9% 500 ML 500 ML IV ONE (13:20)
[2024-12-04 13:21] LABS: Anisocytosis Slight; Basophils % (A) 0 %; Eosinophils % (A) 0 %; HCT 50.7 % (34.0-46.0); HGB 16.3 gm/dL (11.4-16.0); Lymphocytes # (A) 0.7 k/uL (1.0-4.8); Lymphocytes % (A) 4 %; MCH 29.7 pg (25.0-35.0); MCHC 32.2 g/dL (31.0-37.0); MCV 92.3 fL (80.0-100.0); Mean Platelet Volume 8.1; Monocytes # (A) 0.6 k/uL (0-1.0); Monocytes % (A) 3 %; Neutrophils # (A) 15.6 k/uL (1.3-7.7); Neutrophils % (A) 92 %; Platelet Count 229 k/uL (150-450); RBC 5.49 m/uL (3.80-5.40); RDW 16.2 % (11.5-15.5)
[2024-12-04 13:29] LABS: Partial Thromboplastin Time 22.7 sec (22.0-30.0); Prothrombin Time 11.2 sec (10.0-12.5)
[2024-12-04 13:32] LABS: Appearance,Urine Clear (Clear); Bilirubin,Urine Negative (Negative); Blood,Urine Negative (Negative); Color,Urine Colorless; Glucose,Urine (UA) Negative (Negative); Ketones,Urine Negative (Negative); Leukocyte Esterase,Urine Negative (Negative); Nitrite,Urine Negative (Negative); Protein,Urine Negative (Negative); Specific Gravity,Urine 1.004 (1.001-1.035); Urobilinogen,Urine <2.0 mg/dL (<2.0)
[2024-12-04 13:35] LABS: Amphetamine Screen,Urine Not Detected (NotDetected); Barbiturate Screen,Urine Not Detected (NotDetected); Benzodiazepines Screen,Urine Not Detected (NotDetected); Cocaine Screen,Urine Not Detected (NotDetected); Methadone Screen, Urine Not Detected (NotDetected); Opiate Screen,Urine Detected (NotDetected); Oxycodone Screen, Urine Not Detected (NotDetected); Phencyclidine Screen,Urine Not Detected (NotDetected); Tricyclic Antidepressant,Urine Not Detected (NotDetected); Urn Cannabinoid Scrn Not Detected (NotDetected)
[2024-12-04 13:38] LABS: ALT 19 U/L (4-34); AST 23 U/L (14-36); African American GFR (CKD) >90 (>60 ml/min/1.73 sqM); Alkaline Phosphatase 88 U/L (38-126); Blood Urea Nitrogen 23 mg/dL (7-17); Calcium 9.5 mg/dL (8.4-10.2); Chloride 82 mmol/L (98-107); Glucose 183 mg/dL (74-99); Non-African American GFR(CKD) >90 (>60 ml/min/1.73 sqM); Potassium 4.7 mmol/L (3.5-5.1); Sodium 129 mmol/L (137-145); Total Bilirubin 1.6 mg/dL (0.2-1.3); Total Protein 6.5 g/dL (6.3-8.2)
[2024-12-04 13:45] LABS: Anion Gap 9 mmol/L
[2024-12-04 13:47] LABS: Carbon Dioxide 38 mmol/L (22-30)
--- NOTE | 2024-12-04 14:02 | XR ---
EXAMINATION TYPE: XR chest 1V DATE OF EXAM: 12/04/2024 COMPARISON: 11/30/2023 CLINICAL INDICATION: Female, 69 years old with history of altered mental status; TECHNIQUE: Single frontal view of the chest is obtained. FINDINGS: There are postsurgical changes of cervical fusion in the lower thoracic/upper lumbar fusion. There is fine diffuse interstitial density which could reflect chronic interstitial changes versus mi ld pulmonary vascular congestion. Left lung bases not well evaluated and may be secondary to marked cardiomegaly. There is the possibil ity of a small retrocardiac infiltrate and small left effusion.. However it is unchanged compared to the prior study.. IMPRESSION: 1. No significant interval change. 2. Cannot exclude mild CHF as described above. [facility], , 12/04/2024 2:00 PM
--- NOTE | 2024-12-04 14:05 | CT ---
EXAMINATION TYPE: CT brain wo con DATE OF EXAM: 12/04/2024 COMPARISON: 11/13/2024 CLINICAL INDICATION: Female, 69 years old with history of Mental status; PHH, AMS CT DLP: 2147.9 mGycm Automated exposure control for dose reduction was used. Findings: The ventricles, basal cisterns and sulci over the convexities are mildly enlarged consistent with mil d age-appropriate atrophy. There is mild diffuse decreased density in the periventricular white matter consistent with mild menagerie superintendent maria fernanda ischemic white matter demyelination. There is no acute intra or extra-axial hemorrhage. There is no mass effect or shift of midline structures. No abnormal density is seen throughout the brain parenchyma and there is no acute intra or extra-axia l hemorrhage. The posterior fossa including the brainstem, fourth ventricle and cerebellar pontine angles appear no rmal. Intraorbital contents appear normal and symmetric. Visualized paranasal sinuses and mastoid air cells are well aerated. The calvarium is intact. IMPRESSION: 1. No acute bleed or mass effect. 2. Mild age-appropriate atrophy/senescent changes [facility], , 12/04/2024 2:02 PM
[2024-12-04] MEDS: diphenhydrAMINE 50 MG/ML 1 ML VIAL IVP STA (18:16)
[2024-12-04] MEDS: methylPREDNISolone SOD SUCCI 125 MG/2 ML VIAL IV STA (18:18)
[2024-12-04] MEDS: FAMOTIDINE 20 MG/2 ML VIAL IV STA (18:20)
[2024-12-04] MEDS: SODIUM CHLORIDE 0.9% 1,000 ML IV ONE (19:43)
--- NOTE | 2024-12-04 20:24 | CT ---
EXAMINATION TYPE: CT chest angio for PE DATE OF EXAM: 12/04/2024 7:07 PM COMPARISON: 09/18/2024 CLINICAL INDICATION: Female, 69 years old with history of Low O2 sat, D-dimer elevated, natacha/elevated ddimer TECHNIQUE: CT of the chest is performed on a spiral scan at 2 mm thick sections. Study is performed with intravenous contrast timed for evaluation for pulmonary embolism. This will limit additional po rtions of the evaluation. 3-D MIP images reconstructed by the technologist are reviewed on the compu ter in the coronal and sagittal planes. Contrast used:100ml mL of Isovue 370 with IV Contrast, (none if empty) Oral contrast used: (none if empty) CT DLP: 731 mGycm, Automated exposure control for dose reduction was used. FINDINGS: No persistent filling defects are evident to suggest an acute pulmonary embolism. No mediastinal or hilar adenopathy enlarged by CT criteria is evident. The ascending aorta diameter at the level of the main pulmonary artery is 3.3 cm. The main pulmonary artery diameter at the bifurcation is 3.5 cm. Some pulmonary hypertension may be present. Compressive atelectasis at the left base. Limited CT sections were through the upper abdomen. Upper abdomen appears unremarkable. IMPRESSION: 1. No acute pulmonary embolism. 2. Compressive atelectasis left lung base. 3. Pulmonary hypertension likely present. [facility], Workstation: [email or web address], 12/04/2024 8:22 PM
--- NOTE | 2024-12-04 21:11 | P.HPIM ---
History of Present Illness H&P Date: 12/04/24 Chief Complaint: Altered mental status Patient is a 69-year-old female with chief complaint of altered mental status. History was not able to be obtained due to current status of patient. Based on chart review, patient has history of osteoporosis, COPD, hypertension, RA, GERD, hyperlipidemia. ED documentation reviewed. Per ED, the patient was found obtunded at home, EMS notified , given narcan nasally responded a little bit , and was brought in here for evaluation. Further chart review showed that was recently discharged from the hospital 4 days ago where she was started on IV antibiotics for UTI and possible lower extremity cellulitis and discharged on oral antibiotics, but she was unable to pick them up and returned. Patient was also admitted last month for altered mentation, fever, and intractable pain. On most recent admission patient developed hypercapnic respiratory failure requiring BiPAP and was transferred to the ICU for closer management, but never required intubation. Patient's respiratory status continued to improve and she was transitioned to Airvo and then regular nasal cannula and deemed stable for regular medical floor. Oxygen requirements continue to improve. Chest x-ray did show a small left pleural effusion on last admission, but thoracentesis was not done. Echocardiogram showed EF of 55-60 with mild increased LV thickness. IV antibiotics were transitioned to oral antibiotics and patient was discharged to [facility]. Vitals on admission temperature 98, heart rate 113, respiratory rate 18, blood pressure 99/46, O2 saturation 85% on room air EKG independently interpreted as sinus tachycardia with a rate of 116 bpm and QTc of 365 ms CXR shows left lung base was not well-evaluated possibly secondary to marked cardiomegaly, possibility of small retrocardiac infiltrate and small left effusion, cannot exclude CHF CT head showed no acute bleeding or mass effect. CTA showed no acute PE Labs on admission show WBC 17, hemoglobin 16.3, platelets 229. PT 1.2, INR 1, PTT 22.7, D-dimer 1.72. Sodium 129 Potassium 4.7 Chloride 82 Bicarb 38 BUN 23 Creatinine 0.58 glucose 183. NT proBNP 314. UA unremarkable. Urine toxicology positive for opiates. Cepheid panel negative. Review of systems: Limited due to patient's current status. Physical examination: Limited due to patient's current status. Vital signs reviewed General: nontoxic, no distress, appears at stated age, responding to verbal stimulation , requesting pain meds for abd pain Derm: warm, dry, intact Head: atraumatic, normocephalic, symmetric Eyes: anicteric sclera Mouth: no lip lesion, mucus membranes moist Cardiovascular: S1 S2 reg, no murmur Lungs: CTA bilateral, no rhonchi, no rales, no accessory muscle use Abdominal: soft, tenderness at the epigastric and periumbilical region , mild distention Extremities: No cyanosis, clubbing, or pedal edema. Neuro: Not performed Psych: awake, oriented to self and place Assessment/Plan: 69 year old female with COPD on home oxygen , coming in due to AMS , responding to nasal narcan , I discussed the case with ED doc and I accepted the admission for AMS suspected secondary to over use of opioids. Active: Altered mental status possibly due to polypharmacy SIRS Tachycardia Leukocytosis with left shift(WBC 17 with neutrophilic predominance) UDS positive for opiates D-dimer elevated at 1.72 CTA was negative for PE , showed left lung base compressive atelactesis Follow-up C. difficile Blood culture Obtain lactate Monitor for signs of sepsis LR at 120 cc per hour Acute hypoxic respiratory failure Patient was hypoxic saturating at 85% on admission which resolved with administration of 4 L nasal cannula Continue administration of supplemental oxygen to maintain saturations of 94% or more Cardiac monitoring Hypochloremic hyponatremia Plasma Osmolality Urine Sodium Urine Osmolality Repeat BMP Mild polycythemia, likely secondary to hypoxia Hemoglobin 16.3, hematocrit 50.7 Continue to monitor Chronic: HFpEF Hypertension Hyperlipidemia COPD Osteoporosis Rheumatoid arthritis GERD History of CVA/TIA May resume home medications gradually when patient's mentation improves Can not rule out underlying source of infection , await C diff, Chest imaging showing left compressive atelactesis , and patient has tenderness abd exam . Follow up blood cultures , c diff Start zosyn 3.375 gm IVPB q 8 hrs F: LR 120 cc E: Replete as needed N: Heart healthy A: As tolerated DVT prophylaxis: Lovenox 40 mg subcutaneously daily The patient is admitted with an anticipated more than 2 midnight stay for evaluation of altered mental status CODE STATUS: Full code Discussed with: Patient Anticipated discharge place: Pending clinical course I have seen and evaluated the patient today. I Discussed the case with the court ruiz and agree with the resident's findings I edited the assessment and plan as necessary as documented in the resident's note. Past Medical History Past Medical History: Heart Failure, COPD, CVA/TIA, Hypertension History of Any Multi-Drug Resistant Organisms: None Reported Past Surgical History: Back Surgery, Joint Replacement Past Anesthesia/Blood Transfusion Reactions: No Reported Reaction Past Psychological History: No Psychological Hx Reported Smoking Status: Never smoker Past Alcohol Use History: None Reported Past Drug Use History: None Reported - Past Family History Father Family Medical History: Myocardial Infarction (CT) Mother Family Medical History: Cancer Medications and Allergies Home Medications Medication Instructions Recorded Confirmed Type Albuterol Sulfate [Albuterol 2 puff INHALATION RT-Q6H PRN 11/13/24 12/04/24 History Sulfate Hfa] Alendronate Sodium [Fosamax] 70 mg PO SOLORZANO 11/13/24 12/04/24 History Ammonium Lactate Lotion 1 applic TOPICAL BID 11/13/24 12/04/24 History [Lac-Hydrin 12% Lotion] Ascorbic Acid [Vitamin C] 250 mg PO SUWEFR 11/13/24 12/04/24 History Aspirin EC [Ecotrin Low Dose] 81 mg PO DAILY 11/13/24 12/04/24 History Budesonide-Formot 160-4.5 Mcg 2 puff INHALATION RT-BID 11/13/24 12/04/24 History [Symbicort 160-4.5 Mcg Inhaler] Calcium Carbonate [Tums] 500 mg PO BID PRN 11/13/24 12/04/24 History Calcium/D3/Mag Ox/Ripper Operator/Silvano/Zn 1 tab PO BID 11/13/24 12/04/24 History [Caltrate [id number] Tab] Carboxymethylcellulose Sodium 1 drop BOTH EYES BID PRN 11/13/24 12/04/24 History [Refresh Tears] Carboxymethylcellulose Sodium 1 drop BOTH EYES DAILY 11/13/24 12/04/24 History [Refresh Tears] Cranberry Fruit Extract [Cranberry] 200 mg PO HS 11/13/24 12/04/24 History Erythromycin Ophth Oint [Romycin 1 applic BOTH EYES HS 11/13/24 12/04/24 History Ophth Oint] Ferrous Gluconate 324 mg PO SUWEFR 11/13/24 12/04/24 History Folic Acid 2 mg PO DAILY 11/13/24 12/04/24 History Isosorbide Mononitrate ER [Imdur] 30 mg PO DAILY 11/13/24 12/04/24 History Menthol [Biofreeze] 1 applic TOPICAL TID PRN 11/13/24 12/04/24 History Menthol-Zinc Oxide Oint 4 gm TOPICAL QID PRN 11/13/24 12/04/24 History [Calmoseptine Ointment] Metoprolol Tartrate [Lopressor] 12.5 mg PO BID 11/13/24 12/04/24 History Morphine Sulfate Ir [MSIR] 15 mg PO BID 11/13/24 12/04/24 History Naloxone HCl [Narcan] 4 mg NASAL ONCE PRN 11/13/24 12/04/24 History Nystatin 100,000Unit/gm Cream 1 applic TOPICAL DIRECTED 11/13/24 12/04/24 History [Mycostatin Cream] Omeprazole [PriLOSEC] 20 mg PO DAILY 11/13/24 12/04/24 History Potassium Chloride [Klor-Con M20] 20 meq PO DAILY 11/13/24 12/04/24 History Pravastatin Sodium [Pravachol] 40 mg PO DAILY 11/13/24 12/04/24 History Pregabalin [Lyrica] 200 mg PO BID 11/13/24 12/04/24 History Sennosides/Docusate Sodium 1 tab PO HS 11/13/24 12/04/24 History [Senna-S 8.6-50 mg Tablet] Urea 40% Cream 1 gram TOPICAL HS 11/13/24 12/04/24 History metHOTREXate sodium [Methotrexate] 20 mg PO SOLORZANO 11/13/24 12/04/24 History Furosemide [Lasix] 40 mg PO DAILY #30 tab 11/30/24 12/04/24 Rx Ipratropium-Albuterol Nebulize 3 ml INHALATION RT-QID PRN #120 11/30/24 12/04/24 Rx [Duoneb 0.5 mg-3 mg/3 ml Soln] each predniSONE See Taper PO DIRECTED #30 tab 11/30/24 12/04/24 Rx Triamcinolone 0.025% Cream 1 applic TOPICAL DAILY 12/04/24 12/04/24 History [Kenalog 0.025% Cream] Allergies Allergy/AdvReac Type Severity Reaction Status Date / Time Iodinated Contrast Media Allergy Rash/Hives Verified 12/04/24 12:52 NSAIDS (Non-Steroidal Allergy Unknown Verified 12/04/24 12:52 Anti-Inflamma fentanyl AdvReac Hallucinati Verified 12/04/24 12:52 ons lactose AdvReac Diarrhea Verified 12/04/24 12:52 Physical Exam Vitals: Vital Signs Temp Pulse Resp BP Pulse Ox 12/04/24 18:30 104 H 24 98/62 94 L 12/04/24 18:00 109 H 24 93/58 89 L 12/04/24 17:30 109 H 22 90/60 89 L 12/04/24 16:30 154 H 22 163/89 94 L 12/04/24 16:00 110 H 22 110/66 92 L 12/04/24 15:30 104 H 24 106/62 92 L 12/04/24 15:00 107 H 24 127/83 91 L 12/04/24 14:30 105 H 22 116/70 90 L 12/04/24 14:00 106 H 24 149/83 90 L 12/04/24 13:30 109 H 22 123/81 91 L 12/04/24 13:19 15 12/04/24 12:48 111 H 16 98/62 93 L 12/04/24 12:36 98.0 F 113 H 18 99/46 85 L Intake and Output 12/04/24 12/04/24 12/04/24 06:59 14:59 22:59 Other: Weight 81.647 kg Results CBC & Chem 7: 12/04/24 13:01 12/04/24 13:01 Labs: Abnormal Lab Results - Last 24 Hours (Table) 12/04/24 12/04/24 12/04/24 Range/Units 12:55 13:01 13:01 WBC 17.0 H (3.8-10.6) k/uL RBC 5.49 H (3.80-5.40) m/uL Hgb 16.3 H (11.4-16.0) gm/dL Hct 50.7 H (34.0-46.0) % RDW 16.2 H (11.5-15.5) % Neutrophils # 15.6 H (1.3-7.7) k/uL Lymphocytes # 0.7 L (1.0-4.8) k/uL D-Dimer (<0.60) mg/L FEU Sodium 129 L (137-145) mmol/L Chloride 82 L (98-107) mmol/L Carbon Dioxide 38 H (22-30) mmol/L BUN 23 H (7-17) mg/dL Glucose 183 H (74-99) mg/dL POC Glucose (mg/dL) 180 H (70-110) mg/dL Total Bilirubin 1.6 H (0.2-1.3) mg/dL Urine Opiates Screen (NotDetected) 12/04/24 12/04/24 Range/Units 13:03 17:25 WBC (3.8-10.6) k/uL RBC (3.80-5.40) m/uL Hgb (11.4-16.0) gm/dL Hct (34.0-46.0) % RDW (11.5-15.5) % Neutrophils # (1.3-7.7) k/uL Lymphocytes # (1.0-4.8) k/uL D-Dimer 1.72 H (<0.60) mg/L FEU Sodium (137-145) mmol/L Chloride (98-107) mmol/L Carbon Dioxide (22-30) mmol/L BUN (7-17) mg/dL Glucose (74-99) mg/dL POC Glucose (mg/dL) (70-110) mg/dL Total Bilirubin (0.2-1.3) mg/dL Urine Opiates Screen Detected H (NotDetected)
[2024-12-04 22:17] LABS: ABG Oxygen Saturation 94.6 % (94-97); ABG PCO2 61 mmHg (35-45); ABG PH 7.46 (7.35-7.45); ABG PO2 74 mmHg (83-108); ABG TCO2 45 mmol/L (19-24); Allen Test Performed? Yes
[2024-12-04 22:20] LABS: ABG HCO3 43 mmol/L (21-25)
[2024-12-04] MEDS ORDERED: IPRATROPIUM-ALBUTEROL 3 ML NEB INHALATION PRN (22:36)
[2024-12-04] MEDS ORDERED: ALBUTEROL NEBULIZED 2.5 MG/3 ML INHALATION PRN (22:36)
[2024-12-04] MEDS: LACTATED RINGERS 1,000 ML IV SCH (22:53)
[2024-12-05] MEDS: PIPERACILLIN-TAZOBACTAM 3.375 GM in SODIUM CHLORIDE 0.9% 100 ML IVPB SCH
[2024-12-05] MEDS: PANTOPRAZOLE 40 MG TABLET PO SCH (06:58)
[2024-12-05] MEDS: METOPROLOL TARTRATE 12.5 MG TAB PO SCH (06:58)
[2024-12-05] MEDS ORDERED: NON FORMULARY DRUG (Naloxone Hcl [Narcan] 4 MG Each) NASAL PRN (07:55)
[2024-12-05] MEDS ORDERED: CALCIUM CARBONATE 500 MG CHEWABLE PO PRN (07:55)
[2024-12-05] MEDS ORDERED: ARTIFICIAL TEARS-HYPROMELLOSE DROPS 15 ML BTL BOTH EYES PRN (07:55)
[2024-12-05] MEDS ORDERED: NALOXONE 0.4 MG/ML 1 ML VIAL IVP PRN (08:05)
[2024-12-05] MEDS: SYMBICORT 160-4.5 MCG INHALER INHALATION SCH (08:16)
[2024-12-05] MEDS: ISOSORBIDE MONONITRATE ER 30 MG TAB.ER.24H PO SCH (08:50)
[2024-12-05] MEDS: PRAVASTATIN SODIUM 40 MG TAB PO SCH (08:50)
[2024-12-05] MEDS: POTASSIUM CHLORIDE ER 20 MEQ TAB.ER PO SCH (08:50)
[2024-12-05] MEDS: FERROUS SULFATE 325 MG TAB PO SCH (08:50)
[2024-12-05] MEDS: ASPIRIN 81 MG PO SCH (08:50)
[2024-12-05] MEDS: MORPHINE SULFATE IR 15 MG TABLET PO SCH (08:51)
[2024-12-05] MEDS: TRIAMCINOLONE 0.1% CREAM 80 GM TUBE TOPICAL SCH (08:51)
[2024-12-05] MEDS: FOLIC ACID 1 MG TAB PO SCH (08:51)
[2024-12-05] MEDS: ENOXAPARIN 40 MG/0.4 ML SYRINGE SQ SCH (08:51)
[2024-12-05] MEDS: PREGABALIN 100 MG CAP PO SCH (08:51)
[2024-12-05] MEDS: FUROSEMIDE 40 MG TAB PO SCH (08:51)
[2024-12-05] MEDS ORDERED: CALCIUM PO SCH (09:00)
[2024-12-05] MEDS ORDERED: MANGANESE PO SCH (09:00)
[2024-12-05] MEDS ORDERED: ZINC PO SCH (09:00)
[2024-12-05] MEDS ORDERED: [UNRECOGNIZED DRUG - OTHER] PO SCH (09:00)
[2024-12-05] MEDS ORDERED: CHOLECALCIFEROL PO SCH (09:00)
[2024-12-05] MEDS ORDERED: MAGNESIUM PO SCH (09:00)
[2024-12-05] MEDS ORDERED: COPPER PO SCH (09:00)
[2024-12-05 10:18] VITALS: BP 132/86; PULSE 96; RESP 16; TEMP 98.1
[2024-12-05 11:07] LABS: Basophils # (A) 0.03 X 10*3/uL (0.00-0.10); Basophils % (A) 0.2 %; Eosinophils # (A) 0 X 10*3/uL (0.04-0.35); Eosinophils % (A) 0 %; HCT 45.6 % (37.2-46.3); HGB 15.1 g/dL (12.0-15.0); Lymphocytes # (A) 0.67 X 10*3/uL (0.90-5.00); Lymphocytes % (A) 5.1 %; MCH 29.3 pg (27.0-32.0); MCHC 33.1 g/dL (32.0-37.0); MCV 88.5 FL (80.0-97.0); Mean Platelet Volume 10.7 FL (9.5-12.2); Monocytes # (A) 0.53 X 10*3/uL (0.20-1.00); NRBC Per 100 WBC 0 X 10*3/uL (0.00-0.01); Neutrophils # (A) 11.81 X 10*3/uL (1.80-7.70); Neutrophils % (A) 90.2 %; Platelet Count 207 X 10*3/uL (140-440); RBC 5.15 X 10*6/uL (4.10-5.20); RDW 16.9 % (11.5-14.5)
[2024-12-05 11:35] LABS: BUN/Creat Ratio 29.33 Ratio (12.00-20.00); Blood Urea Nitrogen 17.6 mg/dL (9.0-27.0); Calcium 9.5 mg/dL (8.7-10.3); Chloride 89 mmol/L (96-109); Glucose 127 mg/dL (70-110); Potassium 4.8 mmol/L (3.5-5.5); Sodium 136 mmol/L (135-145)
--- NOTE | 2024-12-05 15:00 | P.DS ---
Providers Date of admission: 12/04/24 19:36 Attending physician: Kirby Leung MD Primary care physician: Aman Harris MD Hospital Course: Discharge Diagnosis: Acute toxic versus metabolic encephalopathy possibly due to pulmonary pharmacy or CO2 retention Steroids positive with tachycardia and leukocytosis Acute hypoxic hypercapnic respiratory failure Hypochloremic hyponatremia Polycythemia likely in the settings of hypoxia HFpEF HTN HLD COPD Osteoporosis RA GERD CVA/TIA Hospital Course: ED documentation reviewed. Per ED, the patient was found obtunded at home, EMS notified , given narcan nasally responded a little bit , and was brought in here for evaluation. Further chart review showed that was recently discharged from the hospital 4 days ago where she was started on IV antibiotics for UTI and possible lower extremity cellulitis and discharged on oral antibiotics, but she was unable to pick them up and returned. Patient was also admitted last month for altered mentation, fever, and intractable pain. On most recent admission patient developed hypercapnic respiratory failure requiring BiPAP and was transferred to the ICU for closer management, but never required intubation. Patient's respiratory status continued to improve and she was transitioned to Airvo and then regular nasal cannula and deemed stable for regular medical floor. Oxygen requirements continue to improve. Chest x-ray did show a small left pleural effusion on last admission, but thoracentesis was not done. Echocardiogram showed EF of 55-60 with mild increased LV thickness. IV antibiotics were transitioned to oral antibiotics and patient was discharged to [facility]. Vitals on admission temperature 98, heart rate 113, respiratory rate 18, blood pressure 99/46, O2 saturation 85% on room air EKG independently interpreted as sinus tachycardia with a rate of 116 bpm and QTc of 365 ms CXR shows left lung base was not well-evaluated possibly secondary to marked cardiomegaly, possibility of small retrocardiac infiltrate and small left effusion, cannot exclude CHF CT head showed no acute bleeding or mass effect. CTA showed no acute PE Labs on admission show WBC 17, hemoglobin 16.3, platelets 229. PT 1.2, INR 1, PTT 22.7, D-dimer 1.72. Sodium 129 Potassium 4.7 Chloride 82 Bicarb 38 BUN 23 Creatinine 0.58 glucose 183. NT proBNP 314. UA unremarkable. Urine toxicology positive for opiates. Cepheid panel negative. ABG showed pH of 7.46, CO2 61, pO2 74. Sodium improved from 1 29-1 36. Patient was started on Zosyn, blood cultures obtained, C. difficile ordered. Mental status improved in the morning, patient's son took the patient to bring to [facility] AGAINST MEDICAL ADVICE. Patient seen and examined at bedside stated that she was feeling significantly better, was alert and oriented x 4, she states that she had a fall with head trauma but no loss of consciousness. Vital signs reviewed and stable. General: [nontoxic], [no distress], [appears at stated age] Derm: [warm], [dry] Head: [atraumatic], [normocephalic], [symmetric] Eyes: [EOMI], [no lid lag], [anicteric sclera] Mouth: [no lip lesion], [mucus membranes moist] Cardiovascular: [S1S2 reg], [no murmur] Lungs: [CTA bilateral], [no rhonchi, no rales] , [no accessory muscle use] Abdominal: [soft], [ nontender to palpation], [no guarding], [no appreciable organomegaly] Ext: [no gross muscle atrophy], [no edema], [no contractures] Neuro: [ CN II-XI grossly intact], [no focal neuro deficits] Psych: [Alert], [oriented], [appropriate affect] A total of 40 minutes of time were spent preparing this complex discharge summary. Patient was discharged on 12/05/24 AMA. Plan - Discharge Summary Discharge Rx Participant: Yes New Discharge Prescriptions: No Action Naloxone HCl [Narcan] 4 mg NASAL ONCE PRN PRN Reason: OVERDOSE Morphine Sulfate Ir [MSIR] 15 mg PO BID metHOTREXate sodium [Methotrexate] 20 mg PO SOLORZANO Isosorbide Mononitrate ER [Imdur] 30 mg PO DAILY Erythromycin Ophth Oint [Romycin Ophth Oint] 1 applic BOTH EYES HS Calcium/D3/Mag Ox/Client Account Manager/Silvano/Zn [Caltrate [id number] Tab] 1 tab PO BID Menthol-Zinc Oxide Oint [Calmoseptine Ointment] 4 gm TOPICAL QID PRN PRN Reason: IRRITATION Menthol [Biofreeze] 1 applic TOPICAL TID PRN PRN Reason: Pain Aspirin EC [Ecotrin Low Dose] 81 mg PO DAILY Ascorbic Acid [Vitamin C] 250 mg PO SUWEFR Urea 40% Cream 1 gram TOPICAL HS Furosemide [Lasix] 40 mg PO DAILY #30 tab predniSONE See Taper PO DIRECTED #30 tab Triamcinolone 0.025% Cream [Kenalog 0.025% Cream] 1 applic TOPICAL DAILY Calcium Carbonate [Tums] 500 mg PO BID PRN PRN Reason: acid reflux Budesonide-Formot 160-4.5 Mcg [Symbicort 160-4.5 Mcg Inhaler] 2 puff INHALATION RT-BID Sennosides/Docusate Sodium [Senna-S 8.6-50 mg Tablet] 1 tab PO HS Carboxymethylcellulose Sodium [Refresh Tears] 1 drop BOTH EYES BID PRN PRN Reason: dry eyes Carboxymethylcellulose Sodium [Refresh Tears] 1 drop BOTH EYES DAILY Pregabalin [Lyrica] 200 mg PO BID Pravastatin Sodium [Pravachol] 40 mg PO DAILY Potassium Chloride [Klor-Con M20] 20 meq PO DAILY Omeprazole [PriLOSEC] 20 mg PO DAILY Nystatin 100,000Unit/gm Cream [Mycostatin Cream] 1 applic TOPICAL DIRECTED Metoprolol Tartrate [Lopressor] 12.5 mg PO BID Folic Acid 2 mg PO DAILY Ferrous Gluconate 324 mg PO SUWEFR Alendronate Sodium [Fosamax] 70 mg PO SOLORZANO Cranberry Fruit Extract [Cranberry] 200 mg PO HS Ammonium Lactate Lotion [Lac-Hydrin 12% Lotion] 1 applic TOPICAL BID Albuterol Sulfate [Albuterol Sulfate Hfa] 2 puff INHALATION RT-Q6H PRN PRN Reason: Shortness Of Breath OR COUGH Ipratropium-Albuterol Nebulize [Duoneb 0.5 mg-3 mg/3 ml Soln] 3 ml INHALATION RT-QID PRN #120 each PRN Reason: Shortness Of Breath Or Wheezing Discharge Medication List Albuterol Sulfate [Albuterol Sulfate Hfa] 2 puff INHALATION RT-Q6H PRN 11/13/24 [History] Alendronate Sodium [Fosamax] 70 mg PO SOLORZANO 11/13/24 [History] Ammonium Lactate Lotion [Lac-Hydrin 12% Lotion] 1 applic TOPICAL BID 11/13/24 [History] Ascorbic Acid [Vitamin C] 250 mg PO SUWEFR 11/13/24 [History] Aspirin EC [Ecotrin Low Dose] 81 mg PO DAILY 11/13/24 [History] Budesonide-Formot 160-4.5 Mcg [Symbicort 160-4.5 Mcg Inhaler] 2 puff INHALATION RT-BID 11/13/24 [History] Calcium Carbonate [Tums] 500 mg PO BID PRN 11/13/24 [History] Calcium/D3/Mag Ox/Client Account Manager/Silvano/Zn [Caltrate [id number] Tab] 1 tab PO BID 11/13/24 [History] Carboxymethylcellulose Sodium [Refresh Tears] 1 drop BOTH EYES BID PRN 11/13/24 [History] Carboxymethylcellulose Sodium [Refresh Tears] 1 drop BOTH EYES DAILY 11/13/24 [History] Cranberry Fruit Extract [Cranberry] 200 mg PO HS 11/13/24 [History] Erythromycin Ophth Oint [Romycin Ophth Oint] 1 applic BOTH EYES HS 11/13/24 [History] Ferrous Gluconate 324 mg PO SUWEFR 11/13/24 [History] Folic Acid 2 mg PO DAILY 11/13/24 [History] Isosorbide Mononitrate ER [Imdur] 30 mg PO DAILY 11/13/24 [History] Menthol [Biofreeze] 1 applic TOPICAL TID PRN 11/13/24 [History] Menthol-Zinc Oxide Oint [Calmoseptine Ointment] 4 gm TOPICAL QID PRN 11/13/24 [History] Metoprolol Tartrate [Lopressor] 12.5 mg PO BID 11/13/24 [History] Morphine Sulfate Ir [MSIR] 15 mg PO BID 11/13/24 [History] Naloxone HCl [Narcan] 4 mg NASAL ONCE PRN 11/13/24 [History] Nystatin 100,000Unit/gm Cream [Mycostatin Cream] 1 applic TOPICAL DIRECTED 11/13/24 [History] Omeprazole [PriLOSEC] 20 mg PO DAILY 11/13/24 [History] Potassium Chloride [Klor-Con M20] 20 meq PO DAILY 11/13/24 [History] Pravastatin Sodium [Pravachol] 40 mg PO DAILY 11/13/24 [History] Pregabalin [Lyrica] 200 mg PO BID 11/13/24 [History] Sennosides/Docusate Sodium [Senna-S 8.6-50 mg Tablet] 1 tab PO HS 11/13/24 [History] Urea 40% Cream 1 gram TOPICAL HS 11/13/24 [History] metHOTREXate sodium [Methotrexate] 20 mg PO SOLORZANO 11/13/24 [History] Furosemide [Lasix] 40 mg PO DAILY #30 tab 11/30/24 [Rx] Ipratropium-Albuterol Nebulize [Duoneb 0.5 mg-3 mg/3 ml Soln] 3 ml INHALATION RT-QID PRN #120 each 11/30/24 [Rx] predniSONE See Taper PO DIRECTED #30 tab 11/30/24 [Rx] Triamcinolone 0.025% Cream [Kenalog 0.025% Cream] 1 applic TOPICAL DAILY 12/04/24 [History] Follow up Appointment(s)/Referral(s): Aman Harris MD [Primary Care Provider] - 1-2 days Discharge Disposition: LEFT AGAINST MEDICAL ADVICE
[2024-12-05] MEDS ORDERED: UREA 40% TOPICAL SCH (21:00)
== END 2024-12-05 13:42 | disposition left against medical advice (07) | DRG 917 ==
LOC: EC 12:23 → 5NMEDONC 19:36
PROVIDERS: ADMIT Internal Medicine; ATTEND Internal Medicine
DX: T50.911A Poisoning by multiple unspecified drugs, medicaments and biological substances, accidental (unintentional), initial encounter (principal); G92.8 Other toxic encephalopathy; J96.01 Acute respiratory failure with hypoxia; J96.02 Acute respiratory failure with hypercapnia; E87.1 Hypo-osmolality and hyponatremia; I50.32 Chronic diastolic (congestive) heart failure; I11.0 Hypertensive heart disease with heart failure; J44.9 Chronic obstructive pulmonary disease, unspecified; M06.9 Rheumatoid arthritis, unspecified; S09.90XA Unspecified injury of head, initial encounter; R15.9 Full incontinence of feces; R00.0 Tachycardia, unspecified; M81.0 Age-related osteoporosis without current pathological fracture; E78.5 Hyperlipidemia, unspecified; D72.829 Elevated white blood cell count, unspecified; K21.9 Gastro-esophageal reflux disease without esophagitis; Z53.29 Procedure and treatment not carried out because of patient's decision for other reasons; Z99.81 Dependence on supplemental oxygen; Z79.83 Long term (current) use of bisphosphonates; Z79.82 Long term (current) use of aspirin; Z79.51 Long term (current) use of inhaled steroids; Z79.631 Long term (current) use of antimetabolite agent; Z79.891 Long term (current) use of opiate analgesic; Z79.899 Other long term (current) drug therapy; Z96.60 Presence of unspecified orthopedic joint implant; Z86.73 Personal history of transient ischemic attack (TIA), and cerebral infarction without residual deficits; Z88.5 Allergy status to narcotic agent; Z91.041 Radiographic dye allergy status; E87.8 Other disorders of electrolyte and fluid balance, not elsewhere classified; D75.1 Secondary polycythemia; W19.XXXA Unspecified fall, initial encounter
CPT/HCPCS: 36415; 36600; 51702; 70450; 71045; 71275; 80048; 80053; 80306; 81003; 82805; 83605; 83880; 83935; 84145; 84300; 84484; 85025; 85379; 85610; 85730; 87040; 87636; 93005; 94640; 96361; 96365; 96366; 96372; 96375; 99285